=== PATIENT | male | born 1955 | race Caucasian/White ===

== ENCOUNTER 2023-08-06 10:42 | Outpatient (OUT) | payer OTHER, SELFPAY ==
--- NOTE | 2023-08-06 11:08 | PM.CN ---
Consult Note: HPI Data of Consult Patient: known to practice within the last 3 years Requesting Physician: Bernie Bal NP Primary Care Provider: Lauryn Ahmadi Consult Narrative Reason for consult: f/u Narrative: Roney Carlson a pleasant 68 year old male presents for evaluation of chronic left low back and left buttock pain. Today rating pain 1/10 as a dull and occasionally sharp pain, recently went to the chiropractor with great pain relief. Pain at its worst is 7-8/10 and is impeding functional ability as well as affecting his mood. 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 Patient would like to discuss repeating L 3,4,5 RFA as it has provided greater than 50% pain relief for 18 months and is now starting to interfere more. cc:: CC: Bernie Bal NP Review of Systems ROS Status of ROS 10 or more systems reviewed and unremarkable except as noted in history and below Musculoskeletal Reports: back pain Exam Constitutional Documenting provider has reviewed patient's vital signs: yes Common normals: no apparent distress, oriented x3, healthy appearing, alert and well nourished General appearance: cooperative HENMS Common normals: normocephalic, hearing grossly normal bilaterally and moist oral mucous membranes Head and scalp: normocephalic Eye Common normals: PERRL Pupil: PERRL Neck & C-Spine Common normals: full ROM General: normal visual inspection Chest Common normals: inspection of chest normal Respiratory Common normals: normal respiratory effort, no retractions and no use of accessory muscles Back & Pelvis Lumbar spine/lower back: ROM limited and pain with ROM Other: positive facet loading axial low back pain without radiculopathy facet pain over left L3,4,5 Extremity Common normals: normal to inspection and full ROM Neuro Common normals: oriented x3, CN's II-XII intact bilaterally, moves all extremities, no focal motor deficits, no sensory deficits noted and deep tendon reflexes 2+ bilaterally Sensorium/orientation: alert Gait (neuro): normal gait Motor exam: strength 5/5 throughout and no movement abnormalities noted Psych Common normals: mental status grossly normal, thought process normal, cooperative, affect normal, speech normal and activity/motor behavior normal Speech: normal speech Thought process: normal thought process Results Additional Findings Additional findings: I have checked an OARRS report on this patient today and there are no aberrancies noted in the prescribing history.?? A drug screen was completed and reviewed within the last year, and if there has not been a drug screen completed we ordered one today to monitor higher risk, state monitored pain medication use. As part of providing excellent, safe, comprehensive care, the following was completed at our patient's visit: 1. A medication reconciliation and review to ensure accurate knowledge of current/active medications, including asking our patients to inform us about any [id number] medications or herbal remedies/nutritional supplements/alternative remedies. 2. A review to specifically ensure our patients have had annual screening for: elevated body mass index (BMI), tobacco use, screening for depression, and screening for unhealthy alcohol use. When screening is concerning, patients are provided with education and the specific recommendation to discuss the concerning health issue and treatment options with their primary care provider. Assessment and Plan Assessment and Plan (1) Lumbar disc displacement without myelopathy: (2) Lumbago: Plan patient has had 18 months of greater than 50% pain relief and functional improvement from previous left L3,4,5 RFA but now feels it is wearing off and causing more pain and functional difficulty proceed with 1 MBB at left L3,4,5 under fluoroscopy working towards thermal RFA continue current medications continue chiropractice care [employer] reveiwed and signed today f/u after injection
== END 2023-08-06 10:43 | disposition home or self-care (01) ==
PROVIDERS: PCP Nurse Practitioner Family; Visit Provider Nurse Practitioner
DX: M51.26 Other intervertebral disc displacement, lumbar region (principal)
CPT/HCPCS: G0463

== ENCOUNTER 2023-10-30 09:32 | Outpatient (OUT) | payer OTHER, SELFPAY ==
--- NOTE | 2023-10-30 09:41 | MR_ITS ---
[address] [address] Patient Name: ROBSON PAREKH MRN: [id number] date: 1955 Sex: M Assigned Patient Location: MRI Current Patient Location: MRI Accession/Order Number: [id number] Exam Date: 10/30/2023 09:45 Report Date: 10/30/2023 14:41 At the request of: WU AGUIRRE Procedure: MR lumbar spine wo con MRI LUMBAR SPINE WITHOUT CONTRAST, 10/30/2023. HISTORY: Chronic low back pain. Radiculopathy. COMPARISON: MRI lumbar spine without contrast, 11/11/2019. TECHNIQUE: Multiplanar, multisequence MRI imaging of the lumbar spine without contrast. FINDINGS: There are postoperative changes from previous interbody fusion at L4-L5 and L5-S1. There is transitional anatomy with a small rudimentary disc space at the S1-S2 level. Alignment appears normal. No subluxation. There are no acute compression fractures. L5-S1, postoperative changes from prior right hemilaminectomy and interbody fusion stable. There is moderate facet arthropathy on the left. Facet hypertrophy, ligamentous thickening and endplate osteophyte complex result in moderate spinal canal stenosis with severe left lateral recess stenosis. Disc space narrowing and endplate osteophytes result in severe bilateral foraminal narrowing. This level is stable. L4-L5, postoperative changes from prior interbody fusion are stable. There is mild central spinal canal stenosis. Disc space narrowing and osteophytes as well as facet hypertrophy result in moderate bilateral neural foraminal narrowing. This level is stable. L3-L4, moderate degenerative disc disease. Diffuse disc bulge. There is facet hypertrophy and ligamentum flavum thickening. Severe spinal canal stenosis with severe effacement of the thecal sac stable. Moderate foraminal narrowing bilaterally. This level appears stable. L2-L3, severe degenerative disc disease. Moderate facet arthropathy with ligamentum flavum thickening. Diffuse endplate osteophyte complex. Severe spinal stenosis with severe effacement of the thecal sac is stable. Moderate to severe bilateral foraminal narrowing is stable. L1-L2, moderate degenerative disc disease. Diffuse disc bulge. Moderate central spinal canal stenosis. Moderate bilateral foraminal narrowing. T12-L1, facet hypertrophy results in mild spinal stenosis. No foraminal narrowing. This level is stable. T11-T12, disc bulge, facet hypertrophy and ligamentum flavum thickening results in severe spinal canal stenosis with compression of the cord. This is only seen on the sagittal images. No paraspinal masses. MR/MR lumbar spine wo con IMPRESSION: 1. Stable MRI of the lumbar spine. 2. There are postoperative changes from previous interbody fusion at L4-L5 and L5-S1 which are stable. 3. Degenerative changes result in severe spinal stenosis at L2-L3 and L3-L4 with severe effacement of the thecal sac. This is stable. There is moderate spinal canal stenosis at L1-L2 which is stable. 4. On the sagittal images, at T11-T12, disc bulge, facet hypertrophy and ligamentum flavum thickening results in severe spinal stenosis with compression of the lower spinal cord. 5. Foraminal narrowing at multiple levels as described above appears stable. Electronically authenticated by: BALTAZAR HORNER Date: 10/30/2023 14:41
== END 2023-10-30 09:33 | disposition home or self-care (01) ==
LOC: MRI 09:34
PROVIDERS: PCP Nurse Practitioner Family; Visit Provider Nurse Practitioner Family
DX: M51.26 Other intervertebral disc displacement, lumbar region (principal)
CPT/HCPCS: 72148

== ENCOUNTER 2024-04-18 07:39 | Day surgery (SDC) | payer OTHER, SELFPAY ==
[2024-04-18 07:43] VITALS: BP 128/77; PULSE 67; TEMP 36.4; O2SAT 93
[2024-04-18 08:33] VITALS: BP 146/68; PULSE 88; O2SAT 97
[2024-04-18] MEDS: LIDOCAINE HCL 2% PF 100 MG/5 ML VIAL INJ (08:34)
[2024-04-18] MEDS: BUPIVACAINE HCL 0.25% PF 25 MG/10 ML VIAL INJ (08:35)
[2024-04-18 08:36] VITALS: BP 135/75; PULSE 82; O2SAT 97
--- NOTE | 2024-04-18 08:36 | W.PM.PROCNOT ---
Date of procedure: 04/18/24 Post-op diagnosis: same as pre-op Procedure: Procedure: Left L3, 4, 5 medial branch block Medications: Bupivacaine 0.25% 3cc The patient was seen and examined in the preoperative holding area.? An informed consent was obtained and placed on the chart.? The patient was brought to the medical procedure unit and placed in the prone position.? A timeout was completed verifying correct patient, procedure site, positioning, plan, and special equipment.? Using aseptic technique, the needle was placed at left L3. Under direct fluoroscopic visualization a Quincke-tipped spinal needle was advanced to the junction of the superior articulating process with the transverse process at the designated medial branch segment.? Preceded by negative aspiration, the above-mentioned injectate was placed in 1 mL aliquots.? The procedure was completed at left L4, 5.? The needle was removed and insertion site was covered.? The patient was taken to the postprocedural recovery area and monitored for an appropriate length of time before found suitable for discharge in the company of a responsible adult. Anesthesia: Local Surgeon: Damion Bazan Pathology: none sent Condition: stable Disposition: no change
== END 2024-04-18 08:39 | disposition home or self-care (01) ==
PROVIDERS: PCP Nurse Practitioner Family; Visit Provider Anesthesiology
DX: M54.50 Low back pain, unspecified (principal); M51.26 Other intervertebral disc displacement, lumbar region
CPT/HCPCS: 64493; 64494

== ENCOUNTER 2024-04-20 10:16 | Outpatient (OUT) | payer OTHER, SELFPAY ==
--- NOTE | 2024-04-20 10:26 | PM.CN ---
Consult Note: HPI Data of Consult Patient: known to practice within the last 3 years Requesting Physician: Bernie Bal NP Primary Care Provider: Lauryn Ahmadi Consult Narrative Reason for consult: f/u Narrative: Roney Carlson a pleasant 68 year old male presents for evaluation of chronic left low back and left buttock pain. Today rating pain 1/10 as a dull and occasionally sharp pain, recently went to the chiropractor with great pain relief. Pain at its worst is 7-8/10 and is impeding functional ability as well as affecting his mood. 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 Previous left L 3,4,5 RFA as provided greater than 50% pain relief for 18 months. Recently underwent left L3,4,5 MBB with >90% improvement in pain and functional ability immediately after and hours following. cc:: CC: Bernie Bal NP Review of Systems ROS Status of ROS 10 or more systems reviewed and unremarkable except as noted in history and below Musculoskeletal Reports: back pain Meds Home Medications and Allergies Home Medications ?Medication ?Instructions ?Recorded ?Confirmed ?Type buprenorphine 8 mg-naloxone 2 mg 2 tab sublingual DAILY 08/06/23 04/18/24 History sublingual tablet levothyroxine 125 mcg tablet 125 mcg PO DAILY 08/06/23 04/18/24 History (Euthyrox) oxybutynin chloride 5 mg tablet mg 04/18/24 History Allergies Allergy/AdvReac Type Severity Reaction Status Date / Time No Known Drug Allergies Allergy Verified 04/18/24 07:50 Exam Constitutional Documenting provider has reviewed patient's vital signs: yes Common normals: no apparent distress, oriented x3, healthy appearing, alert and well nourished General appearance: cooperative [facility] Common normals: normocephalic, hearing grossly normal bilaterally and moist oral mucous membranes Head and scalp: normocephalic Eye Common normals: PERRL Pupil: PERRL Neck & C-Spine Common normals: full ROM General: normal visual inspection Chest Common normals: inspection of chest normal Respiratory Common normals: normal respiratory effort, no retractions and no use of accessory muscles Back & Pelvis Lumbar spine/lower back: ROM limited and pain with ROM Other: positive facet loading axial low back pain without radiculopathy facet pain over left L3,4,5 Extremity Common normals: normal to inspection and full ROM Neuro Common normals: oriented x3, CN's II-XII intact bilaterally, moves all extremities, no focal motor deficits, no sensory deficits noted and deep tendon reflexes 2+ bilaterally Sensorium/orientation: alert Gait (neuro): normal gait Motor exam: strength 5/5 throughout and no movement abnormalities noted Psych Common normals: mental status grossly normal, thought process normal, cooperative, affect normal, speech normal and activity/motor behavior normal Speech: normal speech Thought process: normal thought process Results Additional Findings Additional findings: If on a controlled substance or opioids, I have checked an OARRS report on this patient and there are no aberrancies noted in the prescribing history.??If on a controlled substance or opioid a drug screen was completed and reviewed within the last year, and if there has not been a drug screen completed we ordered one today to monitor higher risk, state monitored pain medication use. As part of providing excellent, safe, comprehensive care, the following was completed at our patient's visit: 1. A medication reconciliation and review to ensure accurate knowledge of current/active medications, including asking our patients to inform us about any [id number] medications or herbal remedies/nutritional supplements/alternative remedies. 2. A review to specifically ensure our patients have had annual screening for screening for depression, screening for tobacco use, and screening for unhealthy alcohol use. For concerning screenings had a discussion with the patient, provided patient education, and recommended follow-up with primary care provider when appropriate. If patient noted with a risk of falling, they received education on strength, gait, and balance training to prevent future risk of falling. Assessment and Plan Assessment and Plan (1) Lumbar disc displacement without myelopathy: (2) Lumbago: Plan Left L3,4,5 facet thermal RFA under fluoroscopy with IV sedation, previous left l3,4,5 facet RFA provided >50% improvement in pain and functional ability >12 months. continue current medications continue chiropractice care f/u 1 month after RFA
== END 2024-04-20 10:17 | disposition home or self-care (01) ==
LOC: PM 10:16
PROVIDERS: PCP Nurse Practitioner Family; Visit Provider Nurse Practitioner
DX: M51.26 Other intervertebral disc displacement, lumbar region (principal)
CPT/HCPCS: G0463

== ENCOUNTER 2024-08-29 07:02 | Day surgery (SDC) | payer OTHER, SELFPAY ==
--- OUTSIDE RECORDS SUMMARY | 2024-08-29 07:07 | XMS_ITS | CCD ---
Author Organization [facility] Care Team Providers Care State Comptroller Name Role Phone Mecca Saucedo Primary Care Provider Mecca SAUCEDO Primary Care Physician Mecca Saucedo MD Primary Care Provider DR DUNG CHAVIS Attending Unavailable TIMOTHY, WU Primary Care Unavailable ASHLEY LION Consulting Unavailable PARTHA, DR DUNG Hull Admitting Unavailable TIMOTHY, WU Primary Care Unavailable PARTHA, DR DUNG Hull Attending Unavailable PARTHA, DR DUNG Hull Consulting Unavailable PARTHA, DR DUNG Hull Admitting Unavailable REGGIE PENNINGTON Consulting Unavailable PARTHA, DR GRUBER Consulting Unavailable TIMOTHY, WU Primary Care Unavailable PARTHA, DR DUNG Hull Attending Unavailable PARTHA, DR DUNG Hull Consulting Unavailable PARTHA, DR DUNG Hull Admitting Unavailable TIMOTHY, WU Primary Care Unavailable LIONASHLEY BANKS Consulting Unavailable PARTHA, DR DUNG Hull Attending Unavailable PARTHA, DR DUNG Hull Admitting Unavailable MD Rasheed Roberson Attending Provider MD Edouard Saucedo Primary Care Provider [phone] DO Joshua Eng II Referring Provider Viola Figueredo Unavailable Unavailable MD Rasheed Roberson Attending Provider MD Edouard Saucedo Primary Care Provider [phone] DO Joshua Eng II Referring Provider [phone] Mecca Saucedo MD Primary Care Provider [phone] MECCA SAUCEDO Referring Unavailable BROWN, CHRISTOPHER R Primary Care Unavailable BROWN, CHRISTOPHER R Referring Unavailable BROWN, CHRISTOPHER R Primary Care Unavailable BROWN, CHRISTOPHER R Referring Unavailable BROWN, CHRISTOPHER R Primary Care Unavailable CHRISTA AMEZQUITA Referring Unavailable BROWN, CHRISTOPHER R Primary Care Unavailable BROWN, CHRISTOPHER R Referring Unavailable BROWN, CHRISTOPHER R Primary Care Unavailable BROWN, CHRISTOPHER R Referring Unavailable BROWN, CHRISTOPHER R Primary Care Unavailable BROWN, CHRISTOPHER R Referring Unavailable BROWN, CHRISTOPHER R Primary Care Unavailable BROWN, CHRISTOPHER R Referring Unavailable BROWN, CHRISTOPHER R Primary Care Unavailable BROWN, CHRISTOPHER R Referring Unavailable BROWN, CHRISTOPHER R Primary Care Unavailable CHRISTA AMEZQUITA Referring Unavailable BROWN, CHRISTOPHER R Primary Care Unavailable BROWN, CHRISTOPHER R Referring Unavailable BROWN, CHRISTOPHER R Primary Care Unavailable BROWN, CHRISTOPHER R Referring Unavailable BROWN, CHRISTOPHER R Primary Care Unavailable BROWN, CHRISTOPHER R Referring Unavailable BROWN, CHRISTOPHER R Primary Care Unavailable SHERYL, Christopher Primary Care Physician [phone] Edouard Saucedo Primary Care Unavailable Rasheed Roberson Admitting Unavailable Rasheed Roberson Attending Unavailable Adamowicz II, Joshua J Referring Unavaila ble JESSE HERNANDEZ Attending Unavailable BALDEMAR SEVILLA Referring Unavailable JESSE HERNANDEZ Referring Unavailable Damion Bazan MD Attending Unavailable Mecca SAUCEDO Attending Unavailable Mecca SAUCEDO Attending Unavailable BROWN, Christopher Referring Unavailable WANDA PEÑA Attending Unavailable WANDA PEÑA Attending Unavailable Adamowicz, Joshua Referring Unavailable Adamowicz, DO Joshua Admitting Unavailabl e Adamowicz, Joshua Attending Unavailable Adamowicz, Joshua Referring Unavailable Adamowicz, DO Joshua Admitting Unavailabl e Adamowicz, Joshua Attending Unavailable Adamowicz, Joshua Attending Unavailable Adamowicz, Joshua Admitting Unavailable Tommy SAUCEDOer Attending Unavailable BROWN, Christopher Admitting Unavailable Dina Little Attending Unavailable Adamowicz, Joshua Attending Unavailable Adamowicz, Joshua Admitting Unavailable Adamowicz, Joshua Attending Unavailable Adamowicz, Joshua Admitting Unavailable BROWN, Christopher Admitting Unavailable BROWN, Christopher Attending Unavailable Adamowicz, Joshua Attending Unavailable Adamowicz, Joshua Admitting Unavailable Lue, Dina M. Referring Unavailable Lue, Dina M. Attending Unavailable Lue, Dina M. Admitting Unavailable Adamowicz, Joshua Attending Unavailable Adamowicz, Joshua Attending Unavailable Adamowicz, Joshua Referring Unavailable Adamowicz, Joshua Attending Unavailable Lue, Dina M. Attending Unavailable Lue, Dina M. Admitting Unavailable Lue, Dina M. Referring Unavailable Lue, Dina M. Attending Unavailable Lue, Dina M. Admitting Unavailable Lue, Dina M. Referring Unavailable BROWN, Christopher Admitting Unavailable BROWN, Christopher Referring Unavailable BROWN, Christopher Attending Unavailable BROWN, Christopher Attending Unavailable BROWN, Christopher Attending Unavailable BROWN, Christopher Attending Unavailable Adamowicz, Joshua Attending Unavailable Adamowicz, Joshua Referring Unavailable Adamowicz, Joshua Admitting Unavailable Adamowicz, Joshua Attending Unavailable Adamowicz, Joshua Admitting Unavailable Allergies Allergy Classification Reported Allergen(s) Allergy Type Date of Onset Reaction(s) Facility (2 sources) No Known Medication Allergies; Translations: [No Known Medication Allergies] Propensity to adverse reactions (disorder) [facility] Medications Current Medications Medication Drug Class(es) Dates Sig (Normalized) Sig (Original) [id number] actuat albuterol 0.09 mg/actuat metered dose inhaler (3 sources) beta2-Adrenergic Agonist Start: 09-23-2022 take 1 puff(s) by inhalation once daily Albuterol Sulfate (Ventolin Hfa) 90 mcg/actuation Hfa Aerosol Inhaler Active 2 PUFF INHALATION Daily September 23, 2022 1:00am ALPRAZolam 0.5 mg oral tablet (20 sources) Benzodiazepine Start: 06-18-2022 take 1 tablet by mouth three times daily as needed for anxiety Xanax 0.5 mg Tab 0.5 mg = 1 tab(s), Oral, TID, PRN for anxiety, # 30 tab(s), Refills(s) 0, Pharmacy: [facility], 177, cm, 06/03/23 13:43:00 EDT, Height/Length Dosing, 76.3, kg, 06/03/23 13:43:00 EDT, Weight Dosing Start Date: 06/03/23 Status: Ordered apixaban 5 mg oral tablet (18 sources) Factor Xa Inhibitor Start: 02-09-2023 take 1 tablet by mouth twice daily Eliquis 5 mg oral tablet 5 mg = 1 tab(s), Oral, BID, # 60 tab(s), Refills(s) 11, Pharmacy: [facility], 177.7, cm, 02/09/23 10:32:00 EDT, Height/Length Dosing, 79.4, kg, 02/09/23 10:32:00 EDT, Weight Dosing Start Date: 02/09/23 Status: Ordered Start: 01-31-2023 Eliquis Starte r Pack 5 mg oral tablet See Instructions, as directed on package labeling for PE, # 1 EA, Refills(s) 0, Pharmacy: [facility], 177.7, cm, 01/30/23 11:27:00 EDT, Height/Length Dosing, 79.5, kg, 01/30/23 11:27:00 EDT, Weight Dosing Start Date: 01/31/23 Status: Ordered azithromycin 250 mg oral tablet (3 sources) Macrolide Antimicrobial Start: 01-21-2023 End: 01-26-2023 azithromycin 250 mg Tab = 1 packet(s), Oral, As Directed, as directed on package labeling, X 5 day(s), # 6 tab(s), Refills(s) 0, Pharmacy: [facility], 177.7, cm, 01/21/23 11:00:00 EDT, Height/Length Dosing, 81.8, kg, 01/21/23 11:00:00 EDT, Weight Dosing Start Date: 01/21/23 Stop Date: 01/26/23 Status: Ordered Start: 11-20-2022 End: 11-25-2022 Zithromax 250 mg Tab = 1 pac ket(s), Oral, As Directed, as directed on package labeling, X 5 day(s), # 6 tab(s), Refills(s) 0, Pharmacy: [facility], 177.7, cm, 10/09/22 10:39:00 EST, Height/Length Dosing, 82.4, kg, 11/20/22 9:43:00 EST, Weight Dosing Start Date: 11/20/22 Stop Date: 11/25/22 Status: Ordered benzonatate 200 mg oral capsule (2 sources) Non-narcotic Antitussive Start: 02-18-2023 End: 03-10-2023 benzonatate 200 mg oral capsule 200 mg = 1 cap(s), Oral, TID, May use up to 3 times daily for cough, X 10 day(s), # 30 cap(s), Refills(s) 1, Pharmacy: [facility], 177.7, cm, 02/09/23 10:32:00 EDT, Height/Length Dosing, 79.4, kg, 02/09/23 10:32:00 EDT, Weight Dosing Start Date: 02/18/23 Stop Date: 03/10/23 Status: Ordered brompheniramine maleate 0.4 mg/ml / dextromethorphan hydrobromide 2 mg/ml / pseudoephedrine hydrochloride 6 mg/ml oral solution (1 source) alpha-Adrenergic Agonist, Uncompetitive S-[id number]-asparta te Receptor Antagonist, Sigma-1 Agonist Start: 01-21-2023 take 5 mL by mouth four times daily for cough and congestion brompheniramine/d extromethorphan/P SE 2 mg-10 mg-30 mg/5 mL oral syrup 5 mL, Oral, QID for cough and congestion, 200 mL, Refill(s) 0, [facility], 177.7, cm, 01/21/23 11:00:00 EDT, Height/Length Dosing, 81.8, kg, 01/21/23 11:00:00 EDT, Weight Dosing Start Date: 01/21/23 Status: Ordered Suboxone (20 sources) Partial Opioid Agonist, Opioid Antagonist Start: 04-09-2023 Suboxone 8mg/2mg, SubLingual, BID, Refill(s) 0 Start Date: 04/09/23 Status: Ordered Start: 07-23-2021 Buprenorphine- Naloxone (Suboxone) 8-2 mg Film Active 1 FILM SUBLINGUAL Twice daily September 23, 2022 1:00am buprenorphine-na loxone (SUBOXONE) 8-2 MG SUBL SL tablet Place 2 tablets under the tongue daily 0 Active calcium chloride 0.0014 meq/ml / potassium chloride 0.004 meq/ml / sodium chloride 0.103 meq/ml / sodium lactate 0.028 meq/ml injectable solution (1 source) Start: 09-05-2020 lactated ringe rs infusion diclofenac sodium 0.01 mg/mg topical gel (5 sources) Nonsteroidal Anti-inflammatory Drug Start: 07-23-2021 Voltaren Gel 1% G el 1 morgan, Topical, QID for pain, 100 gram, Refill(s) 0 Start Date: 07/23/21 Status: Ordered Start: 07-23-2021 Voltaren Gel 1 % Gel 1 morgan, Topical, QID for pain, 100 gram, Refill(s) 0 Start Date: 07/23/21 Status: Ordered DULoxetine 30 mg delayed release oral capsule (16 sources) Serotonin and Norepinephrine Reuptake Inhibitor Start: 06-03-2022 take 1 capsule by mouth once daily, then take 2 capsules by mouth once daily DULoxetine 30 mg Cap-EC See Instructions, 1 PO daily x 4 days then increase to 2 PO daily, # 60 cap(s), Refills(s) 0, Pharmacy: [facility], 177.7, cm, 05/29/22 14:43:00 EDT, Height/Length Dosing, 74.5, kg, 05/29/22 14:43:00 EDT, Weight Dosing Start Date: 06/03/22 Status: Ordered DULoxetine 30 mg Cap-EC (2 sources) Start: 06-03-2022 take 1 capsule by mouth once daily, then take 2 capsules by mouth once daily DULoxetine 30 mg Cap-EC See Instructions, 1 PO daily x 4 days then increase to 2 PO daily, # 60 cap(s), Refills(s) 0, Pharmacy: [facility], 177.7, cm, 05/29/22 14:43:00 EDT, Height/Length Dosing, 74.5, kg, 05/29/22 14:43:00 EDT, Weight Dosing Start Date: 06/03/22 Status: Ordered Fluocinonide (20 sources) Corticosteroid Start: 03-13-2023 fluocinonide Top 0.05% Crm 15 gram 1 morgan, Topical, BID Itching, 30 gm, Refill(s) 0, [facility], 177.7, cm, 02/09/23 10:32:00 EDT, Height/Length Dosing, 79.4, kg, 02/09/23 10:32:00 EDT, Weight Dosing Start Date: 03/13/23 Status: Ordered Start: 09-23-2022 Fluocinonide A ctive 1 APPLIC TOPICAL Daily September 23, 2022 1:00am Start: 07-30-2022 fluocinonide T op 0.05% Crm 15 gram 1 morgan, Topical, BID, 60 gram, Refill(s) 1, [facility], 177.7, cm, 07/30/22 9:25:00 EDT, Height/Length Dosing, 75.8, kg, 07/30/22 9:25:00 EDT, Weight Dosing Start Date: 07/30/22 Status: Ordered folic acid 1 mg oral tablet (20 sources) Start: 05-29-2022 take 1 mg by mouth once daily Folic Acid Active 1 MG PO Daily September 23, 2022 1:00am ibuprofen 200 mg oral tablet (20 sources) Nonsteroidal Anti-inflammatory Drug take 1 tablet by mouth every six hours as needed ibuprofen (ADVIL;MOTRIN) 200 MG tablet Take 200 mg by mouth every 6 hours as needed. 0 Active ipratropium bromide 0.021 mg/actuat metered dose nasal spray (18 sources) Anticholinergic Start: 09-11-2022 ipratropium Nasal 0.03% Ber[place] 2 spray(s), Nasal, TID runny nose, 30 mL, Refill(s) 1, [facility], 177.7, cm, 09/11/22 9:08:00 EDT, Height/Length Dosing, 80.4, kg, 09/11/22 10:20:00 EDT, Weight Dosing Start Date: 09/11/22 Status: Ordered levoFLOXacin 750 mg oral tablet (3 sources) Quinolone Antimicrobial Start: 04-09-2023 End: 04-19-2023 take 1 tablet by mouth every twenty-four hours Levaquin 750 mg Tab 750 mg = 1 tab(s), Oral, q24hr, X 10 day(s), # 10 tab(s), Refills(s) 0, Pharmacy: [facility], 78.2, cm, 04/09/23 14:07:00 EDT, Height/Length Dosing, 79.4, kg, 02/09/23 10:32:00 EDT, Weight Dosing Start Date: 04/09/23 Stop Date: 04/19/23 Status: Ordered levothyroxine sodium 0.15 mg oral tablet (20 sources) l-Thyroxine Start: 01-26-2024 take 1 tablet by mouth once daily levothyroxine 150 mcg (0.15 mg) Tab 150 mcg = 1 tab(s), Oral, Daily, # 30 tab(s), Refills(s) 6, Pharmacy: [facility], 172, cm, 01/21/24 10:56:00 EDT, Height/Length Dosing, 78.4, kg, 01/21/24 10:56:00 EDT, Weight Dosing Start Date: 01/26/24 Status: Ordered Start: 05-27-2023 take 1 tablet by jessi once daily levothyroxine 125 mcg (0.125 mg) Tab 125 mcg = 1 tab(s), Oral, Daily, # 90 tab(s), Refills(s) 3, Pharmacy: [facility], 177, cm, 06/03/23 13:43:00 EDT, Height/Length Dosing, 76.3, kg, 06/03/23 13:43:00 EDT, Weight Dosing Start Date: 06/04/23 Status: Ordered Start: 02-08-2023 take 1 tablet by jessi th once daily levothyroxine 125 mcg (0.125 mg) Tab 125 mcg = 1 tab(s), Oral, Daily, # 30 tab(s), Refills(s) 3, called to pharmacy (Rx) Start Date: 02/08/23 Status: Ordered Start: 12-02-2022 take 1 tablet by jessi th once daily levothyroxine 100 mcg (0.1 mg) Tab 100 mcg = 1 tab(s), Oral, Daily, # 90 tab(s), Refills(s) 3 Start Date: 12/02/22 Status: Ordered Start: 11-12-2022 take 1 tablet by jessi th once daily levothyroxine 75 mcg (0.075 mg) Tab 75 mcg = 1 tab(s), Oral, Daily, # 30 tab(s), Refills(s) 1, Pharmacy: [facility], 177.7, cm, 10/09/22 10:39:00 EST, Height/Length Dosing, 82.1, kg, 10/09/22 9:37:00 EST, Weight Dosing Start Date: 11/12/22 Status: Ordered Start: 09-23-2022 take 75 ug by mouth once daily Levothyroxine Active 75 MCG PO Daily September 23, 2022 1:00am Start: 09-11-2022 take 1 tablet by jessi once daily levothyroxine 75 mcg (0.075 mg) Tab 75 mcg = 1 tab(s), Oral, Daily, # 30 tab(s), Refills(s) 1, Pharmacy: [facility], 177.7, cm, 09/11/22 9:08:00 EDT, Height/Length Dosing, 80.4, kg, 09/11/22 10:20:00 EDT, Weight Dosing Start Date: 09/11/22 Status: Ordered Start: 04-24-2022 take 1 tablet by jessi once daily levothyroxine 50 mcg (0.05 mg) Tab 50 microgram = 1 tab(s), Oral, Daily, on empty stomach, # 90 tab(s), Refills(s) 1, Pharmacy: [facility], 177.7, cm, 04/24/22 11:24:00 EDT, Height/Length Dosing, 76, kg, 04/24/22 11:24:00 EDT, Weight Dosing Start Date: 04/24/22 Status: Ordered Start: 10-21-2021 take 1 tablet by jessi once daily levothyroxine 50 mcg (0.05 mg) Tab 50 microgram = 1 tab(s), Oral, Daily, on empty stomach, # 90 tab(s), Refills(s) 1, Pharmacy: [facility], 177.7, cm, 10/21/21 10:24:00 EST, Height/Length Dosing, 80.7, kg, 10/21/21 10:24:00 EST, Weight Dosing Start Date: 10/21/21 Status: Ordered lidocaine 0.05 mg/mg medicated patch (16 sources) Antiarrhythmic, Amide Local Anesthetic Start: 06-03-2022 lidocaine Top 5% film 1 patch(es), Topical, Daily, 30 film, Refill(s) 2, change patch every 24 hours, [facility], 177.7, cm, 05/29/22 14:43:00 EDT, Height/Length Dosing, 74.5, kg, 05/29/22 14:43:00 EDT, Weight Dosing Start Date: 06/03/22 Status: Ordered lidocaine Top 5% film (2 sources) Start: 06-03-2022 lidocaine Top 5% film 1 patch(es), Topical, Daily, 30 film, Refill(s) 2, change patch every 24 hours, [facility], 177.7, cm, 05/29/22 14:43:00 EDT, Height/Length Dosing, 74.5, kg, 05/29/22 14:43:00 EDT, Weight Dosing Start Date: 06/03/22 Status: Ordered lisinopril 5 mg oral tablet (20 sources) Angiotensin Converting Enzyme Inhibitor Start: 10-21-2021 take 5 mg by mouth once daily Lisinopril Active 5 MG PO Daily September 23, 2022 1:00am methylphenidate hydrochloride 5 mg oral tablet (20 sources) Central Nervous System Stimulant Start: 02-19-2023 take 1 tablet by mouth twice daily, then take 2 tablets by mouth twice daily, then take 1 tablet by mouth every six hours at bedtime methylphenidate 5 mg oral tablet See Instructions, 1 PO BID, if not effective OK to increase to 2 PO BID, last dose at least 6 hr prior to bedtime, # 60 tab(s), Refills(s) 0, Pharmacy: [facility], 177.7, cm, 02/09/23 10:32:00 EDT, Height/Length Dosing, 79.4, kg, 02/09... Start Date: 02/19/23 Status: Ordered Start: 11-24-2022 take 1 tablet by jessi twice daily as needed methylphenidate 5 mg oral tablet See Instructions, 1 to 2 PO BID prn cancer treatment related fatigue, # 120 tab(s), Refills(s) 0, Pharmacy: [facility], 177.7, cm, 10/09/22 10:39:00 EST, Height/Length Dosing, 82.4, kg, 11/20/22 9:43:00 EST, Weight Dosing Start Date: 11/24/22 Status: Ordered Start: 10-28-2022 take 1 tablet by jessi th once daily in the morning methylphenidate 5 mg oral tablet See Instructions, 1 PO qam and q mid-day, # 60 tab(s), Refills(s) 0, Pharmacy: [facility], 177.7, cm, 10/09/22 10:39:00 EST, Height/Length Dosing, 82.1, kg, 10/09/22 9:37:00 EST, Weight Dosing Start Date: 10/28/22 Status: Ordered Start: 09-25-2022 take 1 tablet by jessi th once daily in the morning methylphenidate 5 mg oral tablet See Instructions, 1 PO qam and q mid-day, # 60 tab(s), Refills(s) 0, Pharmacy: [facility], 177.7, cm, 09/11/22 9:08:00 EDT, Height/Length Dosing, 80.4, kg, 09/11/22 10:20:00 EDT, Weight Dosing Start Date: 09/25/22 Status: Ordered Start: 09-11-2022 take 0.5 tablet by m outh once daily in the morning, then take 1 tablet by mouth once daily in the morning methylphenidate 5 mg oral tablet See Instructions, 1/2 PO qam and mid-day x 2 days then increase to 1 PO qam and mid-day, # 30 tab(s), Refills(s) 0, Pharmacy: [facility], 177.7, cm, 09/11/22 9:08:00 EDT, Height/Length Dosing, 80.4, kg, 09/11/22 10:20:00 EDT, Weight Do... Start Date: 09/11/22 Status: Ordered methylPREDNISolone 4 mg tab dosepak (7 sources) Start: 12-10-2022 take 1 tablet by mouth once methylPREDNISolone 4 mg tab dosepak = 1 packet(s), Oral, Once, as directed on package labeling, X 6 day(s), # 21 tab(s), Refills(s) 0 Start Date: 12/10/22 Status: Ordered 24 hr mirabegron 50 mg extended release oral tablet (10 sources) beta3-Adrene rgic Agonist Start: 12-07-2023 take 1 tablet by mouth once daily Myrbetriq 50 mg oral tablet, extended release 50 mg = 1 tab(s), Oral, Daily, # 30 tab(s), Refills(s) 11 Start Date: 12/07/23 Status: Ordered Start: 11-30-2023 take 1 tablet by jessi th once daily Myrbetriq 50 mg oral tablet, extended release 50 mg = 1 tab(s), Oral, Daily, # 30 tab(s), Refills(s) 11, Pharmacy: [facility], 177.7, cm, 11/30/23 14:32:00 EST, Height/Length Dosing, 76.5, kg, 11/30/23 14:32:00 EST, Weight Dosing Start Date: 11/30/23 Status: Ordered Start: 06-01-2023 take 1 tablet by jessi th once daily Myrbetriq 25 mg oral tablet, extended release 25 mg = 1 tab(s), Oral, Daily, # 14 tab(s), Refills(s) 0, samples given to patient (Rx) Start Date: 06/01/23 Status: Ordered Start: 06-01-2023 take 1 tablet by jessi th once daily Myrbetriq 50 mg oral tablet, extended release 50 mg = 1 tab(s), Oral, Daily, # 14 tab(s), Refills(s) 0, samples given to patient (Rx) Start Date: 06/01/23 Status: Ordered naproxen 500 mg oral tablet (20 sources) Nonsteroidal Anti-inflammatory Drug Start: 06-26-2022 take 500 mg by mouth twice daily Naproxen Active 500 MG PO Twice daily September 23, 2022 1:00am Start: 05-03-2013 take 1 tablet by jessi th twice daily naproxen (NAPROSYN) 500 MG tablet Take 1 tablet by mouth 2 times daily for 12 doses. 12 tablet 0 05/03/2013 Active OLANZapine 5 mg oral tablet (16 sources) Atypical Antipsychotic Start: 06-26-2022 take 5 mg by mouth at bedtime Olanzapine Active 5 MG PO Bedtime September 23, 2022 1:00am omeprazole 20 mg delayed release oral capsule (20 sources) Proton Pump Inhibitor Start: 06-26-2022 take 20 mg by mouth once daily Omeprazole Active 20 MG PO Daily September 23, 2022 1:00am ondansetron 8 mg oral tablet (20 sources) Serotonin-3 Receptor Antagonist Start: 09-23-2022 take 8 mg by mouth three times daily Ondansetron Hcl Active 8 MG PO Three times daily September 23, 2022 1:00am Start: 05-29-2022 take 1 tablet by jessi th every eight hours as needed for nausea ondansetron 8 mg Tab 8 mg, Oral, q8hr, PRN Nausea, # 30 tab(s), Refills(s) 3, Pharmacy: [facility], 177.7, cm, 09/11/22 9:08:00 EDT, Height/Length Dosing, 80.4, kg, 09/11/22 10:20:00 EDT, Weight Dosing Start Date: 10/08/22 Status: Ordered Start: 05-05-2022 take 1 tablet by jessi th every six hours as needed for nausea ondansetron 4 mg Tab 4 mg = 1 tab(s), Oral, q6hr, PRN Nausea/Vomiting, # 12 tab(s), Refills(s) 2, Pharmacy: [facility], 177.7, cm, 04/24/22 11:24:00 EDT, Height/Length Dosing, 76, kg, 04/24/22 11:24:00 EDT, Weight Dosing Start Date: 05/05/22 Status: Ordered Start: 12-05-2021 take 1 tablet by jessi th every six hours as needed for nausea ondansetron 4 mg Tab 4 mg = 1 tab(s), Oral, q6hr, PRN Nausea/Vomiting, # 12 tab(s), Refills(s) 2, Pharmacy: [facility], 177.7, cm, 10/21/21 10:24:00 EST, Height/Length Dosing, 80.7, kg, 10/21/21 10:24:00 EST, Weight Dosing Start Date: 12/05/21 Status: Ordered oxybutynin chloride 5 mg oral tablet (6 sources) Cholinergic Muscarinic Antagonist Start: 03-11-2024 oxybutynin 5 mg Ta b 5 mg = 1 tab(s), Oral, BID, PRN for urinary discomfort, May use twice daily for overactive bladder symptoms, # 60 tab(s), Refills(s) 5, Pharmacy: [facility], 172, cm, 02/25/24 10:59:00 EDT, Height/Length Dosing, 77.6, kg, 02/25/24 10:59:00 EDT, Weight Dosing Start Date: 03/11/24 Status: Ordered Start: 04-13-2023 oxybutynin 5 m g Tab 5 mg = 1 tab(s), Oral, BID, PRN for urinary discomfort, May use twice daily for overactive bladder symptoms, # 60 tab(s), Refills(s) 2, Pharmacy: [facility], 177.7, cm, 04/13/23 11:14:00 EDT, Height/Length Dosing, 76.4, kg, 04/13/23 11... Start Date: 04/13/23 Status: Ordered oxymetazoline hydrochloride 0.5 mg/ml nasal spray (20 sources) oxymetazoline (A FRIN) 0.05 % nasal spray 2 sprays by Nasal route as needed for Congestion 0 Active predniSONE 20 mg oral tablet (13 sources) Start: 02-25-2024 End: 03-03-2024 take 2 tablets by mouth once daily at mealtime predniSONE 20 mg Tab 40 mg = 2 tab(s), Oral, Daily, with food or milk, X 7 day(s), # 14 tab(s), Refills(s) 0, Pharmacy: [facility], 172, cm, 02/25/24 10:59:00 EDT, Height/Length Dosing, 77.6, kg, 02/25/24 10:59:00 EDT, Weight Dosing Start Date: 02/25/24 Stop Date: 03/03/24 Status: Ordered Start: 12-25-2022 take 2 tablets by mo ohh once daily predniSONE 20 mg Tab 40 mg = 2 tab(s), Oral, Daily, # 14 tab(s), Refills(s) 0, Pharmacy: [facility], 177.7, cm, 12/16/22 13:23:00 EST, Height/Length Dosing, 80.4, kg, 12/25/22 11:22:00 EST, Weight Dosing Start Date: 12/25/22 Status: Ordered Start: 12-25-2022 take 1 tablet by jessi once daily predniSONE 20 mg Tab 20 mg = 1 tab(s), Oral, Daily, # 30 tab(s), Refills(s) 2, Pharmacy: [facility], 177.7, cm, 12/16/22 13:23:00 EST, Height/Length Dosing, 80.4, kg, 12/25/22 11:22:00 EST, Weight Dosing Start Date: 12/25/22 Status: Ordered Start: 12-12-2022 End: 01-02-2023 take 4 tablets by mouth once daily predniSONE 20 mg Tab 80 mg = 4 tab(s), Oral, Daily, X 21 day(s), # 84 tab(s), Refills(s) 0, Pharmacy: [facility], 177.7, cm, 12/10/22 18:37:00 EST, Height/Length Dosing, 81.6, kg, 12/10/22 18:37:00 EST, Weight Dosing Start Date: 12/12/22 Stop Date: 01/01/23 Status: Ordered Start: 02-04-2022 take 2 tablets by mo [facility] once daily at mealtime predniSONE 20 mg Tab 40 mg = 2 tab(s), Oral, Daily, take with food with food or milk, # 14 tab(s), Refills(s) 0, Pharmacy: [facility], 177.7, cm, 02/04/22 14:40:00 EDT, Height/Length Dosing, 79.8, kg, 02/04/22 14:40:00 EDT, Weight Dosing Start Date: 02/04/22 Status: Ordered prochlorperazine 10 mg oral tablet (20 sources) Phenothiazine Start: 09-23-2022 take 10 mg by mouth once daily Prochlorperazine Maleate Active 10 MG PO Daily September 23, 2022 1:00am Start: 05-29-2022 take 1 tablet by jessi every six hours as needed for nausea prochlorperazine 10 mg Tab 10 mg, Oral, q6hr, PRN Nausea, # 30 tab(s), Refills(s) 3, Pharmacy: [facility], 177.7, cm, 09/11/22 9:08:00 EDT, Height/Length Dosing, 80.4, kg, 09/11/22 10:20:00 EDT, Weight Dosing Start Date: 10/08/22 Status: Ordered 3 ml sodium chloride 9 mg/ml injection (3 sources) Start: 09-05-2020 10 mL, Intrave nous, EVERY 12 HOURS SCHEDULED (2 times per day), First dose on Thu09/05/20 at 0900, Post-op Start: 09-05-2020 take 10 mL intravenous route o nce 10 mL, Intravenous, PRN, Line Care, Starting Thu09/05/20 at 0659 After every IV line use Post-op Start: 09-05-2020 sodium chlorid e flush 0.9 % injection 10 mL terbinafine 250 mg oral tablet (2 sources) Allylamine Antifungal Start: 06-07-2024 End: 06-02-2025 take 1 tablet by mouth once daily terbinafine 250 mg Tab 250 mg = 1 tab(s), Oral, Daily, X 90 day(s), # 90 tab(s), Refills(s) 3, Pharmacy: [facility], 172, cm, 06/07/24 11:11:00 EDT, Height/Length Dosing, 77.2, kg, 06/07/24 11:11:00 EDT, Weight Dosing Start Date: 06/07/24 Stop Date: 06/02/25 Status: Ordered 24 hr tolterodine tartrate 4 mg extended release oral capsule (4 sources) Cholinergic Muscarinic Antagonist Start: 12-09-2023 take 1 capsule by mouth once daily tolterodine 4 mg Cap-ER 4 mg = 1 cap(s), Oral, Daily, # 30 cap(s), Refills(s) 5, Pharmacy: [facility], 172, cm, 12/07/23 11:33:00 EST, Height/Length Dosing, 78.2, kg, 12/07/23 11:33:00 EST, Weight Dosing Start Date: 12/09/23 Status: Ordered Ventolin HFA 90 mcg/inh Aerosol (20 sources) Start: 02-04-2022 take 2 puff(s) by inhalation every six hours for wheezing Ventolin HFA 90 mcg/inh Aerosol 2 puff(s), Inhalation, q6hr for wheezing, 8 gram, Refill(s) 1, [facility], 177.7, cm, 02/04/22 14:40:00 EDT, Height/Length Dosing, 79.8, kg, 02/04/22 14:40:00 EDT, Weight Dosing Start Date: 02/04/22 Status: Ordered Completed/Discontinued Medications Medication Drug Class(es) Dates Sig (Normalized) Sig (Original) Magic Mouth wash (20 sources) Start: 02-08-2023 Magic Mouth wash Magic Mouth wash, [id number] mg Nystatin 30 ml suspension Lidocaine 30 ml QS with Benadryl Elixir to 240 mls Directions Swish & Swallow 1 tsp every 4 hrs as needed, 1, 1, Do Not Route, Compound Start Date: 02/08/23 Status: Ordered Problems Active Problems Problem Classification Problem Date Documented Da te Episodic/Chronic Acute and unspecified renal failure (11 sources) Acute renal failure syndrome; Translations: [Other acute kidney failure] Onset: 3 Episodic Administrative/social admission (20 sources) Counseling procedure with explicit context 06-04-2022 Episodic Anxiety disorders (20 sources) Anxiety; Translations: [Anxiety disorder] Onset: 3 12-12-2022 Chronic Asthma (20 sources) Intermittent asthma; Translations: [Mild intermittent asthma] Onset: 3 04-16-2019 Chronic Cancer of bronchus; lung (20 sources) Malignant tumor of lung; Translations: [Malignant neoplasm of unspecified part of right bronchus or lung] Onset: 3 05-26-2022 Chronic Chronic kidney disease (1 source) Chronic kidney disease stage 3; Translations: [Chronic kidney disease, stage 3 unspecified] Onset: 3 Chronic Deficiency and other anemia (20 sources) Anemia of chronic disease 04-22-2019 Chronic Deficiency and other anemia (1 source) Anemia; Translations: [Anemia in other chronic diseases classified elsewhere] Onset: 3 Chronic Diabetes mellitus with complications (20 sources) Polyneuropathy due to type 2 diabetes mellitus; Translations: [Type 2 diabetes mellitus with diabetic polyneuropathy] Onset: 3 04-24-2022 Chronic Diabetes mellitus without complication (1 source) Diabetic on diet only 04-27-2020 Chronic Diabetes mellitus without complication (6 sources) Impaired fasting glycemia 10-21-2020 Episodic Disorders of lipid metabolism (20 sources) Hyperlipidemia; Translations: [Mixed hyperlipidemia] Onset: 3 11-29-2019 Chronic Disorders of teeth and jaw (9 sources) Arthritis of temporomandibular joint; Translations: [Arthritis of unspecified temporomandibular joint] Onset: 4 Episodic E Codes: Adverse effects of medical drugs (20 sources) Adverse reaction to drug; Translations: [Adverse effect of antineoplastic and immunosuppressive drugs, initial encounter] Onset: 2 Episodic Essential hypertension (20 sources) Essential hypertension; Translations: [Essential (primary) hypertension] Onset: 2 Chronic Fever of unknown origin (5 sources) Fever; Translations: [Fever, unspecified] Onset: 3 Episodic Fluid and electrolyte disorders (12 sources) Acidosis; Translations: [Acidosis, unspecified] Onset: 3 Episodic Fracture of upper limb (1 source) Quervain's fracture 02-04-2022 Episodic Genitourinary symptoms and ill-defined conditions (12 sources) H/O: urinary disease; Translations: [Personal history of other diseases of urinary system] Onset: 3 Episodic Headache; including migraine (13 sources) Headache; Translations: [Aching headache] 12-24-2022 Episodic Hyperplasia of prostate (20 sources) Benign prostatic hyperplasia; Translations: [Benign prostatic hypertrophy with outflow obstruction] Onset: 3 04-16-2019 Chronic Lung disease due to external agents (1 source) Drug-induced interstitial lung disorder; Translations: [Drug-induced interstitial lung disorders, unspecified] Episodic Malaise and fatigue (20 sources) Malaise and fatigue; Translations: [Fatigue] Onset: 3 Resolved: 9 04-22-2019 Episodic Miscellaneous mental health disorders (19 sources) Psychophysiologic insomnia; Translations: [Psychophysiologic insomnia] Onset: 3 Chronic Mycoses (3 sources) Onychomycosis due to dermatophyte ; Translations: [Tinea unguium] Onset: 4 Episodic Nausea and vomiting (20 sources) Nausea 04-23-2020 Episodic Nutritional deficiencies (7 sources) Cachexia 06-04-2022 Episodic Other aftercare (20 sources) Seen by palliative care medicine service 06-04-2022 Episodic Other aftercare (1 source) Long-term current use of 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; Translations: [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] Onset: 4 Episodic Other connective tissue disease (20 sources) Triggering of digit; Translations: [Trigger finger, right ring finger] Onset: 6 03-24-2018 Episodic Other connective tissue disease (1 source) Pain of left hand; Translations: [Pain in left hand] Episodic Other connective tissue disease (1 source) Radial styloid tenosynovitis; Translations: [Radial styloid tenosynovitis [de Quervain]] Onset: 2 Episodic Other connective tissue disease (1 source) Tenosynovitis of right radial styloid 02-04-2022 Episodic Other connective tissue disease (1 source) Acquired trigger finger of left ring finger; Translations: [Trigger finger, left ring finger] Onset: 4 Episodic Other connective tissue disease (7 sources) Acquired trigger finger of right middle finger; Translations: [Acquired trigger finger of right middle finger] Onset: 8 10-06-2018 Other connective tissue disease (4 sources) Trigger thumb of left hand; Translations: [Trigger finger of left thumb] Onset: 0 09-05-2020 Other diseases of bladder and urethra (2 sources) Detrusor overactivity; Translations: [Overactive bladder] Onset: 3 Chronic Other diseases of bladder and urethra (14 sources) Overactive bladder 08-25-2023 Chronic Other diseases of kidney and ureters (1 source) Acquired renal cyst without neoplastic change; Translations: [Cyst of kidney, acquired] Onset: 4 Episodic Other diseases of kidney and ureters (2 sources) Acquired renal cystic disease 06-07-2024 Episodic Other ear and sense organ disorders (9 sources) Impacted cerumen 12-07-2023 Episodic Other ear and sense organ disorders (1 source) Impacted cerumen in left ear; Translations: [Impacted cerumen, left ear] Onset: 4 Episodic Other gastrointestinal disorders (20 sources) Oropharyngeal dysphagia 04-25-2022 Episodic Other gastrointestinal disorders (20 sources) Chronic constipation 07-14-2022 Episodic Other inflammatory condition of skin (1 source) Generalized pruritus 04-09-2023 Episodic Other lower respiratory disease (20 sources) Dyspnea; Translations: [Shortness of breath] Onset: 3 06-04-2022 Episodic Other lower respiratory disease (7 sources) Dyspnea at rest 12-24-2022 Episodic Other lower respiratory disease (1 source) Cough; Translations: [Cough, unspecified] Onset: 3 Episodic Other lower respiratory disease (2 sources) Shortness of breath; Translations: [Shortness of breath] Onset: 3 Episodic Other lower respiratory disease (7 sources) Dyspnea on exertion 02-07-2023 Episodic Other lower respiratory disease (3 sources) Pleuritic pain; Translations: [Pleurodynia] Onset: 4 Episodic Other nervous system disorders (20 sources) Pain due to neoplastic disease 06-03-2022 Chronic Other nervous system disorders (1 source) Other chronic pain; Translations: [OTHER CHRONIC PAIN] Onset: 2 Chronic Other nervous system disorders (10 sources) Sleep related bruxism; Translations: [Sleep related bruxism] Onset: 4 Chronic Other non-epithelial cancer of skin (20 sources) Basal cell carcinoma of face 04-16-2019 Episodic Other nutritional; endocrine; and metabolic disorders (20 sources) Overweight; Translations: [Overweight] Onset: 2 Episodic Other nutritional; endocrine; and metabolic disorders (20 sources) Overweight in adulthood with body mass index of 25 or more but less than 30; Translations: [Body mass index (BMI) 25.0-25.9, adult] Onset: 2 Episodic Other nutritional; endocrine; and metabolic disorders (1 source) Body mass index 25-29 - overweight 07-30-2021 Episodic Other nutritional; endocrine; and metabolic disorders (20 sources) Unintentional weight loss 04-24-2022 Episodic Other nutritional; endocrine; and metabolic disorders (2 sources) Body mass index (BMI) 25.0-25.9, adult; Translations: [Body mass index (BMI) 25.0-25.9, adult] Onset: 3 Episodic Other screening for suspected conditions (not mental disorders or infectious disease) (2 sources) Encounter for screening for malignant neoplasm of prostate; Translations: [Screening for malignant neoplasm done] Onset: 3 Episodic Other skin disorders (20 sources) Actinic keratosis 04-24-2020 Episodic Other skin disorders (20 sources) Mediastinal mass 05-08-2022 Episodic Pneumonia (except that caused by tuberculosis or sexually transmitted disease) (4 sources) Infective pneumonia 01-26-2023 Episodic Pulmonary heart disease (20 sources) Other pulmonary embolism without acute cor pulmonale; Translations: [Acute pulmonary embolism] Onset: 3 Episodic Residual codes; unclassified (1 source) Patient encounter status; Translations: [Other specified health status] Onset: 3 Episodic Residual codes; unclassified (1 source) H/O: chemotherapy; Translations: [Personal history of antineoplastic chemotherapy] Episodic Residual codes; unclassified (1 source) H/O: radiation exposure; Translations: [Personal history of irradiation] Episodic Residual codes; unclassified (1 source) H/O: high risk medication; Translations: [Personal history of immunosupression therapy] Episodic Secondary malignancies (5 sources) Secondary malignant neoplasm of left adrenal gland; Translations: [Secondary malignant neoplasm of left adrenal gland] Onset: 3 Chronic Spondylosis; intervertebral disc disorders; other back problems (10 sources) Other intervertebral disc degeneration, lumbar region; Translations: [Spondylosis without myelopathy or radiculopathy, lumbar region] Onset: 2 Chronic Spondylosis; intervertebral disc disorders; other back problems (20 sources) Lumbar radiculopathy; Translations: [Neck pain] Onset: 2 04-22-2019 Episodic Substance-related disorders (20 sources) Opioid dependence in remission; Translations: [Opioid dependence, in remission] Onset: 2 Chronic Thyroid disorders (20 sources) Hypothyroidism; Translations: [Congenital hypothyroidism without goiter] Onset: 3 11-29-2019 Chronic Unclassified (20 sources) Body mass index normal 04-24-2022 Unclassified (20 sources) Long-term current use of 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 06-04-2022 Unclassified (2 sources) LOW BACK PAIN, UNSPECIFIED; Translations: [LOW BACK PAIN, UNSPECIFIED] Onset: 2 Unclassified (1 source) CONTACT W/AND (SUSP) EXPOS COVID-19; Translations: [CONTACT W/AND (SUSP) EXPOS COVID-19] Onset: 2 Unclassified (20 sources) Patient encounter status 11-30-2022 Unclassified (20 sources) Secondary malignant neoplasm of left adrenal gland 11-30-2022 Unclassified (1 source) Cough, unspecified; Translations: [Cough, unspecified] Onset: 3 Unclassified (1 source) Malignant neoplasm of lower lobe, right bronchus or lung; Translations: [Malignant neoplasm of lower lobe, right bronchus or lung] Onset: 3 Unclassified (1 source) Low back pain, unspecified; Translations: [Low back pain, unspecified] Onset: 4 Unclassified (2 sources) New Patient; Translations: [New Patient] Onset: 4 Viral infection (20 sources) Recurrent herpes simplex 04-16-2019 Episodic Past or Other Problems Problem Classification Problem Date Documented Date Episodic/Chronic Other connective tissue disease (20 sources) Acquired trigger finger of right middle finger; Translations: [Trigger finger, right middle finger] Onset: 10-06-2018 10-06-2018 Episodic Other connective tissue disease (20 sources) Trigger thumb of left hand; Translations: [Trigger thumb, left thumb] Onset: 09-05-2020 09-05-2020 Episodic Other connective tissue disease (2 sources) Radial styloid tenosynovitis [de Quervain]; Translations: [Radial styloid tenosynovitis (de quervain)] Onset: 03-17-2022 Episodic Sprains and strains (5 sources) Sprain of unspecified parts of lumbar spine and pelvis, initial encounter; Translations: [Sprain of ligaments of lumbar spine, initial encounter] Onset: 01-01-2022 Episodic Unclassified (1 source) Exposure to 2019 novel coronavirus; Translations: [Contact with and (suspected) exposure to COVID19] Unclassified (1 source) Cough, unspecified; Translations: [Cough, unspecified] Onset: 01-21-2023 Unclassified (1 source) Low back pain, unspecified; Translations: [Low back pain, unspecified] Onset: 02-26-2024 Viral infection (20 sources) Disease caused by 2019-nCoV Resolved: 07-24-2021 05-29-2022 Results Test Name Value Interpretation Reference Range Facil ity Ambulatory Visit Summaryon 0 07-27-2024 Ambulatory Visit Summary Ambulatory Visit Summary ROBSON CARLSON :1955 Visit Date:07/27/2024 Ambulatory Visit Instructions Your Care Team Attending Physician - Joshua Eng DO Primary Care Physician - Mecca SAUCEDO MD Referring Physician - Joshua Eng DO This Is Your Medications List Misc Prescription (Magic Mouth wash) alprazolam (Xanax 0.5 mg Tab) buprenorphine-naloxo ne (Suboxone) levothyroxine (levothyroxine 150 mcg (0.15 mg) Tab) oxybutynin (oxybutynin 5 mg Tab) terbinafine (terbinafine 250 mg Tab) Procedures Performed Cystoscopy (11/03/2023), CT guided biopsy of lung (05/21/2022), bilat carpal tunnel release, Bilateral extraction of cataracts, cervical fusion, hernia repair, lumbar fusion x 2, nerve surgery R arm, partial thyroidectomy, PE - Pulmonary embolism, trigger finger surgery. Discharge Vitals Temperature (Oral) 36.8 ?C Heart Rate (Peripheral) 81 Respiratory Rate 16 Blood Pressure 119/75 Height 172 cm Weight 76.1 kg BMI 25.72 What to do next Scheduled Follow-Up Appointments 2024 11:20 AM EST With: Mecca SAUCEDO MD Where: [facility] [address] [place] [address]- Follow-up No qualifying data available ct c/a/p withcontrast in 6 months f/u after cbc, cmp, cea tsh t4 prior. refill zofran Medications What How Much When Why Instructions Unchanged alprazolam (Xanax 0.5 mg Tab) 1 Tablets By Mouth 3 times a day as needed for for anxiety Non-small cell lung cancer Anxiety Unchanged buprenorphine-naloxo ne (Suboxone) 8mg/2mg Sublingual 2 times a day Unchanged levothyroxine (levothyroxine 150 mcg (0.15 mg) Tab) 1 Tablets By Mouth Every day Hyperthyroidism Unchanged Misc Prescription (Magic Mouth wash) 0 History of immunotherapy [id number] mg Nystatin 30 ml suspension Lidocaine 30 ml QS with Benadryl Elixir to 240 mls Directions Swish & Swallow 1 tsp every 4 hrs as needed Unchanged oxybutynin (oxybutynin 5 mg Tab) 1 Tablets By Mouth 2 times a day as needed for for urinary discomfort May use twice daily for overactive bladder symptoms Unchanged terbinafine (terbinafine 250 mg Tab) 1 Tablets By Mouth Every day Duration: 90 Days Allergies No Known Allergies No Known Medication Allergies Problems Ongoing - Any problem that you are currently receiving treatment for. Acquired renal cyst of left kidney Actinic keratosis of right side of forehead Anemia in chronic illness Anxiety Basal cell carcinoma of face Benign hypertension BMI 26.0-26.9,adult BPH associated with nocturia Bruxism, sleep-related Chronic insomnia Combined hyperlipidemia Diabetic polyneuropathy associated with type 2 diabetes mellitus Encounter for well adult exam with abnormal findings History of narcotic addiction History of pulmonary embolism Intermittent asthma Intermittent asthma with acute exacerbation Left ear impacted cerumen Lumbar radiculopathy Malignant neoplasm metastatic to left adrenal gland Neoplastic (malignant) related fatigue Non-small cell cancer of right lung OAB (overactive bladder) Onychomycosis of toenail Other fdc (current) 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 Overweight Primary hypothyroidism Recurrent herpes simplex TMJ arthritis Trigger finger, left ring finger Historical - Any problem that you are no longer receiving treatment for. COVID-19 Nausea Patient Survey You may receive a survey via text or e-mail asking about your office visit. Please share your experience with us by completing your survey. We appreciate your feedback and thank you for choosing us for your care. Normal [facility] CT Abdomen/Pelvis w/ Contras ton 07-26-2024 CT Abdomen/Pelvis w/ Contrast Exam Date/Time: 07/25/2024 12:33 EDT Reason for Exam: surveillance;Other (please specify) Report See report CT chest, for report CT abdomen pelvis. All CT scans at this facility use dose modulation, iterative reconstruction, and/or weight based dosing when appropriate to reduce radiation dose to as low as reasonably achievable. Ordering Provider: Joshua Eng FINAL REPORT Dictated: 07/26/2024 2:46 pm Obey Boyce MD Signed (Electronic Signature): 07/26/2024 2:46 pm Signed by: Obey Boyce MD Transcribed by: RAEANN Technologist: RAMONA Technical Comments GFR (mL/min/1/73m2) >60 Contrast: Isovue 300 Contrast amount in ml's: 130 Rectal Contrast Given? No Oral contrast amount in ml's: [address] [facility] [address] Chest w/ Contraston 07-26 CT Chest w/ Contrast Exam Date/Time: 07/25/2024 12:33 EDT Reason for Exam: surveillance;Other (please specify) Report IMPRESSION: STABLE RIGHT LOWER LOBE MASS AND BILATERAL PULMONARY NODULES. NO NEW NODULES OR MASSES IDENTIFIED. HEPATIC STEATOSIS. CIRCUMFERENTIAL WALL THICKENING SMALL BOWEL, LEFT UPPER QUADRANT, AND SIGMOID COLON. FINDINGS MAY REPRESENT PARTIAL DECOMPRESSION. HOWEVER OTHER ETIOLOGIES INCLUDING INFLAMMATORY AND INFECTIOUS ARE NOT ENTIRELY EXCLUDED. CT OF THE CHEST, ABDOMEN, AND PELVIS WITH INTRAVENOUS CONTRAST MEDIUM. HISTORY: Lung cancer, asymptomatic. Chemotherapy, 2021, radiation therapy, 2022. TECHNICAL FACTORS: CT imaging of the chest, abdomen, and pelvis, was obtained and formatted as 5 mm contiguous axial images from the thoracic inlet through the symphysis pubis. Sagittal and coronal reconstructions obtained during postprocessing. Intravenous contrast medium: 130 mL Isovue-300 Comparison: CT chest, May 09, 2023. CT abdomen pelvis, May 06, 2022. CT, December 31, 2022, April 01, 2023. CT OF THE CHEST WITH INTRAVENOUS CONTRAST MEDIUM. FINDINGS: Right lun mm nodule, right lower lobe, unchanged (series 2, image 46). Soft tissue mass 2.2 x 2.4 x 3.6 cm medial right lung base (series 2, image 46, series 3, image 27, series 4, image 32), unchanged. No new nodules identified. No consolidation, pleural effusion, pneumothorax. Left lun mm mm noncalcified nodule pleural-based nodule left lower lobe (series 2, image 45), unchanged. No new nodules identified. No consolidation, pleural effusion, pneumothorax. Lymph nodes: No hilar, mediastinal, or axillary lymph node enlargement. Thoracic aorta: Normal in course and caliber. Cardiac: Size normal. No pericardial effusion. Coronary artery calcification identified. Report Musculoskeletal:No osteoblastic, and no osteolytic lesions. CT OF THE ABDOMEN AND PELVIS WITH INTRAVENOUS CONTRAST MEDIUM. FINDINGS: Liver: Normal in size, shape, and decreased in attenuation. Bile Ducts: Normal in caliber. Gallbladder: No stones or wall thickening. Pancreas: Normal without masses, cysts, ductal dilatation or calcification. Spleen: Normal in size without masses or calcifications. No splenules. Kidneys: Normal in size and enhancement. No hydronephrosis, masses, or stones. Adrenals: Normal. Small bowel: Normal in caliber. Circumferential wall thickening loop of small bowel anterior left upper quadrant (series 2, image 70), without adjacent fat stranding or fluid collections. Appendix: Normal. Colon: Normal in caliber. Circumferential wall thickening, sigmoid colon without pericolonic fat stranding or fluid collections. Peritoneum: No ascites, free air, or fluid collections. Vessels: Aorta normal in course and caliber. Portal vein, splenic vein, superior mesenteric vein are patent. Lymph nodes: Retroperitoneal: No enlarged retroperitoneal lymph nodes. Mesenteric: No enlarged mesenteric lymph nodes. Pelvic: No enlarged pelvic lymph nodes. Ureters: Normal in course and caliber. No calcifications. Bladder: No wall thickening. Reproductive organs: No pelvic masses. Abdominal Wall: No hernia identified. No diastasis of rectus musculature. No edema or masses. Bones: No bone lesions. Diffuse disc space narrowing with anterior posterior osteophytes, lumbar spine. No post operative changes. All CT scans at this facility use dose modulation, iterative reconstruction, and/or weight based dosing when appropriate to reduce radiation dose to as low as reasonably achievable. Report Ordering Provider: Joshua Eng FINAL REPORT Dictated: 07/26/2024 2:46 pm Obey Boyce MD Signed (Electronic Signature): 07/26/2024 2:46 pm Signed by: Obey Boyce MD Transcribed by: RAEANN Technologist: RAMONA Technical Comments GFR (mL/min/1/73m2) >60 Contrast: Isovue 300 Contrast amount in ml's: 130 Normal [facility] CBC w/ Auto Diffon 4 Basophils/100 WBC (Bld) 0.9 % Normal 0.0-2.0 [facility] Comment on above: Performed By: #### 2 [id number] #### [facility] [address] [place] [address] Basophils/Leukocyte s Auto (Bld) [Pure # fraction] 0.1 E9/L Normal 0.0-0.2 [facility] Comment on above: Performed By: #### 2 [id number] #### [facility] [address] [place] [address] Eosinophils (Bld) [#/Vol] 0.5 E9/L Normal 0.0-0.5 [facility] Comment on above: Performed By: #### 2 [id number] #### [facility] [address] [place] [address] Eosinophils/100 WBC (Bld) 6.8 % Normal 0.0-8.0 [facility] Comment on above: Performed By: #### 2 [id number] #### [facility] [address] [place] [address] Erythrocyte distribution width (RBC) [Ratio] 13.2 % Normal 10.9-14.2 [facility] Comment on above: Performed By: #### 2 [id number] #### [facility] [address] [place] [address] Hematocrit (Bld) [Volume fraction] 37.3 % Low 37.7-49.0 [facility] Comment on above: Performed By: #### 2 [id number] #### [facility] [address] [place] [address] Hemoglobin (Bld) [Mass/Vol] 12.7 g/dL Low 13.5-17.5 [facility] Comment on above: Performed By: #### 2 [id number] #### [facility] [address] [place] [address] Lymphocytes (Bld) [#/Vol] 0.8 E9/L Low 1.0-4.0 [facility] Comment on above: Performed By: #### 2 [id number] #### [facility] [address] [place] [address] Lymphocytes/100 WBC (Bld) 10.1 % Low 14.0-50.0 [facility] Comment on above: Performed By: #### 2 [id number] #### [facility] [address] [place] [address] MCH (RBC) [Entitic mass] 30.0 pg Normal 27.0-34.0 [facility] Comment on above: Performed By: #### 2 [id number] #### [facility] [address] [place] [address] MCHC (RBC) [Mass/Vol] 33.9 g/dL Normal 31.4-36.0 [facility] Comment on above: Performed By: #### 2 [id number] #### [facility] [address] [place] [address] MCV (RBC) [Entitic vol] 88.4 fL Normal 80.0-100.0 [facility] Comment on above: Performed By: #### 2 [id number] #### [facility] [address] [place] [address] Monocytes (Bld) [#/Vol] 0.7 E9/L Normal 0.2-1.0 [facility] Comment on above: Performed By: #### 2 [id number] #### [facility] [address] [place] [address] Neutrophils (Bld) [#/Vol] 5.6 E9/L Normal 2.0-7.5 [facility] Comment on above: Performed By: #### 2 [id number] #### [facility] [address] [place] [address] Neutrophils/100 WBC (Bld) 73.1 % Normal 36.0-75.0 [facility] Comment on above: Performed By: #### 2 [id number] #### [facility] [address] [place] [address] Platelet 260.0 E9/L Normal 150.0-500.0 [facility] Comment on above: Performed By: #### 2 [id number] #### [facility] [address] [place] [address] Platelet mean volume (Bld) [Entitic vol] 7.4 fL Normal 6.4-10.8 [facility] Comment on above: Performed By: #### 2 [id number] #### [facility] [address] [place] [address] RBC (Bld) [#/Vol] 4.2 E12/L Low 4.3-5.9 [facility] Comment on above: Performed By: #### 2 [id number] #### [facility] [address] [place] [address] WBC corrected for nucl RBC Auto (Bld) [#/Vol] 7.7 E9/L Normal 4.0-11.0 [facility] Comment on above: Performed By: #### 2 [id number] #### [facility] [address] [place] [address] CEAon 07-22-2024 CEA 1.3 ng/mL Invalid Interpretation Code [facility] Comment on above: Result Comment: 'NON -SMOKER < 2.5' 'SMOKER < 5.0' The concentration of CEA in a given specimen determined by different manufacturers can vary due to differences in assay methods and reagent specificity. Values obtained with different assay methods cannot be used interchangeably. The methodology used to perform this test was chemiluminescence using [employer] Access CEA reagent. Performed By: #### 2 [id number] #### [facility] [address] [place] [address] CMPon 07-22-2024 Albumin [Mass/Vol] 4.2 g/dL Normal 3.3-5.0 [facility] Comment on above: Performed By: #### 2 [id number] #### [facility] [address] [place] [address] Albumin/Globulin (S) [Mass conc ratio] 1.5 Normal 1.1-2.2 [facility] Comment on above: Performed By: #### 2 [id number] #### [facility] [address] [place] [address] ALP [Catalytic activity/Vol] 102 Int._Unit/L High 21-98 [facility] Comment on above: Performed By: #### 2 [id number] #### [facility] [address] [place] [address] ALT No additional P-5'-P [Catalytic activity/Vol] 11 Int._Unit/L Normal 6-46 [facility] Comment on above: Performed By: #### 2 [id number] #### [facility] [address] [place] [address] Anion gap [Moles/Vol] 12 mmol/L Normal 6-16 [facility] Comment on above: Performed By: #### 2 [id number] #### [facility] [address] [place] [address] AST [Catalytic activity/Vol] 18 Int._Unit/L Normal 5-43 [facility] Comment on above: Performed By: #### 2 [id number] #### [facility] [address] [place] [address] Bilirubin [Mass/Vol] 0.4 mg/dL Normal 0.0-1.1 [facility] Comment on above: Performed By: #### 2 [id number] #### [facility] [address] [place] [address] Calcium [Mass/Vol] 9.2 mg/dL Normal 8.9-11.1 [facility] Comment on above: Performed By: #### 2 [id number] #### [facility] [address] [place] [address] Chloride [Moles/Vol] 109 mmol/L Normal 101-111 [facility] Comment on above: Performed By: #### 2 [id number] #### [facility] [address] [place] [address] CO2 [Moles/Vol] 23 mmol/L Normal 21-31 [facility] Comment on above: Performed By: #### 2 [id number] #### [facility] [address] [place] [address] Creatinine [Mass/Vol] 1.1 mg/dL Normal 0.5-1.3 [facility] Comment on above: Performed By: #### 2 [id number] #### [facility] [address] [place] [address] Globulin (S) [Mass/Vol] 2.8 g/dL Normal 1.4-4.0 [facility] Comment on above: Performed By: #### 2 [id number] #### [facility] [address] [place] [address] Glucose [Mass/Vol] 112 mg/dL Normal 55-199 [facility] Comment on above: Performed By: #### 2 [id number] #### [facility] [address] [place] [address] Potassium [Moles/Vol] 4.5 mmol/L Normal 3.5-5.3 [facility] Comment on above: Performed By: #### 2 [id number] #### [facility] [address] [place] [address] Protein [Mass/Vol] 7.0 g/dL Normal 6.0-7.8 [facility] Comment on above: Performed By: #### 2 [id number] #### [facility] [address] [place] [address] Sodium [Moles/Vol] 139 mmol/L Normal 135-145 [facility] Comment on above: Performed By: #### 2 [id number] #### [facility] [address] [place] [address] Urea nitrogen [Mass/Vol] 29 mg/dL High 5-21 [facility] Comment on above: Performed By: #### 2 [id number] #### [facility] [address] [place] [address] Urea nitrogen/Creatinine [Mass ratio] 26 No Units High 10-20 [facility] Comment on above: Performed By: #### 2 [id number] #### [facility] [address] [place] [address] Free T4on 07-22-2024 Free T4 [Mass/Vol] 0.95 ng/dL Normal 0.58-1.64 [facility] Comment on above: Performed By: #### 2 [id number] #### [facility] [address] [place] [address] TSHon 07-22-2024 TSH Qn 1.33 m[IU]/L Normal 0.34-5.60 [facility] Comment on above: Performed By: #### 2 [id number] #### [facility] [address] [place] [address] eGFRon 07-22-2024 eGFR 72 mL/min/1.73 m2 Normal >=59 [facility] Comment on above: Order Comment: Order added by Discern Expert. Performed By: #### 1 [id number] #### [facility] [address] [place] [address] US Renalon 06-22-2024 US Renal Exam Date/Time: 06/17/2024 14:17 EDT Reason for Exam: N28.1;Mass Report IMPRESSION: APPROXIMATELY 2.3 CM MINIMALLY SEPTATED (BOSNIAK 2) RIGHT UPPER POLE RENAL CYST, OF NO CONCERN. TWO UP TO APPROXIMATELY 2 CM SIMPLE LEFT LOWER POLE RENAL CYSTS. OTHERWISE, NEGATIVE MILDLY LIMITED RENAL ULTRASOUND. EXAM: US Renal DATE: 06/17/2024 1:56 PM CLINICAL HISTORY: Mass, N28.1. COMPARISON: Numerous prior studies; including PET/CT 01/06/[address] abdomen pelvis with contrast 05/06/2022. TECHNIQUE: Transabdominal ultrasound of the kidneys was performed. FINDINGS: The study is mildly limited by the patient's body habitus. Both kidneys are normal in size, position and morphology, with renal cortex echogenicity within normal limits. An approximately 2.3 x 1.9 x 1.7 cm minimally septated cyst, and 2 simple left lower pole renal cysts measuring up to approximately 2 cm and 9 mm have not significantly changed from prior studies. There is no hydronephrosis, visualized nephrolithiasis, abnormal perinephric collections, other cystic or solid renal masses identified. Right Kidney Length: 10.2 cm Cortex: 1.9 cm Left Kidney Length: 10.0 cm Cortex: 1.6 cm Report Ordering Provider: Mecca SAUCEDO FINAL REPORT Dictated: 06/22/2024 2:03 pm Nelson Lopez MD Signed (Electronic Signature): 06/22/2024 2:03 pm Signed by: Nelson Lopez MD Transcribed by: RAEANN Technologist: YAIR Guy [facility] Ambulatory Visit Summaryon 0 06-07-2024 Ambulatory Visit Summary Ambulatory Visit Summary ROBSON CARLSON :1955 Visit Date:06/07/2024 Ambulatory Visit Instructions Your Diagnosis Benign hypertension BPH associated with nocturia Bruxism, sleep-related Diabetic polyneuropathy associated with type 2 diabetes mellitus Combined hyperlipidemia Non-small cell cancer of right lung Malignant neoplasm metastatic to left adrenal gland Primary hypothyroidism 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 Onychomycosis of toenail Trigger finger, left ring finger Overweight BMI 26.0-26.9,adult Your Care Team Attending Physician - Mecca SAUCEDO MD Primary Care Physician - Mecca SAUCEDO MD This Is Your Medications List terbinafine (terbinafine 250 mg Tab) Contact prescribing physician if questions or concerns Misc Prescription (Magic Mouth wash) alprazolam (Xanax 0.5 mg Tab) buprenorphine-naloxo ne (Suboxone) levothyroxine (levothyroxine 150 mcg (0.15 mg) Tab) oxybutynin (oxybutynin 5 mg Tab) Procedures Performed Cystoscopy (11/03/2023), CT guided biopsy of lung (05/21/2022), bilat carpal tunnel release, Bilateral extraction of cataracts, cervical fusion, hernia repair, lumbar fusion x 2, nerve surgery R arm, partial thyroidectomy, PE - Pulmonary embolism, trigger finger surgery. Discharge Vitals Heart Rate (Peripheral) 80 Respiratory Rate 16 Blood Pressure 120/76 Height 172 cm Height 68 in Weight 77.2 kg Weight 169.84 lb BMI 26.1 What to do next Scheduled Follow-Up Appointments Thursday 1:00 PM EDT With: Joshua Eng DO Where: [facility] 2024 11:20 AM EST With: Mecca SAUCEDO MD Where: [address] [address]- You Need to Schedule the Following Appointments Follow Up with SHERYL CHU, ELIU Sanz When: Within 6 months Where: [address] [place] [address]- Someone Will Contact You Regarding These Appointments [facility] External Ambulatory Referral, Geographic proximity, Orthopaedics, Dr Linares at [place], prev surgery, now stiff please assess, 06/07/24 11:37:00 EDT, Trigger finger, left ring finger Medications What How Much When Why Instructions New terbinafine (terbinafine 250 mg Tab) 1 Tablets By Mouth Every day Duration: 90 Days Refills: 3 Pickup at [facility] Unchanged alprazolam (Xanax 0.5 mg Tab) 1 Tablets By Mouth 3 times a day as needed for for anxiety Non-small cell lung cancer Anxiety Contact prescribing physician if questions or concerns Unchanged buprenorphine-naloxo ne (Suboxone) 8mg/2mg Sublingual 2 times a day Contact prescribing physician if questions or concerns Unchanged levothyroxine (levothyroxine 150 mcg (0.15 mg) Tab) 1 Tablets By Mouth Every day Hyperthyroidism Contact prescribing physician if questions or concerns Unchanged Misc Prescription (Magic Mouth wash) 0 History of immunotherapy [id number] mg Nystatin 30 ml suspension Lidocaine 30 ml QS with Benadryl Elixir to 240 mls Directions Swish & Swallow 1 tsp every 4 hrs as needed Contact prescribing physician if questions or concerns Unchanged oxybutynin (oxybutynin 5 mg Tab) 1 Tablets By Mouth 2 times a day as needed for for urinary discomfort May use twice daily for overactive bladder symptoms Contact prescribing physician if questions or concerns Pharmacy Information [facility]: [address], [place] [id number] [phone] Allergies No Known Allergies No Known Medication Allergies Problems Ongoing - Any problem that you are currently receiving treatment for. Actinic keratosis of right side of forehead Anemia in chronic illness Anxiety Basal cell carcinoma of face Benign hypertension BMI 26.0-26.9,adult BPH associated with nocturia Bruxism, sleep-related Chronic insomnia Combined hyperlipidemia Diabetic polyneuropathy associated with type 2 diabetes mellitus Encounter for well adult exam with abnormal findings History of narcotic addiction History of pulmonary embolism Intermittent asthma Intermittent asthma with acute exacerbation Left ear impacted cerumen Lumbar radiculopathy Malignant neoplasm metastatic to left adrenal gland Neoplastic (malignant) related fatigue Non-small cell cancer of right lung OAB (overactive bladder) Onychomycosis of toenail 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 COVID-19 Nausea Patient Survey You may receive a survey via text or e-mail asking about your office visit. Please share your experience with us by completing your survey. We appreciate your feedback and thank you for choosing us for your care. Education Materials DASH Eati (more content not included)... Normal [facility] Family Medicine Office/Clini c Noteon 06-07-2024 Family Medicine Office/Clinic Note Family Medicine Office/Clinic Note Chief Complaint 6mo chk up, not fasting, no rfs History of Present Illness The patient is here for a general checkup. The patient, currently in remission, underwent a PET scan in 12/2023 and has a follow-up appointment with Dr. Grant on 07/27/2024. He has been monitoring his weight, however, there has been no significant change in his appetite or respiratory function. His memory has been affected by his chemotherapy. He has undergone 20 radiation treatments. His current medication regimen includes Suboxone, thyroid medication 150 mg daily, and oxybutynin 5 mg once daily for bladder issues. He reports no symptoms of rashes or mouth sores. His teeth grinding remains unchanged, and he denies any sores. He consulted with an orthopedic surgeon for a dime-sized cyst on his left kidney. Earlier in the year, he experienced back pain, which he initially attributed to a kidney stone, but this has since resolved. His vision improves during the winter months, but diminishes around 01/2024 or 02/2024. He underwent a series of tests at [place], which yielded no significant findings. He also suffers from chronic toenail fungus. Requesting definitive treatment because of the difficulty in trimming nails. The patient underwent trigger fingers surgery performed by Dr. Bolden. He experienced a fall on ice at work the following day, but managed to catch himself. He is unable to play the guitar like he used to. Attributes this to scar tissue or injury following the surgery. Orthopedic surgeon really have nothing to offer. His fingers do not lock, but he experiences limited range of motion. He was advised to apply cream and massage them. Review of Systems PHQ Score Initial Depression Screen Score: 2 SCORE see hpi otherwise neg Physical Exam Vitals & Measurements HR: 80(Peripheral) RR: 16 BP: 120/76 SpO2: 95% HT: 68 in HT: 172 cm WT: 77.2 kg WT: 169.84 lb BMI: 26.1 Patient is well groomed, adequately hydrated, wearing corrective lenses. Conjunctiva is clear. Pupils are symmetric. TMs are clear. Nares are clear. Oropharynx has a full plate above pala dentition. Below no lesions, but does have a very dry mouth. Neck is supple. No appreciated thyromegaly. No JVD or bruits. Lungs are diminished throughout. No wheeze or rhonchi. Heart has a regular rate and rhythm. No murmur, gallop, or rub. Lower extremities are without edema. Skin is moderately tanned. There is some senile purpura on the arms. The toenails on the right foot all are thickened, have subungual debris and are crumbly. There is no maceration in web spaces. Exam of the left hand finds a well healed incisional scar at the base of the fourth finger palm surface. He is unable to fully flex the finger. He is able to extend it and no triggering. Patient is very pleasant, cooperative, talkative. Fairly good insight. Vital Signs Weight is 169.8. Assessment/Plan 1. Benign hypertension (I10: Essential (primary) hypertension) The importance of the following were all reviewed with the patient: -Take Rx(s )as prescribed. There are simple Lifestyle Modifications that you can do to reduce your blood pressure. -Weight Reduction -Follow the DASH eating plan. More information about this eating plan can be found here: https://www.nhlbi.ni [place].gov/health/health- topics/topics/dash -Reduce Sodium (Salt) Intake to 2000mg per day. -Use Moderation when consuming alcohol. - To improve your health we recommend increasing your level of moderate exercise to at least 2.5 hrs per week. For more information, please visit the CDC Exercise and Fitness Recommendations at www.cdc.gov/physical activity/basics/inde x.htm 2. BPH associated with nocturia (N40.1: Benign prostatic hyperplasia with lower urinary tract symptoms) Patient has not responded with Flomax in the past he will continue his oxybutynin. Limit nocturnal fluids caffeinated beverages maintain scheduled voiding 3. Bruxism, sleep-related (G47.63: Sleep related bruxism) Continue to encourage bite guard use 4. Diabetic polyneuropathy associated with type 2 diabetes mellitus (E11.42: Type 2 diabetes mellitus with diabetic polyneuropathy) Diet-controlled diabetes stable always exercise caution on monitoring feet for any skin breakdown. A1c was 6.1 in January. 5. Combined hyperlipidemia (E78.2: Mixed hyperlipidemia) Patient remains diet controlled. 6. Non-small cell cancer of right lung (C34.91: Malignant neoplasm of unspecified part of right bronchus or lung) Patient continues following with hematology oncology for management. Considered to be in remission at this time always remain vigilant for fevers chills weight loss lymphadenopathy and hemoptysis 7. Malignant neoplasm metastatic to left adrenal gland (C79.72: Secondary malignant neoplasm of left adrenal gland) See #6 8. Acquired renal cyst of left kidney (N28.1: Cyst of kidney, acquired) Reviewed previous finding when patient was value by orthopedics (more content not included)... Normal [facility] Comment on above: Result Comment: Elec tronically Signed By: SHERYL CHU, Mecca\.br\Date and Time Signed: 06/07/24 11:48 EDT RAD - MRI Reporton 4 RAD - MRI Report [id number] #1.00TIFF [facility] 36on 02-29-2024 36 Sent to [facility] Consultation Noteon 02-26-20 24 Consultation Note [id number] #1.00TIFF [facility] Office Visiton 02-26-2024 Follow-up visit [id number] Robson Carlson 1955 M Date Provider Department Center 02/26/2024 266-JESSE HERNANDEZ MP ORTHO MPORTHO No family history on file Level of Service:24591 [place] OFFICE/OUTPATIENT NEW LOW MDM 30 MINUTES Reason for Visit and Comments: New Patient [632] - L leg pain Normal [facility] Ambulatory Visit Summaryon 0 02-25-2024 Ambulatory Visit Summary ROBSON CARLSON :1955 Visit Date:02/25/2024 Ambulatory Visit Instructions Your Diagnosis Encounter for well adult exam with abnormal findings Pleuritic pain History of pulmonary embolism Intermittent asthma with acute exacerbation Non-small cell cancer of right lung Malignant neoplasm metastatic to left adrenal gland Neoplastic (malignant) related fatigue Overweight BMI 26.0-26.9,adult Your Care Team Attending Physician - Mecca SAUCEDO MD Primary Care Physician - Mecca SAUCEDO MD This Is Your Medications List predniSONE (predniSONE 20 mg Tab) Contact prescribing physician if questions or concerns Misc Prescription (Magic Mouth wash) alprazolam (Xanax 0.5 mg Tab) buprenorphine-naloxo ne (Suboxone) levothyroxine (levothyroxine 150 mcg (0.15 mg) Tab) [Image Removed: STOP]Stop taking these medications tolterodine (tolterodine 4 mg Cap-ER) Procedures Performed Cystoscopy (11/03/2023), CT guided biopsy of lung (05/21/2022), bilat carpal tunnel release, Bilateral extraction of cataracts, cervical fusion, hernia repair, lumbar fusion x 2, nerve surgery R arm, partial thyroidectomy, PE - Pulmonary embolism, trigger finger surgery. Discharge Vitals Heart Rate (Peripheral) 74 Respiratory Rate 16 Blood Pressure 134/80 Height 172 cm Height 68 in Weight 77.6 kg Weight 170.72 lb BMI 26.23 What to do next Scheduled Follow-Up Appointments Thursday 11:20 AM EDT With: Mecca SAUCEDO MD Where: [facility] Family Medicine Ign[facility] Normal [facility] Family Medicine Office/Clini c Noteon 02-25-2024 Family Medicine Office/Clinic Note Chief Complaint pt presents today c/o feeling SOB, fatigue and pain right lung with deep breathing x 2wks, denies fevers, no rfs, needs tetanus History of Present Illness The patient is a 68-year-old male with a history of lung cancer who is presenting with right-sided pleuritic pain. The patient began experiencing a cold approximately 2 weeks ago, which subsequently led to right-sided chest pain, reminiscent of pain he has had due to his known malignancy in the past.. Despite the improvement of respiratory infection he continues to experience intermittent coughing, shortness of breath, and mild fatigue. His cough is neither productive nor hemoptysis. His cough and cold symptoms have shown slight improvement over the past week. He discontinued his anticoagulant therapy on 09/09/2023 after having had a pulmonary emboli spontaneously in spring 2022. Remains under the care of oncology for his metastatic lung carcinoma which has been stable per last PET scan December 2023. He occasionally experiences hot flashes, with the most recent episode occurring after walking his dog today. He denies any peripheral edema. His next scheduled testing is scheduled for 6 months from now, with the last one conducted on 01/06/2024. He experiences pain during deep inhalation. His has exhibited mild respiratory symptoms in the past week. A follow-up appointment with Dr. Grant is scheduled for PET scan and blood work. We did discuss recommendation for tetanus booster patient is not up-to-date currently. 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 Had to put dog down recently this was very emotional. Review of Systems PHQ Score Initial Depression Screen Score: 0 SCORE See HPI otherwise negative Physical Exam Vitals & Measurements HR: 74(Peripheral) RR: 16 BP: 134/80 SpO2: 98% HT: 68 in HT: 172 cm WT: 77.6 kg WT: 170.72 lb BMI: 26.23 The patient appears well groomed and adequately hydrated. The patient's head is normocephalic and atraumatic. He is wearing corrective lenses. His conjunctivae are clear and his pupils are symmetric. The patient's neck is supple with no JVD or bruits. Upon auscultation, the patient's lungs are diminished but no wheeze or rhonchi. No accessory abdominal muscles for breathing are used. The patient's heart has a regular rate and rhythm. No murmur, gallop, or rub are detected. The patient's abdomen is soft and nontender with hyperactive bowel sounds. There is no reproducible tenderness with palpation of the chest wall, but more of a pleuritic discomfort with deep inspiration. There is no edema. The patient shows no tremors. The patient is emotional discussing the of his dog. Vital Signs The patient's weight is 170. Assessment/Plan 1. Encounter for well adult exam with abnormal findings (Z00.01: Encounter for general adult medical examination with abnormal findings) Reviewed with patient importance of tetanus booster. He will consider through the pharmacy for cost containment. Although the general health maintenance is up-to-date 2. Pleuritic pain (R07.81: Pleurodynia) Nature of the pleuritic pain is reviewed. With his history of longstanding asthma, current lung malignancy with metastases I think this is most likely the etiology along with his respiratory illness but if he does not improve on a prednisone taper within the next 5 to 7 days must get CTA to rule out recurrence of pulmonary emboli that he had 1 year ago spontaneously and thought to be related to his malignancy. He understands the importance of this. 3. History of pulmonary embolism (Z86.711: Personal history of pulmonary embolism) See #2 4. Intermittent asthma with acute exacerbation (J45.21: Mild intermittent asthma with (acute) exacerbation) Currently has albuterol available but not using with any regularity. Suggested perhaps trying 2-3 times per day which may help with the discomfort in the chest and any shortness of breath. 5. Non-small cell cancer of right lung (C34.91: Malignant neoplasm of unspecified part of right bronchus or lung) Following with hematology oncology at [facility] planning PET scan repeated in June. 6. Malignant neoplasm metastatic to left adrenal gland (C79.72: Secondary malignant neoplasm of left adrenal gland) This has been monitored with PET scanning and is stable at this time 7. Neoplastic (malignant) related fatigue (R53.0: Neoplastic (malignant) related fatigue) Multifactorial but certainly related to his metastatic disease. Not showing any acute fevers chills or weight loss. Continue to maintain appropriate sleep hygiene and self-care. Believe that some of his fatigue could be mood related to having to put his dog down in the past week which is very emotional. Support is provided 8. Overweight (E66.3: Overweight) The standard range for ages 18 and older is >=18.5 and < 25 kg/m2. Your BMI today was above this range, this falls in t (more content not included)... Normal [facility] Comment on above: Result Comment: Elec tronically Signed By: SHERYL CHU, Mecca\.br\Date and Time Signed: 02/25/24 12:50 EDT Patient Educationon 02-24-20 24 Patient Education Urology Health Maintenance, Male Adopting a healthy lifestyle and getting preventive care are important in promoting health and wellness. Ask your health care provider about: ? The right schedule for you to have regular tests and exams. ? Things you can do on your own to prevent diseases and keep yourself healthy. What should I know about diet, weight, and exercise? Eat a healthy diet ? Eat a diet that includes plenty of vegetables, fruits, low-fat dairy products, and lean protein. ? Do not eat a lot of foods that are high in solid fats, added sugars, or sodium. Maintain a healthy weight Body mass index (BMI) is a measurement that can be used to identify possible weight problems. It estimates body fat based on height and weight. Your health care provider can help determine your BMI and help you achieve or maintain a healthy weight. Get regular exercise Get regular exercise. This is one of the most important things you can do for your health. Most adults should: ? Exercise for at least 150 minutes each week. The exercise should increase your heart rate and make you sweat (moderate-intensity exercise). ? Do strengthening exercises at least twice a week. This is in addition to the moderate-intensity exercise. ? Spend less time sitting. Even light physical activity can be beneficial. Watch cholesterol and blood lipids Have your blood tested for lipids and cholesterol at 20 years of age, then have this test every 5 years. You may need to have your cholesterol levels checked more often if: ? Your lipid or cholesterol levels are high. ? You are older than 40 years of age. ? You are at high risk for heart disease. What should I know about cancer screening? Many types of cancers can be detected early and may often be prevented. Depending on your health history and family history, you may need to have cancer screening at various ages. This may include screening for: ? Colorectal cancer. ? Prostate cancer. ? Skin cancer. ? Lung cancer. What should I know about heart disease, diabetes, and high blood pressure? Blood pressure and heart disease ? High blood pressure causes heart disease and increases the risk of stroke. This is more likely to develop in people who have high blood pressure readings or are overweight. ? Talk with your health care provider about your target blood pressure readings. ? Have your blood pressure checked: ? Every 3?5 years if you are 18?39 years of age. ? Every year if you are 40 years old or older. ? If you are between the ages of 65 and 75 and are a current or former smoker, ask your health care provider if you should have a one-time screening for abdominal aortic aneurysm (AAA). Diabetes Have regular diabetes screenings. This checks your fasting blood sugar level. Have the screening done: ? Once every three years after age 45 if you are at a normal weight and have a low risk for diabetes. ? More often and at a younger age if you are overweight or have a high risk for diabetes. What should I know about preventing infection? Hepatitis B If you have a higher risk for hepatitis B, you should be screened for this virus. Talk with your health care provider to find out if you are at risk for hepatitis B infection. Hepatitis C Blood testing is recommended for: ? Everyone born from 1945 through 1965. ? Anyone with known risk factors for hepatitis C. Sexually transmitted infections (STIs) ? You should be screened each year for STIs, including gonorrhea and chlamydia, if: ? You are sexually active and are younger than 24 years of age. ? You are older than 24 years of age and your health care provider tells you that you are at risk for this type of infection. ? Your sexual activity has changed since you were last screened, and you are at increased risk for chlamydia or gonorrhea. Ask your health care provider if you are at risk. ? Ask your health care provider about whether you are at high risk for HIV. Your health care provider may recommend a prescription medicine to help prevent HIV infection. If you choose to take medicine to prevent HIV, you should first get tested for HIV. You should then be tested every 3 months for as long as you are taking the medicine. Follow these instructions at home: Alcohol use ? Do not drink alcohol if your health care provider tells you not to drink. ? If you drink alcohol: ? Limit how much you have to 0-2 drinks a day. ? Know how much alcohol is in your drink. In the [place] one drink equals one 12 oz bottle of beer (355 mL), one 5 oz glass of wine (148 mL), or one 1? oz glass of hard liquor (44 mL). Lifestyle ? Do not use any products that contain nicotine or tobacco. These products include cigarettes, chewing tobacco, and vaping devices, such as e-cigarettes. If you need help quitting, ask your health care provider. ? Do not use street drugs. ? Do not share needles. ? Ask your health care provider for help if (more content not included)... Normal [facility] Oncology Progress Noteon Oncology Progress Note Chief Complaint Lung CA Pt states thyroid lvls are off. Pt states he has been having kidney pain, maybe a kidney stone. Has been getting abnorm. tired during the day. Here for results today as well. Diagnoses Hyperthyroidism (E05.90: Thyrotoxicosis, unspecified without thyrotoxic crisis or storm) Ordered: levothyroxine, 150 mcg = 1 tab(s), Oral, Daily, # 30 tab(s), Refills(s) 6, Pharmacy: [facility], 172, cm, 01/21/24 10:56:00 EDT, Height/Length Dosing, 78.4, kg, 01/21/24 10:56:00 EDT, Weight Dosing Lung cancer (C34.90: Malignant neoplasm of unspecified part of unspecified bronchus or lung) Oncological History/ROS/PE/Asses sment and Plan 67-year-old male referred by Dr. Edouard Saucedo for new diagnosis of lung cancer in May 2022. Past medical history includes BPH, anemia of chronic disease, diabetic neuropathy, type 2 diabetes, intermittent asthma, hypothyroidism. Outpatient medications include Synthroid, lisinopril, Zofran, Suboxone, Ventolin, Voltaren. quit smoking at 23 years old. He saw his primary care provider in early April 2022 for unintentional weight loss. He also noted some concerns with mild difficulty swallowing spaghetti. Also notes intermittent nausea. Laboratory evaluation from May 21, 2022 notes white blood cell count of 15,000, hemoglobin of 10.8 with an MCV of 80.5 and a platelet count of 424,000. His creatinine is 1. On April 24, 2022 he had a albumin of 3.2 with a total protein of 6.5. His hemoglobin A1c is 6.5. A CT of the chest from May 17, 2022 notes an 8 x 6 x 8.5 cm posterior mediastinal mass likely representing a necrotic malignancy. There is also an adjacent 1.4 cm lymph node. Pulmonary nodules multiple and nonspecific. 2 cm left adrenal gland and 3 cm right lobe of the liver lesion are concerning for metastatic disease. CT-guided biopsy performed on 05/21/2022 pathology results positive for non-small cell carcinoma, positive for TTF-1, CK7, CK5 6. Negative for synaptophysin. Favor lung origin. Poorly differentiated. He completed 6 cycles of carbo, pemetrexed from June - October 2022 as well as radiation therapy in October 2022. He then initiated cycle 1 maintenance Keytruda on 11/20/22. He had labs drawn 12/09/22 which noted an elevated creatinine at 3.3 and was told to present to the ER for further evaluation. He was subsequently admitted for further evaluation. On exam he feels well overall. His only complaint is fatigue and some lingering nasal congestion. No events overnight and no significant changes in his labs. 12/24/22 he is doing well. he is on prednisone 60mg. he is a bit shelton but tolerating well. will drop to 40mg dtoday. creatinine 1.6. last few days notes occasional shortness of breath. hb improved. 01/08/23 he is doing well overall tapered to 20mg prednisone last week has no new symptoms, energy is ok, eating and drinking well labs stable, creatinine improved to 1.4 02/03/23 he had recent hospitalization for pulmonary emboli. He is now on eliquis. 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 04/09/23 he had recent pet/ct noted IMPRESSION: NEW CONSOLIDATIVE INFILTRATE INVOLVING THE RIGHT LOWER LOBE ADJACENT TO THE PATIENT'S STABLE RESIDUAL SOFT TISSUE MASS. OTHERWISE NO SIGNIFICANT CHANGE. He had a lot of testing for vision and was sent to a retina specialist in [place] who then had him come to [place] for additional testing. Vision now comes and goes. In october he was seeing ok at night. Denies chest pains or breathing issues. no fevers sweats chills. still a bit tired after his hospitalization for PE. Continues eliquis. 06/03/23 he is doing well enough. he has not had breathing issues or pain. He of course cant exert himself as well as he used to but not changed much since then. He is feeling a lot better after resolution of his blood clots from january. 09/09/23 recent pet/ct notes iMPRESSION: Persistent area of pneumonitis in the right lower lobe is stable when compared to 05/25/2023 CT and markedly improved from 01/30/2023 CT scans. There has been progressive continued decrease in the uptake of FDG at this site when compared to prior PET scans. Findings favor a benign process likely related to posttreatment change. Otherwise no significant findings. No signs of metastatic disease. He continues on 125mcg synthroid, tolerating well/ 01/21/24 RECENT PET/CT notes IMPRESSION: AGAIN THERE IS A RIGHT LOWER LOBE LUNG MASS LESION, WITH SURROUNDING AIRSPACE OPACIFICATION, AND INCREASED UPTAKE ACTIVITY, BUT WITH SOME DECREASE IN SUV FROM PRIOR STUDY. THERE IS A SMALL FOCAL PLEURAL DENSITY LATERALLY ON THE RIGHT, WITH INCREASED UPTAKE OF ACTIVITY, NOT APPARENT ON PRIOR STUDY. WHETHER THIS IS A METASTATIC LESION OR INFLAMMATORY IS NOT SPECIFICALLY DETERMINED. NONSPECIFIC RIGHT AND LEFT AXILLARY LYMPH NODES, WITH MILDLY INCREASED ACTIVITY. he is feeling fatigued lately, he wonders if thyroid related. otherwise doing well, breathing good, stooling well. occa (more content not included)... Normal [facility] Consent for Treatmenton 01-07 Consent for Treatment [id number] #1.00TIFF Normal [facility] CBC w/ Auto Diffon Basophils/100 WBC (Bld) 0.7 % Normal 0.0-2.0 [facility] Comment on above: Performed By: #### 2 [id number], [id number], 5042961, 8529954, 2993668 ####[facility] [address] [place] [address] Basophils/Leukocyte s Auto (Bld) [Pure # fraction] 0.0 E9/L Normal 0.0-0.2 [facility] Comment on above: Performed By: #### 2 505495, 44393237, 2816748, 9483153, 8813121 ####[facility] [address] [place] [address] Eosinophils (Bld) [#/Vol] 0.6 E9/L High 0.0-0.5 [facility] Comment on above: Performed By: #### 2 924662, 78963144, 0637688, 9072571, 5162966 ####[facility] [address] [place] [address] Eosinophils/100 WBC (Bld) 8.7 % High 0.0-8.0 [facility] Comment on above: Performed By: #### 2 992587, 70937475, 1898723, 9971956, 9354667 ####[address] [address] Erythrocyte distribution width (RBC) [Ratio] 13.7 % Normal 10.9-14.2 [facility] Comment on above: Performed By: #### 2 687932, 64465196, 4049689, 0303710, 0131758 ####[address] [address] Hematocrit (Bld) [Volume fraction] 38.1 % Normal 37.7-49.0 [facility] Comment on above: Performed By: #### 2 873783, 53594865, 5408321, 8390339, 5876654 ####[address] [address] Hemoglobin (Bld) [Mass/Vol] 12.2 g/dL Low 13.5-17.5 [facility] Comment on above: Performed By: #### 2 655762, 71989369, 6768129, 5484814, 7869779 ####[address] [address] Lymphocytes (Bld) [#/Vol] 0.8 E9/L Low 1.0-4.0 [facility] Comment on above: Performed By: #### 2 735290, 54990426, 5921327, 4956498, 3807426 ####[address] [address] Lymphocytes/100 WBC (Bld) 10.3 % Low 14.0-50.0 [facility] Comment on above: Performed By: #### 2 645996, 40241938, 2481253, 3812034, 8630294 ####[address] [address] MCH (RBC) [Entitic mass] 28.9 pg Normal 27.0-34.0 [facility] Comment on above: Performed By: #### 2 810386, 05005534, 6090499, 0961015, 9429094 ####[facility] [address] [place] [address] MCHC (RBC) [Mass/Vol] 32.2 g/dL Normal 31.4-36.0 [facility] Comment on above: Performed By: #### 2 760204, 79195411, 6647436, 1768981, 8145001 ####[address] [address] MCV (RBC) [Entitic vol] 89.9 fL Normal 80.0-100.0 [facility] Comment on above: Performed By: #### 2 501258, 93154020, 3114035, 9911262, 1184869 ####[address] [address] Monocytes (Bld) [#/Vol] 0.5 E9/L Normal 0.2-1.0 [facility] Comment on above: Performed By: #### 2 351119, 07138782, 2313199, 4774138, 2775057 ####[address] [address] Neutrophils (Bld) [#/Vol] 5.5 E9/L Normal 2.0-7.5 [facility] Comment on above: Performed By: #### 2 818775, 71723675, 2305364, 1212909, 4605579 ####[address] [place] [address] Neutrophils/100 WBC (Bld) 73.7 % Normal 36.0-75.0 [facility] Comment on above: Performed By: #### 2 519409, 83586068, 9004995, 1155365, 5661141 ####[address] [address] Platelet 265.0 E9/L Normal 150.0-500.0 [facility] Comment on above: Performed By: #### 2 945043, 01308653, 1611288, 1124450, 4381276 ####[facility] [address] [place] [address] Platelet mean volume (Bld) [Entitic vol] 7.2 fL Normal 6.4-10.8 [facility] Comment on above: Performed By: #### 2 370910, 31545201, 5909508, 7868384, 5104696 ####[facility] [address] [place] [address] RBC (Bld) [#/Vol] 4.2 E12/L Low 4.3-5.9 [facility] Comment on above: Performed By: #### 2 200123, 13279998, 7025969, 2992186, 5861048 ####[facility] [address] [place] [address] WBC corrected for nucl RBC Auto (Bld) [#/Vol] 7.5 E9/L Normal 4.0-11.0 [facility] Comment on above: Performed By: #### 2 078703, 42373091, 1698013, 4672517, 2084265 ####[facility] [address] [place] [address] CHEMISTRYOrdered By: SYSTEM SYSTEM on 01-11-2024 Albumin [Mass/Vol] 4.0 g/dL Normal 3.3 - 5.0 gm/dL R emisol Chem Albumin/Globulin [Mass ratio] 1.7 {ratio} Normal 1.1 - 2.2 Remisol Chem ALP [Catalytic activity/Vol] 86 [iU]/d Normal 21 - 98 Int._Unit/L Remisol Chem ALT No additional P-5'-P [Catalytic activity/Vol] 12 [iU]/d Normal 6 - 46 Int._Unit/L Remisol Chem Anion gap [Moles/Vol] 14 mmol/L Normal 6 - 16 mEq/L Remisol Chem AST [Catalytic activity/Vol] 25 [iU]/d Normal 5 - 43 Int._Unit/L Remisol Chem Bilirubin [Mass/Vol] 0.4 mg/dL Normal 0.0 - 1.1 mg/dL Rem[facility] Chem Calcium [Mass/Vol] 8.8 mg/dL Low 8.9 - 11.1 mg/dL Remisol Chem Chloride [Moles/Vol] 108 mmol/L Normal 101 - 111 mmol/L Remisol Chem CO2 [Moles/Vol] 21 mmol/L Normal 21 - 31 mmol/L Remis ol Chem Creatinine [Mass/Vol] 1.2 mg/dL Normal 0.5 - 1.3 mg/dL Remisol Chem eGFR 65 mL/min/1.73 m2 Normal >=59mL/min/1.73 m2 Remisol Chem Free T4 [Mass/Vol] 0.69 ng/dL Normal 0.58 - 1.64 ng/dL Rem[facility] Chem Globulin (S) [Mass/Vol] 2.4 g/dL Normal 1.4 - 4.0 gm/dL Rem[facility] Chem Glucose [Mass/Vol] 133 mg/dL Normal 55 - 199 mg/dL Re misol Chem Potassium [Moles/Vol] 4.0 mmol/L Normal 3.5 - 5.3 mmol/L Remisol Chem Protein [Mass/Vol] 6.4 g/dL Normal 6.0 - 7.8 gm/dL R emisol Chem Sodium [Moles/Vol] 139 mmol/L Normal 135 - 145 mmol/L Remisol Chem TSH Qn 40.32 m[IU]/L High 0.34 - 5.60 mcIU/mL Rem[facility] Chem Urea nitrogen [Mass/Vol] 32 mg/dL High 5 - 21 mg/dL Remisol Chem Urea nitrogen/Creatinine [Mass ratio] 27 mg/mg High 10 - 20 Remisol Chem CHEMISTRYOrdered By: Ibis Camilo on 01-11-2024 HbA1c (Bld) [Mass fraction] 6.1 % High <=5.9% [facility] ChemAutoSS CMPon 01-11-2024 Albumin [Mass/Vol] 4.0 g/dL Normal 3.3-5.0 [facility] Comment on above: Performed By: #### 2 275567, 89506204, 2351934, 7200156, 2460841 ####[facility] [address] [place] [address] Albumin/Globulin (S) [Mass conc ratio] 1.7 Normal 1.1-2.2 [facility] Comment on above: Performed By: #### 2 465037, 05727075, 0065291, 2461313, 6008896 ####[facility] [address] [place] [address] ALP [Catalytic activity/Vol] 86 Int._Unit/L Normal 21-98 [facility] Comment on above: Performed By: #### 2 179396, 14266690, 4254088, 9432613, 0215456 ####[address] [place] [address] ALT No additional P-5'-P [Catalytic activity/Vol] 12 Int._Unit/L Normal 6-46 [facility] Comment on above: Performed By: #### 2 211626, 20351538, 7003702, 1534135, 0804353 ####[facility] [address] [place] [address] Anion gap [Moles/Vol] 14 mmol/L Normal 6-16 [facility] Comment on above: Performed By: #### 2 399681, 86812127, 6602861, 3495259, 4555394 ####[facility] [address] [place] [address] AST [Catalytic activity/Vol] 25 Int._Unit/L Normal 5-43 [facility] Comment on above: Performed By: #### 2 512324, 12937954, 4282090, 0962310, 6656610 ####[facility] [address] [place] [address] Bilirubin [Mass/Vol] 0.4 mg/dL Normal 0.0-1.1 [facility] Comment on above: Performed By: #### 2 150596, 72157046, 1429859, 4272011, 8553801 ####[facility] [address] [place] [address] Calcium [Mass/Vol] 8.8 mg/dL Low 8.9-11.1 [facility] Comment on above: Performed By: #### 2 915506, 03100588, 2798809, 7180461, 6768689 ####[facility] [address] [place] [address] Chloride [Moles/Vol] 108 mmol/L Normal 101-111 [facility] Comment on above: Performed By: #### 2 278900, 37172426, 2126457, 5122874, 6897324 ####[facility] [address] [place] [address] CO2 [Moles/Vol] 21 mmol/L Normal 21-31 [facility] Comment on above: Performed By: #### 2 281896, 76336625, 0747134, 2562458, 9558916 ####[facility] [address] [place] [address] Creatinine [Mass/Vol] 1.2 mg/dL Normal 0.5-1.3 [facility] Comment on above: Performed By: #### 2 073230, 16772262, 3328059, 3162890, 5094820 ####[facility] [address] [place] [address] Globulin (S) [Mass/Vol] 2.4 g/dL Normal 1.4-4.0 [facility] Comment on above: Performed By: #### 2 192619, 56133410, 3549173, 3200419, 0479042 ####[facility] [address] [place] [address] Glucose [Mass/Vol] 133 mg/dL Normal 55-199 [facility] Comment on above: Performed By: #### 2 793876, 95415289, 8485608, 1351900, 2025761 ####[facility] [address] [place] [address] Potassium [Moles/Vol] 4.0 mmol/L Normal 3.5-5.3 [facility] Comment on above: Performed By: #### 2 974513, 51816368, 4618077, 5466386, 9676024 ####[facility] [address] [place] [address] Protein [Mass/Vol] 6.4 g/dL Normal 6.0-7.8 [facility] Comment on above: Performed By: #### 2 530280, 83476494, 0733553, 3920201, 6017770 ####[facility] [address] [place] [address] Sodium [Moles/Vol] 139 mmol/L Normal 135-145 [facility] Comment on above: Performed By: #### 2 814130, 85765513, 5327460, 1036379, 0572877 ####[facility] [address] [place] [address] Urea nitrogen [Mass/Vol] 32 mg/dL High 5-21 [facility] Comment on above: Performed By: #### 2 716981, 47730495, 6785156, 5123224, 2446014 ####[facility] [address] [place] [address] Urea nitrogen/Creatinine [Mass ratio] 27 No Units High 10-20 [facility] Comment on above: Performed By: #### 2 164244, 29361774, 1925964, 9310104, 0597429 ####[facility] [address] [place] [address] Consent for Treatmenton Consent for Treatment [id number] #1.00TIFF Normal [facility] Consent for Treatment [id number] #1.00TIFF Normal [facility] Free T4on 01-11-2024 Free T4 [Mass/Vol] 0.69 ng/dL Normal 0.58-1.64 [facility] Comment on above: Performed By: #### 2 122271, 41925534, 0061533, 6728997, 5393363 ####[facility] [address] [place] [address] HEMATOLOGYOrdered By: SYSTEM SYSTEM on 01-11-2024 Basophils/100 WBC (Bld) 0.7 % Normal 0.0 - 2.0 % Remisol Heme Basophils/Leukocyte s Auto (Bld) [Pure # fraction] 0.0 E9/L Normal 0.0 - 0.2 E9/L [facility] Eosinophils (Bld) [#/Vol] 0.6 E9/L High 0.0 - 0.5 E9/L [facility]e Eosinophils/100 WBC (Bld) 8.7 % High 0.0 - 8.0 % [facility]e Erythrocyte distribution width (RBC) [Ratio] 13.7 % Normal 10.9 - 14.2 % [facility] Hematocrit (Bld) [Volume fraction] 38.1 % Normal 37.7 - 49.0 % [facility] Heme Hemoglobin (Bld) [Mass/Vol] 12.2 g/dL Low 13.5 - 17.5 gm/dL [facility] Heme Lymphocytes (Bld) [#/Vol] 0.8 E9/L Low 1.0 - 4.0 E9/L [facility]e Lymphocytes/100 WBC (Bld) 10.3 % Low 14.0 - 50.0 % [facility]e MCH (RBC) [Entitic mass] 28.9 pg Normal 27.0 - 34.0 pg Remisol Heme MCHC (RBC) [Mass/Vol] 32.2 g/dL Normal 31.4 - 36.0 gm/dL Rem[facility] Heme MCV (RBC) [Entitic vol] 89.9 fL Normal 80.0 - 100.0 fL Rem[facility] Heme Monocytes (Bld) [#/Vol] 0.5 E9/L Normal 0.2 - 1.0 E9/L [facility]e Monocytes/100 WBC (Bld) 6.6 % Normal 4.0 - 14.0 % [facility] Neutrophils (Bld) [#/Vol] 5.5 E9/L Normal 2.0 - 7.5 E9/L [facility] Neutrophils/100 WBC (Bld) 73.7 % Normal 36.0 - 75.0 % [facility] Platelet 265.0 E9/L Normal 150.0 - 500.0 E9/L Remiso l Heme Platelet mean volume (Bld) [Entitic vol] 7.2 fL Normal 6.4 - 10.8 fL Remisol Heme RBC (Bld) [#/Vol] 4.2 E12/L Low 4.3 - 5.9 E12/L Re misol Heme WBC corrected for nucl RBC Auto (Bld) [#/Vol] 7.5 E9/L Normal 4.0 - 11.0 E9/L Remisol Heme OhzA7sdf 01-11-2024 HbA1c (Bld) [Mass fraction] 6.1 % High <=5.9 [facility] Comment on above: Performed By: #### 7 [id number] ####[facility] [address] [place] [address] TSHon 01-11-2024 TSH Qn 40.32 m[IU]/L High 0.34-5.60 [facility] Comment on above: Performed By: #### 2 173243, 94916098, 0910280, 7067308, 1131087 ####[facility] [address] [place] [address] eGFRon 01-11-2024 eGFR 65 mL/min/1.73 m2 Normal >=59 [facility] Comment on above: Order Comment: Order added by Discern Expert. Performed By: #### 2 459728, 25855721, 7930740, 1071802, 9175100 ####[address] [place] [address] NM PET w/ CT Scan Skull Base to Midthighon 01-07-2024 NM PET w/ CT Scan Skull Base to Midthigh Exam Date/Time: 01/06/2024 17:08 EST Reason for Exam: C34.11 Report IMPRESSION: AGAIN THERE IS A RIGHT LOWER LOBE LUNG MASS LESION, WITH SURROUNDING AIRSPACE OPACIFICATION, AND INCREASED UPTAKE ACTIVITY, BUT WITH SOME DECREASE IN SUV FROM PRIOR STUDY. THERE IS A SMALL FOCAL PLEURAL DENSITY LATERALLY ON THE RIGHT, WITH INCREASED UPTAKE OF ACTIVITY, NOT APPARENT ON PRIOR STUDY. WHETHER THIS IS A METASTATIC LESION OR INFLAMMATORY IS NOT SPECIFICALLY DETERMINED. NONSPECIFIC RIGHT AND LEFT AXILLARY LYMPH NODES, WITH MILDLY INCREASED ACTIVITY. CLINICAL HISTORY: C34.11. Lung cancer. COMPARISON: 09/02/2023. COMMENT: Following the intravenous injection of 14.5 mCi of F18 FDG, axial PET images were obtained from the skull base to the mid thigh level. Unenhanced axial CT images were obtained from the skull base to the mid thigh level. Coronal and sagittal reconstructions were performed. The PET and CT images were fused. Prior to the injection of radionuclide, the patient's blood sugar was 102 mg/dL. There are areas of physiologic (mainly muscular) activity. No abnormal uptake nor adenopathy is noted at the skull base or in the neck. There is a right axillary lymph node, with central fatty hilum, and mildly increased uptake of activity, with SUV of 2.2 (compared to 1.6 on prior study). There is a small left axillary lymph node, with central fatty replacement, and mild activity, with SUV of 1.8 (compared to 1.4 on prior study). There is a right paratracheal lymph node, with uptake of activity and SUV of 2.5 (compared to 2.2 on prior study). These are nonspecific, but warrant follow-up. Mediastinal lymph nodes are otherwise unremarkable. Of incidental note, there is cardiomegaly and coronary artery calcification. Again there is increased density (including a masslike density that measures approximately 3.2 x 3.4 cm) in the right lower lobe medially, extending to the posterior inferior right hilum as on the prior study. There is increased uptake of activity, with SUV of 2.8 (compared to 3.4 on prior study). On CT images, in the right lung anteriorly, possibly along the minor fissure, there is a 0.7 cm diameter rounded density, unchanged in comparison to prior CT images, but on PET images, this does not demonstrate increased uptake of activity. At the same level along the lateral aspect of the pleura, there is a focal density measuring approximately 0.2 x 0.7 cm, with increased uptake and SUV of 2.9. This was not apparent on the prior study. No increased uptake along activity is noted in the left lung. No hilar Report lymphadenopathy nor abnormal uptake is evident. No abnormal uptake of activity is seen involving upper abdominal organs. No retroperitoneal, no pelvic, nor inguinal lymphadenopathy or abnormal uptake is evident. No abnormal uptake suspicious for bony metastatic disease is noted. There is physiologic activity in the and GI tracts. The CT images were obtained using a smart or auto mA system for dose reduction. Ordering Provider: Joshua Eng FINAL REPORT Dictated: 01/07/2024 3:08 pm Candido Hernandez M.D. Signed (Electronic Signature): 01/07/2024 3:08 pm Signed by: Candido Hernandez M.D. Transcribed by: RAEANN Technologist: KASH Technical Comments Dose (mCi F-18 FDG): 14.5 Imaging Post Administration (mins): 50 [facility] RAD - MISCon 01-07-2024 RAD - MISC [id number] 6#1.00TIFF [facility] Consent for Treatmenton 12-11 Consent for Treatment [id number] #1.00TIFF [facility] Physician Orderon 01-05-2024 Physician Order [id number] #1.00TIFF [facility] Ambulatory Visit Summaryon 0 12-18-2023 Ambulatory Visit Summary ROBSON CARLSON :1955 Visit Date:12/18/2023 Ambulatory Visit Instructions Your Diagnosis TMJ arthritis Bruxism, sleep-related Left ear impacted cerumen OAB (overactive bladder) Overweight BMI 26.0-26.9,adult Your Care Team Attending Physician - Mecca SAUCEDO MD Primary Care Physician - Mecca SAUCEDO MD This Is Your Medications List [facility] Prescription (Magic Mouth wash) alprazolam (Xanax 0.5 mg Tab) buprenorphine-naloxo ne (Suboxone) levothyroxine (levothyroxine 125 mcg (0.125 mg) Tab) tolterodine (tolterodine 4 mg Cap-ER) Procedures Performed Cystoscopy (11/03/2023), CT guided biopsy of lung (05/21/2022), bilat carpal tunnel release, Bilateral extraction of cataracts, cervical fusion, hernia repair, lumbar fusion x 2, nerve surgery R arm, partial thyroidectomy, PE - Pulmonary embolism, trigger finger surgery. Discharge Vitals Heart Rate (Peripheral) 78 Respiratory Rate 16 Blood Pressure 120/80 Height 172 cm Height 68 in Weight 77 kg Weight 169.4 lb BMI 26.03 What to do next Scheduled Follow-Up Appointments 2023 10:30 AM EDT With: Joshua Eng DO Where: [facility] Thursday 11:00 AM EDT With: WANDA PEÑA PA-C Where: [facility] [place] [id number]- \.br\ You Need to Schedule the Following Appointments\.br\ Follow Up with SHERYL CHU, ELIU Sanz When: Only if needed\.br\ Where:\.br\ \.br\ Medications\.br\ What How Much When Why Instructions\.br\ Unchanged alprazolam (Xanax 0.5 mg Tab) 1 Tablets By Mouth 3 times a day as needed for for anxiety Non-small cell lung cancer Anxiety\.br\ Unchanged buprenorphine-nalo xone (Suboxone) 8mg/2mg Sublingual 2 times a day\.br\ Unchanged levothyroxine (levothyroxine 125 mcg (0.125 mg) Tab) 1 Tablets By Mouth Every day Immunotherapy Thyroid disease\.br\ Unchanged Misc Prescription (Magic Mouth wash) 0 History of immunotherapy [id number] mg Nystatin 30 ml suspension Lidocaine 30 ml QS with Benadryl Elixir to 240 mls Directions Swish & Swallow 1 tsp every 4 hrs as needed \.br\ Unchanged tolterodine (tolterodine 4 mg Cap-ER) 1 Capsules By Mouth Every day\.br\ Medications and Immunizations Administered\.br\ Not Given\.br\ influenza virus vaccine, inactivated, Postpone due to refusal\.br\ Allergies\.br\ No Known Allergies\.br\ No Known Medication Allergies\.br\ Problems\.br\ Ongoing - Any problem that you are currently receiving treatment for.\.br\ Actinic keratosis of right side of forehead\.br\ Adverse effect of antineoplastic and immunosuppressive drugs, initial encounter\.br\ Anemia in chronic illness\.br\ Anxiety\.br\ Basal cell carcinoma of face\.br\ Benign hypertension\.br\ BMI 26.0-26.9,adult\.b r\ BPH associated with nocturia\.br\ Bruxism, sleep-related\.br\ Chronic insomnia\.br\ Combined hyperlipidemia\.br \ Diabetic polyneuropathy associated with type 2 diabetes mellitus\.br\ Encounter for well adult exam with abnormal findings\.br\ History of narcotic addiction\.br\ History of pulmonary embolism\.br\ Intermittent asthma\.br\ Intermittent asthma with acute exacerbation\.br\ Left ear impacted cerumen\.br\ Lumbar radiculopathy\.br\ Malignant neoplasm metastatic to left adrenal gland\.br\ Neoplastic (malignant) related fatigue\.br\ Non-small cell cancer of right lung\.br\ OAB (overactive bladder)\.br\ 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 Please share your experience with us by completing your survey. We appreciate your feedback and thank you for choosing us for your care.\.br\ Education Materials\.br\ Temporomandibular Joint Syndrome\.br\ \.br\ Temporomandibular joint syndrome (TMJ syndrome) is a condition that causes pain in the temporomandibular joints. These joints are located near your ears and allow your jaw to open and close. For people with TMJ syndrome, chewing, biting, or other movements of the jaw can be difficult or painful.\.br\ TMJ syndrome is often mild and goes away within a few weeks. However, sometimes the condition becomes a long-term (chronic) problem.\.br\ What are the causes?\.br\ This condition may be caused by:\.br\ ? \.br\ Grinding your teeth or clenching your jaw. Some people do this when they are stressed.\.br\ ? \.br\ Arthritis.\.br\ ? \.br\ An injury to the jaw.\.br\ ? \.br\ A head or neck injury.\.br\ ? \.br\ Teeth or dentures that are not aligned well.\.br\ In some cases, the cause of TMJ syndrome may not be known.\.br\ What are the signs or symptoms?\.br\ The most common symptom of this condition is aching pain on the side of the head in the area of the TMJ. Other symptoms may include:\.br\ ? \.br\ Pain when moving your jaw, such as when chewing or biting.\.br\ ? \.br\ Not being able to open your jaw all the way.\.br\ ? \.br\ Making a clicking sound when you open your mouth.\.br\ ? \.br\ Headache.\.br\ ? \.br\ Earache.\.br\ ? \.br\ Neck or shoulder pain.\.br\ How is this diagnosed?\.br\ This condition may be diagnosed based on:\.br\ ? \.br\ Your symptoms and medical history.\.br\ ? \.br\ A physical exam. Your health care provider may check the range of motion of your jaw.\.br\ ? \.br\ Imaging tests, such as X-rays or an MRI.\.br\ You may also need to see your dentist, who will check if your teeth and jaw are lined up correctly.\.br\ How is this treated?\.br\ TMJ syndrome often goes away on its own. If treatment is needed, it may include:\.br\ ? \.br\ Eating soft foods and applying ice or heat.\.br\ ? \.br\ Medicines to relieve pain or inflammation.\.br\ ? \.br\ Medicines or massage to relax the muscles.\.br\ ? \.br\ A splint, bite plate, or mouthpiece to prevent teeth grinding or jaw clenching.\.br\ ? \.br\ Relaxation techniques or counseling to help reduce stress.\.br\ ? \.br\ A therapy for pain in which an electrical current is applied to the nerves through the skin (transcutaneous electrical nerve stimulation).\.br\ ? \.br\ Acupuncture. This may help to relieve pain.\.br\ ? \.br\ Jaw surgery. This is rarely needed.\.br\ Follow these instructions at home:\.br\ \.br\ Eating and drinking\.br\ ? \.br\ Eat a soft diet if you are having trouble chewing.\.br\ ? \.br\ Avoid foods that require a lot of chewing. Do not chew gum.\.br\ General instructions\.br\ ? \.br\ Take prkg-mnf-vvufibw and prescription medicines only as told by your health care provider.\.br\ ? \.br\ If directed, put ice on the painful area. To do this:\.br\ ? \.br\ Put ice in a plastic bag.\.br\ ? \.br\ Place a towel between your skin and the bag.\.br\ ? \.br\ Leave the ice on for 20 minutes, 2?3 times a day.\.br\ ? \.br\ Remove the ice if your skin turns bright red. This is very important. If you cannot feel pain, heat, or cold, you have a greater risk of damage to the area.\.br\ ? \.br\ Apply a warm, wet cloth (warm compress) to the painful area as told.\.br\ ? \.br\ Massage your jaw area and do any jaw stretching exercises as told by your health care provider.\.br\ ? \.br\ If you were given a splint, bite plate, or mouthpiece, wear it as told by your health care provider.\.br\ ? \.br\ Keep all follow-up visits. This is important.\.br\ Where to find more information\.br\ ? \.br\ National [employer]: www.nidcr.nih.gov\ .br\ Contact a health care provider if:\.br\ ? \.br\ You have trouble eating.\.br\ ? \.br\ You have new or worsening symptoms.\.br\ Get help right away if:\.br\ ? \.br\ Your jaw locks.\.br\ Summary\.br\ ? \.br\ Temporomandibular joint syndrome (TMJ syndrome) is a condition that causes pain in the temporomandibular joints. These joints are located near your ears and allow your jaw to open and close.\.br\ ? \.br\ TMJ syndrome is often mild and goes away within a few weeks. However, sometimes the condition becomes a long-term (chronic) problem.\.br\ ? \.br\ Symptoms include an aching pain on the side of the head in the area of the TMJ, pain when chewing or biting, and being unable to open your jaw all the way. You may also make a clicking sound when you open your mouth.\.br\ ? \.br\ TMJ syndrome often goes away on its own. If treatment is needed, it may include medicines to relieve pain, reduce inflammati [facility] Family Medicine Office/Clini c Noteon 12-18-2023 Family Medicine Office/Clinic Note Chief Complaint pt presents today c/o rt ear pain that comes and goes, no rfs. pt states he flushed bilat ears and got a sizeable amt of wax out of both ears and a brown spider out of the rt ear. History of Present Illness The patient is here with complaints of right ear pain coming and going. Had just been seen here previously 1 week ago for cerumen removal and ended up completing this with Debrox at home. He had a small brown spider in his right ear. Found this when he cleared out the ears with Debrox. It started hurting him later on in the week. Denies any fevers or chills. He had wax in his left ear and he got it out. He used Debrox. The pain is not constant, but when it happens, it is every day. exacerbates when he eats. About 3 or 4 months ago, his jaw cracked and popped. He thought he dislocated his jaw. He went to the dentist and they did an x-ray, which was normal. Sometimes, he can hear a crunching sound. His dentist used to say he grinds his teeth at night. He has a full partial that comes out at night. He takes Tylenol, which does help. The Myrbetriq was working very well but insurance would not cover therefore he started tolterodine, it is working well for his bladder. He has actually gone even to work for 3 hours instead of every hour. He only used it for a week. The dryness of mouth is bad as oxybutynin. Review of Systems PHQ Score Initial Depression Screen Score: 0 SCORE See HPI otherwise negative Physical Exam Vitals & Measurements HR: 78(Peripheral) RR: 16 BP: 120/80 SpO2: 95% HT: 68 in HT: 172 cm WT: 77 kg WT: 169.4 lb BMI: 26.03 The patient is nearly groomed, adequately hydrated, no acute distress. Normocephalic, atraumatic. Grossly normal hearing. Wearing corrective lenses. Both tympanic membranes are intact. There is some serous fluid in the right. No palpable tenderness with manipulation of the ear canal, but at the right temporomandibular joint, there is certainly crepitance and grinding and popping with mastication. The patient's tongue is pink and moist. Does have an upper plate intact and good repair. Without palpable adenopathy. Abdomen is soft, flat, mildly overweight, nontender. Cooperative, bright affect. Assessment/Plan 1. TMJ arthritis (M26.649: Arthritis of unspecified temporomandibular joint) Strong suspicion the pain felt on the right ear/otalgia is directly related to TMJ. Certainly demonstrates some crepitance and grinding with mastication. Asking him to discuss this with his dentist about the possibility of a bite guard recognizing it may be difficult to fit because of his upper plate. May use Tylenol Motrin for pain. Reassurance provided I see nothing else ominous in the ear canal 2. Bruxism, sleep-related (G47.63: Sleep related bruxism) See problem #1 3. Left ear impacted cerumen (H61.22: Impacted cerumen, left ear) Cerumen has completely cleared out may continue using Debrox as needed 4. OAB (overactive bladder) (N32.81: Overactive bladder) Has responded nicely with tolterodine we will continue the same limiting nocturnal fluids and caffeinated beverages maintain scheduled voiding 5. Overweight (E66.3: Overweight) The standard range for ages 18 and older is >=18.5 and < 25 kg/m2. Your BMI today was above this range, this falls in the overweight to obese category and there are medical benefits to weight loss. We can offer counselling, referral, and/or medical support in addressing this problem. Your BMI and weight management will be followed at subsequent visits. 6. BMI 26.0-26.9,adult (Z68.26: Body mass index [BMI] 26.0-26.9, adult) See #5 Portions of this record may have been created with voice recognition artificial intelligence software, specifically [employer], [employer] and or [employer]. Substitutions may have occurred due to the inherent limitations of voice recognition and artificial intelligence software. Follow-up With When Contact Information Mecca SAUCEDO MD, [facility] Only if needed Additional Instructions: Patient Education Temporomandibular Joint Syndrome Earwax Buildup, Adult Problem List/Past Medical History Ongoing Actinic keratosis of right side of forehead Adverse effect of antineoplastic and immunosuppressive drugs, initial encounter Anemia in chronic illness Anxiety Basal cell carcinoma of face Benign hypertension BMI 26.0-26.9,adult BPH associated with nocturia Bruxism, sleep-related Chronic insomnia Combined hyperlipidemia Diabetic polyneuropathy associated with type 2 diabetes mellitus Encounter for well adult exam with abnormal findings History of narcotic addiction History of pulmonary embolism Intermittent asthma Intermittent asthma with acute exacerbation Left ear impacted cerumen Lumbar radiculopathy Malignant neoplasm metastatic to left adrenal gland Neoplastic (malignant) related fatigue Non-small cell cancer of right lung OAB (overactive bladder) 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 [facility] Comment on above: Result Comment: Elec tronically Signed By: Mecca SAUCEDO MD\.br\Date and Time Signed: 12/18/23 14:52 EST Patient Educationon 12-18-19 24 Patient Education ENT Earwax Buildup, Adult The ears produce a substance called earwax that helps keep bacteria out of the ear and protects the skin in the ear canal. Occasionally, earwax can build up in the ear and cause discomfort or hearing loss. What are the causes? This condition is caused by a buildup of earwax. Ear canals are self-cleaning. Ear wax is made in the outer part of the ear canal and generally falls out in small amounts over time. When the self-cleaning mechanism is not working, earwax builds up and can cause decreased hearing and discomfort. Attempting to clean ears with cotton swabs can push the earwax deep into the ear canal and cause decreased hearing and pain. What increases the risk? This condition is more likely to develop in people who: ? Clean their ears often with cotton swabs. ? Pick at their ears. ? Use earplugs or in-ear headphones often, or wear hearing aids. The following factors may also make you more likely to develop this condition: ? Being male. ? Being of older age. ? Naturally producing more earwax. ? Having narrow ear canals. ? Having earwax that is overly thick or sticky. ? Having excess hair in the ear canal. ? Having eczema. ? Being dehydrated. What are the signs or symptoms? Symptoms of this condition include: ? Reduced or muffled hearing. ? A feeling of fullness in the ear or feeling that the ear is plugged. ? Fluid coming from the ear. ? Ear pain or an itchy ear. ? Ringing in the ear. ? Coughing. ? Balance problems. ? An obvious piece of earwax that can be seen inside the ear canal. How is this diagnosed? This condition may be diagnosed based on: ? Your symptoms. ? Your medical history. ? An ear exam. During the exam, your health care provider will look into your ear with an instrument called an otoscope. You may have tests, including a hearing test. How is this treated? This condition may be treated by: ? Using ear drops to soften the earwax. ? Having the earwax removed by a health care provider. The health care provider may: ? Flush the ear with water. ? Use an instrument that has a loop on the end (curette). ? Use a suction device. ? Having surgery to remove the wax buildup. This may be done in severe cases. Follow these instructions at home: ? Take tvkj-fdz-udzjcfm and prescription medicines only as told by your health care provider. ? Do not put any objects, including cotton swabs, into your ear. You can clean the opening of your ear canal with a washcloth or facial tissue. ? Follow instructions from your health care provider about cleaning your ears. Do not overclean your ears. ? Drink enough fluid to keep your urine pale yellow. This will help to thin the earwax. ? Keep all follow-up visits as told. If earwax builds up in your ears often or if you use hearing aids, consider seeing your health care provider for routine, preventive ear cleanings. Ask your health care provider how often you should schedule your cleanings. ? If you have hearing aids, clean them according to instructions from the strap machine operator and your health care provider. Contact a health care provider if: ? You have ear pain. ? You develop a fever. ? You have pus or other fluid coming from your ear. ? You have hearing loss. ? You have ringing in your ears that does not go away. ? You feel like the room is spinning (vertigo). ? Your symptoms do not improve with treatment. Get help right away if: ? You have bleeding from the affected ear. ? You have severe ear pain. Summary ? Earwax can build up in the ear and cause discomfort or hearing loss. ? The most common symptoms of this condition include reduced or muffled hearing, a feeling of fullness in the ear, or feeling that the ear is plugged. ? This condition may be diagnosed based on your symptoms, your medical history, and an ear exam. ? This condition may be treated by using ear drops to soften the earwax or by having the earwax removed by a health care provider. ? Do not put any objects, including cotton swabs, into your ear. You can clean the opening of your ear canal with a washcloth or facial tissue. This information is not intended to replace advice given to you by your health care provider. Make sure you discuss any questions you have with your health care provider. Document Revised: 02/12/2021 Document Reviewed: 02/12/2021 [employer] Patient Education ? 2022 [employer] Temporomandibular Joint Syndrome Temporomandibular joint syndrome (TMJ syndrome) is a condition that causes pain in the temporomandibular joints. These joints are located near your ears and allow your jaw to open and close. For people with TMJ syndrome, chewing, biting, or other movements of the jaw can be difficult or painful. TMJ syndrome is often mild and goes away within a few weeks. However, sometimes the condition becomes a long-term (chronic) problem (more content not included)... [facility] Pre-Certification Formon Pre-Certification Form [id number] #1.00TIFF [facility] Ambulatory Visit Summaryon 0 12-07-2023 Ambulatory Visit Summary ROBSON CARLSON :1955 Visit Date:12/07/2023 Ambulatory Visit Instructions Your Diagnosis Diabetic polyneuropathy associated with type 2 diabetes mellitus Anemia in chronic illness Benign hypertension Intermittent asthma Non-small cell cancer of right lung Malignant neoplasm metastatic to left adrenal gland Neoplastic (malignant) related fatigue Primary hypothyroidism BPH associated with nocturia OAB (overactive bladder) History of narcotic addiction Left ear impacted cerumen Your Care Team Attending Physician - Mecca SAUCEDO MD Primary Care Physician - Mecca SAUCEDO MD This Is Your Medications List mirabegron (Myrbetriq 50 mg oral tablet, extended release) Contact prescribing physician if questions or concerns Misc Prescription (Magic Mouth wash) alprazolam (Xanax 0.5 mg Tab) buprenorphine-naloxo ne (Suboxone) levothyroxine (levothyroxine 125 mcg (0.125 mg) Tab) Procedures Performed Cystoscopy (11/03/2023), CT guided biopsy of lung (05/21/2022), bilat carpal tunnel release, Bilateral extraction of cataracts, cervical fusion, hernia repair, lumbar fusion x 2, nerve surgery R arm, partial thyroidectomy, PE - Pulmonary embolism, trigger finger surgery. Discharge Vitals Heart Rate (Peripheral) 70 Respiratory Rate 16 Blood Pressure 120/80 Height 172 cm Height 68 in Weight 78.2 kg Weight 172.04 lb BMI 26.43 What to do next Scheduled Follow-Up Appointments 2023 10:30 AM EDT With: Joshua Eng DO Where: [facility] Thursday 11:00 AM EDT With: WANDA PEÑA PA-C Where: [facility] [address] [place] [address]- \.br\ You Need to Schedule the Following Appointments\.br\ Follow Up with Mecca SAUCEDO MD, FAM When: Within 6 months\.br\ Where:\.br\ [address] [facility]\.br\ [place] [address]-\.br\ \.br\ Medications\.br\ What How Much When Why Instructions\.br\ Unchanged mirabegron (Myrbetriq 50 mg oral tablet, extended release) 1 Tablets By Mouth Every day Pickup at [facility]\.br\ Unchanged alprazolam (Xanax 0.5 mg Tab) 1 Tablets By Mouth 3 times a day as needed for for anxiety Non-small cell lung cancer Anxiety Contact prescribing physician if questions or concerns \.br\ Unchanged buprenorphine-nalo xone (Suboxone) 8mg/2mg Sublingual 2 times a day Contact prescribing physician if questions or concerns \.br\ Unchanged levothyroxine (levothyroxine 125 mcg (0.125 mg) Tab) 1 Tablets By Mouth Every day Immunotherapy Thyroid disease Contact prescribing physician if questions or concerns \.br\ Unchanged Misc Prescription (Magic Mouth wash) 0 History of immunotherapy [id number] mg Nystatin 30 ml suspension Lidocaine 30 ml QS with Benadryl Elixir to 240 mls Directions Swish & Swallow 1 tsp every 4 hrs as needed Contact prescribing physician if questions or concerns \.br\ Pharmacy Information\.br\ [facility]: [address], [place] [phone]\.br\ Medications and Immunizations Administered\.br\ Not Given\.br\ influenza virus vaccine, inactivated, Postpone due to refusal\.br\ Allergies\.br\ No Known Allergies\.br\ No Known Medication Allergies\.br\ Problems\.br\ Ongoing - Any problem that you are currently receiving treatment for.\.br\ Actinic keratosis of right side of forehead\.br\ Adverse effect of antineoplastic and immunosuppressive drugs, initial encounter\.br\ Anemia in chronic illness\.br\ Anxiety\.br\ Basal cell carcinoma of face\.br\ Benign hypertension\.br\ BMI 26.0-26.9,adult\.b r\ BPH associated with nocturia\.br\ Chronic insomnia\.br\ Combined hyperlipidemia\.br \ Diabetic polyneuropathy associated with type 2 diabetes mellitus\.br\ Encounter for well adult exam with abnormal findings\.br\ History of narcotic addiction\.br\ History of pulmonary embolism\.br\ Intermittent asthma\.br\ Intermittent asthma with acute exacerbation\.br\ Left ear impacted cerumen\.br\ Lumbar radiculopathy\.br\ Malignant neoplasm metastatic to left adrenal gland\.br\ Neoplastic (malignant) related fatigue\.br\ Non-small cell cancer of right lung\.br\ OAB (overactive bladder)\.br\ Other fdc (current) 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\.br\ Primary hypothyroidism\.br \ Recurrent herpes simplex\.br\ Historical - Any problem that you are no longer receiving treatment for.\.br\ COVID-19\.br\ Nausea\.br\ Overweight\.br\ Patient Survey\.br\ You may receive a survey via text or e-mail asking about your office visit. Please share your experience with us by completing your survey. We appreciate your feedback and thank you for choosing us for your care.\.br\ Education Materials\.br\ Diabetes Mellitus and Foot Care\.br\ Foot care is an important part of your health, especially when you have diabetes. Diabetes may cause you to have problems because of poor blood flow (circulation) to your feet and legs, which can cause your skin to:\.br\ ? \.br\ Become thinner and tray drier operator.\.br\ ? \.br\ Break more easily.\.br\ ? \.br\ Heal more slowly.\.br\ ? \.br\ Peel and crack.\.br\ You may also have nerve damage (neuropathy) in your legs and feet, causing decreased feeling in them. This means that you may not notice minor injuries to your feet that could lead to more serious problems. Noticing and addressing any potential problems early is the best way to prevent future foot problems.\.br\ How to care for your feet\.br\ Foot hygiene\.br\ \.br\ ? \.br\ Wash your feet daily with warm water and mild soap. Do not use hot water. Then, pat your feet and the areas between your toes until they are completely dry. Do not soak your feet as this can dry your skin.\.br\ ? \.br\ Trim your toenails straight across. Do not dig under them or around the cuticle. File the edges of your nails with an emery board or nail file.\.br\ ? \.br\ Apply a moisturizing lotion or petroleum jelly to the skin on your feet and to dry, brittle toenails. Use lotion that does not contain alcohol and is unscented. Do not apply lotion between your toes.\.br\ Shoes and socks\.br\ ? \.br\ Wear clean socks or stockings every day. Make sure they are not too tight. Do not wear knee-high stockings since they may decrease blood flow to your legs.\.br\ ? \.br\ Wear shoes that fit properly and have enough cushioning. Always look in your shoes before you put them on to be sure there are no objects inside.\.br\ ? \.br\ To break in new shoes, wear them for just a few hours a day. This prevents injuries on your feet.\.br\ Wounds, scrapes, corns, and calluses\.br\ \.br\ ? \.br\ Check your feet daily for blisters, cuts, bruises, sores, and redness. If you cannot see the bottom of your feet, use a mirror or ask someone for help.\.br\ ? \.br\ Do not cut corns or calluses or try to remove them with medicine.\.br\ ? \.br\ If you find a minor scrape, cut, or break in the skin on your feet, keep it and the skin around it clean and dry. You may clean these areas with mild soap and water. Do not clean the area with peroxide, alcohol, or iodine.\.br\ ? \.br\ If you have a wound, scrape, corn, or callus on your foot, look at it several times a day to make sure it is healing and not infected. Check for:\.br\ ? \.br\ Redness, swelling, or pain.\.br\ ? \.br\ Fluid or blood.\.br\ ? \.br\ Warmth.\.br\ ? \.br\ Pus or a bad smell.\.br\ General tips\.br\ ? \.br\ Do not cross your legs. This may decrease blood flow to your feet.\.br\ ? \.br\ Do not use heating pads or hot water bottles on your feet. They may burn your skin. If you have lost feeling in your feet or legs, you may not know this is happening until it is too late.\.br\ ? \.br\ Protect your feet from hot and cold by wearing shoes, such as at the beach or on hot pavement.\.br\ ? \.br\ Schedule a complete foot exam at least once a year (annually) or more often if you have foot problems. Report any cuts, sores, or bruises to your health care provider immediately.\.br\ Where to find more information\.br\ ? \.br\ [place] [employer]: www.diabetes.org\. br\ ? \.br\ Association of Diabetes Care & Education Specialists: www.diabeteseducat or.org\.br\ Contact a health care provider if:\.br\ ? \.br\ You have a medical condition that increases your risk of infection and you have any cuts, sores, or bruises on your feet.\.br\ ? \.br\ You have an injury that is not healing.\.br\ ? \.br\ You have redness on your legs or feet.\.br\ ? \.br\ You feel burning or tingling in your legs or feet.\.br\ ? \.br\ You have pain or cramps in your legs and feet.\.br\ ? \.br\ Your legs or feet are numb.\.br\ ? \.br\ Your feet always feel cold.\.br\ ? \.br\ You have pain around any toenails.\.br\ Get help right away if:\.br\ ? \.br\ You have a wound, scrape, corn, or callus on your foot and:\.br\ ? \.br\ You have pain, swelling, or redness that gets worse.\.br\ ? \.br\ You have fluid or blood coming from the wound, scrape, corn, or callus.\.br\ ? \.br\ Your wo [facility] Office/Clini c Noteon 12-07-2023 Family Medicine Office/Clinic Note Chief Complaint 6mo chk up, fasting, no rfs. pt c/o bilat ear pain (rt > lt). pt did irrigate rt ear and got a hunk of hard cerumen out of ear. needs tetanus and AMV History of Present Illness The patient is here for general checkup. He is doing good and lung cancer with mets still in remission. He takes Suboxone and levothyroxine everyday. He denies any shortness of breath or chest pain. His appetite has remained pretty good. He denies any cough. He walks 2 dogs every day. He has another PET scan coming up later spring. His ears are bothering him. He used Debrox. His left ear is hurting. He tried wax removal drops once. He denies any popping or clicking. He denies any sore throat. He denies any colored drainage out of the nose. He denies any stuffy nose. Was able to completely clear the right ear. He denies any trouble with his bowels. His urinary flow is better after the surgery. He still gets up every hour when he first goes to bed, but then it goes 1.5 to 2 hours. He used Myrbetriq almost 6 months ago. His surgery was a month ago with Dr. Little Supplemental Information His last eye exam was in 04/2023. His vision is good with the new glasses. He does not check his blood sugars at home. His asthma has been good. Review of Systems PHQ Score Initial Depression Screen Score: 0 SCORE See HPI otherwise negative Physical Exam Vitals & Measurements HR: 70(Peripheral) RR: 16 BP: 120/80 SpO2: 97% HT: 68 in HT: 172 cm WT: 78.2 kg WT: 172.04 lb BMI: 26.43 Constitutional: Well-groomed adequately hydrated. HEENT: Conjunctiva clear wearing corrective lenses. Grossly normal hearing. Normocephalic atraumatic right TM is clear left TM is occluded by cerumen very thick hard brown. Neck without adenopathy no thyromegaly appreciated. Oropharynx pink and moist dentures in good repair Cardiothoracic: Intact peripheral pulses no edema regular rate and rhythm no murmur gallop or rub Respiratory: Diminished but clear bilaterally no wheeze or rhonchi Abdomen/GI: Soft hyperactive bowel sounds nontender Genitourinary: Deferred Musculoskeletal: Well-developed good posture Neurologic: No tremors. Integument: Skin is relatively pale adequate turgor there are some senile purpura on the arms Psychiatric: Cooperative with good insight Assessment/Plan 1. Diabetic polyneuropathy associated with type 2 diabetes mellitus (E11.42: Type 2 diabetes mellitus with diabetic polyneuropathy) Reviewed with patient continue dietary compliance and always maintain appropriate exam of feet wearing shoes to avoid any skin breakdown with decreased monofilament sensation. Patient is basically diet controlled and continues to limit carbohydrates in the diet requesting A1c with his next lab draw in December for oncology Ordered: Body Mass Index (BMI) documented 3008F Current tobacco non-user 1036F Depression Screening Negative 3352F Discharge medications reconciled with current medications in outpatient record 1111F HBA1C <7.0 Most Recent Level 3044F Influenza immunization status assessed 1030F Most recent diastolic blood pressure 80-89 mm Hg 3079F Most recent LDL-C 100-129 mg/dL 3049F Patient screen for fall risk: no falls in last year or 1 fall with no injury in last year 1101F Pneumonia Vax administered or previously received 4040F Systolic BP <130 mm Hg (Most Recent) 3074F 2. Anemia in chronic illness (D63.8: Anemia in other chronic diseases classified elsewhere) Improved but stable. Continue following with management through oncology believe this is related to chronic chemotherapy Ordered: Body Mass Index (BMI) documented 3008F Current tobacco non-user 1036F Depression Screening Negative 3352F Discharge medications reconciled with current medications in outpatient record 1111F HBA1C <7.0 Most Recent Level 3044F Influenza immunization status assessed 1030F Most recent diastolic blood pressure 80-89 mm Hg 3079F Most recent LDL-C 100-129 mg/dL 3049F Patient screen for fall risk: no falls in last year or 1 fall with no injury in last year 1101F Pneumonia Vax administered or previously received 4040F Systolic BP <130 mm Hg (Most Recent) 3074F 3. Benign hypertension (I10: Essential (primary) hypertension) The importance of the following were all reviewed with the patient: -Take Rx(s )as prescribed. There are simple Lifestyle Modifications that you can do to reduce your blood pressure. -Weight Reduction -Follow the DASH eating plan. More information about this eating plan can be found here: https://www.nhlbi.ni h.gov/health/health- topics/topics/dash -Reduce Sodium (Salt) Intake to 2000mg per day. -Use Moderation when consuming alcohol. - To improve your health we recommend increasing your level of moderate exercise to at least 2.5 hrs per week. For more information, please visit the CDC Exercise and Fitness Recommendations at www.cdc.gov/physical activity/basics/inde x.htm Ordered: Body Mass Index (BMI) documented 3008F Current to (more content not included)... Normal [facility]ip [facility] Comment on above: Result Comment: Erick tabor Signed By: SHERYL CHU, Maxime.yousif\Date and Time Signed: 12/07/23 12:38 EST Patient Educationon 12-05-19 Patient Education Endocrinology Diabetes Mellitus and Foot Care Foot care is an important part of your health, especially when you have diabetes. Diabetes may cause you to have problems because of poor blood flow (circulation) to your feet and legs, which can cause your skin to: ? 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 ? Break more easily. ? Heal more slowly. ? Peel and crack. You may also have nerve damage (neuropathy) in your legs and feet, causing decreased feeling in them. This means that you may not notice minor injuries to your feet that could lead to more serious problems. Noticing and addressing any potential problems early is the best way to prevent future foot problems. How to care for your feet Foot hygiene ? Wash your feet daily with warm water and mild soap. Do not use hot water. Then, pat your feet and the areas between your toes until they are completely dry. Do not soak your feet as this can dry your skin. ? Trim your toenails straight across. Do not dig under them or around the cuticle. File the edges of your nails with an emery board or nail file. ? Apply a moisturizing lotion or petroleum jelly to the skin on your feet and to dry, brittle toenails. Use lotion that does not contain alcohol and is unscented. Do not apply lotion between your toes. Shoes and socks ? Wear clean socks or stockings every day. Make sure they are not too tight. Do not wear knee-high stockings since they may decrease blood flow to your legs. ? Wear shoes that fit properly and have enough cushioning. Always look in your shoes before you put them on to be sure there are no objects inside. ? To break in new shoes, wear them for just a few hours a day. This prevents injuries on your feet. Wounds, scrapes, corns, and calluses ? Check your feet daily for blisters, cuts, bruises, sores, and redness. If you cannot see the bottom of your feet, use a mirror or ask someone for help. ? Do not cut corns or calluses or try to remove them with medicine. ? If you find a minor scrape, cut, or break in the skin on your feet, keep it and the skin around it clean and dry. You may clean these areas with mild soap and water. Do not clean the area with peroxide, alcohol, or iodine. ? If you have a wound, scrape, corn, or callus on your foot, look at it several times a day to make sure it is healing and not infected. Check for: ? Redness, swelling, or pain. ? Fluid or blood. ? Warmth. ? Pus or a bad smell. General tips ? Do not cross your legs. This may decrease blood flow to your feet. ? Do not use heating pads or hot water bottles on your feet. They may burn your skin. If you have lost feeling in your feet or legs, you may not know this is happening until it is too late. ? Protect your feet from hot and cold by wearing shoes, such as at the beach or on hot pavement. ? Schedule a complete foot exam at least once a year (annually) or more often if you have foot problems. Report any cuts, sores, or bruises to your health care provider immediately. Where to find more information ? [place] [employer]: www.diabetes.org ? Association of Diabetes Care & Education Specialists: www.diabeteseducator .org Contact a health care provider if: ? You have a medical condition that increases your risk of infection and you have any cuts, sores, or bruises on your feet. ? You have an injury that is not healing. ? You have redness on your legs or feet. ? You feel burning or tingling in your legs or feet. ? You have pain or cramps in your legs and feet. ? Your legs or feet are numb. ? Your feet always feel cold. ? You have pain around any toenails. Get help right away if: ? You have a wound, scrape, corn, or callus on your foot and: ? You have pain, swelling, or redness that gets worse. ? You have fluid or blood coming from the wound, scrape, corn, or callus. ? Your wound, scrape, corn, or callus feels warm to the touch. ? You have pus or a bad smell coming from the wound, scrape, corn, or callus. ? You have a fever. ? You have a red line going up your leg. Summary ? Check your feet every day for blisters, cuts, bruises, sores, and redness. ? Apply a moisturizing lotion or petroleum jelly to the skin on your feet and to dry, brittle toenails. ? Wear shoes that fit properly and have enough cushioning. ? If you have foot problems, report any cuts, sores, or bruises to your health care provider immediately. ? Schedule a complete foot exam at least once a year (annually) or more often if you have foot problems. This information is not intended to replace advice given to you by your health care provider. Make sure you discuss any questions you have with your health care provider. Document Revised: 05/16/2021 Document Reviewed: 05/16/2021 [employer] Patient Education ? 2022 [employer]. Normal [facility] 12-01-2023 Screens [id number] #1.00TIFF [facility] Screens [id number] #1.00TIFF [facility] Ambulatory Visit Summaryon 0 11-30-2023 Ambulatory Visit Summary ROBSON CARLSON :1955 Visit Date:11/30/2023 Ambulatory Visit Instructions Your Diagnosis BPH associated with nocturia Screening for prostate cancer OAB (overactive bladder) Tests Performed Urnls Dip Stick Auto w/o Microscopy POC 83752 Your Care Team Attending Physician - Sidney CHU, Dina Hamm Primary Care Physician - [place]cca SAUCEDO MD This Is Your Medications List mirabegron (Myrbetriq 50 mg oral tablet, extended release) Contact prescribing physician if questions or concerns Misc Prescription (Magic Mouth wash) alprazolam (Xanax 0.5 mg Tab) buprenorphine-naloxo ne (Suboxone) levothyroxine (levothyroxine 125 mcg (0.125 mg) Tab) levothyroxine (levothyroxine 125 mcg (0.125 mg) Tab) [Image Removed: STOP]Stop taking these medications oxybutynin (oxybutynin 5 mg ER Tab) Procedures Performed Cystoscopy (11/03/2023), CT guided biopsy of lung (05/21/2022), bilat carpal tunnel release, Bilateral extraction of cataracts, cervical fusion, hernia repair, lumbar fusion x 2, nerve surgery R arm, partial thyroidectomy, PE - Pulmonary embolism, trigger finger surgery. Discharge Vitals Heart Rate (Peripheral) 160 Blood Pressure 142/89 Height 70 in Height 177.7 cm Weight 168.3 lb Weight 76.5 kg BMI 24.23 What to do next Scheduled Follow-Up Appointments Thursday 11:20 AM EST With: SHERYL CHU, [place] Where: [facility] [address] [place] [address]- \.br\ You Need to Schedule the Following Appointments\.br\ Follow Up with Sidney CHU, Dina Hamm, XAVIERL, URO When: \.br\ Where:\.br\ Medications\.br\ What How Much When Why Instructions\.br\ New mirabegron (Myrbetriq 50 mg oral tablet, extended release) 1 Tablets By Mouth Every day Refills: 11 Pickup at [facility]\.br\ Unchanged alprazolam (Xanax 0.5 mg Tab) 1 Tablets By Mouth 3 times a day as needed for for anxiety Non-small cell lung cancer Anxiety Contact prescribing physician if questions or concerns \.br\ Unchanged buprenorphine-nalo xone (Suboxone) 8mg/2mg Sublingual 2 times a day Contact prescribing physician if questions or concerns \.br\ Unchanged levothyroxine (levothyroxine 125 mcg (0.125 mg) Tab) 1 Tablets By Mouth Every day Immunotherapy Thyroid disease Contact prescribing physician if questions or concerns \.br\ Unchanged levothyroxine (levothyroxine 125 mcg (0.125 mg) Tab) 1 Tablets By Mouth Every day History of immunotherapy Contact prescribing physician if questions or concerns \.br\ Unchanged Misc Prescription (Magic Mouth wash) 0 History of immunotherapy [id number] mg Nystatin 30 ml suspension Lidocaine 30 ml QS with Benadryl Elixir to 240 mls Directions Swish & Swallow 1 tsp every 4 hrs as needed Contact prescribing physician if questions or concerns \.br\ Pharmacy Information\.br\ [facility]: [address] [place], [place] [id number] [phone]\.br\ \.br\ What How Much When Comments\.br\ Stop Taking oxybutynin (oxybutynin 5 mg ER Tab) 1 Tablets By Mouth Every day as needed for Urinary discomfort As needed for bladder spasms \.br\ Test Results\.br\ Urnls Dip Stick Auto w/o Microscopy POC 43522 (11/30/2023)\.br\ Bilirubin Urine Dipstick - Negative\.br\ Blood Urine Dipstick - Negative\.br\ Glucose Urine Dipstick - Negative\.br\ Ketones Urine Dipstick - Negative\.br\ Leukocytes Urine Dipstick - Negative\.br\ Nitrite Urine Dipstick - Negative\.br\ Protein Urine Dipstick - Negative\.br\ Specific [place] Urine Dipstick - 1.020\.br\ Urine Appearance Urine Dipstick - Clear\.br\ Urine Color Urine Dipstick - Yellow\.br\ Urobilinogen Urine Dipstick - Normal 0.2-1 EU/dl\.br\ pH Urine Dipstick - 7\.br\ Allergies\.br\ No Known Allergies\.br\ No Known Medication Allergies\.br\ Problems\.br\ Ongoing - Any problem that you are currently receiving treatment for.\.br\ Actinic keratosis of right side of forehead\.br\ Adverse effect of antineoplastic and immunosuppressive drugs, initial encounter\.br\ Anemia in chronic illness\.br\ Anxiety\.br\ Basal cell carcinoma of face\.br\ Benign hypertension\.br\ BMI 24.0-24.9, adult\.br\ BPH associated with nocturia\.br\ Chronic insomnia\.br\ Combined hyperlipidemia\.br \ Diabetic polyneuropathy associated with type 2 diabetes mellitus\.br\ Encounter for palliative care\.br\ Encounter for well adult exam with abnormal findings\.br\ History of narcotic addiction\.br\ History of pulmonary embolism\.br\ Intermittent asthma\.br\ Intermittent asthma with acute exacerbation\.br\ Lumbar radiculopathy\.br\ Malignant neoplasm metastatic to left adrenal gland\.br\ Neoplastic (malignant) related fatigue\.br\ Non-small cell cancer of right lung\.br\ OAB (overactive bladder)\.br\ 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 Please share your experience with us by completing your survey. We appreciate your feedback and thank you for choosing us for your care.\.br\ Education Materials\.br\ Benign Prostatic Hyperplasia\.br\ \.br\ Benign prostatic hyperplasia (BPH) is an enlarged prostate gland that is caused by the normal aging process. The prostate may get bigger as a man gets older. The condition is not caused by cancer. The prostate is a walnut-sized gland that is involved in the production of semen. It is located in front of the rectum and below the bladder. The bladder stores urine. The urethra carries stored urine out of the body.\.br\ An enlarged prostate can press on the urethra. This can make it harder to pass urine. The buildup of urine in the bladder can cause infection. Back pressure and infection may progress to bladder damage and kidney (renal) failure.\.br\ What are the causes?\.br\ This condition is part of the normal aging process. However, not all men develop problems from this condition. If the prostate enlarges away from the urethra, urine flow will not be blocked. If it enlarges toward the urethra and compresses it, there will be problems passing urine.\.br\ What increases the risk?\.br\ This condition is more likely to develop in men older than 50 years.\.br\ What are the signs or symptoms?\.br\ Symptoms of this condition include:\.br\ ? \.br\ Getting up often during the night to urinate.\.br\ ? \.br\ Needing to urinate frequently during the day.\.br\ ? \.br\ Difficulty starting urine flow.\.br\ ? \.br\ Decrease in size and strength of your urine stream.\.br\ ? \.br\ Leaking (dribbling) after urinating.\.br\ ? \.br\ Inability to pass urine. This needs immediate treatment.\.br\ ? \.br\ Inability to completely empty your bladder.\.br\ ? \.br\ Pain when you pass urine. This is more common if there is also an infection.\.br\ ? \.br\ Urinary tract infection (UTI).\.br\ How is this diagnosed?\.br\ This condition is diagnosed based on your medical history, a physical exam, and your symptoms. Tests will also be done, such as:\.br\ ? \.br\ A post-void bladder scan. This measures any amount of urine that may remain in your bladder after you finish urinating.\.br\ ? \.br\ A digital rectal exam. In a rectal exam, your health care provider checks your prostate by putting a lubricated, gloved finger into your rectum to feel the back of your prostate gland. This exam detects the size of your gland and any abnormal lumps or growths.\.br\ ? \.br\ An exam of your urine (urinalysis).\.br\ ? \.br\ A prostate specific antigen (PSA) screening. This is a blood test used to screen for prostate cancer.\.br\ ? \.br\ An ultrasound. This test uses sound waves to electronically produce a picture of your prostate gland.\.br\ Your health care provider may refer you to a specialist in kidney and prostate diseases (urologist).\.br\ How is this treated?\.br\ Once symptoms begin, your health care provider will monitor your condition (active surveillance or watchful waiting). Treatment for this condition will depend on the severity of your condition. Treatment may include:\.br\ ? \.br\ Observation and yearly exams. This may be the only treatment needed if your condition and symptoms are mild.\.br\ ? \.br\ Medicines to relieve your symptoms, including:\.br\ ? \.br\ Medicines to shrink the prostate.\.br\ ? \.br\ Medicines to relax the muscle of the prostate.\.br\ ? \.br\ Surgery in severe cases. Surgery may include:\.br\ ? \.br\ Prostatectomy. In this procedure, the prostate tissue is removed completely through an open incision or with a laparoscope or robotics.\.br\ ? \.br\ Transurethral resection of the prostate (TURP). In this procedure, a tool is inserted through the opening at the tip of the penis (urethra). It is used to [facility] Patient Educationon 11-30-19 Patient Education Urology Benign Prostatic Hyperplasia Benign prostatic hyperplasia (BPH) is an enlarged prostate gland that is caused by the normal aging process. The prostate may get bigger as a man gets older. The condition is not caused by cancer. The prostate is a walnut-sized gland that is involved in the production of semen. It is located in front of the rectum and below the bladder. The bladder stores urine. The urethra carries stored urine out of the body. An enlarged prostate can press on the urethra. This can make it harder to pass urine. The buildup of urine in the bladder can cause infection. Back pressure and infection may progress to bladder damage and kidney (renal) failure. What are the causes? This condition is part of the normal aging process. However, not all men develop problems from this condition. If the prostate enlarges away from the urethra, urine flow will not be blocked. If it enlarges toward the urethra and compresses it, there will be problems passing urine. What increases the risk? This condition is more likely to develop in men older than 50 years. What are the signs or symptoms? Symptoms of this condition include: ? Getting up often during the night to urinate. ? Needing to urinate frequently during the day. ? Difficulty starting urine flow. ? Decrease in size and strength of your urine stream. ? Leaking (dribbling) after urinating. ? Inability to pass urine. This needs immediate treatment. ? Inability to completely empty your bladder. ? Pain when you pass urine. This is more common if there is also an infection. ? Urinary tract infection (UTI). How is this diagnosed? This condition is diagnosed based on your medical history, a physical exam, and your symptoms. Tests will also be done, such as: ? A post-void bladder scan. This measures any amount of urine that may remain in your bladder after you finish urinating. ? A digital rectal exam. In a rectal exam, your health care provider checks your prostate by putting a lubricated, gloved finger into your rectum to feel the back of your prostate gland. This exam detects the size of your gland and any abnormal lumps or growths. ? An exam of your urine (urinalysis). ? A prostate specific antigen (PSA) screening. This is a blood test used to screen for prostate cancer. ? An ultrasound. This test uses sound waves to electronically produce a picture of your prostate gland. Your health care provider may refer you to a specialist in kidney and prostate diseases (urologist). How is this treated? Once symptoms begin, your health care provider will monitor your condition (active surveillance or watchful waiting). Treatment for this condition will depend on the severity of your condition. Treatment may include: ? Observation and yearly exams. This may be the only treatment needed if your condition and symptoms are mild. ? Medicines to relieve your symptoms, including: ? Medicines to shrink the prostate. ? Medicines to relax the muscle of the prostate. ? Surgery in severe cases. Surgery may include: ? Prostatectomy. In this procedure, the prostate tissue is removed completely through an open incision or with a laparoscope or robotics. ? Transurethral resection of the prostate (TURP). In this procedure, a tool is inserted through the opening at the tip of the penis (urethra). It is used to cut away tissue of the inner core of the prostate. The pieces are removed through the same opening of the penis. This removes the blockage. ? Transurethral incision (TUIP). In this procedure, small cuts are made in the prostate. This lessens the prostate's pressure on the urethra. ? Transurethral microwave thermotherapy (TUMT). This procedure uses microwaves to create heat. The heat destroys and removes a small amount of prostate tissue. ? Transurethral needle ablation (TUNA). This procedure uses radio frequencies to destroy and remove a small amount of prostate tissue. ? Interstitial laser coagulation (ILC). This procedure uses a laser to destroy and remove a small amount of prostate tissue. ? Transurethral electrovaporization (TUVP). This procedure uses electrodes to destroy and remove a small amount of prostate tissue. ? Prostatic urethral lift. This procedure inserts an implant to push the lobes of the prostate away from the urethra. Follow these instructions at home: ? Take ylmw-apc-pljpwyb and prescription medicines only as told by your health care provider. ? Monitor your symptoms for any changes. Contact your health care provider with any changes. ? Avoid drinking large amounts of liquid before going to bed or out in public. ? Avoid or reduce how much caffeine or alcohol you drink. ? Give yourself time when you urinate. ? Keep all follow-up visits. This is important. Contact a health care provider if: ? You have unexplained back pain. ? Your symptoms do not get better with treatment. ? You develop side effects from the medicine (more content not included)... [facility] Urology Office/Clinic Noteon 11-30-2023 Urology Office/Clinic Note Chief Complaint po urolift HPI Staff 68 year old male here for 1 month follow up with pvr S/P urolift 11/03/23 Previous Dx: BPH with LUTS Dysuria: no Incomplete bladder emptying: no, pvr in office today was 16ml Hematuria: no Frequency: is improving Urgency: intermittent Nocturia: states that when he first goes to sleep he will get up several times a night Stream: good stream Leaking: no Post void dripping: no Wearing pads/ Depends: no Urge incontinence: no Stress incontinence: no Incontinence without Sensory Awareness: no Abdominal pain: no Flank pain: no Sexual complaints: no History of Present Illness Tests reviewed: reviewed UA, PVR I have reviewed the previous health record information and history for this patient from Dr. Little. I have reviewed and verified the staff HPI to be accurate for this encounter. There have been no associated fever, chills, flank pain, or blood in the urine. Denies any urinary infections since last encounter. Review of Systems PHQ Score Initial Depression Screen Score: 0 SCORE ROS - Provider Constitutional: denies weight loss, denies hot flashes. Eyes: denies eye problems. Gastrointestinal: denies nausea, denies vomiting. Cardiovascular: denies chest pain or angina. Integumentary: no dryness Musculoskeletal: denies musculoskeletal symptoms. ENMT: denies otolaryngeal symptoms. Respiratory: no shortness of breath. Heme/Lymph: denies easy bleeding tendency, denies easy bruising tendency. Psychiatric: no confusion, no anxiety. Genitourinary: See HPI. Physical Exam Vitals & Measurements HR: 160(Peripheral) BP: 142/89 HT: 70 in HT: 177.7 cm WT: 76.5 kg WT: 168.3 lb BMI: 24.23 General Appearance: alert, no distress, well nourished, well developed male. Genitourinary: Flank Pain: none. Bladder: nonpalpable. Assessment/Plan Last seen by SAMARIA 08/25/23 for BPH with nocturia. Here s/p Urolift JAJA 24. Portions of this record may have been created with voice recognition artificial intelligence software, specifically [employer], [employer] and or [employer]. Substitutions may have occurred due to the inherent limitations of voice recognition and artificial intelligence software. 1. BPH associated with nocturia (N40.1: Benign prostatic hyperplasia with lower urinary tract symptoms) PVR (cc): 08/25/23 - 0 11/30/23 - 16 Tried Flomax in the past, doesn't remember it helping, discontinued due to visual impairment. Cysto w/ TRUS for sizing 10/19/23. 20.5 mL prostate volume. Obstructed, Mod- severe bilobar hypertrophy. No elevated bladder neck or intravesical median lobe. S/p UroLift 11/03/23 w/ 4 implants seated. UA today negative. IPSS 10 (20) Notes improvement. However is still experiencing nocturia, which is still bothersome. States he wakes up with the urge to urinate. 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 Denies lower extremity edema or sleep apnea. Overall happy with daytime sx. Discussed how nighttime can take a while/other contributing factors. Discussed potential for additional medications in the future -Limit fluids 2 hours prior to bedtime -Timed voids -Start Myrbetriq 50 mg daily to help with overactivity at nighttime. Risk and benefits discussed. -Follow up within 2-3 months w/ SAMARIA with PVR 2. Screening for prostate cancer (Z12.5: Encounter for screening for malignant neoplasm of prostate) PSA: 04/24/17 - 1.7 04/13/23 - 1.5 No family hx of prostate cancer. -Continue annual prostate cancer screening with PCP 3. OAB (overactive bladder) (N32.81: Overactive bladder) Tried Oxybutynin and then Myrbetriq this summer but neither helped. Pt not sure if he tried Myrbetriq. Nocturia is chief complaint. Wishes to restart Myrbetriq. -See #1 -Start Myrbetriq 50mg qd, new script sent to pharm on file -Timed voids Follow-up With When Contact Information Dina Little MD, URL, URO Additional Instructions: 2-3 months w/ SAMARIA Patient Education Benign Prostatic Hyperplasia I, Nisha Hyman, personally scribed for Dr. Little on 11/30/2023 14:50:22. . Documentation recorded by the scribNisha blankenship, accurately reflects the services(s) I performed and decisions made by me. Authenticated by Dr. Little on 11/30/2023 15:28:37. Problem List/Past Medical History Ongoing Actinic keratosis of right side of forehead Adverse effect of antineoplastic and immunosuppressive drugs, initial encounter Anemia in chronic illness Anxiety Basal cell carcinoma of face Benign hypertension BMI 24.0-24.9, adult BPH associated with nocturia Chronic insomnia Combined hyperlipidemia Diabetic polyneuropathy associated with type 2 diabetes mellitus Encounter for palliative care Encounter for well adult exam with abnormal findings History of narcotic addiction History of pulmonary embolism Intermittent asthma (more content not included)... [facility] Comment on above: Result Comment: Elec tronically Signed By: Dina Little MD\.br\Date and Time Signed: 11/30/23 15:28 EST\.br\Electronically Co-Signed By: Nisha Hyman\.br\Date and Time Co-Signed: 11/30/23 14:50 EST IntraOperative Documentson 0 11-12-2023 IntraOperative Documents [id number] #1.00TIFF [facility] Main OR Intraoperative Recor don 11-06-2023 Main OR Intraoperative Record IntraOp Document Type FT Summary Primary Physician: Dina Little MD Finalized Date/Time: 11/06/23 08:42:05 Pt. Name: IGLESIAROBSON/Sex: 1955 Male Med Rec #: [id number] Physician: Dina Little MD Financial #: [id number] Pt. Type: A Room/Bed: AS10/01 Admit/Disch: 11/03/23 10:58:05 - 11/03/23 16:40:00 Institution: Case Times FT Entry 1 Patient Times In Room 11/03/23 14:23:00 Out Room 11/03/23 15:04:00 Procedure Times Start 11/03/23 14:38:00 Stop 11/03/23 14:55:00 Anesthesia Times Start 11/03/23 14:23:00 Stop 11/03/23 15:04:00 Last Modified By: Cecile Muhammad RN 11/03/23 15:04:55 General Comments: 11/04/23 Chart opened to review and send charges LRoth CSFA Case Attendance FT Entry 1 Entry 2 Entry 3 Case Attendee Coni NEW, Eze Little MD, Cecile Zafar CST Role Performed Anesthesiologist Surgeon - Primary Scrub - Primary Power Press Tender Time In 11/03/23 14:23:00 11/03/23 14:23:00 11/03/23 14:23:00 Time Out 11/03/23 15:04:00 11/03/23 15:04:00 11/03/23 15:04:00 Procedure CYSTOSCOPY(.) CYSTOSCOPY(.) CYSTOSCOPY(.) Comments Last Modified By: Jb RN, Cecile Muhammad RN, Cecile Donahue RN 11/03/23 15:12:01 11/03/23 15:12:01 11/03/23 15:12:01 Entry 4 Entry 5 Case Attendee Cecile Muhammad RN, RN, Olivia A Role Performed Computer Teacher - Primary Computer Teacher - Relief Time In 11/03/23 14:23:00 11/03/23 14:45:00 Time Out 11/03/23 14:40:00 11/03/23 15:04:00 Procedure CYSTOSCOPY(.) CYSTOSCOPY(.) Comments RELIEF RN - RN MEETING FOR CALL SCHEDULE Last Modified By: Jb PEREZ, Cecile Donahue RN 11/03/23 15:13:05 11/03/23 15:13:05 General Comments: RAMILA EVANS - UROLIFT REPMary Kate ZAZUETA RNmechanical piping designer Protocols FT Pre-Care Text: Implements protective measures prior to operative or invasive procedure, confirms identity before the operative or invasive procedure, verifies operative procedure, surgical site, and laterality Entry 1 Procedure(s) CYSTOSCOPY(.) Patient Identity Birthday, ID Band Verified (select at Check, Patient least 2): Participation Consents / H and P Anesthesia Consent, Operative Site Present Verified HandP, Surgery/Procedure Marking Verified Consent Surgical Site Yes Laterality Verified Yes Verified Procedure Verified Yes Correct Patient Yes Position Verified Availability Equipment, Implant, Prep Dry n/a Verified (If Medication Applicable) PreOp Antibiotic Yes Time Out Eze Golden Given Participants Sidney Scherer MD, Dina Hamm, Thang LABOY, Jb Shelby RN, Kimberly Y Time Out Complete 11/03/23 14:37:00 Outcomes Met? Yes Last Modified By: Cecile Muhammad RN 11/03/23 14:37:17 Post-Care Text: The patient is free from signs and symptoms of injury caused by extraneous objects Allergy Information FT Pre-Care Text: Verifies allergies Entry 1 Allergies Reviewed? Yes Allergies Reviewed Self/Patient With Outcomes Met? Yes Last Modified By: Cecile Muhammad RN 11/03/23 14:35:13 Post-Care Text: The patient received appropriate medication(s) safely administered during the perioperative period Surgical Procedures FT Entry 1 Procedure Description Procedure CYSTOSCOPY Modifiers . Surgeon Description CYSTOSCOPY UROLIFT Primary Procedure Yes Primary Surgeon Dina Little MD Start 11/03/23 14:38:00 Stop 11/03/23 14:55:00 Anesthesia Type General Surgical Service Urology Wound Class 2 - Clean-Contaminated Last Modified By: Shannon Ann CST 11/04/23 07:42:47 General Case Data FT Pre-Care Text: Classifies surgical wound, implements aseptic technique, initiates traffic control Entry 1 Case Information OR OR 1 FT Case Level Level 2 Wound Class 2 - Clean-Contaminated Specialty Urology ASA Class 3 Preop Diagnosis BPH WITH LUTS Postop Same As Preop Yes Postop Diagnosis BPH WITH LUTS Outcomes Met? Yes Last Modified By: Cecile Muhammad RN 11/03/23 14:35:52 Post-Care Text: The patient is free from signs and symptoms of infection Skin Assessment (Pre Procedure) FT Pre-Care Text: Implements protective measures to prevent skin/ tissue injury due to thermal or mechanical sources Evaluates for signs and symptoms of physical injury to skin and tissue Entry 1 Skin Integrity Dry, Warm, Other/See Skin Abnormality Yes Comments Abnormality Location MULTIPLE SCRATCHES TO Outcomes Met? Yes BILATERAL ARMS Last Modified By: Jb PEREZ, Cecile Carlo 11/03/23 14:36:21 Post-Care Text: The patient is free from signs and symptoms of injury caused by extraneous objects Patient Positioning FT Pre-Care Text: Identifies physical alterations that require additional precautions for procedure-specific positioning, verifies presence of prosthetics or corrective devices, positions the patient, evaluates the patient for signs and symptoms of injury as a result of positioning Entry 1 Procedure CYSTOSCO (more content not included)... [facility] Consent for Anesthesiaon Consent for Anesthesia [id number] #1.00TIFF [facility] Discharge Instructionson Discharge Instructions [id number] #1.00TIFF [facility] IntraOperative Documentson 01-05-2023 IntraOperative Documents [id number] #1.00TIFF [facility] Preoperative Documentson Preoperative Documents [id number] #1.00TIFF [facility] Consent for Procedure/Surger yon 11-03-2023 Consent for Procedure/Surgery [id number] 7#1.00TIFF [facility] Consent for Treatmenton 10-10 Consent for Treatment [id number] #1.00TIFF [facility] Discharge Instructionson Discharge Instructions ROBSON CARLSON :1955 Visit Date:11/03/2023 Inpatient Discharge Instructions Your Care Team Admitting Physician - Dina Little MD Referring Physician - Dina Little MD Reason for Your Visit BPH WITH LUTS Your Diagnosis BPH associated with nocturia Nocturia This Is Your Medications List Misc Prescription (Magic Mouth wash) alprazolam (Xanax 0.5 mg Tab) buprenorphine-naloxo ne (Suboxone) levothyroxine (levothyroxine 125 mcg (0.125 mg) Tab) levothyroxine (levothyroxine 125 mcg (0.125 mg) Tab) oxybutynin (oxybutynin 5 mg ER Tab) Procedure History CT guided biopsy of lung (05/21/2022), bilat carpal tunnel release, Bilateral extraction of cataracts, cervical fusion, hernia repair, lumbar fusion x 2, nerve surgery R arm, partial thyroidectomy, PE - Pulmonary embolism, trigger finger surgery. What to do next Instructions From Your Doctor Event Name Event Result Discharge Activity Ambulate as tolerated, Expect mild pain, Expect minimal amount of drainage and/or bleeding Discharge Diet(s) Drink liquids and eat a light meal Call Your Doctor For Persistent or heavy bleeding, Temperature above 101.5 degrees, Severe pain at the operative site, Persistent vomiting Discharge Instructions Discharge Instructions Previously Scheduled Follow-Up Appointments Thursday 11:20 AM EST With: Mecca SAUCEDO MD Where: [facility] Comment on above: Result Comment: Elec tronically Signed By: Roberto PEREZ, Osiris Spears\.yousif\Date and Time Signed: 11/03/23 15:19 EST H&P Updateon 11-03-2023 H&P Update [id number] 4#1.00TIFF [facility] Inpatient Patient Summaryon 11-03-2023 Inpatient Patient Summary [place] [id number] [facility] Clinical Discharge Instructions PERSON INFORMATION Name: [facility] Admitting Physician: Dina Little MD Attending Physician: Dina Little MD PCP: Mecca SAUCEDO MD Discharge Diagnosis: BPH associated with nocturia; Nocturia Comment: PATIENT EDUCATION INFORMATION Instructions: Lue - Urolift Post-Op Instructions (CUSTOM) Medication Leaflets: Follow up: With: Address: When: Dina Little [address] [place] [address] [phone] Business (1) [address], [address], [address] [place] [address] [phone] Business (1) Comments: Office to call for followup appointment in 1 month with PVR Type [facility] 11:20 AM 12/07/2023 11:40 AM Confirmed ONC Office Visit 30 (FT) FT.ONCOLOGY 01/21/2024 10:30 AM 01/21/2024 11:00 AM Confirmed MEDICATION LIST New Medications [facility], [address], [place] [id number], [phone] oxybutynin (oxybutynin 5 mg ER Tab) 1 Tablets By Mouth every day as needed Urinary discomfort. As needed for bladder spasms. Refills: 0. Medications to Continue with No Changes Other Medications alprazolam (Xanax 0.5 mg Tab) 1 Tablets By Mouth 3 times a day as needed for anxiety. Refills: 0. buprenorphine-naloxo ne (Suboxone) 8mg/2mg Sublingual 2 times a day. levothyroxine (levothyroxine 125 mcg (0.125 mg) Tab) 1 Tablets By Mouth every day. Refills: 3. levothyroxine (levothyroxine 125 mcg (0.125 mg) Tab) 1 Tablets By Mouth every day. Refills: 3. Misc Prescription (Magic Mouth wash) 0. [id number] mg Nystatin 30 ml suspension Lidocaine 30 ml QS with Benadryl Elixir to 240 mls Directions Swish & Swallow 1 tsp every 4 hrs as needed. Refills: 1. Comment: [facility] Main OR PACU I Recordon 10-10 Main OR PACU I Record PACU Phase I Document Type FT Summary Primary Physician: Dina Little MD Finalized Date/Time: 11/03/23 15:39:05 Pt. Name: ROBSON CARLSON/Amanda: 1955 Male Med Rec #: [id number] Physician: Dina Little MD Financial #: [id number] Pt. Type: A Room/Bed: [facility] Admit/Disch: 11/03/23 10:58:05 - Institution: Case Times PACU I FT Pre-Care Text: Identifies barriers to communication and implements measures to provide psychological support Develops individualized plan of care, and ensures continuity of care Maintains patient's dignity and privacy, and maintains patient confidentiality Identifies and reports philosophical, cultural, and spiritual beliefs and values Identifies individual values and wishes concerning care Implements aseptic technique, and administers prescribed antibiotic therapy and immunizing agents as ordered Evaluates postoperative tissue perfusion Implements thermoregulation measures, and monitors body temperature Evaluates postoperative respiratory status Evaluates postoperative cardiac status Evaluates postoperative neurological status Assesses pain control, collaborated in initiating patient-controlled analgesia and implements alternative methods of pain control Verifies allergies, administers prescribed medications and solutions, evaluates response to medications Entry 1 In PACU I 11/03/23 15:06:00 Discharge from PACU 11/03/23 15:36:00 I Outcomes Met? Yes Last Modified By: Zoe Bowie RN 11/03/23 15:38:54 Post-Care Text: The patient demonstrates knowledge of the expected response to the operative or invasive procedure The patient's care is consistent with the individualized perioperative plan of care The patient's right to privacy is maintained The patient's value system, lifestyle, ethnicity, and culture are considered, respected, and incorporated into the perioperative plan of care The patient participates in decisions affecting his or her perioperative plan of care The patient is free from signs and symptoms of infection The patient has wound/tissue perfusion consistent with or improved from baseline levels established preoperatively The patient is at or returning to normothermia at the conclusion of the immediate postoperative period The patient's respiratory function is consistent with or improved from baseline levels established preoperatively The patient's cardiovascular status is consistent with or improved from baseline levels established preoperatively The patient's cardiovascular status is consistent with or improved from baseline levels established preoperatively The patient demonstrates and/or reports adequate pain control throughout the perioperative period The patient received appropriate medication(s), safely administered during the perioperative period Acuity Level PACU I FT Entry 1 Start Time 11/03/23 15:06:00 Stop Time 11/03/23 15:36:00 Acuity Level Acuity Level I Last Modified By: Zoe Bowie RN 11/03/23 15:39:04 Finalized By: Zoe Bowie RN Document Signatures Signed By: Zoe Bowie RN 11/03/23 15:39 [facility] Main OR PACU II Recordon Main OR PACU II Record PACU Phase II Document Type FT Summary Primary Physician: Dina Little MD Finalized Date/Time: 11/03/23 16:47:06 Pt. Name: ROBSON CARLSON /Sex: 1955 Male Med Rec #: [id number] Physician: Dina Little MD Financial #: [id number] Pt. Type: A Room/Bed: [place] [address] Admit/Disch: 11/03/23 10:58:05 - Institution: Case Times PACU II FT Pre-Care Text: Identifies barriers to communication and implements measures to provide psychological support and determines knowledge level Develops individualized plan of care, and ensures continuity of care Maintains patient's dignity and privacy, and maintains patient confidentiality Identifies and reports philosophical, cultural, and spiritual beliefs and values Identifies individual values and wishes concerning care administers prescribed antibiotic therapy and immunizing agents as ordered, Evaluates postoperative tissue perfusion Implements thermoregulation measures, and monitors body temperature Evaluates postoperative respiratory status Evaluates postoperative cardiac status Evaluates postoperative neurological status Assesses pain control, collaborated in initiating patient-controlled analgesia and implements alternative methods of pain control Verifies allergies, administers prescribed medications and solutions, evaluates response to medications Entry 1 In PACU II 11/03/23 15:40:00 Discharge from PACU 11/03/23 16:40:00 II Outcomes Met? Yes Last Modified By: Osiris Mejia RN 11/03/23 16:47:04 Post-Care Text: The patient demonstrates knowledge of the expected response to the operative or invasive procedure The patient's care is consistent with the individualized perioperative plan of care The patient's right to privacy is maintained The patient's value system, lifestyle, ethnicity, and culture are considered, respected, and incorporated into the perioperative plan of care The patient participates in decisions affecting his or her perioperative plan of care. The patient is free from signs and symptoms of infection The patient has wound/tissue perfusion consistent with or improved from baseline levels established preoperatively The patient is at or returning to normothermia at the conclusion of the immediate postoperative period The patient's respiratory function is consistent with or improved from baseline levels established preoperatively The patient's cardiovascular status is consistent with or improved from baseline levels established preoperatively The patient's neurological status is consistent with or improved from baseline levels established preoperatively The patient demonstrates and/or reports adequate pain control throughout the perioperative period The patient received appropriate medication(s), safely administered during the perioperative period Finalized By: Osiris Mejia RN Document Signatures Signed By: Osiris Mejia RN 11/03/23 16:47 [facility] Main OR Preoperative Recordo n 11-03-2023 Main OR Preoperative Record PreOp Document Type FT Summary Primary Physician: Dina Little MD Finalized Date/Time: 11/03/23 14:32:13 Pt. Name: ROBSON CARLSON Hieu /Sex: 1955 Male Med Rec #: [id number] Physician: Dina Little MD Financial #: [id number] Pt. Type: A Room/Bed: [facility] Admit/Disch: 11/03/23 10:58:05 - Institution: Case Times PreOp FT Pre-Care Text: Verifies consent for planned procedure, identifies individual values and wishes concerning care, includes family members in perioperative teaching Entry 1 Patient Times. In Pre Surgery 11/03/23 11:05:00 Out Pre Surgery 11/03/23 14:21:00 Outcomes Met? Yes Last Modified By: Cecile Muhammad RN 11/03/23 14:32:09 Post-Care Text: The patient participates in decisions affecting his or her perioperative plan of care Finalized By: Cecile Muhammad RN Document Signatures Signed By: Cecile Muhammad RN 11/03/23 14:32 [facility] Monitor Recordon 11-03-2023 Monitor Record [id number] [facility] Operative Reporton Operative Report Patient: ROBSON CARLSON Age: 68 years Sex: Male : 1955 Associated Diagnoses: None Author: Dina Little MD Procedure Procedure Date: 11/03/2023. Confirmed: patient, procedure, site, safety procedures followed. Performed by: Dina Little MD, anesthesiologist (Eze Newberry [facility]). Type of procedure: Cystoscopy, UroLift (total 4 implants). Informed consent: signed by patient. Indication: INDICATIONS: 68-year-old male with benign prostatic hyperplasia and bothersome voiding symptoms including obstruction. Specifically, the patient has an IPSS of 20, post-void residual volume (PVR) of 0 ml, and serum PSA level of 1.5 ng/ml. TRUS ultrasound confirms a 20.5 gram prostate volume. Office cystoscopy demonstrates moderate to severe bilateral lateral lobe obstruction without median lobe component. His symptoms have failed to improve/unable to tolerate on medical therapy (alpha blockers and oxybutynin). After discussion of surgical treatment options, the patient elected a prostatic urethral lift procedure in which permanent transprostatic implants are installed to create a wider channel by which to void. Other surgical alternatives were rejected due to known adverse sexual side effects.. Findings: Moderate to severe bilobar hypertrophy. 1+ trabeculated bladder. No bladder tumors, lesions or foreign bodies. Successful placement of 4 implants with wide open channel at the end of the procedure. Oozing of prostatic urethra therefore a 20 Macedonian two-way Sommer catheter was placed, 15 cc in balloon. Procedure tolerated: well. Specimen: none. Complications: none. PROCEDURE IN DETAIL: After the risks, benefits, indications, alternatives and expectations of the procedure were reviewed with the patient and informed consent was obtained, the patient was taken to operative suite and placed in the supine position. Sequential compression devices were placed on bilateral lower extremities. General anesthesia LMA was induced and the patient was transitioned to the lithotomy position and prepped and draped in the usual sterile fashion for cystoscopy. A preoperative dose of antibiotics was given. A timeout was observed prior to initiating the procedure. Lidocaine gel was inserted into the urethra and bladder. A 20F cystoscope was inserted into the bladder. The cystoscopy bridge was replaced with a UroLift UL-2 delivery device. The first treatment site was the patient's left side approximately 1.5 cm distal to the bladder neck. The distal tip of the delivery device was then angled anterior laterally approximately 10 degrees at this position to compress the lateral lobe. The trigger was pulled, thereby deploying a needle containing the implant through the prostate. The implant was additionally compressed for total 20 degrees, trigger pulled and needle was then retracted, allowing one end of the implant to be delivered to the capsular surface of the prostate. The implant was then tensioned to assure capsular seating and removal of slack monofilament. The device was then angled back toward midline and slowly advanced proximally (typically 3 to 4 mm) until cystoscopic verification of the monofilament being centered in the delivery bay. The urethral end piece was then affixed to the monofilament thereby tailoring the size of the implant. Excess filament was then severed. The delivery device was then re-advanced into the bladder. The delivery device was then replaced with cystoscope and bridge and the implant location and opening effect was confirmed cystoscopically. The same procedure was then repeated on the right side, and two additional implants were delivered just proximal to the verumontanum, again one on right and one on left side of the prostate, following a similar technique. A final cystoscopy was conducted first to inspect the location and state of each implant and second, to confirm the presence of a continuous anterior channel was present through the prostatic urethra with irrigation flow turned off. All instruments were removed. A 20Fr sommer catheter was inserted due to hematuria, 15 cc in balloon. The bladder was irrigated until clear. The patient tolerated the procedure well without complication. 4 implants attempted, 4 seated. Plan: DC Sommer at home in 1 to 2 days once urine is clear. Follow-up in 1 month with [facility].. Impression and Plan Diagnosis BPH associated with nocturia (PVG75-HT N40.1, Discharge, Medical). Diagnosis BPH associated with nocturia (NJC74-ML N40.1, Discharge, Medical). [facility] Comment on above: Result Comment: Elec tronically Signed By: Sidney CHU, Dina Hamm\.yousif\Date and Time Signed: 11/03/23 15:07 EST Outpatient Surgery Discharge Instructionon 11-03-2023 Outpatient Surgery Discharge Instruction [address] [address] Patient Discharge Instructions PERSON INFORMATION Name: ROBSON CARLSON Date of : 1955 Current Date: 11/03/2023 15:02:01 PHYSICIANS Admitting Physician: Dina Little MD Discharge Diagnosis: BPH associated with nocturia; Nocturia ROBSON CARLSON has been given the following list of follow-up instructions, prescriptions, and patient education materials: PATIENT FOLLOW-UP INFORMATION Diet: Drink liquids and eat a light meal Discharge Activity: Ambulate as tolerated, Expect mild pain, Expect minimal amount of drainage and/or bleeding Call Your Doctor For: Persistent or heavy bleeding, Temperature above 101.5 degrees, Severe pain at the operative site, Persistent vomiting IF UNABLE TO CONTACT YOUR PHYSICIAN AND YOU FEEL IT IS AN EMERGENCY, GO TO THE NEAREST EMERGENCY ROOM OR CALL 911 I, ROBSON CARLSON, have received the attached patient education materials/instructio ns and have verbalized understanding: May we do a follow up call? Yes No I was present when discharge instructions were given Patient Signature Date Clinican/Nurse Signature Date Follow up: With: Address: When: Dina Little [address] [place] [address] [phone] Business (1) [facility] [place] [address] [phone] Business (1) Comments: Office to call for followup appointment in 1 month with [facility] Type Location Start Finish State Open [facility] Ignacio 12/07/2023 11:20 AM 12/07/2023 11:40 AM Confirmed ONC Office Visit 30 (FT) FT.ONCOLOGY 01/21/2024 10:30 AM 01/21/2024 11:00 AM Confirmed Pharmacy Information: You may receive a survey from Radha Castellon asking you to rate your care experience. Your feedback is important and will help us understand what we do well and how we can improve the quality of care we provide to you, your loved ones and our community. It?s an honor to serve you. Thank you for choosing [facility] HERE ARE THE MEDICATION CHANGES THAT OCCURRED DURING YOUR HOSPITAL STAY New Medications [facility], [address], [place] [id number], [phone] oxybutynin (oxybutynin 5 mg ER Tab) 1 Tablets By Mouth every day as needed Urinary discomfort. As needed for bladder spasms. Refills: 0. Medications to Continue with No Changes Other Medications alprazolam (Xanax 0.5 mg Tab) 1 Tablets By Mouth 3 times a day as needed for anxiety. Refills: 0. buprenorphine-naloxo ne (Suboxone) 8mg/2mg Sublingual 2 times a day. levothyroxine (levothyroxine 125 mcg (0.125 mg) Tab) 1 Tablets By Mouth every day. Refills: 3. levothyroxine (levothyroxine 125 mcg (0.125 mg) Tab) 1 Tablets By Mouth every day. Refills: 3. Misc Prescription (Magic Mouth wash) 0. [id number] mg Nystatin 30 ml suspension Lidocaine 30 ml QS with Benadryl Elixir to 240 mls Directions Swish & Swallow 1 tsp every 4 hrs as needed. Refills: 1. PATIENT EDUCATION INFORMATION Instructions: [facility], [place] Post-Operative Instructions for UroLift After your procedure it is normal to have: Gross Hematuria (blood in the urine) You may even notice blood clots in your urine. A small amount of blood may apppear to be a lot of blood in your urine as it is diluted. Restarting your blood thinner, increased activity and heavy lifting could increase the amount of bleeding. The bleeding may be sporadic (off and on) over the next 2-3 weeks. Ensure you are hydrating to assist in flushing the blood to prevent voiding complications. In the event you are unable to void, please reach out to our office. If the office is closed, you will need to report to the local emergency room. Blood in your semen and stool may be present. The blood in your semen is not harmful to you or your partner. This will resolve with time. Frequency/urgency/bu rning with urination is very common. This is due to irritation from your procedure. These symptoms do not indicate that your procedure was unsuccessful or that there is an infection. Ensure you are hydrating! You may try AZO over the counter as needed for urinary discomfort. Pain/discomfort are normal as well. There has been a non-narcotic prescription sent to your pharmacy. You may alternate this prescription with over the counter Ibuprofen. Your pain and discomfort should improve within a few days. When do I need to call the office? We ask that you reach out to the office if you experience a temperature of 100.4 ? F or higher, excessive urinary bleeding, symptoms of inf (more content not included)... [facility] Patient Education - Texton 1 01-04-2023 Patient Education - Text Sommer Catheter Care, Male A Sommer catheter is a soft, flexible tube that is placed into the bladder to drain urine. The catheter has a balloon to hold it inside the bladder. A Sommer catheter may be inserted if: ? You leak urine or are not able to control when you urinate (urinary incontinence). ? You are not able to urinate when you need to (urinary retention). ? You had prostate surgery or surgery on the genitals. ? You have certain medical conditions, such as multiple sclerosis, dementia, or a spinal cord injury. To Prevent Infection: 1. Wash your hands with soap and water before and after handling your catheter. 2. Using mild soap and warm water on a clean washcloth; twice a day. ? Clean the area on your body closest to the catheter insertion site using a circular motion, moving away from the catheter. Never wipe toward the catheter because this could sweep bacteria up into the urethra and cause infection. ? Remove all traces of soap. Pat the area dry with a clean towel and reposition the foreskin. No tub baths. No lotions, powders, or sprays unless directed by your physician. 3. Keep the tube secure. Do not let the tube pull or catch when you are moving around. ? Attach the catheter to your leg so there is no tension on the catheter. Use adhesive tape or a leg strap. If you are using adhesive tape, remove any sticky residue left behind by the previous tape you used. 4. Replace wet leg straps with dry ones. 5. 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 6. Keep the drainage bag below the level of the bladder, but keep it off the floor. 7. Check throughout the day to be sure the catheter is working and urine is draining freely. Make sure the tubing does not become kinked or looped. 8. Do not pull on the catheter or try to remove it. Pulling could damage internal tissues. TAKING CARE OF THE DRAINAGE BAGS You will be given two drainage bags to take home. One is a large overnight drainage bag, and the other is a smaller leg bag that fits underneath clothing. You may wear the overnight bag at any time, but you should never wear the smaller leg bag at night, unless directed by your physician. Follow the instructions below for how to empty and change your drainage bags. Emptying the Drainage Bag You must empty your drainage bag when it is ?? full. 1. Wash your hands with soap and water before and after handling your catheter. 2. Keep the drainage bag below your hips, below the level of your bladder. This stops urine from going back into the tubing and into your bladder. 3. Hold the dirty bag over the toilet or a clean container. 4. Open the pour spout at the bottom of the bag and empty the urine into the toilet or container. Do not let the pour spout touch the toilet, container, or any other surface. Doing so can place bacteria on the bag, which can cause an infection. 5. Clean the pour spout with a gauze pad or cotton ball that has rubbing alcohol on it. 6. Close the pour spout. 7. Attach the bag to your leg with adhesive tape or a leg strap. Changing the Drainage Bag 1. Wash your hands with soap and water before and after handling your catheter. 2. Pinch off the rubber catheter so that urine does not spill out. 3. Disconnect the catheter tube from the drainage tube at the connection valve. Do not let the tubes touch any surface. 4. Clean the end of the catheter tube with an alcohol wipe. Use a different alcohol wipe to clean the end of the drainage tube. 5. Connect the catheter tube to the drainage tube of the clean drainage bag. 6. Attach the new bag to the leg with adhesive tape or a leg strap. Avoid attaching the new bag too tightly. 7. Place a cap on the drainage bag not in use and store in a clean towel. SEEK MEDICAL CARE IF: ? Your urine is cloudy or smells. ? Your catheter starts to leak. ? Your catheter falls out or is pulled out. ? You have pain, swelling, redness, or pus where the catheter enters the body. ? You have pain in the abdomen, legs, lower back, or bladder. ? You have a fever of 100.4 F (38 C) or higher ? You see pink, red, dark, coffee colored, or pus-like urine. ? You have nausea, vomiting, or chills. ? You are not feeling better in 2 to 3 days or you are feeling worse. ? You are not draining urine into the bag or your bladder feels full. MAKE SURE YOU: ? Understand the reason you have the catheter. ? Understand and follow these instructions to care for the catheter. ? Will watch your condition. ? Drink 6-8 glasses of water or liquids per day to keep your urine clear. ? Avoid Caffeinated drinks. They can irritate the bladder and cause bladder spasms. ? Keep your follow up appointments and call with any concerns. [facility], [place] Post-Operative Instructions for UroLift After your procedure it is gus (more content not included)... [facility] Progress Note-Physicianon Progress Note-Physician Patient: ROBSON CARLSON Age: 68 years Sex: Male : 1955 Associated Diagnoses: None Author: Nato Santana Jr., DO Postoperative Information Postoperative disposition: Postoperative disposition: Home. Adelfoetrix number: Cr number [id number]. Anesthetic utilized: General. Physical Examination VS/Measurements Pain Assessment: Controlled. General: Awake, Alert, Appropriate. Respiratory: Adequate air exchange, Non-labored. Cardiovascular: Stable, Normal peripheral perfusion. Neurological: Neurologic exam at baseline. No changes.. Assessment Anesthetic outcome No anesthetic complications noted. No nausea/vomiting. Review / Management Condition: Stable. Plan Transfer/Discharge: Transfer/Discharge Discharge when meets criteria ( From PACU to Ambulatory Surgery Unit, and To home ). [facility] Comment on above: Result Comment: Elec tronically Signed By: Nato Santana Jr., DO\.br\Date and Time Signed: 11/03/23 15:01 EST Progress Note-Physician Patient: ROBSON CARLSON Age: 68 years Sex: Male : 1955 Associated Diagnoses: None Author: Nato Santana Jr., DO Preoperative Information Anesthesia Preop Info NPO since midnight Anesthesia history: Patient history: No prior anesthetic problems. Informed consent: Signed by patient. Re-evaluation prior to induction: Initial evaluation reviewed: No significant change. Health Status Allergies: Allergic Reactions (Selected) No Known Allergies No Known Medication Allergies, Allergies (2) Active Reaction No Known Allergies None Documented No Known Medication Allergies None Documented Current medications: (Selected) Inpatient Medications Ordered HYDROmorphone 1 mg/mL injectable solution: 0.4 mg = 0.4 mL, Injection, IV Push, q4min PRN Pain for 5 dose(s), Stop date Limited # of times, Routine, Start date 11/03/23 13:11:00 EST, 11/03/23 13:11:00 EST Lactated Ringers IV Trixie 1000 mL 1,000 mL: 1,000 mL, IV, 100 mL/hr, Routine, Start date 11/03/23 13:11:00 EST, 10 hour(s), Total volume (mL): 1,000, 76 kg, 1.91, m2 Lactated Ringers IV Trixie 1000 mL 1,000 mL: 1,000 mL, IV, 150 mL/hr, Routine, Start date 11/03/23 12:00:00 EST, 6.7 hour(s), Total volume (mL): 1,000, 76 kg, 1.91, m2 cefazolin additive + Sodium Chloride 0.9% intravenous solution 50 mL: 2 gram = 1 EA, Powder-Inj, IV Piggyback, PREOP, Routine, Start date 11/03/23 12:00:00 EST, 100 mL/hr, Infuse over 30 minute(s) Prescriptions Prescribed Magic Mouth wash: Magic Mouth wash, Poefriursluyz149 mg Nystatin 30 ml suspension Lidocaine 30 ml QS with Benadryl Elixir to 240 mls Directions Swish & Swallow 1 tsp every 4 hrs as needed, 1, 1, Do Not Route, Compound Xanax 0.5 mg Tab: 0.5 mg = 1 tab(s), Oral, TID, PRN for anxiety, # 30 tab(s), Refills(s) 0, Pharmacy: [facility], 177, cm, 06/03/23 13:43:00 EDT, Height/Length Dosing, 76.3, kg, 06/03/23 13:43:00 EDT, Weight Dosing levothyroxine 125 mcg (0.125 mg) Tab: 125 mcg = 1 tab(s), Oral, Daily, # 30 tab(s), Refills(s) 3, Pharmacy: [facility], 177.7, cm, 04/13/23 11:14:00 EDT, Height/Length Dosing, 76.4, kg, 04/13/23 11:14:00 EDT, Weight Dosing levothyroxine 125 mcg (0.125 mg) Tab: 125 mcg = 1 tab(s), Oral, Daily, # 90 tab(s), Refills(s) 3, Pharmacy: [facility], 177, cm, 06/03/23 13:43:00 EDT, Height/Length Dosing, 76.3, kg, 06/03/23 13:43:00 EDT, Weight Dosing Documented Medications Documented Suboxone: 8mg/2mg, SubLingual, BID, Refill(s) 0, Home Medications (5) Active levothyroxine 125 mcg (0.125 mg) Tab 125 mcg = 1 tab(s), Oral, Daily levothyroxine 125 mcg (0.125 mg) Tab 125 mcg = 1 tab(s), Oral, Daily Magic Mouth wash 0 Suboxone 8mg/2mg, SubLingual, BID Xanax 0.5 mg Tab 0.5 mg = 1 tab(s), PRN, Oral, TID , Medications (4) Active Scheduled: (1) ceFAZolin + Sodium Chloride 0.9% Minibag 50 mL 2 gram 1 EA, IV Piggyback, PREOP Continuous: (2) Lactated Ringers 1,000 mL 1,000 mL, IV, 150 mL/hr Lactated Ringers 1,000 mL 1,000 mL, IV, 100 mL/hr PRN: (1) HYDROmorphone 1 mg/mL SOLN [F] 0.4 mg 0.4 mL, IV Push, q4min Problem list: All Problems Actinic keratosis of right side of forehead / SNOMED CT 2206675996 / Confirmed Adverse effect of antineoplastic and immunosuppressive drugs, initial encounter / SNOMED CT 464315932 / Confirmed Anemia in chronic illness / SNOMED CT 576090059 / Confirmed Anxiety / SNOMED CT 01677794 / Confirmed Basal cell carcinoma of face / SNOMED CT 3039293892 / Confirmed Benign hypertension / SNOMED CT 04985428 / Confirmed BMI 24.0-24.9, adult / SNOMED CT 8435012085 / Confirmed BPH associated with nocturia / SNOMED CT 7450407394 / Confirmed Chronic insomnia / SNOMED CT 4198988334 / Confirmed Combined hyperlipidemia / SNOMED CT 606917105 / Confirmed Diabetic polyneuropathy associated with type 2 diabetes mellitus / SNOMED CT 5880554433 / Confirmed Encounter for palliative care / SNOMED CT 4112554176 / Confirmed Encounter for well adult exam with abnormal findings / SNOMED CT 616965407 / Confirmed History of narcotic addiction / SNOMED CT 474868834 / Confirmed History of pulmonary embolism / SNOMED CT 730591314 / Confirmed Intermittent asthma / SNOMED CT 4024628905 / Confirmed Intermittent asthma with acute exacerbation / SNOMED CT 8417611412 / Confirmed Lumbar radiculopathy / SNOMED CT 294517164 / Confirmed Malignant neoplasm metastatic to left adrenal gland / SNOMED CT 6890858980 / Confirmed Neoplastic (malignant) related fatigue / SNOMED CT 535475264 / Confirmed Non-small cell cancer of right lung / SNOMED CT 580064534 / Confirmed OAB (overactive bladder) / SNOMED CT 8789100602 / Confirmed 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 [facility] Comment on above: Result Comment: Elec tronically Signed By: Nato Santana Jr., DO\.yousif\Date and Time Signed: 11/03/23 13:13 EST Auto Diffon 10-28-2023 Basophils/100 WBC (Bld) 1.0 % Normal 0.0-2.0 [facility] Comment on above: Order Comment: Order Added by Discern Expert. Performed By: #### 2 [id number] ####[facility] [address] [place] [address] Basophils/Leukocyte s Auto (Bld) [Pure # fraction] 0.1 E9/L Normal 0.0-0.2 [facility] Comment on above: Order Comment: Order Added by Discern Expert. Performed By: #### 2 [id number], [id number], [id number] ####[facility] [address] [place] [address] Eosinophils/100 WBC (Bld) 10.6 % High 0.0-8.0 [facility] Comment on above: Order Comment: Order Added by Discern Expert. Performed By: #### 2 [id number], [id number] ####[facility] [address] [place] [address] Eosinophils/Leukocy deric Auto (Bld) [Pure # fraction] 0.8 E9/L High 0.0-0.5 [facility] Comment on above: Order Comment: Order Added by Discern Expert. Performed By: #### 2 [id number], [id number], [id number], [id number], [id number] ####[address] [place] [address] Lymphocytes/100 WBC (Bld) 12.9 % Low 14.0-50.0 [facility] Comment on above: Order Comment: Order Added by Discern Expert. Performed By: #### 2 [id number], [id number], [id number], [id number], [id number] ####[address] [address] Lymphocytes/Leukocy deric Auto (Bld) [Pure # fraction] 1.0 E9/L Normal 1.0-4.0 [facility] Comment on above: Order Comment: Order Added by Eboni Expert. Performed By: #### 2 [id number], [id number], [id number], [id number], [id number] ####[address] [address] Monocytes/100 WBC (Bld) 11.1 % Normal 4.0-14.0 [facility] Comment on above: Order Comment: Order Added by Eboni Expert. Performed By: #### 2 [id number], [id number], [id number], [id number], [id number] ####[address] [address] Monocytes/Leukocyte s Auto (Bld) [Pure # fraction] 0.8 E9/L Normal 0.2-1.0 [facility] Comment on above: Order Comment: Order Added by Eboni Expert. Performed By: #### 2 [id number], [id number], [id number], [id number], [id number] ####[address] [address] Neutrophils/100 WBC (Bld) 64.4 % Normal 36.0-75.0 [facility] Comment on above: Order Comment: Order Added by Eboni Expert. Performed By: #### 2 126322, 0202445, 16719079, 86081163, 3529946 ####[facility] [address] [place] [address] Neutrophils/Leukocy deric Auto (Bld) [Pure # fraction] 4.8 E9/L Normal 2.0-7.5 [facility] Comment on above: Order Comment: Order Added by Discern Expert. Performed By: #### 2 038522, 4946818, 39258149, 81787078, 4294257 ####[facility] [address] [place] [address] BMPon 10-28-2023 Anion gap [Moles/Vol] 10 mmol/L Normal 6-16 [facility] Comment on above: Performed By: #### 2 836235, 9939454, 66968681, 52253652, 1927341 ####[facility] [address] [place] [address] BUN/Creat Ratio 26 No Units High 10-20 [facility] Comment on above: Performed By: #### 2 529291, 4270074, 54464506, 70405314, 6265196 ####[facility] [address] [place] [address] Calcium [Mass/Vol] 8.9 mg/dL Normal 8.9-11.1 [facility] Comment on above: Performed By: #### 2 928408, 7181163, 79762965, 51145637, 9863541 ####[facility] [address] [place] [address] Chloride [Moles/Vol] 110 mmol/L Normal 101-111 [facility] Comment on above: Performed By: #### 2 319911, 9118041, 25513275, 69863389, 3501818 ####[facility] [address] [place] [address] CO2 [Moles/Vol] 24 mmol/L Normal 21-31 [facility] Comment on above: Performed By: #### 2 204337, 5697714, 77034022, 70576328, 5035148 ####[facility] [address] [place] [address] Creatinine [Mass/Vol] 1.2 mg/dL Normal 0.5-1.3 [facility] Comment on above: Performed By: #### 2 879955, 3095571, 86407385, 40733132, 4525567 ####[facility] [address] [place] [address] Glucose [Mass/Vol] 99 mg/dL Normal 55-199 [facility] Comment on above: Performed By: #### 2 344310, 6067187, 74451936, 47667477, 5430807 ####[facility] [address] [place] [address] Potassium [Moles/Vol] 3.8 mmol/L Normal 3.5-5.3 [facility] Comment on above: Performed By: #### 2 495098, 7332935, 93152699, 30989560, 8442810 ####[facility] [address] [place] [address] Sodium [Moles/Vol] 140 mmol/L Normal 135-145 [facility] Comment on above: Performed By: #### 2 444226, 5526205, 48630807, 91608621, 5511647 ####[facility] [address] [place] [address] Urea nitrogen [Mass/Vol] 31 mg/dL High 5-21 [facility] Comment on above: Performed By: #### 2 022563, 3285265, 77879537, 76562626, 2745530 ####[facility] [address] [place] [address] CBC w/ Auto Diffon 3 Erythrocyte distribution width (RBC) [Ratio] 14.1 % Normal 10.9-14.2 [facility] Comment on above: Performed By: #### 2 235459, 5024296, 66003193, 79631411, 6868966 ####[facility] [address] [place] [address] Hematocrit (Bld) [Volume fraction] 37.3 % Low 37.7-49.0 [facility] Comment on above: Performed By: #### 2 018602, 3011274, 56944277, 46026705, 6477153 ####[facility] [address] [place] [address] Hemoglobin (Bld) [Mass/Vol] 12.3 g/dL Low 13.5-17.5 [facility] Comment on above: Performed By: #### 2 580210, 1357331, 05384419, 89216776, 8771044 ####[place] [address] [place] [id number] MCH (RBC) [Entitic mass] 29.2 pg Normal 27.0-34.0 [facility] Comment on above: Performed By: #### 2 949349, 1437918, 34986903, 63861345, 3813403 ####[place] [address] MCHC (RBC) [Mass/Vol] 33.0 g/dL Normal 31.4-36.0 [facility] Comment on above: Performed By: #### 2 880174, 3043940, 60345259, 00823135, 2524840 ####[place] [address] [place] [address] MCV (RBC) [Entitic vol] 88.5 fL Normal 80.0-100.0 [facility] Comment on above: Performed By: #### 2 028511, 7984026, 81627872, 36812767, 0389290 ####[place] [address] [place] [address] Platelet mean volume (Bld) [Entitic vol] 7.2 fL Normal 6.4-10.8 [facility] Comment on above: Performed By: #### 2 786293, 1552215, 52843815, 34535605, 5372785 ####[facility] [address] [place] [address] Platelets (Bld) [#/Vol] 258.0 E9/L Normal 150.0-500.0 [facility] Comment on above: Performed By: #### 2 356695, 0898120, 73608042, 06617934, 6693088 ####[facility] [address] [place] [address] RBC (Bld) [#/Vol] 4.2 E12/L Low 4.3-5.9 [facility] Comment on above: Performed By: #### 2 799483, 4848220, 82335011, 58109416, 0415084 ####[facility] [address] [place] [address] WBC corrected for nucl RBC Auto (Bld) [#/Vol] 7.5 E9/L Normal 4.0-11.0 [facility] Comment on above: Performed By: #### 2 908199, 7353138, 77498307, 58111312, 3739139 ####[facility] [address] [place] [address] CHEMISTRYOrdered By: SYSTEM SYSTEM on 10-28-2023 Anion gap [Moles/Vol] 10 mmol/L Normal 6 - 16 mEq/L Remisol Chem Calcium [Mass/Vol] 8.9 mg/dL Normal 8.9 - 11.1 mg/dL Remisol Chem Chloride [Moles/Vol] 110 mmol/L Normal 101 - 111 mmol/L Remisol Chem CO2 [Moles/Vol] 24 mmol/L Normal 21 - 31 mmol/L Remis ol Chem Creatinine [Mass/Vol] 1.2 mg/dL Normal 0.5 - 1.3 mg/dL Remisol Chem eGFR mL/min/1.73 m2 Normal >=59mL/min/1.73 m2 Re misol Chem Glucose [Mass/Vol] 99 mg/dL Normal 55 - 199 mg/dL Re misol Chem Potassium [Moles/Vol] 3.8 mmol/L Normal 3.5 - 5.3 mmol/L Remisol Chem Sodium [Moles/Vol] 140 mmol/L Normal 135 - 145 mmol/L Remisol Chem Urea nitrogen [Mass/Vol] 31 mg/dL High 5 - 21 mg/dL Remisol Chem Urea nitrogen/Creatinine [Mass ratio] 26 mg/mg High 10 - 20 Remisol Chem COAGULATIONOrdered By: Hiral Camilo on 10-28-2023 aPTT Coag (PPP) [Time] 31.1 s Normal 25.1 - 36.5 second(s) [facility] Auto Coag Comment on above: Interpretive Data: P arameter 15 days - 4 weeks 1 - 5 months 6 - 11 months 1 - 5 years 6 - 10 years 11 - 17 years PTT Mean: 35.4 (27.6-45.6) Mean: 33.5 (24.8-40.7) Mean: 32.4 (25.1-40.7) Mean: 31.6 (24.0-39.2) Mean: 31.6 (26.9-38.7) Mean: 31.0 (24.6-38.4) Pediatric Reference ranges were obtained from a study by Feliciano Chavez et al. prepared from 1437 samples obtained at 7 different centers using the same coagulation reagent and instrumentation as [facility]. Currently there are no coagulation studies available worldwide for children to 14 days, and no normal ranges. Heparin therapeutic range (represented by Anti-Factor Xa activity of 0.2 - 0.4 U/mL) corresponds to PTT of 56.6 - 109.0 sec. INR Coag (PPP) [Relative time] 0.9 {INR} Invalid Interpretation Code [facility] Auto Coag Comment on above: Interpretive Data: I NR results are specifically intended to assess patients stabilized on long-term Anticoagulation therapy suggested INR s Less Intensive Anticoagulation 2.0 3.0 Conventional Range 3.0 4.5 PT Coag (PPP) [Time] 10.4 s Normal 9.4 - 12.5 second(s) [facility] Auto Coag Comment on above: Interpretive Data: 1 5 days - 4 weeks 1 - 5 months 6 -11 months 1 5 years 6 10 years 11 -17 years Mean: 11.2 (9.5 12.6) Mean: 11.0 (9.7 12.8) Mean: 11.0 (9.8 13.0) Mean: 11.3 (9.9 13.4) Mean: 11.7 (10.0 14.6) Mean: 11.8 (10.0 - 14.1) Pediatric Reference ranges were obtained from a study by Feliciano Chavez et al. prepared from 1437 samples obtained at 7 different centers using the same coagulation reagent and instrumentation as [facility]. Currently there are no coagulation studies available worldwide for children to 14 days, and no normal ranges. Consent for Treatmenton 10-10 Consent for Treatment [id number] #[id number] Normal [facility] HEMATOLOGYOrdered By: SYSTEM SYSTEM on 10-28-2023 Basophils/100 WBC (Bld) 1.0 % Normal 0.0 - 2.0 % [facility] HemeAutoSS Basophils/Leukocyte s Auto (Bld) [Pure # fraction] 0.1 E9/L Normal 0.0 - 0.2 E9/L [facility] HemeAutoSS Eosinophils/100 WBC (Bld) 10.6 % High 0.0 - 8.0 % [facility] HemeAutoSS Eosinophils/Leukocy deric Auto (Bld) [Pure # fraction] 0.8 E9/L High 0.0 - 0.5 E9/L [facility] HemeAutoSS Lymphocytes/100 WBC (Bld) 12.9 % Low 14.0 - 50.0 % [facility] HemeAutoSS Lymphocytes/Leukocy deric Auto (Bld) [Pure # fraction] 1.0 E9/L Normal 1.0 - 4.0 E9/L [facility] HemeAutoSS Monocytes/100 WBC (Bld) 11.1 % Normal 4.0 - 14.0 % [facility] HemeAutoSS Monocytes/Leukocyte s Auto (Bld) [Pure # fraction] 0.8 E9/L Normal 0.2 - 1.0 E9/L [facility] HemeAutoSS Neutrophils/100 WBC (Bld) 64.4 % Normal 36.0 - 75.0 % [facility] HemeAutoSS Neutrophils/Leukocy deric Auto (Bld) [Pure # fraction] 4.8 E9/L Normal 2.0 - 7.5 E9/L [facility] HemeAutoSS HEMATOLOGYOrdered By: Emilio Woodson on 10-28-2023 Erythrocyte distribution width (RBC) [Ratio] 14.1 % Normal 10.9 - 14.2 % [facility] HemeAutoSS Hematocrit (Bld) [Volume fraction] 37.3 % Low 37.7 - 49.0 % [facility] HemeAutoSS Hemoglobin (Bld) [Mass/Vol] 12.3 g/dL Low 13.5 - 17.5 gm/dL [facility] HemeAutoSS MCH (RBC) [Entitic mass] 29.2 pg Normal 27.0 - 34.0 pg [facility] HemeAutoSS MCHC (RBC) [Mass/Vol] 33.0 g/dL Normal 31.4 - 36.0 gm/dL [facility] HemeAutoSS MCV (RBC) [Entitic vol] 88.5 fL Normal 80.0 - 100.0 fL [facility] HemeAutoSS Platelet mean volume (Bld) [Entitic vol] 7.2 fL Normal 6.4 - 10.8 fL [facility] HemeAutoSS Platelets (Bld) [#/Vol] 258.0 E9/L Normal 150.0 - 500.0 E9/L [facility] HemeAutoSS RBC (Bld) [#/Vol] 4.2 E12/L Low 4.3 - 5.9 E12/L [facility] HemeAutoSS WBC corrected for nucl RBC Auto (Bld) [#/Vol] 7.5 E9/L Normal 4.0 - 11.0 E9/L [facility] HemeAutoSS PT & PTTon 10-28-2023 aPTT Coag (PPP) [Time] 31.1 second(s) Normal 25.1-36.5 [facility] Comment on above: Result Comment: Para meter 15 days - 4 weeks 1 - 5 months 6 - 11 months 1 - 5 years 6 - 10 years 11 - 17 years PTT Mean: 35.4 (27.6-45.6) Mean: 33.5 (24.8-40.7) Mean: 32.4 (25.1-40.7) Mean: 31.6 (24.0-39.2) Mean: 31.6 (26.9-38.7) Mean: 31.0 (24.6-38.4) Pediatric Reference ranges were obtained from a study by Feliciano Chavez et al. prepared from 1437 samples obtained at 7 different centers using the same coagulation reagent and instrumentation as [facility]. Currently there are no coagulation studies available worldwide for children to 14 days, and no normal ranges. Heparin therapeutic range (represented by Anti-Factor Xa activity of 0.2 - 0.4 U/mL) corresponds to PTT of 56.6 - 109.0 sec. Performed By: #### 2 563798, 2648334, 11197919, 11374077, 7033101 ####[facility] [address] [place] [address] INR Coag (PPP) [Relative time] 0.9 {INR} Invalid Interpretation Code [facility] Comment on above: Result Comment: INR results are specifically intended to assess patients stabilized on long-term Anticoagulation therapy suggested INR?s ?Less Intensive Anticoagulation? 2.0 ? 3.0 Conventional Range 3.0 ? 4.5 Performed By: #### 2 406870, 6476925, 98337884, 40561568, 0654449 ####[facility] [address] [place] [address] PT Coag (PPP) [Time] 10.4 second(s) Normal 9.4-12.5 [facility] Comment on above: Result Comment: 15 d ays - 4 weeks 1 - 5 months 6 -11 months 1 ? 5 years 6 ? 10 years 11 -17 years Mean: 11.2 (9.5 ? 12.6) Mean: 11.0 (9.7 ? 12.8) Mean: 11.0 (9.8 ? 13.0) Mean: 11.3 (9.9 ? 13.4) Mean: 11.7 (10.0 ? 14.6) Mean: 11.8 (10.0 - 14.1) Pediatric Reference ranges were obtained from a study by Feliciano Chavez et al. prepared from 1437 samples obtained at 7 different centers using the same coagulation reagent and instrumentation as [facility]. Currently there are no coagulation studies available worldwide for children to 14 days, and no normal ranges. Performed By: #### 2 343725, 9640795, 94715462, 20880260, 5946505 ####[facility] [address] [place] [address] UA With Cult Reflexon 2022 Bacteria LM Ql (Urine sed) TRACE Normal Trace [facility] Comment on above: Performed By: #### 1 8038474 ####[facility] [address] [place] [address] Bilirubin Ql (U) Negative Normal Negative [facility] Comment on above: Performed By: #### 1 8606089 ####[facility] [address] [place] [address] Clarity (U) CLEAR Normal Clear [facility] Comment on above: Performed By: #### 1 4223564 ####[address] [address] Color (U) YELLOW Normal Yellow [facility] Comment on above: Performed By: #### 1 6067539 ####[address] [address] Epithelial cells.squamous LM.HPF (Urine sed) [#/Area] 0-2 Normal 0-2 [facility] Comment on above: Performed By: #### 1 5246471 ####[address] [address] Glucose Test strip (U) [Mass/Vol] Negative Normal Negative [facility] Comment on above: Performed By: #### 1 0678076 ####[facility] [address] [place] [address] Hemoglobin Ql (U) Negative Normal Negative [facility] Comment on above: Performed By: #### 1 8991377 ####[facility] [address] [place] [address] Ketones (U) [Mass/Vol] Negative Normal Negative [facility] Comment on above: Performed By: #### 1 2315955 ####[facility] [address] [place] [address] Morada.plasma/Lith ium.RBC (Bld) [Mass ratio] 0-3 Normal 0-3 [facility] Comment on above: Performed By: #### 1 6349418 ####[facility] [address] [place] [address] Mucus Ql (Urine sed) TRACE Normal [facility] Comment on above: Performed By: #### 1 9427815 ####[address] [address] Nitrite Ql (U) Negative Normal Negative [facility] Comment on above: Performed By: #### 1 0525418 ####[address] [address] pH (U) 6.5 [pH] Invalid Interpretation Code 5.0-9.0 [facility] Comment on above: Performed By: #### 1 4975189 ####[address] [address] Protein (U) [Mass/Vol] Negative Normal Negative [facility] Comment on above: Performed By: #### 1 5393441 ####[address] [address] Specific gravity (U) [Rel density] 1.015 Invalid Interpretation Code 1.005-1.030 [facility] Comment on above: Performed By: #### 1 5807937 ####[address] [address] Type of Urine collection method Clean Catch Normal [facility] Comment on above: Performed By: #### 1 5229354 ####[address] [address] Urobilinogen Qn (U) 0.2 {Calos'U}/dL Normal 0.0-1.0 [facility] Comment on above: Performed By: #### 1 1014538 ####[address] [address] WBC Auto Ql (U) Negative Normal Negative [facility] Comment on above: Performed By: #### 1 8909747 ####[address] [address] WBC LM.HPF (Urine sed) [#/Area] 0-5 Normal 0-5 [facility] Comment on above: Performed By: #### 1 6630673 ####[address] [address] URINALYSISOrdered By: Sonali Camilo on 10-28-2023 Bacteria LM Ql (Urine sed) Trace /HPF Normal Trace/HPF [facility] UA Auto SS Bilirubin Ql (U) Negative (10/28/23 8:48 AM) Normal Negative [facility] UA Auto SS Clarity (U) Clear (10/28/23 8:48 AM) Normal Clear [facility] UA Auto SS Color (U) Yellow (10/28/23 8:48 AM) Normal Yellow [facility] UA Auto SS Epithelial cells.squamous LM.HPF (Urine sed) [#/Area] 0-2 /HPF Normal 0-2/HPF [facility] UA Auto SS Glucose Test strip (U) [Mass/Vol] Negative (10/28/23 8:48 AM) Normal Negative [facility] UA Auto SS Hemoglobin Ql (U) Negative (10/28/23 8:48 AM) Normal Negative [facility] UA Auto SS Ketones (U) [Mass/Vol] Negative (10/28/23 8:48 AM) Normal Negative [facility] UA Auto SS Morada.plasma/Lith ium.RBC (Bld) [Mass ratio] 0-3 /HPF Normal 0-3/HPF [facility] UA Auto SS Mucus Ql (Urine sed) Trace (10/28/23 8:48 AM) Normal [facility] UA Auto SS Nitrite Ql (U) Negative (10/28/23 8:48 AM) Normal Negative [facility] UA Auto SS pH (U) 6.5 *NA* (10/28/23 8:48 AM) Invalid Interpretation Code 5.0 - 9.0 [facility] UA Auto SS Protein (U) [Mass/Vol] Negative (10/28/23 8:48 AM) Normal Negative [facility] UA Auto SS Specific gravity (U) [Rel density] 1.015 *NA* (10/28/23 8:48 AM) Invalid Interpretation Code 1.005 - 1.030 [facility] UA Auto SS UA Spec Desc Clean Catch (10/28/23 8:48 AM) Normal [facility] UA Auto SS Urobilinogen Qn (U) 0.3298762 {Calos'U}/dL Normal 0.0 - 1.0 EU/dL [facility] UA Auto SS WBC Auto Ql (U) Negative (10/28/23 8:48 AM) Normal Negative [facility] UA Auto SS WBC LM.HPF (Urine sed) [#/Area] 0-5 /HPF Normal 0-5/HPF [facility] UA Auto SS XR Chest 2 Viewson 3 XR Chest 2 Views Exam Date/Time: 10/28/2023 09:15 EST Reason for Exam: P.A.T. Report IMPRESSION: CHRONIC INCREASED DENSITY RIGHT LOWER LOBE MEDIALLY, IN THIS PATIENT WITH HISTORY OF LUNG CANCER. CLINICAL HISTORY: P.A.T. History of non-small cell lung cancer. COMPARISON: 05/21/2022. COMMENT: The heart is normal in size. The mediastinum is unremarkable. There is increased density in the right lower lobe medially, extending to the inferior hilum, but with findings less prominent than on the prior exam on 05/21/2022. The lungs otherwise appear clear. No superimposed infiltration nor pleural effusion is evident. Ordering Provider: Andrea Ugarte FINAL REPORT Dictated: 10/28/2023 10:46 am Candido Hernandez M.D. Signed (Electronic Signature): 10/28/2023 10:46 am Signed by: Candido Hernandez M.D. Transcribed by: RAEANN Technologist: ROCIO Technical Comments Radiation Dose: Ka,r in mGy = na DAP = na Normal [facility] eGFRon 10-28-2023 GFR/1.73 sq M.predicted among non-blacks MDRD (S/P/Bld) [Vol rate/Area] mL/min/{1.73_m2} Normal >=59 [facility] Comment on above: Order Comment: Order added by Discern Expert. Performed By: #### 2 950277, 0397301, 36364856, 03921342, 8684557 ####[facility] [address] [place] [address] Consent for Procedure/Surger yon 10-19-2023 Consent for Procedure/Surgery [id number] 8#1.00TIFF Normal [facility] Consent for Treatmenton 10-09 Consent for Treatment [id number] #1.00TIFF Normal [facility] Inpatient Patient Summaryon 10-19-2023 Inpatient Patient Summary [address] [address] Clinical Summary Person Information Name: ROBSON CARLSON Age: 68 Years : 1955 Sex: Male PCP: Mecca SAUCEDO MD Marital Status: Race: White Ethnicity: Non- or Language: Spanish Visit Id: Visit Reason: BPH WITH LUTS Speciality: Acuity: Enc Type: Outpatient Med Service: Surgery Arrival: 10/19/2023 08:47:55 Discharge: Dispo Type: Address: [address] [place] [id number] Provider Notes: Diagnosis: BPH with obstruction/lower urinary tract symptoms; Nocturia; Other obstructive and reflux uropathy Problems Active OAB (overactive bladder) History of pulmonary embolism Chronic insomnia BMI 24.0-24.9, adult Screening for prostate cancer BPH associated with nocturia Anxiety Malignant neoplasm metastatic to left adrenal gland Non-small cell cancer of right lung Encounter for well adult exam with abnormal findings Adverse effect of antineoplastic and immunosuppressive drugs, initial encounter Neoplastic (malignant) related fatigue 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 Encounter for palliative care Diabetic polyneuropathy associated with type 2 diabetes mellitus Intermittent asthma Actinic keratosis of right side of forehead Primary hypothyroidism Combined hyperlipidemia Lumbar radiculopathy Anemia in chronic illness Benign hypertension Basal cell carcinoma of face Recurrent herpes simplex History of narcotic addiction Intermittent asthma with acute exacerbation Smoking Status: Functional Status: Sensory Deficits: History of Falls: Mobility Assistance Prior to Admission: ADLs: Current Level of Assistance for Self-Care/Mobility: Cognitive Status: Allergies No Known Medication Allergies No Known Allergies Laboratory or Other Results This Visit (last charted value for your 10/19/2023 visit) No Laboratory or Other Results This Visit Measurements: Height: 177.7 cm Weight: Blood Pressure: Not Valued / Not Valued BMI: Procedures No Procedures Documented Immunizations No Immunizations Documented This Visit Final Med List: alprazolam (Xanax 0.5 mg Tab) 1 Tablets By Mouth 3 times a day as needed for anxiety. Refills: 0. apixaban (Eliquis 5 mg oral tablet) 1 Tablets By Mouth 2 times a day. Refills: 11. buprenorphine-naloxo ne (Suboxone) 8mg/2mg Sublingual 2 times a day. fluocinonide topical (fluocinonide Top 0.05% Crm 15 gram) 1 Application Topical 2 times a day as needed Itching. Refills: 0. levothyroxine (levothyroxine 125 mcg (0.125 mg) Tab) 1 Tablets By Mouth every day. Refills: 3. levothyroxine (levothyroxine 125 mcg (0.125 mg) Tab) 1 Tablets By Mouth every day. Refills: 3. mirabegron (Myrbetriq 25 mg oral tablet, extended release) 1 Tablets By Mouth every day. Refills: 0. mirabegron (Myrbetriq 50 mg oral tablet, extended release) 1 Tablets By Mouth every day. Refills: 0. Misc Prescription (Magic Mouth wash) 0. Uzudwwnyylyvs476 mg Nystatin 30 ml suspension Lidocaine 30 ml QS with Benadryl Elixir to 240 mls Directions Swish & Swallow 1 tsp every 4 hrs as needed. Refills: 1. Care Team Members: Attending Physician: Dina Little MD Consulting Physician: Referring Physician: Dina Little MD Follow up: With: Address: When: Dina Little [address] [place] [id number] [phone] Business (1) [address] [place] [address] [address] [place] [address] [phone] Business (1) Comments: Call for followup appointment when you are ready to schedule urolift or rezum Type Location Start Finish State Open [facility] Ignacio 12/07/2023 11:20 AM 12/07/2023 11:40 AM Confirmed ONC Office Visit 30 (FT) FT.ONCOLOGY 01/21/2024 10:30 AM 01/21/2024 11:00 AM Confirmed Patient Education Information: EU - Cystoscopy Discharge Instructions (CUSTOM) [facility] IntraOperative Documentson 1 12-20-2022 IntraOperative Documents [id number] 8#1.00TIFF Normal [facility] IntraOperative Documents [id number] 5#1.00TIFF Normal [facility] Main OR Intraoperative Recor don 10-19-2023 Main OR Intraoperative Record IntraOp Document Type [facility] Summary Primary Physician: Dina Little MD Finalized Date/Time: 10/19/23 10:56:15 Pt. Name: ROBSON CARLSON /Sex: 1955 Male Med Rec #: [id number] Physician: Dina Little MD Financial #: [id number] Pt. Type: O Room/Bed: / Admit/Disch: 10/19/23 08:47:55 - Institution: Case Times [facility]O Entry 1 Patient Times In Room 10/19/23 10:27:00 Out Room 10/19/23 10:50:00 Procedure Times Start 10/19/23 10:30:00 Stop 10/19/23 10:45:00 Anesthesia Times Last Modified By: CECE Ferrell RN, Ruthann 10/19/23 10:45:16 Case Attendance [facility] Entry 1 Entry 2 Case Attendee Dina Little MD RN, CECE, [place] Role Performed Surgeon - Primary Computer Teacher - Primary Time In 10/19/23 10:27:00 10/19/23 10:27:00 Time Out 10/19/23 10:50:00 10/19/23 10:50:00 Procedure CYSTOSCOPY LOCAL(.) CYSTOSCOPY LOCAL(.) Comments Last Modified By: Mariaelena PEREZ, FIONAOR, CECE Ferrell RN, Ruthann 10/19/23 [place] 10/19/23 10:45:24 10:45:24 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 Surgeon Description CYSTO WITH TRUS Primary Procedure Yes Primary Surgeon Dina Little MD Start 10/19/23 10:30:00 Stop 10/19/23 10:45:00 Anesthesia Type Local Surgical Service Urology Wound Class 2 - Clean-Contaminated Last Modified By: Mariaelena PEREZ, Clover ZHAO 10/19/23 10:55:45 General Case Data [facility] Pre-Care Text: Classifies surgical wound, implements aseptic technique, initiates traffic control Entry 1 Case Information OR URO 1 FT Case Level None Wound Class 2 - Clean-Contaminated Specialty Urology Preop Diagnosis BPH WITH LUTS Postop Same As Preop Yes Postop Diagnosis BPH WITH LUTS Outcomes Met? Yes Last Modified By: CECE Ferrell RN, Ruthann 10/19/23 09:27:11 Post-Care Text: The patient is free from signs and symptoms of infection EU IntraOp - FT[facility] Pre-Care Text: Implements protective measures prior to operative or invasive procedure, confirms identity before the operative or invasive procedure, verifies operative procedure, surgical site, and laterality Entry 1 EU Perioperative Protocols Procedure(s) CYSTOSCOPY LOCAL(.) Patient Identity Birthday, ID Band Verified (select at Check, Patient least 2): Participation Consents / H and P HandP, Surgery/Procedure Operative Site N/A Verified Consent Marking Verified Surgical Site Yes Laterality Verified n/a Verified Procedure Verified Yes Correct Patient Yes Position Verified Availability Equipment, Medication Time Out Dina Little MD, Verified (If Participants CECE Ferrell RN, Applicable) [place] Time Out Complete 10/19/23 10:29:00 Allergies Reviewed? Yes Allergies Reviewed Self/Patient With Body Position Frog Legged Prep Area perineal area Prep Agents Betadine Solution Skin. Condition Unable to Visualize Additional None Specimens Collected Vitals - EU Blood Pressure Pulse Respirations SPO2 EBL 0 IandO - EU Total Intake 0 mL Total Output 0 mL Outcomes Met? Yes Last Modified By: CECE Ferrell RN, Ruthann 10/19/23 10:45:09 Post-Care Text: The patient is free from signs and symptoms of injury caused by extraneous objects Sign Out FTURO Entry 1 Before Patient Leaves OR Nurse verbally Yes Nurse verbally n/a confirms with the confirms with the team the name of team that the procedure(s) instrument, sponge, recorded and needle counts are correct (or N/A) Nurse verbally n/a Nurse verbally n/a confirms with the confirms with the team how the team whether there specimen is labeled are any equipment (including patient problems to be name), if applicable addressed Sign Out Complete 10/19/23 10:49:00 Last Modified By: CECE Ferrell RN, Ruthann 10/19/23 10:56:13 Case Comments Finalized By: CECE Ferrell RN, Ruthann Document Signatures Signed By: CECE Ferrell RN, Ruthann 10/19/23 10:56 [facility] Main OR Preoperative Recordo n 10-19-2023 Main OR Preoperative Record Holding Area Document Type FTURO Summary Primary Physician: Dina Little MD Finalized Date/Time: 10/19/23 09:35:28 Pt. Name: ROBSON CARLSON /Sex: 1955 Male Med Rec #: [id number] Physician: Dina Little MD Financial #: [id number] Pt. Type: O Room/Bed: / Admit/Disch: 10/19/23 08:47:55 - Institution: Case Times Holding FTURO Pre-Care Text: Verifies consent for planned procedure, identifies individual values and wishes concerning care, includes family members in perioperative teaching Secures patient's records' belongings, and valuables, maintains patient's dignity and privacy, and maintains patient confidentiality Entry 1 In Holding 10/19/23 09:29:00 Outcomes Met? Yes Last Modified By: Abigail Guzmán 10/19/23 09:29:49 Post-Care Text: The patient participates in decisions affecting his or her perioperative plan of care The patient's right to privacy is maintained Surgery Checklist FTURO Entry 1 Patient Birthday, ID Band Procedure History and Physical, Identification: Check, Patient Verification: Surgical Consent, With Participation Patient NPO after Midnight: n/a Date/Time: 10/19/23 09:30:00 Personal Items: Cataract Lens Implant, Personal Items b/l lens implants, Dentures, Glasses, Comment: glasses, upper full Jewelry dentures, watch Limitations: up ad la Complaints of Pain: Yes Pain Comment: chronic back pain Skin Integrity Intact, Ranger, Warm, & Dry Vitals - EU Blood Pressure 151/80 Pulse 88 bpm Respirations 20 br/min SPO2 98 % Last Modified By: Abigail Guzmán 10/19/23 09:35:20 General Comments: 36.6 Finalized By: Abigail Guzmán Document Signatures Signed By: Abigail Guzmán 10/19/23 09:35 [facility] Operative Reporton Operative Report Patient: ROBSON CARLSON Age: 68 years Sex: Male : 1955 Associated Diagnoses: None Author: Dina Little MD Procedure Operative Information Details: Date/ Time: 10/19/2023 10:46:00. Pre-Op Dx: BPH with obstruction/lower urinary tract symptoms (EUZ58-IS N40.1, Discharge, Medical), Nocturia (KBS08-BE R35.1, Discharge, Medical). Post-Op Dx: Same. Anesthesia Type: Local. Procedure: Local Cystoscopy, 2. Transrectal ultrasound of prostate. Complications: None. Risks/Benefits/Infor med Consent: Surgical risks, benefits, details of the procedure have been explained to the patient, Full informed consent has been obtained. Intraoperative Information Prepped: Patient is brought back to the endoscopy suite, Patient is placed in supine position, Patient prepped in the usual fashion with Betadine solution, 2% Xylocaine Jelly is placed per Urethra, After waiting several minutes the Cystoscope is introduced. The Urethra is: Normal. The Prostatic Urethra is: Obstructed, Mod- severe bilobar hypertrophy. No elevated bladder neck or intravesical median lobe. The Bladder is: Normal, Trabeculated None (0), No bladder tumors, lesions, stones or foreign bodies.. The ureteral orifices: Show efflux of clear urine. Devices Implanted: None. Removal: Cystoscope is removed, The patient tolerated it well. The patient was placed in a lateral decubitus position with the left side down. Lidocaine gel inserted per rectum. A transrectal ultrasound probe was inserted without difficulty. The prostate was measured in three dimensions with a calculated volume of 20.5mL. This included width a 3.7cm, height of 2.8 cm, and length of 3.8 cm. There were no significant hypo or hyperechoic lesions within the prostate. The seminal vesicles were visualized bilaterally. These were normal in size, shape and echotexture. The probe was removed and patient tolerated the procedure well. . Postoperative Information Discharge: Follow up arranged, Candidate for either outlet procedure. Main issue is frequency and nocturia. Prior PVR 0 ml. No improvement on OAB meds. Short trial of tamsulosin, had vision issues and stopped. He declined alternative medications at this time. Reviewed options for UroLift versus Rezum. Discussed risk benefits of each as well as TURP. Patient will call when he is ready to schedule procedure.. [facility] Comment on above: Result Comment: Elec tronically Signed By: Dina Little MD\.br\Date and Time Signed: 10/19/23 10:51 EST Outpatient Surgery Discharge Instructionon 10-19-2023 Outpatient Surgery Discharge Instruction [place] [id number] Patient Discharge Instructions PERSON INFORMATION Name: ROBSON CARLSON Date of : 1955 Current Date: 10/19/2023 10:46:12 PHYSICIANS Admitting Physician: Dina Little MD Comment: Discharge Diagnosis: BPH with obstruction/lower urinary tract symptoms; Nocturia; Other obstructive and reflux uropathy ROBSON CARLSON has been given the following list of follow-up instructions, prescriptions, and patient education materials: IF UNABLE TO CONTACT YOUR PHYSICIAN AND YOU FEEL IT IS AN EMERGENCY, GO TO THE NEAREST EMERGENCY ROOM OR CALL 911 Follow up: With: Address: When: Dina Little [address] [place] [address] [phone] Business (1) [address] [facility], [place] [phone] [facility] (1) Comments: Call for followup appointment when you are ready to schedule urolift or rezum Type Location Start [facility] Ignacio 12/07/2023 11:20 AM 12/07/2023 11:40 AM Confirmed ONC Office Visit 30 (FT) FT.ONCOLOGY 01/21/2024 10:30 AM 01/21/2024 11:00 AM Confirmed Comment: PATIENT EDUCATION INFORMATION Instructions: Cystoscopy ? Voiding after the procedure: there may be some pain, burning, urgency, frequency and blood tinged urine following the procedure. These symptoms usually resolve within 2-5 days. Drink the amount of fluid it takes to keep the urine pink to yellow or clear in color. Drinking enough water and fluids will help to ease any discomfort after your procedure. ? If you are having problems that seem out of the ordinary, please call. ? If unable to contact your physician and you feel it is an emergency, go to the nearest emergency room or call 911 ? Diet ? you may resume your normal diet. ? Activity ? you may resume your normal activities ? Call if you have a fever over 100 degrees. I, ROBSON CARLSON, have received the attached patient education materials/instructio ns and have verbalized understanding: May we do a follow up call? Yes No I was present when discharge instructions were given Patient Signature Date Clinican/Nurse Signature Date You may receive a survey from Radha Castellon asking you to rate your care experience. Your feedback is important and will help us understand what we do well and how we can improve the quality of care we provide to you, your loved ones and our community. It?s an honor to serve you. Thank you for choosing [facility] Physician Orderon 09-14-2023 Physician Order [id number] 3#1.00TIFF [facility] Consent for Treatmenton Consent for Treatment [id number] #1.00TIFF [facility] Oncology Noteon 09-09-2023 Oncology Note Oncology [employer] Office Visit/Treatment Note Current Patient Status/Reason: Pt in with . Pt has diagnosis of lung cancer, had PET recently. I accompanied Dr. Eng in room. explained recent labs and PET scan. Dr explained disease process and treatment of immunotherapy, with understanding voiced. Treatment Plan: lab prior to f/u PET in 4 months. Follow-Up Appointment Info/Referrals: F/U in 4 months after PET. Resources Offered: After Dr. adams I explained PET will schedule for 01/06 with F/U 01/13/2024, pt is agreeable to same. I also spent time talking to pt about Medicare at length with understanding voiced. Pt voiced no other questions or concerns. [facility] Comment on above: Result Comment: Elec tronically Signed By: Angie PEREZ, Ashley\.br\Date and Time Signed: 09/09/23 14:49 EDT Oncology Progress Noteon Oncology Progress Note Patient: ROBSON CARLSON Age: 68 years Sex: Male : 1955 Associated Diagnoses: None Author: Joshua Eng DO Chief Complaint History of Present Illness 67-year-old male referred by Dr. Edouard Saucedo for new diagnosis of lung cancer in May 2022. Past medical history includes BPH, anemia of chronic disease, diabetic neuropathy, type 2 diabetes, intermittent asthma, hypothyroidism. Outpatient medications include Synthroid, lisinopril, Zofran, Suboxone, Ventolin, Voltaren. quit smoking at 23 years old. He saw his primary care provider in early April 2022 for unintentional weight loss. He also noted some concerns with mild difficulty swallowing spaghetti. Also notes intermittent nausea. Laboratory evaluation from May 21, 2022 notes white blood cell count of 15,000, hemoglobin of 10.8 with an MCV of 80.5 and a platelet count of 424,000. His creatinine is 1. On April 24, 2022 he had a albumin of 3.2 with a total protein of 6.5. His hemoglobin A1c is 6.5. A CT of the chest from May 17, 2022 notes an 8 x 6 x 8.5 cm posterior mediastinal mass likely representing a necrotic malignancy. There is also an adjacent 1.4 cm lymph node. Pulmonary nodules multiple and nonspecific. 2 cm left adrenal gland and 3 cm right lobe of the liver lesion are concerning for metastatic disease. CT-guided biopsy performed on 05/21/2022 pathology results positive for non-small cell carcinoma, positive for TTF-1, CK7, CK5 6. Negative for synaptophysin. Favor lung origin. Poorly differentiated. He completed 6 cycles of carbo, pemetrexed from June - October 2022 as well as radiation therapy in October 2022. He then initiated cycle 1 maintenance Keytruda on 11/20/22. He had labs drawn 12/09/22 which noted an elevated creatinine at 3.3 and was told to present to the ER for further evaluation. He was subsequently admitted for further evaluation. On exam he feels well overall. His only complaint is fatigue and some lingering nasal congestion. No events overnight and no significant changes in his labs. 12/24/22 he is doing well. he is on prednisone 60mg. he is a bit shelton but tolerating well. will drop to 40mg dtoday. creatinine 1.6. last few days notes occasional shortness of breath. hb improved. 01/08/23 he is doing well overall tapered to 20mg prednisone last week has no new symptoms, energy is ok, eating and drinking well labs stable, creatinine improved to 1.4 02/03/23 he had recent hospitalization for pulmonary emboli. He is now on eliquis. 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 04/09/23 he had recent pet/ct noted IMPRESSION: NEW CONSOLIDATIVE INFILTRATE INVOLVING THE RIGHT LOWER LOBE ADJACENT TO THE PATIENT'S STABLE RESIDUAL SOFT TISSUE MASS. OTHERWISE NO SIGNIFICANT CHANGE. He had a lot of testing for vision and was sent to a retina specialist in [place] who then had him come to [place] for additional testing. Vision now comes and goes. In october he was seeing ok at night. Denies chest pains or breathing issues. no fevers sweats chills. still a bit tired after his hospitalization for PE. Continues eliquis. 06/03/23 he is doing well enough. he has not had breathing issues or pain. He of course cant exert himself as well as he used to but not changed much since then. He is feeling a lot better after resolution of his blood clots from january. 09/09/23 recent pet/ct notes iMPRESSION: Persistent area of pneumonitis in the right lower lobe is stable when compared to 05/25/2023 CT and markedly improved from 01/30/2023 CT scans. There has been progressive continued decrease in the uptake of FDG at this site when compared to prior PET scans. Findings favor a benign process likely related to posttreatment change. Otherwise no significant findings. No signs of metastatic disease. He continues on 125mcg synthroid, tolerating well/ Review of Systems Constitutional: Fatigue. Eye: Negative. Ear/Nose/Mouth/Throa t: Negative. Respiratory: Negative. Cardiovascular: Negative. Gastrointestinal: Negative. Genitourinary: Negative. Hematology/Lymphatic s: Negative. Endocrine: Negative. Immunologic: Negative. Musculoskeletal: Negative. Integumentary: Negative. Neurologic: Negative. Psychiatric: Negative. All other systems are negative Health Status Allergies: Allergic Reactions (Selected) No Known Allergies No Known Medication Allergies Current medications: Home Medications (9) Active Eliquis 5 mg oral tablet 5 mg = 1 tab(s), Oral, BID fluocinonide Top 0.05% Crm 15 gram 1 morgan, PRN, Topical, BID levothyroxine 125 mcg (0.125 mg) Tab 125 mcg = 1 tab(s), Oral, Daily levothyroxine 125 mcg (0.125 mg) Tab 125 mcg = 1 tab(s), Oral, Daily Magic Mouth wash 0 Myrbetriq 25 mg oral tablet, extended release 25 mg = 1 tab(s), Oral, Daily Myrbetriq 50 mg oral tablet, extended release 50 mg = 1 tab(s), Oral, Daily Suboxone 8mg/2mg, SubLingual, BID Xanax 0.5 mg Tab 0.5 mg = 1 tab(s), PRN, Oral, TID (more content not included)... [facility] T3 Totalon 09-09-2023 T3 [Mass/Vol] 100 ng/dL Invalid Interpretation Code 29-304 [facility] Comment on above: Result Comment: Perf ormed at: [facility] [address] [id number] PhD Jerrod Blake Performed By: #### 1 [id number], 1635941, 7822900, 1280798, 85463305, 9684059, 6302734, 6971692, 2120257 ####[facility] [id number] [place] [address] Auto Diffon 09-08-2023 Basophils/100 WBC (Bld) 0.8 % Normal 0.0-2.0 [facility] Comment on above: Order Comment: Order Added by Discern Expert. Performed By: #### 1 [id number], 3816929, 3543117, 5492206, 84891079, 4638714, 8159978, 3782581, 8924493 #### [facility] [address] [place] [address] Basophils/Leukocyte s Auto (Bld) [Pure # fraction] 0.0 E9/L Normal 0.0-0.2 [facility] Comment on above: Order Comment: Order Added by Discern Expert. Performed By: #### 1 4032855, 9043047, 0571104, 2487920, 18075545, 1953711, 1654507, 1563553, 5689420 #### [facility] [address] [place] [address] Eosinophils/100 WBC (Bld) 8.2 % High 0.0-8.0 [facility] Comment on above: Order Comment: Order Added by Discern Expert. Performed By: #### 1 8423480, 1209787, 4244850, 9657829, 98522255, 5952571, 4772477, 6236010, 5079459 #### [facility] [address] [place] [address] Eosinophils/Leukocy deric Auto (Bld) [Pure # fraction] 0.5 E9/L Normal 0.0-0.5 [facility] Comment on above: Order Comment: Order Added by Discern Expert. Performed By: #### 1 9509846, 4198732, 4302727, 4452118, 72301095, 1488292, 6094811, 0220522, 7124039 #### [facility] [address] [place] [address] Lymphocytes/100 WBC (Bld) 9.3 % Low 14.0-50.0 [facility] Comment on above: Order Comment: Order Added by Discern Expert. Performed By: #### 1 2063783, 7782488, 5122766, 0806035, 41537685, 1036967, 9301928, 0751598, 6824485 #### [facility] [address] [place] [address] Lymphocytes/Leukocy deric Auto (Bld) [Pure # fraction] 0.6 E9/L Low 1.0-4.0 [facility] Comment on above: Order Comment: Order Added by Discern Expert. Performed By: #### 1 9050865, 1079753, 6449068, 1946536, 35087714, 3617437, 4107031, 6797529, 3269968 #### [facility] [address] [place] [address] Monocytes/100 WBC (Bld) 6.2 % Normal 4.0-14.0 [facility] Comment on above: Order Comment: Order Added by Discern Expert. Performed By: #### 1 3978882, 3738027, 5207029, 0124754, 20165505, 1153299, 7935915, 3733919, 1897705 #### [facility] [address] [place] [address] Monocytes/Leukocyte s Auto (Bld) [Pure # fraction] 0.4 E9/L Normal 0.2-1.0 [facility] Comment on above: Order Comment: Order Added by Discern Expert. Performed By: #### 1 9871846, 4468189, 3251722, 1557608, 28326651, 3341215, 5274905, 0528526, 7327073 #### [facility] [address] [place] [address] Neutrophils/100 WBC (Bld) 75.5 % High 36.0-75.0 [facility] Comment on above: Order Comment: Order Added by Eboni Expert. Performed By: #### 1 6530651, 0132103, 7070923, 8513755, 21515903, 0108829, 5197074, 1958406, 7434517 #### [facility] [address] [place] [address] Neutrophils/Leukocy deric Auto (Bld) [Pure # fraction] 4.9 E9/L Normal 2.0-7.5 [facility] Comment on above: Order Comment: Order Added by Discern Expert. Performed By: #### 1 1040428, 6455438, 0266444, 7174251, 35792725, 3716823, 4219117, 3834606, 8799296 #### [facility] [address] [place] [address] CBC w/ Auto Diffon 3 Erythrocyte distribution width (RBC) [Ratio] 14.1 % Normal 10.9-14.2 [facility] Comment on above: Performed By: #### 1 2633196, 7619551, 4690660, 3350731, 64562785, 7771148, 2997129, 5364773, 8392611 #### [facility] [address] [place] [address] Hematocrit (Bld) [Volume fraction] 36.1 % Low 37.7-49.0 [facility] Comment on above: Performed By: #### 1 2446513, 8237160, 1778530, 0580232, 18997902, 6715545, 8656933, 7192748, 4268479 #### [facility] [address] [place] [address] Hemoglobin (Bld) [Mass/Vol] 11.7 g/dL Low 13.5-17.5 [facility] Comment on above: Performed By: #### 1 7613082, 5710572, 0044501, 3950565, 19840368, 3404835, 4345394, 0777590, 9524511 #### [facility] [address] [place] [address] MCH (RBC) [Entitic mass] 29.0 pg Normal 27.0-34.0 [facility] Comment on above: Performed By: #### 1 5845491, 4177875, 0788720, 7643425, 97511000, 7149046, 3706703, 6154076, 4226841 #### [facility] [address] [place] [address] MCHC (RBC) [Mass/Vol] 32.5 g/dL Normal 31.4-36.0 [facility] Comment on above: Performed By: #### 1 1742774, 4059024, 3901431, 0180600, 75337844, 0429721, 7676108, 5242572, 3274082 #### [facility] [address] [place], [place] [address] MCV (RBC) [Entitic vol] 89.3 fL Normal 80.0-100.0 [facility] Comment on above: Performed By: #### 1 3281140, 7160233, 0891609, 7569305, 82345405, 5385191, 3694851, 9476547, 4993709 #### [facility] [address] [place] [address] Platelet mean volume (Bld) [Entitic vol] 7.7 fL Normal 6.4-10.8 [facility] Comment on above: Performed By: #### 1 1602667, 3722572, 3004392, 6575201, 10054448, 9188928, 1251075, 9844420, 7141346 #### [facility] [address] [place] [address] Platelets (Bld) [#/Vol] 207.0 E9/L Normal 150.0-500.0 [facility] Comment on above: Performed By: #### 1 6888849, 6316332, 5593414, 1266717, 46482435, 9685125, 5719895, 2994917, 1992738 #### [facility] [address] [place] [address] RBC (Bld) [#/Vol] 4.0 E12/L Low 4.3-5.9 [facility] Comment on above: Performed By: #### 1 0166377, 6695057, 2952800, 4662387, 79528136, 4984402, 8220063, 9946095, 1527263 #### [facility] [address] [place] [address] WBC corrected for nucl RBC Auto (Bld) [#/Vol] 6.5 E9/L Normal 4.0-11.0 [facility] Comment on above: Performed By: #### 1 0572553, 5429521, 0403371, 4050484, 97466097, 9888429, 3688627, 5143074, 8523568 #### [facility] [address] [place] [address] CMPon 09-08-2023 Albumin [Mass/Vol] 3.7 g/dL Normal 3.3-5.0 [facility] Comment on above: Performed By: #### 1 1692881, 4843204, 6292309, 7262317, 93095370, 5982790, 0512175, 2912378, 4858945 #### [facility] [address] [place], [place] [address] Albumin/Globulin (S) [Mass conc ratio] 1.2 Normal 1.1-2.2 [facility] Comment on above: Performed By: #### 1 5577074, 1151475, 5792911, 0694803, 93528151, 4066918, 1344356, 6798026, 8997154 #### [facility] [address] [place] [address] ALP [Catalytic activity/Vol] 117 Int._Unit/L High 21-98 [facility] Comment on above: Performed By: #### 1 2661545, 2616878, 7784879, 6991674, 65548452, 0353317, 2899600, 2297147, 7376031 #### [facility] [address] [place] [address] ALT No additional P-5'-P [Catalytic activity/Vol] 15 Int._Unit/L Normal 6-46 [facility] Comment on above: Performed By: #### 1 7681355, 5460343, 2014724, 5617315, 87951002, 8097267, 1822757, 5912718, 8960262 #### [facility] [address] [place] [address] Anion gap [Moles/Vol] 8 mmol/L Normal 6-16 [facility] Comment on above: Performed By: #### 1 5518989, 8789199, 8131283, 9664652, 13211793, 5892256, 8891368, 1176442, 0552365 #### [facility] [address] [place] [address] AST [Catalytic activity/Vol] 19 Int._Unit/L Normal 5-43 [facility] Comment on above: Performed By: #### 1 0780997, 7422646, 6525640, 0772020, 45528085, 5594838, 5159587, 4019095, 7384847 #### [facility] [address] [place] [address] Bilirubin [Mass/Vol] 0.4 mg/dL Normal 0.0-1.1 [facility] Comment on above: Performed By: #### 1 0601254, 8839388, 8212924, 6151614, 45667213, 9744345, 9069127, 2798039, 4400714 #### [facility] [address] [place] [address] Calcium [Mass/Vol] 9.2 mg/dL Normal 8.9-11.1 [facility] Comment on above: Performed By: #### 1 6948465, 9019175, 2494544, 4571906, 55961908, 7887771, 2428616, 7287252, 9126266 #### [facility] [address] [place] [address] Chloride [Moles/Vol] 113 mmol/L High 101-111 [facility] Comment on above: Performed By: #### 1 1620048, 5111709, 7074806, 7314551, 16796716, 6561082, 9914750, 3549183, 8632012 #### [facility] [address] [place] [address] CO2 [Moles/Vol] 22 mmol/L Normal 21-31 [facility] Comment on above: Performed By: #### 1 9434831, 6776588, 8348281, 5693191, 03043750, 8627507, 7327038, 3074525, 5345072 #### [facility] [address] [place] [address] Creatinine [Mass/Vol] 1.3 mg/dL Normal 0.5-1.3 [facility] Comment on above: Performed By: #### 1 8444404, 2889963, 7155995, 9867355, 44055369, 3835746, 4229187, 8096779, 3581306 #### [facility] [address] [place] [address] Globulin (S) [Mass/Vol] 3.2 g/dL Normal 1.4-4.0 [facility] Comment on above: Performed By: #### 1 7115415, 7898577, 2480554, 2060588, 17587100, 3392039, 7930739, 1273059, 9878180 #### [facility] [address] [place] [address] Glucose [Mass/Vol] 112 mg/dL Normal 55-199 [facility] Comment on above: Result Comment: If t his glucose result represents a fasting glucose, interpretation should refer to the following reference range: 55-99 mg/dL Performed By: #### 1 1456304, 9638775, 0409743, 6186229, 29387656, 2512632, 7433640, 1759910, 9094854 #### [facility] [address] [place] [address] Potassium [Moles/Vol] 4.1 mmol/L Normal 3.5-5.3 [facility] Comment on above: Performed By: #### 1 2344641, 6162094, 2356401, 8592672, 05625086, 2570108, 5386172, 5736370, 9209963 #### [facility] [address] [place] [address] Protein [Mass/Vol] 6.9 g/dL Normal 6.0-7.8 [facility] Comment on above: Performed By: #### 1 5085902, 7590402, 0181009, 8593085, 71160837, 4581287, 9221334, 1012215, 2119506 #### [facility] [address] [place] [address] Sodium [Moles/Vol] 139 mmol/L Normal 135-145 [facility] Comment on above: Performed By: #### 1 2362152, [id number], 0664892, 0806855, 22495465, 5565852, 6480565, 4489752, 0134369 #### [facility] [address] [place] [address] Urea nitrogen [Mass/Vol] 34 mg/dL High 5-21 [facility] Comment on above: Performed By: #### 1 [id number], 8436618, 3944262, 2082574, 71212437, 8624202, 3959399, 7484166, 1344986 #### [facility] [address] [place] [address] Urea nitrogen/Creatinine [Mass ratio] 26 No Units High 10-20 [facility] Comment on above: Performed By: #### 1 [id number], 7591914, 2250174, 7898056, 28041573, 2685361, 3765330, 3365784, 9407312 #### [facility] [address] [place] [address] Consent for Treatmenton 08-11 Consent for Treatment [id number] #1.00TIFF Normal [facility] Ferritinon 09-08-2023 Ferritin [Mass/Vol] 90 ng/mL Normal 24-336 [facility] Comment on above: Result Comment: NORM ALS MEN <30 YRS 16-132 ng/mL MEN >30 YRS 8-338 ng/mL WOMEN (PREMEN) 6-104 ng/mL WOMEN (POSTMEN) 12-210 ng/mL Performed By: #### 1 [id number], 0820754, 6702184, 4386978, 71261994, 3916212, 9458109, 7210794, 3892350 ####[facility] [address] [place] [address] Ironon 09-08-2023 Iron [Mass/Vol] 65 microgram/dL Normal 35-153 [facility] Comment on above: Performed By: #### 1 5574505, 9395978, 3072900, 9964942, 70132002, 2245922, 2193485, 9123622, 0622472 #### [facility] [address] [place] [address] Iron Saturationon 09-08-2023 Iron binding capacity [Mass/Vol] 335 microgram/dL Normal 250-400 [facility] Comment on above: Performed By: #### 1 3013272, 8021674, 8463754, 6819178, 75508228, 2944190, 0055205, 3737698, 5241472 #### [facility] [address] [place] [address] Iron saturation [Mass fraction] 19 % Low 20-50 [facility] Comment on above: Performed By: #### 1 1945656, 5514907, 8647779, 6790363, 17898473, 9777698, 6762065, 1821404, 3950286 #### [facility] [address] [place] [address] Transferrinon 09-08-2023 Transferrin [Mass/Vol] 240 mg/dL Normal 200-370 [facility] Comment on above: Performed By: #### 1 7965557, 4814577, 7624507, 1665532, 49466524, 0256048, 8314897, 2914926, 7491080 ####[facility] [address] [place] [address] eGFRon 09-08-2023 GFR/1.73 sq M.predicted among non-blacks MDRD (S/P/Bld) [Vol rate/Area] 59 mL/min/1.73 m2 Normal >=59 [facility] Comment on above: Order Comment: Order added by Discern Expert. Result Comment: Bread Stacker matilde kidney disease could be indicated at eGFR's of less than 60 mL/min/1.73m2. Kidney failure is indicated at less than 15 mL/min/1.73m2. Performed By: #### 1 2405086, 1096188, 6759893, 3379910, 65475803, 8500085, 2927228, 2958122, 9515429 #### [facility] [address] [place] [address] T3 Totalon 09-06-2023 T3 [Mass/Vol] 90 ng/dL Invalid Interpretation Code 71-180 [facility] Comment on above: Result Comment: Perf ormed at: [facility] [id number] PhD Jerrod Blake Performed By: #### 1 5512222, 9481126, 7674207, 4091916, 8081494, 3319858, 2123767, 7216431 ####[facility] [address] [place] [address] CEAon 09-04-2023 Carcinoembryonic Ag [Mass/Vol] 1.2 ng/mL Invalid Interpretation Code [facility] Comment on above: Result Comment: REFE RENCE VALUES <2.5 ng/mL (NONSMOKER) <5.0 ng/mL (SMOKER) The concentration of CEA in a given specimen determined by different manufacturers can vary due to differences in assay methods and reagent specificity. Values obtained with different assay methods cannot be used interchangeably. The methodology used to perform this test was chemiluminescence using [employer] Access CEA reagent. Performed By: #### 1 8459145, 2196018, 4523925, 3316423, 9513974, 3081500, 6613107, 8099562 ####[facility] [address] [place] [address] CHEMISTRYOrdered By: SYSTEM SYSTEM on 09-04-2023 Carcinoembryonic Ag [Mass/Vol] 1.2 ng/mL Invalid Interpretation Code [facility] Remisol Comment on above: Interpretive Data: R EFERENCE VALUES <2.5 ng/mL (NONSMOKER) <5.0 ng/mL (SMOKER) The concentration of CEA in a given specimen determined by different manufacturers can vary due to differences in assay methods and reagent specificity. Values obtained with different assay methods cannot be used interchangeably. The methodology used to perform this test was chemiluminescence using [employer] Access CEA reagent. Cobalamin (Vitamin B12) [Mass/Vol] 359 pg/mL Normal 50 - 1500 pg/mL [facility] Ferritin [Mass/Vol] 110 ng/mL Normal 24 - 336 ng/mL [facility] Comment on above: Interpretive Data: N ORMALS MEN <30 YRS 16-132 ng/mL MEN >30 YRS 8-338 ng/mL WOMEN (PREMEN) 6-104 ng/mL WOMEN (POSTMEN) 12-210 ng/mL Folate [Mass/Vol] 14.2 ng/mL Normal >=6.7ng/mL [facility] Re misol Free T4 [Mass/Vol] 0.79 ng/dL Normal 0.58 - 1.64 ng/dL [facility]isol Iron [Mass/Vol] 82 ug/dL Normal 35 - 153 mcg/dL [facility] TSH Qn 7.01 m[IU]/L High 0.34 - 5.60 mcIU/mL [facility] Consent for Treatmenton 08-10 Consent for Treatment [id number] #1.00TIFF Normal [facility] Ferritinon 09-04-2023 Ferritin [Mass/Vol] 110 ng/mL Normal 24-336 [facility] Comment on above: Result Comment: NORM ALS MEN <30 YRS 16-132 ng/mL MEN >30 YRS 8-338 ng/mL WOMEN (PREMEN) 6-104 ng/mL WOMEN (POSTMEN) 12-210 ng/mL Performed By: #### 1 6889620, 8986046, 2621560, 7238882, 1703792, 4288223, 0108534, 7519789 ####[facility] [address] [place] [address] Folateon 09-04-2023 Folate [Mass/Vol] 14.2 ng/mL Normal >=6.7 [facility] Comment on above: Performed By: #### 1 3450176, 4851144, 6569274, 7332833, 8053225, 3627062, 5187490, 0524956 ####[facility] [address] [place] [address] Free T4on 09-04-2023 Free T4 [Mass/Vol] 0.79 ng/dL Normal 0.58-1.64 [facility] Comment on above: Performed By: #### 1 4509777, 0261322, 3684678, 2467008, 5316186, 0708007, 6753922, 4474607 ####[facility] [address] [place] [address] Ironon 09-04-2023 Iron [Mass/Vol] 82 microgram/dL Normal 35-153 [facility] Comment on above: Performed By: #### 1 7547407, 6802349, 8105771, 1486927, 6352648, 8939129, 0293308, 5382942 ####[address] [place] [address] TSHon 09-04-2023 TSH Qn 7.01 m[IU]/L High 0.34-5.60 [facility] Comment on above: Performed By: #### 1 5287767, 4037331, 2375992, 7695842, 7200136, 0087196, 8542663, 8708885 ####[address] [place] [address] Vit B12on 09-04-2023 Cobalamin (Vitamin B12) [Mass/Vol] 359 pg/mL Normal 50-1500 [facility] Comment on above: Performed By: #### 1 7684588, 6715245, 5979393, 7135999, 8594887, 3678807, 3194848, 2744078 ####[facility] [address] [place] [address] NM PET w/ CT Scan Skull Base to Midthighon 09-03-2023 NM PET w/ CT Scan Skull Base to Midthigh Exam Date/Time: 09/02/2023 18:21 EDT Reason for Exam: C34.11 Malignant neoplasm of upper lobe, right bronchus or lung Report iMPRESSION: Persistent area of pneumonitis in the right lower lobe is stable when compared to 05/25/2023 CT and markedly improved from 01/30/2023 CT scans. There has been progressive continued decrease in the uptake of FDG at this site when compared to prior PET scans. Findings favor a benign process likely related to posttreatment change. Otherwise no significant findings. No signs of metastatic disease. EXAM: PET Scan REASON FOR EXAMINATION: NM PET w/ CT Scan Skull Base to Midthigh RADIOPHARMACEUTICAL: 11.39 mCi F-18FDG. TECHNIQUE: Following intravenous injection F18-FDG and an approximately 70 minute uptake period, low dose CT and PET images of the whole body from the base of the skull to the mid thigh on a dedicated PET/CT unit with the patient in a fasted state. The CT protocol used for this PET/CT study is designed for attenuation correction and anatomic localization Using the strap machine operator\X2019\s standard software, data were reconstructed using filtered back projection with and without attenuation correction. A low dose, noncontrast CT provided attenuation correction and anatomic localization of PET abnormalities. This content architect CT is not designed to produce, and cannot replace, ecvyu-ws-zyy-art diagnostic CT scans with specific imaging protocols for different body parts and indications. The patient\X2019\s baseline plasma glucose at the time of the test was 114 mg/dl. The standardized uptake values (SUV) are normalized to patient body weight and indicate the highest activity concentration (SUV max) in a given site. SUV may be used for reference purposes on this exam but caution should be advised in using an SUV to differentiate a malignant from a non-malignant process. COMPARISON FDG PET/CT: 04/01/2023, and 12/31/2022 and 05/31/2022 OTHER STUDIES USED FOR CORRELATION: NONE FINDINGS: Neck: The distribution of FDG throughout the neck is within normal limits. . Chest: Persistent mild low-grade FDG uptake involving the area of presumed pneumonitis most likely related to posttreatment changes in the right lower lobe. These post treatment changes are adjacent to the stable non-FDG avid 3.7 x 2.4 cm right lower lobe mass. No other abnormal focus of increased FDG uptake in the lung parenchyma. No FDG avid mediastinal or hilar lymph nodes. Focus of nonspecific increased FDG activity in the posterior margin of the left Report sternoclavicular joint and left first costochondral chondral joint likely degenerative in origin. Abdomen-Pelvis: The distribution of FDG throughout the abdomen and pelvis is within normal limits. Physiologic activity is noted in the liver, renal collecting systems, bladder and GI tract. Bones: There is normal distribution of FDG throughout the bony skeleton with no signs of metastatic bone disease. Ordering Provider: Joshua Eng FINAL REPORT Dictated: 09/03/2023 4:11 pm Joshua Menendez MD Signed (Electronic Signature): 09/03/2023 4:11 pm Signed by: Joshua Menendez MD Transcribed by: RAEANN Technologist: LASHAWN Technical Comments Dose (mCi F-18 FDG): 11.4 Imaging Post Administration (mins): 57 [facility] RAD - MISCon 09-03-2023 RAD - MISC [id number] 6#1.00TIFF [facility] Consent for Treatmenton 08-10 Consent for Treatment [id number] #1.00TIFF [facility] Physician Orderon 09-01-2023 Physician Order [id number] #1.00TIFF [facility] Screenson 08-26-2023 Screens [id number] 6#1.00TIFF [facility] Ambulatory Visit Summaryon 1 Ambulatory Visit Summary ROBSON ACRLSON :1955 Visit Date:08/25/2023 Ambulatory Visit Instructions Your Diagnosis BPH associated with nocturia Screening for prostate cancer Tests Performed Urnls Dip Stick Auto w/o Microscopy POC 11087 Your Care Team Attending Physician - WANDA PEÑA PA-C Primary Care Physician - Mecca SAUCEDO MD Referring Physician - Mecca SAUCEDO MD This Is Your Medications List Contact prescribing physician if questions or concerns Misc Prescription (Magic Mouth wash) alprazolam (Xanax 0.5 mg Tab) apixaban (Eliquis 5 mg oral tablet) buprenorphine-naloxo ne (Suboxone) fluocinonide topical (fluocinonide Top 0.05% Crm 15 gram) levothyroxine (levothyroxine 125 mcg (0.125 mg) Tab) levothyroxine (levothyroxine 125 mcg (0.125 mg) Tab) mirabegron (Myrbetriq 25 mg oral tablet, extended release) mirabegron (Myrbetriq 50 mg oral tablet, extended release) Procedures Performed CT guided biopsy of lung (05/21/2022), bilat carpal tunnel release, Bilateral extraction of cataracts, cervical fusion, hernia repair, lumbar fusion x 2, nerve surgery R arm, partial thyroidectomy, PE - Pulmonary embolism, trigger finger surgery. Discharge Vitals Heart Rate (Peripheral) 68 Respiratory Rate 16 Blood Pressure 128/77 Height 177.7 cm Height 70 in Weight 76.5 kg Weight 168.3 lb BMI 24.23 What to do next Scheduled Follow-Up Appointments Thursday 1:45 PM EDT With: Joshua Eng DO Where: [facility] Thursday 11:20 AM EST With: Mecca SAUCEDO MD Where: [facility] Ignacio Normal [facility] CHEMISTRYOrdered By: SYSTEM SYSTEM on 05-25-2023 Albumin [Mass/Vol] 3.8 g/dL Normal 3.3 - 5.0 gm/dL [facility] Albumin/Globulin [Mass ratio] 1.2 {ratio} Normal 1.1 - 2.2 [facility] ALP [Catalytic activity/Vol] 109 [iU]/d High 21 - 98 Int._Unit/L [facility] ALT No additional P-5'-P [Catalytic activity/Vol] 15 [iU]/d Normal 6 - 46 Int._Unit/L [facility] Anion gap [Moles/Vol] 12 mmol/L Normal 6 - 16 mEq/L [facility] AST [Catalytic activity/Vol] 22 [iU]/d Normal 5 - 43 Int._Unit/L [facility] Bilirubin [Mass/Vol] 0.6 mg/dL Normal 0.0 - 1.1 mg/dL [facility] Calcium [Mass/Vol] 9.4 mg/dL Normal 8.9 - 11.1 mg/dL [facility] Carcinoembryonic Ag [Mass/Vol] 1.7 ng/mL Invalid Interpretation Code [facility] Chloride [Moles/Vol] 115 mmol/L High 101 - 111 mmol/L [facility] CO2 [Moles/Vol] 17 mmol/L Low 21 - 31 mmol/L [facility] Creatinine [Mass/Vol] 1.2 mg/dL Normal 0.5 - 1.3 mg/dL [facility] GFR/1.73 sq M.predicted among non-blacks MDRD (S/P/Bld) [Vol rate/Area] 65 mL/min/1.73 m2 Normal >=59mL/min/1.73 m2 [facility] Globulin (S) [Mass/Vol] 3.3 g/dL Normal 1.4 - 4.0 gm/dL [facility] Glucose [Mass/Vol] 116 mg/dL Normal 55 - 199 mg/dL [facility] Potassium [Moles/Vol] 3.6 mmol/L Normal 3.5 - 5.3 mmol/L [facility] Protein [Mass/Vol] 7.1 g/dL Normal 6.0 - 7.8 gm/dL [facility] Sodium [Moles/Vol] 140 mmol/L Normal 135 - 145 mmol/L [facility] Urea nitrogen [Mass/Vol] 35 mg/dL High 5 - 21 mg/dL [facility] Urea nitrogen/Creatinine [Mass ratio] 29 mg/mg High 10 - 20 [facility] HEMATOLOGYOrdered By: SYSTEM SYSTEM on 05-25-2023 Basophils/100 WBC (Bld) 0.9 % Normal 0.0 - 2.0 % [facility] Basophils/Leukocyte s Auto (Bld) [Pure # fraction] 0.1 E9/L Normal 0.0 - 0.2 E9/L [facility] Eosinophils/100 WBC (Bld) 10.7 % High 0.0 - 8.0 % [facility] Eosinophils/Leukocy deric Auto (Bld) [Pure # fraction] 0.7 E9/L High 0.0 - 0.5 E9/L [facility] Lymphocytes/100 WBC (Bld) 10.6 % Low 14.0 - 50.0 % [facility] Lymphocytes/Leukocy deric Auto (Bld) [Pure # fraction] 0.7 E9/L Low 1.0 - 4.0 E9/L [facility] Monocytes/100 WBC (Bld) 8.1 % Normal 4.0 - 14.0 % [facility] Monocytes/Leukocyte s Auto (Bld) [Pure # fraction] 0.5 E9/L Normal 0.2 - 1.0 E9/L [facility] Neutrophils/100 WBC (Bld) 69.7 % Normal 36.0 - 75.0 % [facility] Neutrophils/Leukocy deric Auto (Bld) [Pure # fraction] 4.6 E9/L Normal 2.0 - 7.5 E9/L [facility] HEMATOLOGYOrdered By: Cristy Byrd on 05-25-2023 Erythrocyte distribution width (RBC) [Ratio] 15.7 % High 10.9 - 14.2 % [facility] Hematocrit (Bld) [Volume fraction] 37.3 % Low 37.7 - 49.0 % [facility] Hemoglobin (Bld) [Mass/Vol] 12.4 g/dL Low 13.5 - 17.5 gm/dL [facility] MCH (RBC) [Entitic mass] 28.0 pg Normal 27.0 - 34.0 pg [facility] MCHC (RBC) [Mass/Vol] 33.1 g/dL Normal 31.4 - 36.0 gm/dL [facility] MCV (RBC) [Entitic vol] 84.7 fL Normal 80.0 - 100.0 fL [facility] Platelet mean volume (Bld) [Entitic vol] 7.2 fL Normal 6.4 - 10.8 fL [facility] Platelets (Bld) [#/Vol] 235.0 E9/L Normal 150.0 - 500.0 E9/L [facility] RBC (Bld) [#/Vol] 4.4 E12/L Normal 4.3 - 5.9 E12/L [facility] WBC corrected for nucl RBC Auto (Bld) [#/Vol] 6.5 E9/L Normal 4.0 - 11.0 E9/L [facility] CHEMISTRYOrdered By: SYSTEM SYSTEM on 04-13-2023 Prostate specific Ag [Mass/Vol] 1.5 ng/mL Normal 0.1 - 3.5 ng/mL [facility] CHEMISTRYOrdered By: SYSTEM SYSTEM on 04-07-2023 Albumin [Mass/Vol] 3.7 g/dL Normal 3.3 - 5.0 gm/dL [facility] Albumin/Globulin [Mass ratio] 1.1 {ratio} Normal 1.1 - 2.2 [facility] ALP [Catalytic activity/Vol] 97 [iU]/d Normal 21 - 98 Int._Unit/L [facility] ALT No additional P-5'-P [Catalytic activity/Vol] 15 [iU]/d Normal 6 - 46 Int._Unit/L [facility] Anion gap [Moles/Vol] 9 mmol/L Normal 6 - 16 mEq/L [facility] AST [Catalytic activity/Vol] 23 [iU]/d Normal 5 - 43 Int._Unit/L [facility] Bilirubin [Mass/Vol] 0.5 mg/dL Normal 0.0 - 1.1 mg/dL [facility] Calcium [Mass/Vol] 9.1 mg/dL Normal 8.9 - 11.1 mg/dL [facility] Chloride [Moles/Vol] 115 mmol/L High 101 - 111 mmol/L [facility] CO2 [Moles/Vol] 17 mmol/L Low 21 - 31 mmol/L [facility] Creatinine [Mass/Vol] 1.2 mg/dL Normal 0.5 - 1.3 mg/dL [facility] Free T4 [Mass/Vol] 0.80 ng/dL Normal 0.58 - 1.64 ng/dL [facility] GFR/1.73 sq M.predicted among non-blacks MDRD (S/P/Bld) [Vol rate/Area] 65 mL/min/1.73 m2 Normal >=59mL/min/1.73 m2 [facility] Globulin (S) [Mass/Vol] 3.3 g/dL Normal 1.4 - 4.0 gm/dL [facility] Glucose [Mass/Vol] 143 mg/dL Normal 55 - 199 mg/dL [facility] Potassium [Moles/Vol] 3.5 mmol/L Normal 3.5 - 5.3 mmol/L [facility] Protein [Mass/Vol] 7.0 g/dL Normal 6.0 - 7.8 gm/dL [facility] Sodium [Moles/Vol] 137 mmol/L Normal 135 - 145 mmol/L [facility] TSH Qn 0.73 m[IU]/L Normal 0.34 - 5.60 mcIU/mL [facility] Urea nitrogen [Mass/Vol] 30 mg/dL High 5 - 21 mg/dL [facility] Urea nitrogen/Creatinine [Mass ratio] 25 mg/mg High 10 - 20 [facility] HEMATOLOGYOrdered By: [place] SYSTEM on 04-07-2023 Basophils/100 WBC (Bld) 0.6 % Normal 0.0 - 2.0 % [facility] Basophils/Leukocyte s Auto (Bld) [Pure # fraction] 0.0 E9/L Normal 0.0 - 0.2 E9/L [facility] Eosinophils/100 WBC (Bld) 4.9 % Normal 0.0 - 8.0 % [facility] Eosinophils/Leukocy deric Auto (Bld) [Pure # fraction] 0.4 E9/L Normal 0.0 - 0.5 E9/L [facility] Lymphocytes/100 WBC (Bld) 6.6 % Low 14.0 - 50.0 % [facility] Lymphocytes/Leukocy deric Auto (Bld) [Pure # fraction] 0.5 E9/L Low 1.0 - 4.0 E9/L [facility] Monocytes/100 WBC (Bld) 5.1 % Normal 4.0 - 14.0 % [facility] Monocytes/Leukocyte s Auto (Bld) [Pure # fraction] 0.4 E9/L Normal 0.2 - 1.0 E9/L [facility] Neutrophils/100 WBC (Bld) 82.8 % High 36.0 - 75.0 % [facility] Neutrophils/Leukocy deric Auto (Bld) [Pure # fraction] 6.3 E9/L Normal 2.0 - 7.5 E9/L [facility] HEMATOLOGYOrdered By: Cristy Byrd on 04-07-2023 Erythrocyte distribution width (RBC) [Ratio] 16.1 % High 10.9 - 14.2 % [facility] Hematocrit (Bld) [Volume fraction] 35.1 % Low 37.7 - 49.0 % [facility] Hemoglobin (Bld) [Mass/Vol] 11.6 g/dL Low 13.5 - 17.5 gm/dL [facility] MCH (RBC) [Entitic mass] 28.9 pg Normal 27.0 - 34.0 pg [facility] MCHC (RBC) [Mass/Vol] 33.1 g/dL Normal 31.4 - 36.0 gm/dL [facility] MCV (RBC) [Entitic vol] 87.3 fL Normal 80.0 - 100.0 fL [facility] Platelet mean volume (Bld) [Entitic vol] 7.1 fL Normal 6.4 - 10.8 fL [facility] Platelets (Bld) [#/Vol] 221.0 E9/L Normal 150.0 - 500.0 E9/L [facility] RBC (Bld) [#/Vol] 4.0 E12/L Low 4.3 - 5.9 E12/L [facility] Sed Rate Automated 18 mm/h Normal 0 - 19 mm/hr [facility] WBC corrected for nucl RBC Auto (Bld) [#/Vol] 7.6 E9/L Normal 4.0 - 11.0 E9/L [facility] CHEMISTRYOrdered By: SYSTEM SYSTEM on 03-06-2023 Albumin [Mass/Vol] 3.0 g/dL Low 3.3 - 5.0 gm/dL [facility] Albumin/Globulin [Mass ratio] 0.8 {ratio} Low 1.1 - 2.2 [facility] ALP [Catalytic activity/Vol] 157 [iU]/d High 21 - 98 Int._Unit/L [facility] ALT No additional P-5'-P [Catalytic activity/Vol] 11 [iU]/d Normal 6 - 46 Int._Unit/L [facility] Anion gap [Moles/Vol] 12 mmol/L Normal 6 - 16 mEq/L [facility] AST [Catalytic activity/Vol] 17 [iU]/d Normal 5 - 43 Int._Unit/L [facility] Bilirubin [Mass/Vol] 0.4 mg/dL Normal 0.0 - 1.1 mg/dL [facility] Calcium [Mass/Vol] 9.0 mg/dL Normal 8.9 - 11.1 mg/dL [facility] Chloride [Moles/Vol] 108 mmol/L Normal 101 - 111 mmol/L [facility] CO2 [Moles/Vol] 21 mmol/L Normal 21 - 31 mmol/L [facility] Creatinine [Mass/Vol] 1.2 mg/dL Normal 0.5 - 1.3 mg/dL [facility] GFR/1.73 sq M.predicted among non-blacks MDRD (S/P/Bld) [Vol rate/Area] 65 mL/min/1.73 m2 Normal >=59mL/min/1.73 m2 [facility] S Globulin (S) [Mass/Vol] 3.9 g/dL Normal 1.4 - 4.0 gm/dL [facility] Glucose [Mass/Vol] 112 mg/dL Normal 55 - 199 mg/dL [facility] Potassium [Moles/Vol] 4.0 mmol/L Normal 3.5 - 5.3 mmol/L [facility] Protein [Mass/Vol] 6.9 g/dL Normal 6.0 - 7.8 gm/dL [facility] Remisol Sodium [Moles/Vol] 137 mmol/L Normal 135 - 145 mmol/L [facility] Urea nitrogen [Mass/Vol] 25 mg/dL High 5 - 21 mg/dL [facility] Urea nitrogen/Creatinine [Mass ratio] 21 mg/mg High 10 - 20 [facility] HEMATOLOGYOrdered By: SYSTEM SYSTEM on 03-06-2023 Basophils/100 WBC (Bld) 0.9 % Normal 0.0 - 2.0 % [facility] Basophils/Leukocyte s Auto (Bld) [Pure # fraction] 0.1 E9/L Normal 0.0 - 0.2 E9/L [facility] Eosinophils/100 WBC (Bld) 32.3 % High 0.0 - 8.0 % [facility] Eosinophils/Leukocy deric Auto (Bld) [Pure # fraction] 3.9 E9/L High 0.0 - 0.5 E9/L [facility] Lymphocytes/100 WBC (Bld) 8.0 % Low 14.0 - 50.0 % [facility] Lymphocytes/Leukocy deric Auto (Bld) [Pure # fraction] 0.9 E9/L Low 1.0 - 4.0 E9/L [facility] Monocytes/100 WBC (Bld) 8.3 % Normal 4.0 - 14.0 % [facility] Monocytes/Leukocyte s Auto (Bld) [Pure # fraction] 1.0 E9/L Normal 0.2 - 1.0 E9/L [facility] Neutrophils/100 WBC (Bld) 49.1 % Normal 36.0 - 75.0 % [facility] Neutrophils/Leukocy deric Auto (Bld) [Pure # fraction] 5.8 E9/L Normal 2.0 - 7.5 E9/L [facility] HEMATOLOGYOrdered By: Christina Ernst on 03-06-2023 Erythrocyte distribution width (RBC) [Ratio] 15.6 % High 10.9 - 14.2 % [facility] Hematocrit (Bld) [Volume fraction] 33.3 % Low 37.7 - 49.0 % [facility] Hemoglobin (Bld) [Mass/Vol] 10.9 g/dL Low 13.5 - 17.5 gm/dL [facility] MCH (RBC) [Entitic mass] 29.1 pg Normal 27.0 - 34.0 pg [facility] MCHC (RBC) [Mass/Vol] 32.8 g/dL Normal 31.4 - 36.0 gm/dL [facility] MCV (RBC) [Entitic vol] 88.8 fL Normal 80.0 - 100.0 fL [facility] Platelet mean volume (Bld) [Entitic vol] 6.9 fL Normal 6.4 - 10.8 fL [facility] Platelets (Bld) [#/Vol] 332.0 E9/L Normal 150.0 - 500.0 E9/L [facility] RBC (Bld) [#/Vol] 3.8 E12/L Low 4.3 - 5.9 E12/L [facility] WBC corrected for nucl RBC Auto (Bld) [#/Vol] 11.7 E9/L High 4.0 - 11.0 E9/L [facility] CHEMISTRYOrdered By: SYSTEM SYSTEM on 02-03-2023 Albumin [Mass/Vol] 2.7 g/dL Low 3.3 - 5.0 gm/dL [facility] Albumin/Globulin [Mass ratio] 0.7 {ratio} Low 1.1 - 2.2 [facility] ALP [Catalytic activity/Vol] 196 [iU]/d High 21 - 98 Int._Unit/L [facility] ALT No additional P-5'-P [Catalytic activity/Vol] 26 [iU]/d Normal 6 - 46 Int._Unit/L [facility] Anion gap [Moles/Vol] 10 mmol/L Normal 6 - 16 mEq/L [facility] AST [Catalytic activity/Vol] 34 [iU]/d Normal 5 - 43 Int._Unit/L [facility] Bilirubin [Mass/Vol] 0.3 mg/dL Normal 0.0 - 1.1 mg/dL [facility] Calcium [Mass/Vol] 8.5 mg/dL Low 8.9 - 11.1 mg/dL [facility] Chloride [Moles/Vol] 104 mmol/L Normal 101 - 111 mmol/L [facility] CO2 [Moles/Vol] 21 mmol/L Normal 21 - 31 mmol/L [facility] Creatinine [Mass/Vol] 1.2 mg/dL Normal 0.5 - 1.3 mg/dL [facility] GFR/1.73 sq M.predicted among blacks MDRD (S/P/Bld) [Vol rate/Area] mL/min/1.73 m2 Normal >=59mL/min/1.73 m2 [facility] Chem S GFR/1.73 sq M.predicted among non-blacks MDRD (S/P/Bld) [Vol rate/Area] 60 mL/min/1.73 m2 Normal >=59mL/min/1.73 m2 [facility] Chem S Globulin (S) [Mass/Vol] 4.1 g/dL High 1.4 - 4.0 gm/dL [facility] Glucose [Mass/Vol] 127 mg/dL Normal 55 - 199 mg/dL [facility] Potassium [Moles/Vol] 3.6 mmol/L Normal 3.5 - 5.3 mmol/L [facility] Protein [Mass/Vol] 6.8 g/dL Normal 6.0 - 7.8 gm/dL [facility] Sodium [Moles/Vol] 131 mmol/L Low 135 - 145 mmol/L [facility] TSH Qn 30.19 m[IU]/L High 0.34 - 5.60 mcIU/mL [facility] Urea nitrogen [Mass/Vol] 24 mg/dL High 5 - 21 mg/dL [facility] Urea nitrogen/Creatinine [Mass ratio] 20 mg/mg Normal 10 - 20 [facility] HEMATOLOGYOrdered By: SYSTEM SYSTEM on 02-03-2023 Basophils/100 WBC (Bld) 0.3 % Normal 0.0 - 2.0 % [facility] HemeAutoSS Basophils/Leukocyte s Auto (Bld) [Pure # fraction] 0.0 E9/L Normal 0.0 - 0.2 E9/L [facility] HemeAutoSS Eosinophils/100 WBC (Bld) 4.5 % Normal 0.0 - 8.0 % [facility] HemeAutoSS Eosinophils/Leukocy deric Auto (Bld) [Pure # fraction] 0.4 E9/L Normal 0.0 - 0.5 E9/L [facility] HemeAutoSS Lymphocytes/100 WBC (Bld) 3.3 % Low 14.0 - 50.0 % [facility] HemeAutoSS Lymphocytes/Leukocy deric Auto (Bld) [Pure # fraction] 0.3 E9/L Low 1.0 - 4.0 E9/L [facility] Monocytes/100 WBC (Bld) 11.0 % Normal 4.0 - 14.0 % [facility] Monocytes/Leukocyte s Auto (Bld) [Pure # fraction] 0.9 E9/L Normal 0.2 - 1.0 E9/L [facility] Neutrophils/100 WBC (Bld) 80.9 % High 36.0 - 75.0 % [facility] Neutrophils/Leukocy deric Auto (Bld) [Pure # fraction] 6.5 E9/L Normal 2.0 - 7.5 E9/L [facility] HEMATOLOGYOrdered By: Cristy Byrd on 02-03-2023 Erythrocyte distribution width (RBC) [Ratio] 14.0 % Normal 10.9 - 14.2 % [facility] Hematocrit (Bld) [Volume fraction] 32.4 % Low 37.7 - 49.0 % [facility] Hemoglobin (Bld) [Mass/Vol] 10.9 g/dL Low 13.5 - 17.5 gm/dL [facility] MCH (RBC) [Entitic mass] 30.2 pg Normal 27.0 - 34.0 pg [facility] MCHC (RBC) [Mass/Vol] 33.6 g/dL Normal 31.4 - 36.0 gm/dL [facility] MCV (RBC) [Entitic vol] 89.6 fL Normal 80.0 - 100.0 fL [facility] Platelet mean volume (Bld) [Entitic vol] 7.8 fL Normal 6.4 - 10.8 fL [facility] Platelets (Bld) [#/Vol] 217.0 E9/L Normal 150.0 - 500.0 E9/L [facility] RBC (Bld) [#/Vol] 3.6 E12/L Low 4.3 - 5.9 E12/L [facility] WBC corrected for nucl RBC Auto (Bld) [#/Vol] 8.1 E9/L Normal 4.0 - 11.0 E9/L [facility] CHEMISTRYOrdered By: SYSTEM SYSTEM on 01-31-2023 Anion gap [Moles/Vol] 9 mmol/L Normal 6 - 16 mEq/L [facility] Remisol Calcium [Mass/Vol] 8.5 mg/dL Low 8.9 - 11.1 mg/dL [facility] Chloride [Moles/Vol] 105 mmol/L Normal 101 - 111 mmol/L [facility] CO2 [Moles/Vol] 24 mmol/L Normal 21 - 31 mmol/L [facility] Creatinine [Mass/Vol] 1.3 mg/dL Normal 0.5 - 1.3 mg/dL [facility] GFR/1.73 sq M.predicted among blacks MDRD (S/P/Bld) [Vol rate/Area] mL/min/1.73 m2 Normal >=59mL/min/1.73 m2 [facility] Chem S GFR/1.73 sq M.predicted among non-blacks MDRD (S/P/Bld) [Vol rate/Area] 55 mL/min/1.73 m2 Low >=59mL/min/1.73 m2 [facility] Chem S Glucose [Mass/Vol] 105 mg/dL Normal 55 - 199 mg/dL [facility] Potassium [Moles/Vol] 4.0 mmol/L Normal 3.5 - 5.3 mmol/L [facility] Sodium [Moles/Vol] 134 mmol/L Low 135 - 145 mmol/L [facility] Urea nitrogen [Mass/Vol] 28 mg/dL High 5 - 21 mg/dL [facility] Urea nitrogen/Creatinine [Mass ratio] 22 mg/mg High 10 - 20 [facility] COAGULATIONOrdered By: Skyla Shah on 01-31-2023 aPTT Coag (PPP) [Time] 72.8 s High 25.1 - 36.5 second(s) [facility] Auto Coag COAGULATIONOrdered By: Jimenez Rosenbaum on 01-31-2023 aPTT Coag (PPP) [Time] 76.3 s High 25.1 - 36.5 second(s) [facility] Auto Coag CHEMISTRYOrdered By: SYSTEM SYSTEM on 01-30-2023 Troponin I.cardiac [Mass/Vol] 18.70 pg/mL Normal 15.90 - 38.40 pg/mL [facility] Troponin I.cardiac [Mass/Vol] 19.70 pg/mL Normal 15.90 - 38.40 pg/mL [facility] Procalcitonin 0.07 ng/mL Normal 0.00 - 0.50 ng/mL [facility] Rem[facility] Troponin I.cardiac [Mass/Vol] 20.70 pg/mL Normal 15.90 - 38.40 pg/mL [facility] Anion gap [Moles/Vol] 15 mmol/L Normal 6 - 16 mEq/L [facility] Calcium [Mass/Vol] 9.1 mg/dL Normal 8.9 - 11.1 mg/dL [facility] Chloride [Moles/Vol] 103 mmol/L Normal 101 - 111 mmol/L [facility] CO2 [Moles/Vol] 20 mmol/L Low 21 - 31 mmol/L [facility] Creatinine [Mass/Vol] 1.3 mg/dL Normal 0.5 - 1.3 mg/dL [facility] GFR/1.73 sq M.predicted among blacks MDRD (S/P/Bld) [Vol rate/Area] mL/min/1.73 m2 Normal >=59mL/min/1.73 m2 [facility] Chem S GFR/1.73 sq M.predicted among non-blacks MDRD (S/P/Bld) [Vol rate/Area] 55 mL/min/1.73 m2 Low >=59mL/min/1.73 m2 [facility] Chem S Glucose [Mass/Vol] 132 mg/dL Normal 55 - 199 mg/dL [facility] Remisol Potassium [Moles/Vol] 3.9 mmol/L Normal 3.5 - 5.3 mmol/L [facility] Remisol Sodium [Moles/Vol] 134 mmol/L Low 135 - 145 mmol/L [facility] Remisol Urea nitrogen [Mass/Vol] 30 mg/dL High 5 - 21 mg/dL [facility] Remisol Urea nitrogen/Creatinine [Mass ratio] 23 mg/mg High 10 - 20 [facility] Remisol CHEMISTRYOrdered By: Anna Marie White on 01-30-2023 Natriuretic peptide B (Bld) [Mass/Vol] 53 pg/mL Normal 5 - 80 pg/mL [facility] COAGULATIONOrdered By: Jaelyn Mcpherson on 01-30-2023 aPTT Coag (PPP) [Time] 93.3 s Invalid Interpretation Code 25.1 - 36.5 second(s) [facility] Auto Coag Comment on above: Result Comment: Resu lts Called To KIMBERLY HARDY By JAELYN MCPHERSON_ And Read Back For Confirmation On 01/30/2023 21:22:21 EDT_ Results Verified By Repeat Analysis RN WAS INFORMED OF JUMP IN PTT IN 8 HR SPAN COAGULATIONOrdered By: Bety Kahn on 01-30-2023 INR Coag (PPP) [Relative time] 1.1 {INR} Invalid Interpretation Code [facility] Auto Coag PT Coag (PPP) [Time] 12.3 s Normal 9.4 - 12.5 second(s) [facility] Auto Coag HEMATOLOGYOrdered By: SYSTEM SYSTEM on 01-30-2023 Basophils/100 WBC (Bld) 0.4 % Normal 0.0 - 2.0 % [facility] Basophils/Leukocyte s Auto (Bld) [Pure # fraction] 0.0 E9/L Normal 0.0 - 0.2 E9/L [facility] Eosinophils/100 WBC (Bld) 2.8 % Normal 0.0 - 8.0 % [facility] Eosinophils/Leukocy deric Auto (Bld) [Pure # fraction] 0.3 E9/L Normal 0.0 - 0.5 E9/L [facility] Lymphocytes/100 WBC (Bld) 3.1 % Low 14.0 - 50.0 % [facility] Lymphocytes/Leukocy deric Auto (Bld) [Pure # fraction] 0.3 E9/L Low 1.0 - 4.0 E9/L [facility] Monocytes/100 WBC (Bld) 6.6 % Normal 4.0 - 14.0 % [facility] Monocytes/Leukocyte s Auto (Bld) [Pure # fraction] 0.6 E9/L Normal 0.2 - 1.0 E9/L [facility] Neutrophils/100 WBC (Bld) 87.1 % High 36.0 - 75.0 % [facility] Neutrophils/Leukocy deric Auto (Bld) [Pure # fraction] 8.3 E9/L High 2.0 - 7.5 E9/L [facility] HEMATOLOGYOrdered By: Anna Marie White on 01-30-2023 Erythrocyte distribution width (RBC) [Ratio] 14.1 % Normal 10.9 - 14.2 % [facility] Hematocrit (Bld) [Volume fraction] 33.9 % Low 37.7 - 49.0 % [facility] Hemoglobin (Bld) [Mass/Vol] 11.1 g/dL Low 13.5 - 17.5 gm/dL [facility] MCH (RBC) [Entitic mass] 30.3 pg Normal 27.0 - 34.0 pg [facility] MCHC (RBC) [Mass/Vol] 32.7 g/dL Normal 31.4 - 36.0 gm/dL [facility] MCV (RBC) [Entitic vol] 92.4 fL Normal 80.0 - 100.0 fL [facility] Platelet mean volume (Bld) [Entitic vol] 7.2 fL Normal 6.4 - 10.8 fL [facility] Platelets (Bld) [#/Vol] 231.0 E9/L Normal 150.0 - 500.0 E9/L [facility] RBC (Bld) [#/Vol] 3.7 E12/L Low 4.3 - 5.9 E12/L [facility] WBC corrected for nucl RBC Auto (Bld) [#/Vol] 9.6 E9/L Normal 4.0 - 11.0 E9/L [facility] No Panel InformationOrdered By: [facility] MICROBIOLOGY on 01-30-2023 Blood Culture Charcoal No growth at 1 day. Final to follow at 7 days. [facility] Blood Culture Charcoal No growth at 1 day. Final to follow at 7 days. [facility] XR CHEST (2 VW)on 01-21-2023 XR CHEST (2 VW) EXAM: XR CHEST (2 VW) HISTORY: Fever, unspecified fever cause COMPARISON: 07/16/2021 IMPRESSION: FINDINGS/IMPRESSION: 1. Reticular opacities in the right middle lobe and right lower lobe consistent with early pneumonia. 2. Heart size normal with left lung clear. Interpreted by: Flaco Wheatley Jr., MD Signed by: Flaco Wheatley Jr., MD 01/21/23 Final result Normal [facility] FINDINGS/IMPRESSION: 1. Reticular opacities in the right middle lobe and right lower lobe consistent with early pneumonia. 2. Heart size normal with left lung clear. PN RIS CONSOLIDATED EXAM: XR CHEST (2 VW) HISTORY: Fever, unspecified fever cause COMPARISON: 07/16/2021 PN RIS CONSOLIDATED Flaco Wheatley Jr., MD - 01/21/2023 EXAM: XR CHEST (2 VW) HISTORY: Fever, unspecified fever cause COMPARISON: 07/16/2021 IMPRESSION: FINDINGS/IMPRESSION: 1. Reticular opacities in the right middle lobe and right lower lobe consistent with early pneumonia. 2. Heart size normal with left lung clear. [employer] Phone: Radiology Study observation (narrative) [employer] Phone: XR CHEST (2 VW)Ordered By: Yadi Wheatley on 01-21-2023 [employer] Phone: CHEMISTRYOrdered By: SYSTEM SYSTEM on 01-06-2023 Albumin [Mass/Vol] 3.7 g/dL Normal 3.3 - 5.0 gm/dL [facility] Albumin/Globulin [Mass ratio] 1.2 {ratio} Normal 1.1 - 2.2 [facility] ALP [Catalytic activity/Vol] 86 [iU]/d Normal 21 - 98 Int._Unit/L [facility] ALT No additional P-5'-P [Catalytic activity/Vol] 23 [iU]/d Normal 6 - 46 Int._Unit/L [facility] Anion gap [Moles/Vol] 12 mmol/L Normal 6 - 16 mEq/L [facility] AST [Catalytic activity/Vol] 26 [iU]/d Normal 5 - 43 Int._Unit/L [facility] Bilirubin [Mass/Vol] 0.6 mg/dL Normal 0.0 - 1.1 mg/dL [facility] Calcium [Mass/Vol] 9.0 mg/dL Normal 8.9 - 11.1 mg/dL [facility] Chloride [Moles/Vol] 105 mmol/L Normal 101 - 111 mmol/L [facility] CO2 [Moles/Vol] 21 mmol/L Normal 21 - 31 mmol/L [facility] Creatinine [Mass/Vol] 1.4 mg/dL High 0.5 - 1.3 mg/dL [facility] GFR/1.73 sq M.predicted among blacks MDRD (S/P/Bld) [Vol rate/Area] mL/min/1.73 m2 Normal >=59mL/min/1.73 m2 [facility] Chem S GFR/1.73 sq M.predicted among non-blacks MDRD (S/P/Bld) [Vol rate/Area] 50 mL/min/1.73 m2 Low >=59mL/min/1.73 m2 [facility] Chem S Globulin (S) [Mass/Vol] 3.1 g/dL Normal 1.4 - 4.0 gm/dL [facility] Glucose [Mass/Vol] 174 mg/dL Normal 55 - 199 mg/dL [facility] Potassium [Moles/Vol] 4.3 mmol/L Normal 3.5 - 5.3 mmol/L [facility] Protein [Mass/Vol] 6.8 g/dL Normal 6.0 - 7.8 gm/dL [facility] Remisol Sodium [Moles/Vol] 134 mmol/L Low 135 - 145 mmol/L [facility] Urea nitrogen [Mass/Vol] 37 mg/dL High 5 - 21 mg/dL [facility] Urea nitrogen/Creatinine [Mass ratio] 26 mg/mg High 10 - 20 [facility] HEMATOLOGYOrdered By: SYSTEM SYSTEM on 01-06-2023 Basophils/100 WBC (Bld) 0.2 % Normal 0.0 - 2.0 % [facility] Basophils/Leukocyte s Auto (Bld) [Pure # fraction] 0.0 E9/L Normal 0.0 - 0.2 E9/L [facility] Eosinophils/100 WBC (Bld) 0.7 % Normal 0.0 - 8.0 % [facility] Eosinophils/Leukocy deric Auto (Bld) [Pure # fraction] 0.1 E9/L Normal 0.0 - 0.5 E9/L [facility] Lymphocytes/100 WBC (Bld) 2.8 % Low 14.0 - 50.0 % [facility] Lymphocytes/Leukocy deric Auto (Bld) [Pure # fraction] 0.2 E9/L Low 1.0 - 4.0 E9/L [facility] Monocytes/100 WBC (Bld) 3.7 % Low 4.0 - 14.0 % [facility] Monocytes/Leukocyte s Auto (Bld) [Pure # fraction] 0.3 E9/L Normal 0.2 - 1.0 E9/L [facility] Neutrophils/100 WBC (Bld) 92.6 % High 36.0 - 75.0 % [facility] Neutrophils/Leukocy deric Auto (Bld) [Pure # fraction] 6.4 E9/L Normal 2.0 - 7.5 E9/L [facility] HEMATOLOGYOrdered By: Sonali Camilo on 01-06-2023 Erythrocyte distribution width (RBC) [Ratio] 14.0 % Normal 10.9 - 14.2 % [facility] Hematocrit (Bld) [Volume fraction] 34.3 % Low 37.7 - 49.0 % [facility] Hemoglobin (Bld) [Mass/Vol] 11.6 g/dL Low 13.5 - 17.5 gm/dL [facility] MCH (RBC) [Entitic mass] 32.5 pg Normal 27.0 - 34.0 pg [facility] MCHC (RBC) [Mass/Vol] 33.7 g/dL Normal 31.4 - 36.0 gm/dL [facility] MCV (RBC) [Entitic vol] 96.6 fL Normal 80.0 - 100.0 fL [facility] Platelet mean volume (Bld) [Entitic vol] 7.2 fL Normal 6.4 - 10.8 fL [facility] Platelets (Bld) [#/Vol] 147.0 E9/L Low 150.0 - 500.0 E9/L [facility] RBC (Bld) [#/Vol] 3.6 E12/L Low 4.3 - 5.9 E12/L [facility] WBC corrected for nucl RBC Auto (Bld) [#/Vol] 6.9 E9/L Normal 4.0 - 11.0 E9/L [facility] CHEMISTRYOrdered By: SYSTEM SYSTEM on 12-31-2022 Albumin [Mass/Vol] 3.8 g/dL Normal 3.3 - 5.0 gm/dL [facility] Albumin/Globulin [Mass ratio] 1.1 {ratio} Normal 1.1 - 2.2 [facility] ALP [Catalytic activity/Vol] 101 [iU]/d High 21 - 98 Int._Unit/L [facility] ALT No additional P-5'-P [Catalytic activity/Vol] 25 [iU]/d Normal 6 - 46 Int._Unit/L [facility] Anion gap [Moles/Vol] 12 mmol/L Normal 6 - 16 mEq/L [facility] AST [Catalytic activity/Vol] 26 [iU]/d Normal 5 - 43 Int._Unit/L [facility] Bilirubin [Mass/Vol] 0.9 mg/dL Normal 0.0 - 1.1 mg/dL [facility] Calcium [Mass/Vol] 9.1 mg/dL Normal 8.9 - 11.1 mg/dL [facility] Chloride [Moles/Vol] 105 mmol/L Normal 101 - 111 mmol/L [facility] CO2 [Moles/Vol] 23 mmol/L Normal 21 - 31 mmol/L [facility] Creatinine [Mass/Vol] 1.5 mg/dL High 0.5 - 1.3 mg/dL [facility] GFR/1.73 sq M.predicted among blacks MDRD (S/P/Bld) [Vol rate/Area] 56 mL/min/1.73 m2 Low >=59mL/min/1.73 m2 [facility] Chem S GFR/1.73 sq M.predicted among non-blacks MDRD (S/P/Bld) [Vol rate/Area] 46 mL/min/1.73 m2 Low >=59mL/min/1.73 m2 [facility] Chem S Globulin (S) [Mass/Vol] 3.4 g/dL Normal 1.4 - 4.0 gm/dL [facility] Glucose [Mass/Vol] 153 mg/dL Normal 55 - 199 mg/dL [facility] Potassium [Moles/Vol] 4.9 mmol/L Normal 3.5 - 5.3 mmol/L [facility] Protein [Mass/Vol] 7.2 g/dL Normal 6.0 - 7.8 gm/dL [facility] Remisol Sodium [Moles/Vol] 135 mmol/L Normal 135 - 145 mmol/L [facility] Urea nitrogen [Mass/Vol] 49 mg/dL High 5 - 21 mg/dL [facility] Urea nitrogen/Creatinine [Mass ratio] 33 mg/mg High 10 - 20 [facility] HEMATOLOGYOrdered By: SYSTEM SYSTEM on 12-31-2022 Basophils/100 WBC (Bld) 0.1 % Normal 0.0 - 2.0 % [facility] Basophils/Leukocyte s Auto (Bld) [Pure # fraction] 0.0 E9/L Normal 0.0 - 0.2 E9/L [facility] Eosinophils/100 WBC (Bld) 0.2 % Normal 0.0 - 8.0 % [facility] Eosinophils/Leukocy deric Auto (Bld) [Pure # fraction] 0.0 E9/L Normal 0.0 - 0.5 E9/L [facility] Lymphocytes/100 WBC (Bld) 2.3 % Low 14.0 - 50.0 % [facility] Lymphocytes/Leukocy deric Auto (Bld) [Pure # fraction] 0.3 E9/L Low 1.0 - 4.0 E9/L [facility] Monocytes/100 WBC (Bld) 1.9 % Low 4.0 - 14.0 % [facility] Monocytes/Leukocyte s Auto (Bld) [Pure # fraction] 0.2 E9/L Normal 0.2 - 1.0 E9/L [facility] Neutrophils/100 WBC (Bld) 95.5 % High 36.0 - 75.0 % [facility] Neutrophils/Leukocy deric Auto (Bld) [Pure # fraction] 11.9 E9/L High 2.0 - 7.5 E9/L [facility] HEMATOLOGYOrdered By: Emilio Woodson on 12-31-2022 Erythrocyte distribution width (RBC) [Ratio] 13.8 % Normal 10.9 - 14.2 % [facility] Hematocrit (Bld) [Volume fraction] 36.1 % Low 37.7 - 49.0 % [facility] Hemoglobin (Bld) [Mass/Vol] 11.7 g/dL Low 13.5 - 17.5 gm/dL [facility] MCH (RBC) [Entitic mass] 31.7 pg Normal 27.0 - 34.0 pg [facility] MCHC (RBC) [Mass/Vol] 32.6 g/dL Normal 31.4 - 36.0 gm/dL [facility] MCV (RBC) [Entitic vol] 97.3 fL Normal 80.0 - 100.0 fL [facility] Platelet mean volume (Bld) [Entitic vol] 7.0 fL Normal 6.4 - 10.8 fL [facility] Platelets (Bld) [#/Vol] 172.0 E9/L Normal 150.0 - 500.0 E9/L [facility] RBC (Bld) [#/Vol] 3.7 E12/L Low 4.3 - 5.9 E12/L [facility] WBC corrected for nucl RBC Auto (Bld) [#/Vol] 12.4 E9/L High 4.0 - 11.0 E9/L [facility] CHEMISTRYOrdered By: SYSTEM SYSTEM on 12-23-2022 Albumin [Mass/Vol] 3.8 g/dL Normal 3.3 - 5.0 gm/dL [facility] Albumin/Globulin [Mass ratio] 1.1 {ratio} Normal 1.1 - 2.2 [facility] ALP [Catalytic activity/Vol] 128 [iU]/d High 21 - 98 Int._Unit/L [facility] ALT No additional P-5'-P [Catalytic activity/Vol] 20 [iU]/d Normal 6 - 46 Int._Unit/L [facility] Anion gap [Moles/Vol] 14 mmol/L Normal 6 - 16 mEq/L [facility] AST [Catalytic activity/Vol] 20 [iU]/d Normal 5 - 43 Int._Unit/L [facility] Bilirubin [Mass/Vol] 0.6 mg/dL Normal 0.0 - 1.1 mg/dL [facility] Calcium [Mass/Vol] 9.2 mg/dL Normal 8.9 - 11.1 mg/dL [facility] Chloride [Moles/Vol] 104 mmol/L Normal 101 - 111 mmol/L [facility] CO2 [Moles/Vol] 20 mmol/L Low 21 - 31 mmol/L [facility] Creatinine [Mass/Vol] 1.6 mg/dL High 0.5 - 1.3 mg/dL [facility] GFR/1.73 sq M.predicted among blacks MDRD (S/P/Bld) [Vol rate/Area] 52 mL/min/1.73 m2 Low >=59mL/min/1.73 m2 [facility] Chem S GFR/1.73 sq M.predicted among non-blacks MDRD (S/P/Bld) [Vol rate/Area] 43 mL/min/1.73 m2 Low >=59mL/min/1.73 m2 [facility] Chem S Globulin (S) [Mass/Vol] 3.5 g/dL Normal 1.4 - 4.0 gm/dL [facility] Glucose [Mass/Vol] 107 mg/dL Normal 55 - 199 mg/dL [facility] Potassium [Moles/Vol] 3.8 mmol/L Normal 3.5 - 5.3 mmol/L [facility] Protein [Mass/Vol] 7.3 g/dL Normal 6.0 - 7.8 gm/dL [facility] Sodium [Moles/Vol] 134 mmol/L Low 135 - 145 mmol/L [facility] TSH Qn 1.94 m[IU]/L Normal 0.34 - 5.60 mcIU/mL [facility] Urea nitrogen [Mass/Vol] 53 mg/dL High 5 - 21 mg/dL [facility] Urea nitrogen/Creatinine [Mass ratio] 33 mg/mg High 10 - 20 [facility] HEMATOLOGYOrdered By: SYSTEM SYSTEM on 12-23-2022 Basophils/100 WBC (Bld) 0.2 % Normal 0.0 - 2.0 % [facility] Basophils/Leukocyte s Auto (Bld) [Pure # fraction] 0.0 E9/L Normal 0.0 - 0.2 E9/L [facility] Eosinophils/100 WBC (Bld) 0.3 % Normal 0.0 - 8.0 % [facility] Eosinophils/Leukocy deric Auto (Bld) [Pure # fraction] 0.0 E9/L Normal 0.0 - 0.5 E9/L [facility] Lymphocytes/100 WBC (Bld) 4.9 % Low 14.0 - 50.0 % [facility] Lymphocytes/Leukocy deric Auto (Bld) [Pure # fraction] 0.7 E9/L Low 1.0 - 4.0 E9/L [facility] Monocytes/100 WBC (Bld) 8.9 % Normal 4.0 - 14.0 % [facility] Monocytes/Leukocyte s Auto (Bld) [Pure # fraction] 1.3 E9/L High 0.2 - 1.0 E9/L [facility] Neutrophils/100 WBC (Bld) 85.7 % High 36.0 - 75.0 % [facility] Neutrophils/Leukocy deric Auto (Bld) [Pure # fraction] 12.2 E9/L High 2.0 - 7.5 E9/L [facility] HEMATOLOGYOrdered By: Sonali Camilo on 12-23-2022 Erythrocyte distribution width (RBC) [Ratio] 13.8 % Normal 10.9 - 14.2 % [facility] Hematocrit (Bld) [Volume fraction] 35.6 % Low 37.7 - 49.0 % [facility] Hemoglobin (Bld) [Mass/Vol] 11.7 g/dL Low 13.5 - 17.5 gm/dL [facility] MCH (RBC) [Entitic mass] 31.8 pg Normal 27.0 - 34.0 pg [facility] MCHC (RBC) [Mass/Vol] 33.0 g/dL Normal 31.4 - 36.0 gm/dL [facility] MCV (RBC) [Entitic vol] 96.3 fL Normal 80.0 - 100.0 fL [facility] Platelet mean volume (Bld) [Entitic vol] 7.5 fL Normal 6.4 - 10.8 fL [facility] Platelets (Bld) [#/Vol] 198.0 E9/L Normal 150.0 - 500.0 E9/L [facility] RBC (Bld) [#/Vol] 3.7 E12/L Low 4.3 - 5.9 E12/L [facility] WBC corrected for nucl RBC Auto (Bld) [#/Vol] 14.3 E9/L High 4.0 - 11.0 E9/L [facility] Comment on above: Result Comment: Edwin blankenship reviewed by BC. CHEMISTRYOrdered By: SYSTEM SYSTEM on 12-12-2022 Albumin [Mass/Vol] 3.0 g/dL Low 3.3 - 5.0 gm/dL [facility] Anion gap [Moles/Vol] 12 mmol/L Normal 6 - 16 mEq/L [facility] Calcium [Mass/Vol] 8.3 mg/dL Low 8.9 - 11.1 mg/dL [facility] Chloride [Moles/Vol] 106 mmol/L Normal 101 - 111 mmol/L [facility] CO2 [Moles/Vol] 24 mmol/L Normal 21 - 31 mmol/L [facility] Creatinine [Mass/Vol] 3.2 mg/dL High 0.5 - 1.3 mg/dL [facility] GFR/1.73 sq M.predicted among blacks MDRD (S/P/Bld) [Vol rate/Area] 23 mL/min/1.73 m2 Low >=59mL/min/1.73 m2 [facility] Chem S GFR/1.73 sq M.predicted among non-blacks MDRD (S/P/Bld) [Vol rate/Area] 19 mL/min/1.73 m2 Low >=59mL/min/1.73 m2 [facility] Chem S Glucose [Mass/Vol] 198 mg/dL Normal 55 - 199 mg/dL [facility] Remisol Phosphate [Mass/Vol] 2.8 mg/dL Normal 1.9 - 4.6 mg/dL [facility] Rem[facility] Potassium [Moles/Vol] 4.7 mmol/L Normal 3.5 - 5.3 mmol/L [facility] Sodium [Moles/Vol] 137 mmol/L Normal 135 - 145 mmol/L [facility] Urea nitrogen [Mass/Vol] 67 mg/dL High 5 - 21 mg/dL [facility] Remisol Urea nitrogen/Creatinine [Mass ratio] 21 mg/mg High 10 - 20 [facility] Remisol HEMATOLOGYOrdered By: SYSTEM SYSTEM on 12-12-2022 Basophils/100 WBC (Bld) 0.1 % Normal 0.0 - 2.0 % [facility] Basophils/Leukocyte s Auto (Bld) [Pure # fraction] 0.0 E9/L Normal 0.0 - 0.2 E9/L [facility] Eosinophils/100 WBC (Bld) 0.2 % Normal 0.0 - 8.0 % [facility] Eosinophils/Leukocy deric Auto (Bld) [Pure # fraction] 0.0 E9/L Normal 0.0 - 0.5 E9/L [facility] Lymphocytes/100 WBC (Bld) 4.6 % Low 14.0 - 50.0 % [facility] Lymphocytes/Leukocy deric Auto (Bld) [Pure # fraction] 0.2 E9/L Low 1.0 - 4.0 E9/L [facility] Monocytes/100 WBC (Bld) 1.9 % Low 4.0 - 14.0 % [facility] Monocytes/Leukocyte s Auto (Bld) [Pure # fraction] 0.1 E9/L Low 0.2 - 1.0 E9/L [facility] Neutrophils/100 WBC (Bld) 93.2 % High 36.0 - 75.0 % [facility] Neutrophils/Leukocy deric Auto (Bld) [Pure # fraction] 3.7 E9/L Normal 2.0 - 7.5 E9/L [facility] HEMATOLOGYOrdered By: Socorro Kahn on 12-12-2022 Erythrocyte distribution width (RBC) [Ratio] 13.6 % Normal 10.9 - 14.2 % [facility] Hematocrit (Bld) [Volume fraction] 27.7 % Low 37.7 - 49.0 % [facility] Hemoglobin (Bld) [Mass/Vol] 9.3 g/dL Low 13.5 - 17.5 gm/dL [facility] MCH (RBC) [Entitic mass] 32.2 pg Normal 27.0 - 34.0 pg [facility] MCHC (RBC) [Mass/Vol] 33.6 g/dL Normal 31.4 - 36.0 gm/dL [facility] MCV (RBC) [Entitic vol] 95.9 fL Normal 80.0 - 100.0 fL [facility] Platelet mean volume (Bld) [Entitic vol] 7.4 fL Normal 6.4 - 10.8 fL [facility] Platelets (Bld) [#/Vol] 184.0 E9/L Normal 150.0 - 500.0 E9/L [facility] RBC (Bld) [#/Vol] 2.9 E12/L Low 4.3 - 5.9 E12/L [facility] WBC corrected for nucl RBC Auto (Bld) [#/Vol] 3.9 E9/L Low 4.0 - 11.0 E9/L [facility] [place] HemeAutoSS CHEMISTRYOrdered By: SYSTEM SYSTEM on 12-11-2022 Free T4 [Mass/Vol] 0.85 ng/dL Normal 0.58 - 1.64 ng/dL [facility] Anion gap [Moles/Vol] 11 mmol/L Normal 6 - 16 mEq/L [facility] Calcium [Mass/Vol] 8.8 mg/dL Low 8.9 - 11.1 mg/dL [facility] Chloride [Moles/Vol] 117 mmol/L High 101 - 111 mmol/L [facility] CO2 [Moles/Vol] 17 mmol/L Low 21 - 31 mmol/L [facility] Cobalamin (Vitamin B12) [Mass/Vol] 532 pg/mL Normal 50 - 1500 pg/mL [facility] Creatinine [Mass/Vol] 3.3 mg/dL High 0.5 - 1.3 mg/dL [facility] Folate [Mass/Vol] ng/mL Normal >=6.7ng/mL [facility] Re misol GFR/1.73 sq M.predicted among blacks MDRD (S/P/Bld) [Vol rate/Area] 23 mL/min/1.73 m2 Low >=59mL/min/1.73 m2 [facility] Chem S GFR/1.73 sq M.predicted among non-blacks MDRD (S/P/Bld) [Vol rate/Area] 19 mL/min/1.73 m2 Low >=59mL/min/1.73 m2 [facility] Chem S Glucose [Mass/Vol] 101 mg/dL Normal 55 - 199 mg/dL [facility] Potassium [Moles/Vol] 5.4 mmol/L High 3.5 - 5.3 mmol/L [facility] Sodium [Moles/Vol] 140 mmol/L Normal 135 - 145 mmol/L [facility] Urea nitrogen [Mass/Vol] 61 mg/dL High 5 - 21 mg/dL [facility] Urea nitrogen/Creatinine [Mass ratio] 18 mg/mg Normal 10 - 20 [facility] HEMATOLOGYOrdered By: SYSTEM SYSTEM on 12-11-2022 Basophils/100 WBC (Bld) 0.6 % Normal 0.0 - 2.0 % [facility] Basophils/Leukocyte s Auto (Bld) [Pure # fraction] 0.0 E9/L Normal 0.0 - 0.2 E9/L [facility] Eosinophils/100 WBC (Bld) 7.4 % Normal 0.0 - 8.0 % [facility] Eosinophils/Leukocy deric Auto (Bld) [Pure # fraction] 0.4 E9/L Normal 0.0 - 0.5 E9/L [facility] Lymphocytes/100 WBC (Bld) 4.8 % Low 14.0 - 50.0 % [facility] Lymphocytes/Leukocy deric Auto (Bld) [Pure # fraction] 0.3 E9/L Low 1.0 - 4.0 E9/L [facility] Monocytes/100 WBC (Bld) 14.1 % High 4.0 - 14.0 % [facility] Monocytes/Leukocyte s Auto (Bld) [Pure # fraction] 0.8 E9/L Normal 0.2 - 1.0 E9/L [facility] Neutrophils/100 WBC (Bld) 73.1 % Normal 36.0 - 75.0 % [facility] Neutrophils/Leukocy deric Auto (Bld) [Pure # fraction] 4.1 E9/L Normal 2.0 - 7.5 E9/L [facility] HEMATOLOGYOrdered By: Randy Shah on 12-11-2022 Erythrocyte distribution width (RBC) [Ratio] 13.9 % Normal 10.9 - 14.2 % [facility] Hematocrit (Bld) [Volume fraction] 28.4 % Low 37.7 - 49.0 % [facility] Hemoglobin (Bld) [Mass/Vol] 9.5 g/dL Low 13.5 - 17.5 gm/dL [facility] MCH (RBC) [Entitic mass] 32.2 pg Normal 27.0 - 34.0 pg [facility] MCHC (RBC) [Mass/Vol] 33.4 g/dL Normal 31.4 - 36.0 gm/dL [facility] MCV (RBC) [Entitic vol] 96.4 fL Normal 80.0 - 100.0 fL [facility] Platelet mean volume (Bld) [Entitic vol] 7.5 fL Normal 6.4 - 10.8 fL [facility] Heme[facility] Platelets (Bld) [#/Vol] 175.0 E9/L Normal 150.0 - 500.0 E9/L [facility] RBC (Bld) [#/Vol] 2.9 E12/L Low 4.3 - 5.9 E12/L [facility] WBC corrected for nucl RBC Auto (Bld) [#/Vol] 5.7 E9/L Normal 4.0 - 11.0 E9/L [facility] CHEMISTRYOrdered By: Jimenez moore on 12-10-2022 Chloride (U) [Moles/Vol] 78 mmol/L Invalid Interpretation Code [facility] Rem[facility] Creatinine (U) [Mass/Vol] 38.9 mg/dL Invalid Interpretation Code [facility] Remisol Sodium (U) [Moles/Vol] 88 mmol/L Invalid Interpretation Code [facility] Remisol CHEMISTRYOrdered By: SYSTEM SYSTEM on 12-10-2022 Anion gap [Moles/Vol] 15 mmol/L Normal 6 - 16 mEq/L [facility] Remisol Calcium [Mass/Vol] 9.0 mg/dL Normal 8.9 - 11.1 mg/dL [facility] Remisol Chloride [Moles/Vol] 111 mmol/L Normal 101 - 111 mmol/L [facility] Remisol CO2 [Moles/Vol] 17 mmol/L Low 21 - 31 mmol/L [facility] Remisol Creatinine [Mass/Vol] 3.4 mg/dL High 0.5 - 1.3 mg/dL [facility] Remisol GFR/1.73 sq M.predicted among blacks MDRD (S/P/Bld) [Vol rate/Area] 22 mL/min/1.73 m2 Low >=59mL/min/1.73 m2 [facility] Chem S GFR/1.73 sq M.predicted among non-blacks MDRD (S/P/Bld) [Vol rate/Area] 18 mL/min/1.73 m2 Low >=59mL/min/1.73 m2 [facility] Chem S Glucose [Mass/Vol] 99 mg/dL Normal 55 - 199 mg/dL [facility] Remisol Potassium [Moles/Vol] 5.9 mmol/L High 3.5 - 5.3 mmol/L [facility] Remisol Sodium [Moles/Vol] 137 mmol/L Normal 135 - 145 mmol/L [facility] Remisol Urea nitrogen [Mass/Vol] 65 mg/dL High 5 - 21 mg/dL [facility] Remisol Urea nitrogen/Creatinine [Mass ratio] 19 mg/mg Normal 10 - 20 [facility] Remisol HEMATOLOGYOrdered By: SYSTEM SYSTEM on 12-10-2022 Basophils/100 WBC (Bld) 0.8 % Normal 0.0 - 2.0 % [facility] HemeAutoSS Basophils/Leukocyte s Auto (Bld) [Pure # fraction] 0.0 E9/L Normal 0.0 - 0.2 E9/L [facility] HemeAutoSS Eosinophils/100 WBC (Bld) 7.6 % Normal 0.0 - 8.0 % [facility] Eosinophils/Leukocy deric Auto (Bld) [Pure # fraction] 0.4 E9/L Normal 0.0 - 0.5 E9/L [facility] Lymphocytes/100 WBC (Bld) 8.3 % Low 14.0 - 50.0 % [facility] Lymphocytes/Leukocy deric Auto (Bld) [Pure # fraction] 0.5 E9/L Low 1.0 - 4.0 E9/L [facility] Monocytes/100 WBC (Bld) 14.1 % High 4.0 - 14.0 % [facility] Monocytes/Leukocyte s Auto (Bld) [Pure # fraction] 0.8 E9/L Normal 0.2 - 1.0 E9/L [facility] Neutrophils/100 WBC (Bld) 69.2 % Normal 36.0 - 75.0 % [facility] Neutrophils/Leukocy deric Auto (Bld) [Pure # fraction] 4.0 E9/L Normal 2.0 - 7.5 E9/L [facility] HEMATOLOGYOrdered By: Jordon Gibson on 12-10-2022 Erythrocyte distribution width (RBC) [Ratio] 13.8 % Normal 10.9 - 14.2 % [facility] Hematocrit (Bld) [Volume fraction] 31.5 % Low 37.7 - 49.0 % [facility] Hemoglobin (Bld) [Mass/Vol] 10.2 g/dL Low 13.5 - 17.5 gm/dL [facility] MCH (RBC) [Entitic mass] 31.7 pg Normal 27.0 - 34.0 pg [facility] MCHC (RBC) [Mass/Vol] 32.2 g/dL Normal 31.4 - 36.0 gm/dL [facility] MCV (RBC) [Entitic vol] 98.3 fL Normal 80.0 - 100.0 fL [facility] Platelet mean volume (Bld) [Entitic vol] 6.9 fL Normal 6.4 - 10.8 fL [facility] Platelets (Bld) [#/Vol] 195.0 E9/L Normal 150.0 - 500.0 E9/L [facility] RBC (Bld) [#/Vol] 3.2 E12/L Low 4.3 - 5.9 E12/L [facility] WBC corrected for nucl RBC Auto (Bld) [#/Vol] 5.7 E9/L Normal 4.0 - 11.0 E9/L [facility] URINALYSISOrdered By: Jimenez Rosenbaum on 12-10-2022 Bilirubin Ql (U) Negative (12/10/22 8:00 PM) Normal Negative [facility] UA Auto SS Clarity (U) Clear (12/10/22 8:00 PM) Normal Clear [facility]A Auto SS Color (U) Yellow (12/10/22 8:00 PM) Normal Yellow [facility]A Auto SS Epithelial cells.squamous LM.HPF (Urine sed) [#/Area] 0-2 /HPF Normal 0-2/HPF [facility] Auto SS Glucose Test strip (U) [Mass/Vol] Negative (12/10/22 8:00 PM) Normal Negative [facility]A Auto SS Hemoglobin Ql (U) Trace *ABN* (12/10/22 8:00 PM) Invalid Interpretation Code Negative [facility]A Auto SS Ketones (U) [Mass/Vol] Negative (12/10/22 8:00 PM) Normal Negative [facility] UA Auto SS [place].plasma/Lith ium.RBC (Bld) [Mass ratio] 0-3 /HPF Normal 0-3/HPF [facility] SS Nitrite Ql (U) Negative (12/10/22 8:00 PM) Normal Negative [facility] Auto SS pH (U) 6.5 *NA* (12/10/22 8:00 PM) Invalid Interpretation Code 5.0 - 9.0 [facility] UA Auto SS Protein (U) [Mass/Vol] Negative (12/10/22 8:00 PM) Normal Negative [facility]A Auto SS Specific gravity (U) [Rel density] 1.010 *NA* (12/10/22 8:00 PM) Invalid Interpretation Code 1.005 - 1.030 [facility]A Auto SS UA Spec Desc Clean Catch (12/10/22 8:00 PM) Normal [facility]A Auto SS Urobilinogen Qn (U) [id number] {Calos'U}/dL Normal 0.0 - 1.0 EU/dL [facility]A Auto SS WBC Auto Ql (U) Trace *ABN* (12/10/22 8:00 PM) Invalid Interpretation Code Negative [facility]A Auto SS WBC LM.HPF (Urine sed) [#/Area] 0-5 /HPF Normal 0-5/HPF [facility] UA Auto SS CHEMISTRYOrdered By: SYSTEM SYSTEM on 12-09-2022 TSH Qn 14.27 m[IU]/L High 0.34 - 5.60 mcIU/mL [facility] CHEMISTRYOrdered By: SYSTEM SYSTEM on 12-02-2022 Cholesterol [Mass/Vol] 195 mg/dL Normal 120 - 200 mg/dL [facility] Cholesterol in HDL [Mass/Vol] 56 mg/dL Invalid Interpretation Code [facility] Cholesterol in LDL [Mass/Vol] 128 mg/dL Normal <=129mg/dL [facility] Cholesterol in VLDL [Mass/Vol] 15 mg/dL Normal 7 - 40 mg/dL [facility] Triglyceride [Mass/Vol] 75 mg/dL Normal <=149mg/dL [facility] CHEMISTRYOrdered By: SYSTEM SYSTEM on 11-19-2022 TSH Qn 52.00 m[IU]/L High 0.34 - 5.60 mcIU/mL [facility] CHEMISTRYOrdered By: SYSTEM SYSTEM on 11-03-2022 CRP [Mass/Vol] 1.0 mg/dL Normal <=1.9mg/dL [facility] Rem[facility] ol HEMATOLOGYOrdered By: Lani odell on 11-03-2022 Sed Rate Automated 25 mm/h High 0 - 19 mm/hr [facility] CHEMISTRYOrdered By: SYSTEM SYSTEM on 10-07-2022 T4 [Mass/Vol] 7.2 ug/dL Normal 4.6 - 9.1 mcg/dL [facility] Creatinine and Glomerular fi ltration rate.predicted panel (S/P/Bld)Ordered By: Rasheed Roberson on 10-07-2022 Creatinine [Mass/Vol] 1.17 mg/dL 0.64-1.27 [facility] Estimated glomerular filtrat ion rate (GFR) non- AmericanOrdered By: Rasheed Roberson on 10-07-2022 GFR/1.73 sq M.predicted among non-blacks MDRD (S/P/Bld) [Vol rate/Area] > 60 mL/Min [facility] No Panel InformationOrdered By: Rasheed Roberson on 10-07-2022 Estimated GFR () > 60 mL/Min [facility] Comment on above: GFR estimated refere nce range: According to KDOQI guidelines, <60 ml/min/1.73m2 is sufficient to diagnose a patient with chronic kidney disease. Pharmacy Creatinine Clearance (Chem N/A [facility] Serum or plasma urea nitroge n measurement (mass/volume)Ordered By: Rasheed Roberson on 10-07-2022 Urea nitrogen [Mass/Vol] 28 mg/dL 08-01 [facility] CHEMISTRYOrdered By: SYSTEM SYSTEM on 09-09-2022 T4 [Mass/Vol] 5.0 ug/dL Normal 4.6 - 9.1 mcg/dL [facility] HEMATOLOGYOrdered By: Sonali Hutson on 09-09-2022 Anisocytosis Ql (Bld) Present (09/09/22 12:30 PM) Normal [facility] Hypochromia Auto Ql (Bld) Present (09/09/22 12:30 PM) Normal [facility] Morphology Hema (Bld) [Interp] See Morphology (09/09/22 12:30 PM) Normal [facility] CHEMISTRYOrdered By: SYSTEM SYSTEM on 08-21-2022 T4 [Mass/Vol] 7.5 ug/dL Normal 4.6 - 9.1 mcg/dL [facility] TSH Qn 18.82 m[IU]/L High 0.34 - 5.60 mcIU/mL [facility] CHEMISTRYOrdered By: SYSTEM SYSTEM on 07-28-2022 T4 [Mass/Vol] 14.9 ug/dL High 4.6 - 9.1 mcg/dL [facility] Reference Laboratory Testing Ordered By: Daysi Ruiz on 06-27-2022 Lab Miscellaneous See ref report Invalid Interpretation Code [facility] SendOutsSS Reference Laboratory Testing Ordered By: Yesica Rinaldi on 06-27-2022 Test Code [employer] Invalid Interpretation Code [facility] SendOutsSS Test Name Liquid Lung Bx Invalid Interpretation Code [facility] SendOutsSS CHEMISTRYOrdered By: SYSTEM SYSTEM on 06-17-2022 Albumin [Mass/Vol] 3.2 g/dL Low 3.3 - 5.0 gm/dL [facility] Albumin/Globulin [Mass ratio] 0.8 {ratio} Low 1.1 - 2.2 [facility] ALP [Catalytic activity/Vol] 169 [iU]/d High 21 - 98 Int._Unit/L [facility] ALT No additional P-5'-P [Catalytic activity/Vol] 15 [iU]/d Normal 6 - 46 Int._Unit/L [facility] Anion gap [Moles/Vol] 13 mmol/L Normal 6 - 16 mEq/L [facility] AST [Catalytic activity/Vol] 20 [iU]/d Normal 5 - 43 Int._Unit/L [facility] Bilirubin [Mass/Vol] 0.4 mg/dL Normal 0.0 - 1.1 mg/dL [facility] Calcium [Mass/Vol] 9.2 mg/dL Normal 8.9 - 11.1 mg/dL [facility] Chloride [Moles/Vol] 101 mmol/L Normal 101 - 111 mmol/L [facility] CO2 [Moles/Vol] 26 mmol/L Normal 21 - 31 mmol/L [facility] Creatinine [Mass/Vol] 1.0 mg/dL Normal 0.5 - 1.3 mg/dL [facility] GFR/1.73 sq M.predicted among blacks MDRD (S/P/Bld) [Vol rate/Area] mL/min/1.73 m2 Normal >=59mL/min/1.73 m2 [facility] Chem S GFR/1.73 sq M.predicted among non-blacks MDRD (S/P/Bld) [Vol rate/Area] mL/min/1.73 m2 Normal >=59mL/min/1.73 m2 [facility] Chem S Globulin (S) [Mass/Vol] 3.8 g/dL Normal 1.4 - 4.0 gm/dL [facility] Glucose [Mass/Vol] 128 mg/dL Normal 55 - 199 mg/dL [facility] Potassium [Moles/Vol] 4.2 mmol/L Normal 3.5 - 5.3 mmol/L [facility] Protein [Mass/Vol] 7.0 g/dL Normal 6.0 - 7.8 gm/dL [facility] Sodium [Moles/Vol] 136 mmol/L Normal 135 - 145 mmol/L [facility] Urea nitrogen [Mass/Vol] 32 mg/dL High 5 - 21 mg/dL [facility] Urea nitrogen/Creatinine [Mass ratio] 32 mg/mg High 10 - 20 [facility] HEMATOLOGYOrdered By: SYSTEM SYSTEM on 06-17-2022 Basophils/100 WBC (Bld) 0.7 % Normal 0.0 - 2.0 % [facility] Basophils/Leukocyte s Auto (Bld) [Pure # fraction] 0.1 E9/L Normal 0.0 - 0.2 E9/L [facility] Eosinophils/100 WBC (Bld) 3.0 % Normal 0.0 - 8.0 % [facility] Eosinophils/Leukocy deric Auto (Bld) [Pure # fraction] 0.5 E9/L Normal 0.0 - 0.5 E9/L [facility] Lymphocytes/100 WBC (Bld) 7.3 % Low 14.0 - 50.0 % [facility] Lymphocytes/Leukocy deric Auto (Bld) [Pure # fraction] 1.1 E9/L Normal 1.0 - 4.0 E9/L [facility] Monocytes/100 WBC (Bld) 8.6 % Normal 4.0 - 14.0 % [facility] Monocytes/Leukocyte s Auto (Bld) [Pure # fraction] 1.3 E9/L High 0.2 - 1.0 E9/L [facility] Neutrophils/100 WBC (Bld) 80.4 % High 36.0 - 75.0 % [facility] Neutrophils/Leukocy deric Auto (Bld) [Pure # fraction] 12.5 E9/L High 2.0 - 7.5 E9/L [facility] HEMATOLOGYOrdered By: Socorro Bertrand on 06-17-2022 Erythrocyte distribution width (RBC) [Ratio] 14.3 % High 10.9 - 14.2 % [facility] Hematocrit (Bld) [Volume fraction] 30.0 % Low 37.7 - 49.0 % [facility] Hemoglobin (Bld) [Mass/Vol] 9.7 g/dL Low 13.5 - 17.5 gm/dL [facility] MCH (RBC) [Entitic mass] 25.4 pg Low 27.0 - 34.0 pg [facility] MCHC (RBC) [Mass/Vol] 32.2 g/dL Normal 31.4 - 36.0 gm/dL [facility] MCV (RBC) [Entitic vol] 78.8 fL Low 80.0 - 100.0 fL [facility] Platelet mean volume (Bld) [Entitic vol] 7.3 fL Normal 6.4 - 10.8 fL [facility] Platelets (Bld) [#/Vol] 446.0 E9/L Normal 150.0 - 500.0 E9/L [facility] RBC (Bld) [#/Vol] 3.8 E12/L Low 4.3 - 5.9 E12/L [facility] WBC corrected for nucl RBC Auto (Bld) [#/Vol] 15.5 E9/L High 4.0 - 11.0 E9/L [facility] Comment on above: Result Comment: Slid e reviewed by RS 06/17/2022 12:41:29 EDT. CHEMISTRYOrdered By: SYSTEM SYSTEM on 05-31-2022 Albumin [Mass/Vol] 2.9 g/dL Low 3.3 - 5.0 gm/dL [facility] Albumin/Globulin [Mass ratio] 0.7 {ratio} Low 1.1 - 2.2 [facility] ALP [Catalytic activity/Vol] 465 [iU]/d High 21 - 98 Int._Unit/L [facility] ALT No additional P-5'-P [Catalytic activity/Vol] 35 [iU]/d Normal 6 - 46 Int._Unit/L [facility] Anion gap [Moles/Vol] 8 mmol/L Normal 6 - 16 mEq/L [facility] AST [Catalytic activity/Vol] 31 [iU]/d Normal 5 - 43 Int._Unit/L [facility] Bilirubin [Mass/Vol] 0.7 mg/dL Normal 0.0 - 1.1 mg/dL [facility] Calcium [Mass/Vol] 9.1 mg/dL Normal 8.9 - 11.1 mg/dL [facility] Carcinoembryonic Ag [Mass/Vol] 0.6 ng/mL Invalid Interpretation Code [facility] Chloride [Moles/Vol] 103 mmol/L Normal 101 - 111 mmol/L [facility] CO2 [Moles/Vol] 30 mmol/L Normal 21 - 31 mmol/L [facility] Creatinine [Mass/Vol] 0.9 mg/dL Normal 0.5 - 1.3 mg/dL [facility] GFR/1.73 sq M.predicted among blacks MDRD (S/P/Bld) [Vol rate/Area] mL/min/1.73 m2 Normal >=59mL/min/1.73 m2 [facility] Chem S GFR/1.73 sq M.predicted among non-blacks MDRD (S/P/Bld) [Vol rate/Area] mL/min/1.73 m2 Normal >=59mL/min/1.73 m2 [facility] Chem S Globulin (S) [Mass/Vol] 4.2 g/dL High 1.4 - 4.0 gm/dL [facility] Glucose [Mass/Vol] 96 mg/dL Normal 55 - 199 mg/dL [facility] Potassium [Moles/Vol] 4.3 mmol/L Normal 3.5 - 5.3 mmol/L [facility] Protein [Mass/Vol] 7.1 g/dL Normal 6.0 - 7.8 gm/dL [facility] Remisol Sodium [Moles/Vol] 137 mmol/L Normal 135 - 145 mmol/L [facility] Urea nitrogen [Mass/Vol] 25 mg/dL High 5 - 21 mg/dL [facility] Urea nitrogen/Creatinine [Mass ratio] 28 mg/mg High 10 - 20 [facility] HEMATOLOGYOrdered By: SYSTEM SYSTEM on 05-31-2022 Basophils/100 WBC (Bld) 0.8 % Normal 0.0 - 2.0 % [facility] Basophils/Leukocyte s Auto (Bld) [Pure # fraction] 0.1 E9/L Normal 0.0 - 0.2 E9/L [facility] Eosinophils/100 WBC (Bld) 3.8 % Normal 0.0 - 8.0 % [facility] Eosinophils/Leukocy deric Auto (Bld) [Pure # fraction] 0.5 E9/L Normal 0.0 - 0.5 E9/L [facility] Lymphocytes/100 WBC (Bld) 6.6 % Low 14.0 - 50.0 % [facility] Lymphocytes/Leukocy deric Auto (Bld) [Pure # fraction] 0.9 E9/L Low 1.0 - 4.0 E9/L [facility] Monocytes/100 WBC (Bld) 8.1 % Normal 4.0 - 14.0 % [facility] Monocytes/Leukocyte s Auto (Bld) [Pure # fraction] 1.1 E9/L High 0.2 - 1.0 E9/L [facility] Neutrophils/100 WBC (Bld) 80.7 % High 36.0 - 75.0 % [facility] Neutrophils/Leukocy deric Auto (Bld) [Pure # fraction] 11.0 E9/L High 2.0 - 7.5 E9/L [facility] HEMATOLOGYOrdered By: Christina Ernst on 05-31-2022 Erythrocyte distribution width (RBC) [Ratio] 13.7 % Normal 10.9 - 14.2 % [facility] Hematocrit (Bld) [Volume fraction] 31.6 % Low 37.7 - 49.0 % [facility] Hemoglobin (Bld) [Mass/Vol] 10.0 g/dL Low 13.5 - 17.5 gm/dL [facility] MCH (RBC) [Entitic mass] 25.4 pg Low 27.0 - 34.0 pg [facility] MCHC (RBC) [Mass/Vol] 31.7 g/dL Normal 31.4 - 36.0 gm/dL [facility] MCV (RBC) [Entitic vol] 80.1 fL Normal 80.0 - 100.0 fL [facility] Platelet mean volume (Bld) [Entitic vol] 7.0 fL Normal 6.4 - 10.8 fL [facility] Platelets (Bld) [#/Vol] 496.0 E9/L Normal 150.0 - 500.0 E9/L [facility] RBC (Bld) [#/Vol] 3.9 E12/L Low 4.3 - 5.9 E12/L [facility] WBC corrected for nucl RBC Auto (Bld) [#/Vol] 13.6 E9/L High 4.0 - 11.0 E9/L [facility] CHEMISTRYOrdered By: SYSTEM SYSTEM on 05-21-2022 Glucose post fast [Mass/Vol] 107 mg/dL High 55 - 99 mg/dL [facility] CHEMISTRYOrdered By: Lab ROP User on 05-21-2022 Glucose [Mass/Vol] 100 mg/dL High 55 - 99 mg/dL [facility] POC Subsection POC Device SN [id number] Invalid Interpretation Code [facility] POC Subsection POC User ID [id number] Invalid Interpretation Code [facility] POC Subsection POC Username ZACHARIAH POWERS Invalid Interpretation Code [facility] POC Subsection COAGULATIONOrdered By: Adina Woodson on 05-21-2022 aPTT Coag (PPP) [Time] 32.4 s Normal 25.1 - 36.5 second(s) [facility] Auto Coag INR Coag (PPP) [Relative time] 1.2 {INR} Invalid Interpretation Code [facility] Auto Coag PT Coag (PPP) [Time] 13.7 s High 10.2 - 12.9 second(s) [facility] Auto Coag HEMATOLOGYOrdered By: SYSTEM SYSTEM on 05-21-2022 Basophils/100 WBC (Bld) 0.6 % Normal 0.0 - 2.0 % [facility] Basophils/Leukocyte s Auto (Bld) [Pure # fraction] 0.1 E9/L Normal 0.0 - 0.2 E9/L [facility] Eosinophils/100 WBC (Bld) 4.1 % Normal 0.0 - 8.0 % [facility] Eosinophils/Leukocy deric Auto (Bld) [Pure # fraction] 0.6 E9/L High 0.0 - 0.5 E9/L [facility] Lymphocytes/100 WBC (Bld) 7.5 % Low 14.0 - 50.0 % [facility] Lymphocytes/Leukocy deric Auto (Bld) [Pure # fraction] 1.1 E9/L Normal 1.0 - 4.0 E9/L [facility] Monocytes/100 WBC (Bld) 8.0 % Normal 4.0 - 14.0 % [facility] Monocytes/Leukocyte s Auto (Bld) [Pure # fraction] 1.2 E9/L High 0.2 - 1.0 E9/L [facility] Neutrophils/100 WBC (Bld) 79.8 % High 36.0 - 75.0 % [facility] Neutrophils/Leukocy deric Auto (Bld) [Pure # fraction] 12.0 E9/L High 2.0 - 7.5 E9/L [facility] HEMATOLOGYOrdered By: Emilio Woodson on 05-21-2022 Erythrocyte distribution width (RBC) [Ratio] 13.5 % Normal 10.9 - 14.2 % [facility] Hematocrit (Bld) [Volume fraction] 32.8 % Low 37.7 - 49.0 % [facility] Hemoglobin (Bld) [Mass/Vol] 10.8 g/dL Low 13.5 - 17.5 gm/dL [facility] MCH (RBC) [Entitic mass] 26.5 pg Low 27.0 - 34.0 pg [facility] MCHC (RBC) [Mass/Vol] 32.9 g/dL Normal 31.4 - 36.0 gm/dL [facility] MCV (RBC) [Entitic vol] 80.5 fL Normal 80.0 - 100.0 fL [facility] Platelet mean volume (Bld) [Entitic vol] 7.2 fL Normal 6.4 - 10.8 fL [facility] Platelets (Bld) [#/Vol] 424.0 E9/L Normal 150.0 - 500.0 E9/L [facility] RBC (Bld) [#/Vol] 4.1 E12/L Low 4.3 - 5.9 E12/L [facility] WBC corrected for nucl RBC Auto (Bld) [#/Vol] 15.0 E9/L High 4.0 - 11.0 E9/L [facility] CHEMISTRYOrdered By: SYSTEM SYSTEM on 04-24-2022 Albumin [Mass/Vol] 3.2 g/dL Low 3.3 - 5.0 gm/dL [facility] Albumin/Globulin [Mass ratio] 1.0 {ratio} Low 1.1 - 2.2 [facility] ALP [Catalytic activity/Vol] 114 [iU]/d High 21 - 98 Int._Unit/L [facility] ALT No additional P-5'-P [Catalytic activity/Vol] 12 [iU]/d Normal 6 - 46 Int._Unit/L [facility] Anion gap [Moles/Vol] 11 mmol/L Normal 6 - 16 mEq/L [facility] AST [Catalytic activity/Vol] 18 [iU]/d Normal 5 - 43 Int._Unit/L [facility] Bilirubin [Mass/Vol] 0.8 mg/dL Normal 0.0 - 1.1 mg/dL [facility] Calcium [Mass/Vol] 9.0 mg/dL Normal 8.9 - 11.1 mg/dL [facility] Chloride [Moles/Vol] 104 mmol/L Normal 101 - 111 mmol/L [facility] Cholesterol [Mass/Vol] 136 mg/dL Normal 120 - 200 mg/dL [facility] Cholesterol in HDL [Mass/Vol] 44 mg/dL Invalid Interpretation Code [facility] Cholesterol in LDL [Mass/Vol] 80 mg/dL Normal <=129mg/dL [facility] Cholesterol in VLDL [Mass/Vol] 11 mg/dL Normal 7 - 40 mg/dL [facility] CO2 [Moles/Vol] 27 mmol/L Normal 21 - 31 mmol/L [facility] Creatinine [Mass/Vol] 1.0 mg/dL Normal 0.5 - 1.3 mg/dL [facility] GFR/1.73 sq M.predicted among blacks MDRD (S/P/Bld) [Vol rate/Area] mL/min/1.73 m2 Normal >=59mL/min/1.73 m2 [facility] Chem S GFR/1.73 sq M.predicted among non-blacks MDRD (S/P/Bld) [Vol rate/Area] mL/min/1.73 m2 Normal >=59mL/min/1.73 m2 [facility] Chem S Globulin (S) [Mass/Vol] 3.3 g/dL Normal 1.4 - 4.0 gm/dL [facility] Glucose [Mass/Vol] 107 mg/dL Normal 55 - 199 mg/dL [facility] Potassium [Moles/Vol] 4.3 mmol/L Normal 3.5 - 5.3 mmol/L [facility] Protein [Mass/Vol] 6.5 g/dL Normal 6.0 - 7.8 gm/dL [facility] Sodium [Moles/Vol] 138 mmol/L Normal 135 - 145 mmol/L [facility] Triglyceride [Mass/Vol] 54 mg/dL Normal <=149mg/dL [facility] TSH Qn 3.68 m[IU]/L Normal 0.34 - 5.60 mcIU/mL [facility] Urea nitrogen [Mass/Vol] 24 mg/dL High 5 - 21 mg/dL [facility] Urea nitrogen/Creatinine [Mass ratio] 24 mg/mg High 10 - 20 [facility] CHEMISTRYOrdered By: Cristy stewart on 04-24-2022 Albumin DL <= 20 mg/L (U) [Mass/Vol] 6.6 microgram/mL Normal 0.0 - 19.0 mcg/mL [facility] CHEMISTRYOrdered By: Jaelyn dumont on 04-24-2022 HbA1c (Bld) [Mass fraction] 6.5 % High <=5.9% [facility]SS HEMATOLOGYOrdered By: SYSTEM SYSTEM on 04-24-2022 Basophils/100 WBC (Bld) 0.7 % Normal 0.0 - 2.0 % [facility] Basophils/Leukocyte s Auto (Bld) [Pure # fraction] 0.1 E9/L Normal 0.0 - 0.2 E9/L [facility] Eosinophils/100 WBC (Bld) 8.3 % High 0.0 - 8.0 % [facility] Eosinophils/Leukocy deric Auto (Bld) [Pure # fraction] 1.0 E9/L High 0.0 - 0.5 E9/L [facility] Lymphocytes/100 WBC (Bld) 9.4 % Low 14.0 - 50.0 % [facility] Lymphocytes/Leukocy deric Auto (Bld) [Pure # fraction] 1.1 E9/L Normal 1.0 - 4.0 E9/L [facility] Monocytes/100 WBC (Bld) 8.0 % Normal 4.0 - 14.0 % [facility] Monocytes/Leukocyte s Auto (Bld) [Pure # fraction] 0.9 E9/L Normal 0.2 - 1.0 E9/L [facility] Neutrophils/100 WBC (Bld) 73.6 % Normal 36.0 - 75.0 % [facility] Neutrophils/Leukocy deric Auto (Bld) [Pure # fraction] 8.4 E9/L High 2.0 - 7.5 E9/L [facility] HEMATOLOGYOrdered By: Socorro Bertrand on 04-24-2022 Erythrocyte distribution width (RBC) [Ratio] 13.4 % Normal 10.9 - 14.2 % [facility] Hematocrit (Bld) [Volume fraction] 34.3 % Low 37.7 - 49.0 % [facility] Hemoglobin (Bld) [Mass/Vol] 11.0 g/dL Low 13.5 - 17.5 gm/dL [facility] MCH (RBC) [Entitic mass] 26.6 pg Low 27.0 - 34.0 pg [facility] MCHC (RBC) [Mass/Vol] 32.0 g/dL Normal 31.4 - 36.0 gm/dL [facility] MCV (RBC) [Entitic vol] 83.1 fL Normal 80.0 - 100.0 fL [facility] Platelet mean volume (Bld) [Entitic vol] 8.0 fL Normal 6.4 - 10.8 fL [facility] Platelets (Bld) [#/Vol] 399.0 E9/L Normal 150.0 - 500.0 E9/L [facility] RBC (Bld) [#/Vol] 4.1 E12/L Low 4.3 - 5.9 E12/L [facility] WBC corrected for nucl RBC Auto (Bld) [#/Vol] 11.5 E9/L High 4.0 - 11.0 E9/L [facility] Covid-19 PCR (CVDTB)on 01-07 SARS-CoV-2 (COVID-19) RNA ROSY+probe Ql (Unsp spec) Not detected Normal NOT DETECTED [facility] Comment on above: Result Comment: This test is not yet approved or cleared by the [place] FDA. When there are no FDA-approved or cleared tests available, and other criteria are met, FDA can make tests available under an emergency access mechanism called an Emergency Use Authorization (EUA). The EUA for this test is supported by the [place] of Health and Human Service's (HHS's) declaration that circumstances exist to justify the emergency use of in vitro diagnostics for the detection and/or diagnosis of the virus that causes COVID-19. This EUA will remain in effect (meaning this test can be used) for the duration of the COVID-19 declaration justifying emergency of IVDs, unless it is terminated or revoked by FDA (after which the test may no longer be used). When diagnostic testing is negative, the possibility of a false negative should be considered in the context of a patient's recent exposures and the presence of clinical signs and symptoms consistent with SARS-CoV-2. Performed By: #### [facility] #### [facility] [address] [place] [address] Dr. Jeffery Colón Basic Metabolic PanelOrdered By: Miguel Bolden on 07-16-2021 Anion gap [Moles/Vol] 9 mmol/L 9 - 17 mmol/L [employer] Phone: Calcium [Mass/Vol] 8.9 mg/dL 8.6 - 10.4 mg/dL [employer] Phone: Chloride [Moles/Vol] 103 mmol/L 98 - 107 mmol/L [employer] Phone: CO2 [Moles/Vol] 26 mmol/L 20 - 31 mmol/L [employer] Phone: Creatinine [Mass/Vol] 1 mg/dL 0.70 - 1.20 mg/dL [employer] Phone: GFR >60 >60 mL/min [employer] Phone: GFR Non- >60 >60 mL/min [employer] Phone: GFR/1.73 sq M.predicted MDRD (S/P/Bld) [Vol rate/Area] [employer] Phone: Comment on above: Average GFR for 60-6 9 years old: 85 mL/min/1.73sq m Chronic Kidney Disease: <60 mL/min/1.73sq m Kidney failure: <15 mL/min/1.73sq m eGFR calculated using average adult body mass. Additional eGFR calculator available at: http://www.[employer]/multiple_crcl_2012.htm GFR/1.73 sq M.predicted MDRD (S/P/Bld) [Vol rate/Area] NOT REPORTED [employer] Phone: Glucose [Mass/Vol] 130 mg/dL High 70 - 99 mg/dL [facility] [employer] Work Phone: Interpretation and review of laboratory results Abnormal [employer] Phone: Potassium [Moles/Vol] 4.6 mmol/L 3.7 - 5.3 mmol/L [facility] Phone: Sodium [Moles/Vol] 138 mmol/L 135 - 144 mmol/L [facility] Phone: Urea nitrogen (BldV) [Mass/Vol] 27 mg/dL High 8 - 23 mg/dL [employer] Phone: Urea nitrogen/Creatinine (Bld) [Mass ratio] 27 High [facility] [employer] Phone: [employer] Phone: CBCOrdered By: Miguel hull on 07-16-2021 Hematocrit (Bld) [Volume fraction] 38.5 % Low 41 - 53 % [employer] Phone: Hemoglobin.gastroin testinal spec 1 Ql (Stl) 13.1 g/dL Low 13.5 - 17.5 g/dL [employer] Phone: Interpretation and review of laboratory results Abnormal [employer] Phone: MCH (RBC) [Entitic mass] 29.0 pg 26 - 34 pg [employer] Phone: MCHC (RBC) [Mass/Vol] 33.9 g/dL 31 - 37 g/dL [employer] Phone: MCV (RBC) [Entitic vol] 85.7 fL 80 - 100 fL [employer] Phone: NRBC Automated NOT REPORTED per 100 WBC [employer] Work Phone: Platelet distribution width (Bld) [Ratio] 13.3 % 12.1 - 15.2 % [employer] Phone: Platelet mean volume (Bld) [Entitic vol] NOT REPORTED 6.0 - 12.0 fL [employer] Phone: Platelets (Bld) [#/Vol] 266 10*3/uL [employer] Phone: RBC (Bld) [#/Vol] 4.50 10*6/uL 4.5 - 5.9 m/uL M [facility]LO[employer] Phone: WBC (Bld) [#/Vol] 6.4 10*3/uL [employer] Phone: [employer] Phone: No Panel InformationOrdered By: Miguel Bolden on 07-10-2021 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 Bilateral triangular fibrocartilage chondrocalcinosis. [employer] Phone: EXAM: XR HAND LEFT (MIN 3 VIEWS), XR HAND RIGHT (MIN 3 VIEWS) HISTORY: M79.642. 66-year-old male with trigger finger right hand. Bilateral hand pain. COMPARISON: Bilateral hands 08/01/2020. TECHNIQUE: Three views left hand, three views right hand. FINDINGS: LEFT HAND: Chondrocalcinosis in the triangular fibrocartilage. Mild diffuse degenerative changes. Small amount of joint capsule calcification radial aspect third metacarpophalangeal joint. RIGHT HAND: Severe osteoarthritic change at the triscaphe joint. Two small flecks of metal in the index finger around the middle phalanx unchanged, not likely clinically significant. Triangular fibrocartilage calcification right wrist. [employer] Phone: Martin, Mhpn Incoming Radiant Results From [employer] - 07/10/2021 5:00 PM EDT EXAM: XR HAND LEFT (MIN 3 VIEWS), XR HAND RIGHT (MIN 3 VIEWS) HISTORY: M79.642. 66-year-old male with trigger finger right hand. Bilateral hand pain. COMPARISON: Bilateral hands 08/01/2020. TECHNIQUE: Three views left hand, three views right hand. FINDINGS: LEFT HAND: Chondrocalcinosis in the triangular fibrocartilage. Mild diffuse degenerative changes. Small amount of joint capsule calcification radial aspect third metacarpophalangeal joint. RIGHT HAND: Severe osteoarthritic change at the triscaphe joint. Two small flecks of metal in the index finger around the middle phalanx unchanged, not likely clinically significant. Triangular fibrocartilage calcification right wrist. 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 Bilateral triangular fibrocartilage chondrocalcinosis. [employer] Phone: [employer] Phone: COVID-19on 09-05-2020 SARS-CoV-2, Rapid Not Detected Not Detected [place], [place] Comment on above: Rapid NAAT: The specimen is NEGATIVE for SARS-CoV-2, the novel coronavirus associated with COVID-19. The ID NOW COVID-19 assay is designed to detect the virus that causes COVID-19 in patients with signs and symptoms of infection who are suspected of COVID-19. An individual without symptoms of COVID-19 and who is not shedding SARS-CoV-2 virus would expect to have a negative (not detected) result in this assay. Negative results should be treated as presumptive and, if inconsistent with clinical signs and symptoms or necessary for patient management, should be tested with an alternative molecular assay. Negative results do not preclude SARS-CoV-2 infection and should not be used as the sole basis for patient management decisions. Fact sheet for Healthcare Providers: https://www.fda.gov/media/569875/download Fact sheet for Patients: https://www.fda.gov/media/644723/download Methodology: Isothermal Nucleic Acid Amplification Source .THROAT [place], [place] Otheron 09-05-2020 SARS-CoV-2 [place] Basic Metabolic Panelon 08-09 Anion gap [Moles/Vol] 8 mmol/L Low 9 - 17 mmol/L [place] Bun/Cre Ratio 30 High [place], [place] Calcium [Mass/Vol] 9.2 mg/dL 8.6 - 10.4 mg/dL [place] Chloride [Moles/Vol] 105 mmol/L 98 - 107 mmol/L [place] CO2 [Moles/Vol] 25 mmol/L 20 - 31 mmol/L [place] Creatinine [Mass/Vol] 0.96 mg/dL 0.7 - 1.2 mg/dL [place] GFR >60 >60 mL/min [place] GFR Non- >60 >60 mL/min [place] GFR/1.73 sq M predicted among non-blacks MDRD (S/P/Bld) [Vol rate/Area] NOT REPORTED [place] GFR/1.73 sq M predicted among non-blacks MDRD (S/P/Bld) [Vol rate/Area] [place] Comment on above: Average GFR for 60-6 9 years old: 85 mL/min/1.73sq m Chronic Kidney Disease: <60 mL/min/1.73sq m Kidney failure: <15 mL/min/1.73sq m eGFR calculated using average adult body mass. Additional eGFR calculator available at: http://www.[employer].com.[employer]/multiple_crcl_2012.htm Glucose [Mass/Vol] 126 mg/dL High 70 - 99 mg/dL [place] Interpretation and review of laboratory results Abnormal [place] Potassium [Moles/Vol] 4.0 mmol/L 3.7 - 5.3 mmol/L [place] Sodium [Moles/Vol] 138 mmol/L 135 - 144 mmol/L [place] Urea nitrogen [Mass/Vol] 29 mg/dL High 8 - 23 mg/dL [place] CBCon 08-27-2020 Erythrocyte distribution width (RBC) [Ratio] 13.2 % 12.1 - 15.2 % [place] Hematocrit (Bld) [Volume fraction] 38.3 % Low 41 - 53 % [place] Hemoglobin (Bld) [Mass/Vol] 12.8 g/dL Low 13.5 - 17.5 g/dL [place] Interpretation and review of laboratory results Abnormal [place] MCH (RBC) [Entitic mass] 28.6 pg 26 - 34 pg [place] MCHC (RBC) [Mass/Vol] 33.3 g/dL 31 - 37 g/dL [place] MCV (RBC) [Entitic vol] 85.8 fL 80 - 100 fL [place] Platelet mean volume (Bld) [Entitic vol] NOT REPORTED 6 - 12 fL [place] Platelets (Bld) [#/Vol] 285 10*3/uL [place] RBC (Bld) [#/Vol] 4.46 10*6/uL Low 4.5 - 5.9 m/uL [place] WBC (Bld) [#/Vol] NOT REPORTED per 100 WBC [place] WBC (Bld) [#/Vol] 6.9 10*3/uL [place] XR CHEST (2 VW)on 08-27-2020 No acute cardiopulmonary abnormality. [place] EXAM: XR CHEST (2 VW) HISTORY: M65.312 COMPARISON: 03/12/2018 FINDINGS: Two views are submitted. The lungs and pleural spaces are clear. Pulmonary vascular markings are normal. Heart size upper normal limits. No bony lesions are shown. [place] Martin, Mhpn Incoming Radiant Results From [employer] - 08/27/2020 1:20 PM EDT EXAM: XR CHEST (2 VW) HISTORY: M65.312 COMPARISON: 03/12/2018 FINDINGS: Two views are submitted. The lungs and pleural spaces are clear. Pulmonary vascular markings are normal. Heart size upper normal limits. No bony lesions are shown. IMPRESSION: No acute cardiopulmonary abnormality. [place] Vital Signs Date Time Vital Sign Value Performing Clinician Elizabeth lopez 06-07-2024 11:05-0400 Blood Pressure Location Christopher BROWN [facility] 06-07-2024 11:05-0400 Diastolic blood pressure 76 mm[Hg] Christopher BROWN [facility] 06-07-2024 11:05-0400 Heart rate 80 /min Christopher BROWN [facility] 06-07-2024 11:05-0400 Respiratory rate 16 /min Christopher BROWN [facility] 06-07-2024 11:05-0400 SaO2% (BldA) [Mass fraction] 95 % Christopher BROWN [facility] 06-07-2024 11:05-0400 Systolic blood pressure 120 mm[Hg] Christopher BROWN [facility] 02-25-2024 10:51-0400 Blood Pressure Location Christopher BROWN [facility] 02-25-2024 10:51-0400 Diastolic blood pressure 80 mm[Hg] Christopher BROWN [facility] 02-25-2024 10:51-0400 Heart rate 74 /min Christopher BROWN [facility] 02-25-2024 10:51-0400 Respiratory rate 16 /min Christopher BROWN [facility] 02-25-2024 10:51-0400 SaO2% (BldA) [Mass fraction] 98 % Christopher BROWN [facility] 02-25-2024 10:51-0400 Systolic blood pressure 134 mm[Hg] Christopher BROWN [facility] 01-21-2024 10:50-0400 Body temperature 98.24 [degF] Joshuacresencio Eng [facility] 01-21-2024 10:50-0400 Diastolic blood pressure 82 mm[Hg] Joshua Eng [facility] 01-21-2024 10:50-0400 Heart rate 78 /min Joshuacresencio Eng [facility] 01-21-2024 10:50-0400 Mean blood pressure 100 mm[Hg] Joshua Eng [facility] 01-21-2024 10:50-0400 Respiratory rate 18 /min Joshuacresencio Eng [facility] 01-21-2024 10:50-0400 SaO2% (BldA) [Mass fraction] 96 % Joshuacresencio Eng [facility] 01-21-2024 10:50-0400 Systolic blood pressure 136 mm[Hg] [facility]-18[facility] 14:13-0500 Blood Pressure Location Christopher BROWN [facility] 12-18-2023 14:13-0500 Diastolic blood pressure 80 mm[Hg] Christopher BROWN [facility] 12-18-2023 14:13-0500 Heart rate 78 /min Christopher BROWN [facility] 12-18-2023 14:13-0500 Respiratory rate 16 /min Christopher BROWN [facility] 12-18-2023 14:13-0500 SaO2% (BldA) [Mass fraction] 95 % Christopher BROWN [facility] 12-18-2023 14:13-0500 Systolic blood pressure 120 mm[Hg] Christopher BROWN [facility] 10-28-2023 08:47-0500 Diastolic blood pressure 75 mm[Hg] Dina Lue [facility] 10-28-2023 08:47-0500 Heart rate 70 /min Dina Lue [facility] 10-28-2023 08:47-0500 Mean blood pressure 98 mm[Hg] Dina Lue [facility] 10-28-2023 08:47-0500 Systolic blood pressure 145 mm[Hg] Dina Lue [facility] 10-28-2023 08:47-0500 Heart rate 72 /min Dina Lue [facility] 10-28-2023 08:47-0500 SaO2% (BldA) [Mass fraction] 98 % Dina Lue [facility] 10-28-2023 08:46-0500 Diastolic blood pressure 79 mm[Hg] Dina Lue [facility] 10-28-2023 08:46-0500 Mean blood pressure 94 mm[Hg] Dina Lue [facility] 10-28-2023 08:46-0500 Systolic blood pressure 125 mm[Hg] Dina Lue [facility] 10-28-2023 08:46-0500 Respiratory rate 16 /min Dina Lue [facility] 09-09-2023 13:00-0400 Blood Pressure Location Joshua Eng [facility] 09-09-2023 13:00-0400 Body temperature 97.7 [degF] Jsohua Eng [facility] 09-09-2023 13:00-0400 Diastolic blood pressure 75 mm[Hg] Joshua Eng [facility] 09-09-2023 13:00-0400 Heart rate 64 /min Joshuacresencio Eng [facility] 09-09-2023 13:00-0400 Mean blood pressure 91 mm[Hg] Joshua Eng [facility] 09-09-2023 13:00-0400 Respiratory rate 18 /min Joshua Eng [facility] 09-09-2023 13:00-0400 SaO2% (BldA) [Mass fraction] 97 % Joshua Eng [facility] 09-09-2023 13:00-0400 Systolic blood pressure 124 mm[Hg] Joshuacresencio Eng [facility] 08-25-2023 09:31-0400 Blood Pressure Location WANDA PEÑA [facility] 08-25-2023 09:31-0400 Diastolic blood pressure 77 mm[Hg] WANDA PRIMO [facility] 08-25-2023 09:31-0400 Heart rate 68 /min WANDA PRIMO [facility] 08-25-2023 09:31-0400 Respiratory rate 16 /min WANDA PRIMO [facility] 08-25-2023 09:31-0400 Systolic blood pressure 128 mm[Hg] WANDA PRIMO [facility] 04-13-2023 11:07-0400 Blood Pressure Location Mecca SAUCEDO [facility] 04-13-2023 11:07-0400 Body temperature 97.88 [degF] Mecca SAUCEDO [facility] 04-13-2023 11:07-0400 Diastolic blood pressure 80 mm[Hg] Mecca SAUCEDO [facility] 04-13-2023 11:07-0400 Heart rate 88 /min Mecca SAUCEDO [facility] 04-13-2023 11:07-0400 Respiratory rate 16 /min Mecca SAUCEDO [facility] 04-13-2023 11:07-0400 SaO2% (BldA) [Mass fraction] 97 % Mecca SAUCEDO [facility] 04-13-2023 11:07-0400 Systolic blood pressure 120 mm[Hg] Mecca SAUCEDO [facility] 04-09-2023 14:06-0400 Heart rate 73 /[facility]-09-[facility] 14:06-0400 SaO2% (BldA) [Mass fraction] 96 % [facility] 04-09-2023 14:06-0400 Respiratory rate 16 /min Joshuacresencio Gamboasherrydelmis [facility] 04-09-2023 14:06-0400 Diastolic blood pressure 75 mm[Hg] [facility] 04-09-2023 14:06-0400 Mean blood pressure 91 mm[Hg] Joshua Albertina [facility] 04-09-2023 14:06-0400 Systolic blood pressure 122 mm[Hg] [facility]-09[facility] 14:06-0400 Body temperature 97.88 [degF] Joshua Eng [facility] 04-07-2023 12:00-0400 Blood Pressure Location ISELA ROBBIE [facility] 04-07-2023 12:00-0400 Body temperature 97.7 [degF] ISELA CLOAK [facility] 04-07-2023 12:00-0400 Diastolic blood pressure 80 mm[Hg] ISELA CLOAK [facility] 04-07-2023 12:00-0400 Heart rate 83 /min ISELA CLOAK [facility] 04-07-2023 12:00-0400 Mean blood pressure 100 mm[Hg] ISELA CLOAK [facility] 04-07-2023 12:00-0400 Respiratory rate 16 /min ISELA CLOAK [facility] 04-07-2023 12:00-0400 SaO2% (BldA) [Mass fraction] 93 % ISELA CLOAK [facility] 04-07-2023 12:00-0400 Systolic blood pressure 141 mm[Hg] ISELA CLOAK [facility] 02-09-2023 10:28-0400 Blood Pressure Location Christtrinher BROWN [facility] 02-09-2023 10:28-0400 Diastolic blood pressure 80 mm[Hg] Christopher BROWN [facility] 02-09-2023 10:28-0400 Heart rate 87 /min Christopher BROWN [facility] 02-09-2023 10:28-0400 Respiratory rate 16 /min Tommyer BROWN [facility] 02-09-2023 10:28-0400 SaO2% (BldA) [Mass fraction] 96 % Christopher BROWN [facility] 02-09-2023 10:28-0400 Systolic blood pressure 128 mm[Hg] Christopher BROWN [facility] 02-05-2023 13:00-0400 Blood Pressure Location [facility] 02-05-2023 13:00-0400 Body temperature 98.24 [degF] [facility] 02-05-2023 13:00-0400 Diastolic blood pressure 67 mm[Hg] [facility] 02-05-2023 13:00-0400 Heart rate 75 /min [facility] 02-05-2023 13:00-0400 Mean blood pressure 78 mm[Hg] [facility]-05-[facility] 13:00-0400 Respiratory rate 16 /min [facility] 02-05-2023 13:00-0400 SaO2% (BldA) [Mass fraction] 93 % [facility] 02-05-2023 13:00-0400 Systolic blood pressure 101 mm[Hg] [facility] 01-31-2023 14:41-0400 [facility]ly [facility] 01-31-2023 14:41-0400 [facility] 01-31-2023 13:49-0400 [facility] 01-31-2023 13:49-0400 [facility] 01-31-2023 12:13-0400 [facility] 01-31-2023 12:13-0400 [facility] 01-31-2023 10:55-0400 Heart rate 78 /min [facility] 01-31-2023 10:55-0400 SaO2% (BldA) [Mass fraction] 92 % [facility] 01-31-2023 10:55-0400 Diastolic blood pressure 64 mm[Hg] [facility] 01-31-2023 10:55-0400 Mean blood pressure 78 mm[Hg] [facility] 01-31-2023 10:55-0400 Systolic blood pressure 105 mm[Hg] [facility] 01-31-2023 10:55-0400 Body temperature 99.14 [degF] [facility] 01-31-2023 07:57-0400 Heart rate 87 /min [facility] 01-31-2023 07:57-0400 SaO2% (BldA) [Mass fraction] 94 % [facility] 01-31-2023 07:57-0400 Body temperature 98.78 [degF] [facility] 01-31-2023 07:56-0400 Diastolic blood pressure 65 mm[Hg] [facility] 01-31-2023 07:56-0400 Mean blood pressure 78 mm[Hg] [facility] 01-31-2023 07:56-0400 Systolic blood pressure 103 mm[Hg] [facility] 01-31-2023 07:48-0400 SaO2% (BldA) [Mass fraction] 96 % [facility] 01-31-2023 04:30-0400 Blood Pressure Location [facility] 01-31-2023 04:30-0400 Body temperature 98.06 [degF] [facility] 01-31-2023 04:30-0400 Diastolic blood pressure 74 mm[Hg] [facility] 01-31-2023 04:30-0400 Heart rate 75 /min [facility] 01-31-2023 04:30-0400 Mean blood pressure 89 mm[Hg] [facility] 01-31-2023 04:30-0400 Respiratory rate 16 /min [facility] 01-31-2023 04:30-0400 Systolic blood pressure 118 mm[Hg] [facility] 01-31-2023 00:40-0400 Blood Pressure Location [facility] 01-31-2023 00:40-0400 Mean blood pressure 90 mm[Hg] [facility] 01-31-2023 00:40-0400 Respiratory rate 16 /min [facility] 01-30-2023 19:00-0400 Heart rate 96 /min [facility] 01-30-2023 19:00-0400 Mean blood pressure 85 mm[Hg] [facility] 01-30-2023 17:40-0400 Mean blood pressure 80 mm[Hg] [facility] 01-30-2023 16:04-0400 Respiratory rate 18 /min [facility] 01-30-2023 16:00-0400 Heart rate 69 /min [facility] 01-30-2023 15:30-0400 Respiratory rate 35 /min [facility] 01-30-2023 15:00-0400 Respiratory rate 15 /min [facility] 01-30-2023 11:24-0400 Heart rate 89 /min [facility] 01-21-2023 10:56-0400 Blood Pressure Location Christa Amezquita [facility] 01-21-2023 10:56-0400 Body temperature 99.68 [degF] Christa Amezquita [facility] 01-21-2023 10:56-0400 Diastolic blood pressure 80 mm[Hg] Christa Amezquita [facility] 01-21-2023 10:56-0400 Heart rate 81 /min Christa Amezquita [facility] 01-21-2023 10:56-0400 Respiratory rate 22 /min Christa Amezquita [facility] 01-21-2023 10:56-0400 SaO2% (BldA) [Mass fraction] 97 % Christa Amezquita [facility] 01-21-2023 10:56-0400 Systolic blood pressure 130 mm[Hg] Christa Amezquita [facility] 01-08-2023 10:46-0500 Heart rate 83 /min Carolee Benson [facility] 01-08-2023 10:46-0500 Respiratory rate 16 /min Carolee Benson [facility] 01-08-2023 10:46-0500 SaO2% (BldA) [Mass fraction] 98 % Carolee Priestboske [facility] 01-08-2023 10:45-0500 Diastolic blood pressure 88 mm[Hg] Carolee Priestboske [facility] 01-08-2023 10:45-0500 Mean blood pressure 107 mm[Hg] Carolee Priestboske [facility] 01-08-2023 10:45-0500 Systolic blood pressure 144 mm[Hg] Carolee Priestboske [facility] 01-08-2023 10:00-0500 Body temperature 98.6 [degF] Carolee Priestboske [facility] 12-25-2022 11:26-0500 Heart rate 75 /min Carolee Priestboske [facility] 12-25-2022 11:26-0500 SaO2% (BldA) [Mass fraction] 98 % Carolee Demboske [facility] 12-25-2022 11:26-0500 Respiratory rate 18 /min Carolee Benson [facility] 12-25-2022 11:25-0500 Diastolic blood pressure 79 mm[Hg] Carolee Benson [facility] 12-25-2022 11:25-0500 Mean blood pressure 95 mm[Hg] Carolee Benson [facility] 12-25-2022 11:25-0500 Systolic blood pressure 125 mm[Hg] Carolee Benson [facility] 12-25-2022 11:00-0500 Body temperature 98.06 [degF] Carolee Benson [facility] 12-23-2022 12:05-0500 Heart rate 69 /min ISELA CLOAK [facility] 12-23-2022 12:05-0500 SaO2% (BldA) [Mass fraction] 96 % ISELA CLOAK [facility] 12-23-2022 12:05-0500 Respiratory rate 18 /min ISELA CLOAK [facility] 12-23-2022 12:04-0500 Body temperature 98.24 [degF] ISELA CLOAK [facility] 12-23-2022 12:04-0500 Diastolic blood pressure 85 mm[Hg] ISELA CLOAK [facility] 12-23-2022 12:04-0500 Mean blood pressure 99 mm[Hg] ISELA CLOAK [facility] 12-23-2022 12:04-0500 Systolic blood pressure 129 mm[Hg] ISELA CLOAK [facility] 12-17-2022 10:01-0500 Body temperature 97.8 [degF] MD Edouard Saucedo Work Phone: [facility] 12-17-2022 10:01-0500 Body weight 81.9 kg MD Edouard Saucedo Work Phone: [facility] 12-17-2022 10:01-0500 Diastolic blood pressure 89 mm[Hg] MD Edouard Saucedo Work Phone: [facility] 12-17-2022 10:01-0500 Heart rate 100 /min MD Edouard Saucedo Work Phone: [facility] 12-17-2022 10:01-0500 Respiratory rate 18 /min MD Edouard Saucedo Work Phone: [facility] 12-17-2022 10:01-0500 SaO2% (BldA) [Mass fraction] 98 % MD Edouard Saucedo Work Phone: [facility] 12-17-2022 10:01-0500 Systolic blood pressure 141 mm[Hg] MD Edouard Saucedo Work Phone: [facility] 12-16-2022 13:18-0500 Blood Pressure Location Mecca SAUCEDO [facility] 12-16-2022 13:18-0500 Diastolic blood pressure 82 mm[Hg] Mecca SAUCEDO [facility] 12-16-2022 13:18-0500 Heart rate 67 /min Mecca SAUCEDO [facility] 12-16-2022 13:18-0500 SaO2% (BldA) [Mass fraction] 97 % Mecca SAUCEDO [facility] 12-16-2022 13:18-0500 Systolic blood pressure 102 mm[Hg] Mecca SAUCEDO [facility] 12-12-2022 14:00-0500 Hourly Rounding Jose RACHANA [facility] 12-12-2022 14:00-0500 Promise to Return Jose RACHANA [facility] 12-12-2022 13:00-0500 Hourly Rounding Jose RACHANA [facility] 12-12-2022 13:00-0500 Promise to Return Jose RACHANA [facility] 12-12-2022 12:00-0500 Hourly Rounding Jose RACHANA [facility] 12-12-2022 12:00-0500 Promise to Return Jose RACHANA [facility] 12-12-2022 11:01-0500 Heart rate 85 /min Jose RACHANA [facility] 12-12-2022 11:01-0500 SaO2% (BldA) [Mass fraction] 97 % Jose RACHANA [facility] 12-12-2022 11:00-0500 Body temperature 97.7 [degF] Jose RACHANA [facility] 12-12-2022 11:00-0500 Diastolic blood pressure 78 mm[Hg] Jose RACHANA [facility] 12-12-2022 11:00-0500 Mean blood pressure 100 mm[Hg] Jose RACHANA [facility] 12-12-2022 11:00-0500 Systolic blood pressure 144 mm[Hg] Jose RACHANA [facility] 12-12-2022 07:28-0500 Heart rate 76 /min Jose RACHANA [facility] 12-12-2022 07:28-0500 SaO2% (BldA) [Mass fraction] 99 % Jose MACEDOSLIN [facility] 12-12-2022 07:27-0500 Body temperature 97.34 [degF] Jose MACEDOSLIN [facility] 12-12-2022 07:27-0500 Diastolic blood pressure 86 mm[Hg] Jose MACEDOSLIN [facility] 12-12-2022 07:27-0500 Mean blood pressure 99 mm[Hg] Jose MACEDOSLIN [facility] 12-12-2022 07:27-0500 Systolic blood pressure 127 mm[Hg] Jose REICH [facility] 12-12-2022 02:35-0500 Blood Pressure Location Jose REICH [facility] 12-12-2022 02:35-0500 Body temperature 97.52 [degF] Jose REICH [facility] 12-12-2022 02:35-0500 Diastolic blood pressure 65 mm[Hg] Jose MACEDOSLIN [facility] 12-12-2022 02:35-0500 Heart rate 69 /min Jose MACEDOSLIN [facility] 12-12-2022 02:35-0500 Mean blood pressure 78 mm[Hg] Jose MACEDOSLIN [facility] 12-12-2022 02:35-0500 Respiratory rate 18 /min Jose MACEDOSLIN [facility] 12-12-2022 02:35-0500 SaO2% (BldA) [Mass fraction] 95 % Jose MACEDOSLIN [facility] 12-12-2022 02:35-0500 Systolic blood pressure 103 mm[Hg] Joseoriana MACEDOSLIN [facility] 12-11-2022 19:51-0500 Heart rate 97 /min Joseoriana MACEDOSLIN [facility] 12-11-2022 19:49-0500 Body temperature 98.24 [degF] Joseoriana MACEDOSLIN [facility] 12-11-2022 19:49-0500 Mean blood pressure 88 mm[Hg] Joseoriana MACEDOSLIN [facility] 12-11-2022 16:00-0500 Body temperature 97.52 [degF] Joseoriana MACEDOSLIN [facility] 12-11-2022 12:00-0500 Blood Pressure Location Joseoriana MACEDOSLIN [facility] 12-11-2022 12:00-0500 Mean blood pressure 79 mm[Hg] Joseoriana MACEDOSLIN [facility] 12-11-2022 12:00-0500 Respiratory rate 18 /min Joseoriana MACEDOSLIN [facility] 12-11-2022 08:00-0500 Respiratory rate 16 /min Joseoriana MACEDOSLIN [facility] 12-11-2022 04:55-0500 Body temperature 98.42 [degF] Joseoriana MACEDOSLIN [facility] 12-11-2022 04:55-0500 Mean blood pressure 85 mm[Hg] Joseoriana MACEDOSLIN [facility] 12-10-2022 22:55-0500 Heart rate 83 /min Joseoriana MACEDOSLIN [facility] 12-10-2022 21:40-0500 Respiratory rate 15 /min Jose REICH [facility] 12-10-2022 20:53-0500 Respiratory rate 29 /min Jose REICH [facility] 12-10-2022 18:34-0500 Heart rate 99 /min Jose REICH [facility] 12-02-2022 11:18-0500 Diastolic blood pressure 82 mm[Hg] Christopher BROWN [facility] 12-02-2022 11:18-0500 Mean blood pressure 94 mm[Hg] Christopher BROWN [facility] 12-02-2022 11:18-0500 Systolic blood pressure 118 mm[Hg] Christopher BROWN [facility] 12-02-2022 10:54-0500 Blood Pressure Location Christopher BROWN [facility] 12-02-2022 10:54-0500 Diastolic blood pressure 82 mm[Hg] Christopher BROWN [facility] 12-02-2022 10:54-0500 Heart rate 83 /min Christopher BROWN [facility] 12-02-2022 10:54-0500 Respiratory rate 16 /min Christopher BROWN [facility] 12-02-2022 10:54-0500 SaO2% (BldA) [Mass fraction] 98 % Christopher BROWN [facility] 12-02-2022 10:54-0500 Systolic blood pressure 120 mm[Hg] Christopher BROWN [facility] [place] 11-20-2022 09:46-0500 Heart rate 84 /min Carolee Benson [facility] 11-20-2022 09:46-0500 SaO2% (BldA) [Mass fraction] 99 % Carolee Benson [facility] 11-20-2022 09:46-0500 Respiratory rate 16 /min Carolee Benson [facility] 11-20-2022 09:46-0500 Diastolic blood pressure 84 mm[Hg] Carolee Benson [facility] 11-20-2022 09:46-0500 Mean blood pressure 97 mm[Hg] Carolee Benson [facility] 11-20-2022 09:46-0500 Systolic blood pressure 124 mm[Hg] Carolee Benson [facility] 11-20-2022 09:00-0500 Body temperature 98.06 [degF] Carolee Benson [facility] 10-28-2022 11:35-0500 Heart rate 82 /min ISELA CLOAK [facility] 10-28-2022 11:35-0500 SaO2% (BldA) [Mass fraction] 98 % ISELA CLOAK [facility] 10-28-2022 11:35-0500 Diastolic blood pressure 69 mm[Hg] ISELA CLOAK [facility] 10-28-2022 11:35-0500 Mean blood pressure 84 mm[Hg] ISELA CLOAK [facility] 10-28-2022 11:35-0500 Systolic blood pressure 114 mm[Hg] ISELA CLOAK [facility] 10-28-2022 11:34-0500 Body temperature 98.42 [degF] ISELA WARE [facility] 10-09-2022 09:40-0500 Blood Pressure Location Joshuacresencio Eng [facility] 10-09-2022 09:40-0500 Body temperature 97.88 [degF] Joshua Eng [facility] 10-09-2022 09:40-0500 BP/Pulse Patient Position Joshuacresencio Eng [facility] 10-09-2022 09:40-0500 Diastolic blood pressure 91 mm[Hg] Joshua Eng [facility] 10-09-2022 09:40-0500 Heart rate 66 /[facility] 09:40-0500 Mean blood pressure 111 mm[Hg] [facility] 09:40-0500 Respiratory rate 20 /[facility] 10-09-2022 09:40-0500 SaO2% (BldA) [Mass fraction] 99 % [facility] Albertina [facility] 10-09-2022 09:40-0500 Systolic blood pressure 153 mm[Hg] [facility] 09-24-2022 10:12-0500 Body height 175.26 cm MD Edouard Saucedo Work Phone: [facility] 09-24-2022 10:12-0500 Body temperature 98.1 [degF] MD Edouard Saucedo Work Phone: [facility] 09-24-2022 10:12-0500 Diastolic blood pressure 87 mm[Hg] MD Edouard Saucedo Work Phone: [facility] 09-24-2022 10:12-0500 Heart rate 89 /min MD Edouard Saucedo Work Phone: [facility] 09-24-2022 10:12-0500 Respiratory rate 18 /min MD Edouard Saucedo Work Phone: [facility] 09-24-2022 10:12-0500 SaO2% (BldA) [Mass fraction] 98 % MD Edouard Saucedo Work Phone: [facility] 09-24-2022 10:12-0500 Systolic blood pressure 150 mm[Hg] MD Edouard Saucedo Work Phone: [facility] 09-11-2022 09:10-0400 Blood Pressure Location Carolee Benson [facility] 09-11-2022 09:10-0400 Body temperature 98.06 [degF] Carolee Benson [facility] 09-11-2022 09:10-0400 BP/Pulse Patient Position Carolee Benson [facility] 09-11-2022 09:10-0400 Diastolic blood pressure 85 mm[Hg] Carolee Benson [facility] 09-11-2022 09:10-0400 Heart rate 68 /min Carolee Benson [facility] 09-11-2022 09:10-0400 Mean blood pressure 98 mm[Hg] Carolee Benson [facility] 09-11-2022 09:10-0400 Respiratory rate 18 /min Carolee Benson [facility] 09-11-2022 09:10-0400 SaO2% (BldA) [Mass fraction] 100 % Carolee Guerrake [facility] 09-11-2022 09:10-0400 Systolic blood pressure 124 mm[Hg] Carolee Guerrake [facility] 08-21-2022 09:10-0400 Blood Pressure Location Carolee Guerrake [facility] 08-21-2022 09:10-0400 Body temperature 98.06 [degF] Carolee Benson [facility] 08-21-2022 09:10-0400 BP/Pulse Patient Position Carolee Benson [facility] 08-21-2022 09:10-0400 Diastolic blood pressure 77 mm[Hg] Carolee Benson [facility] 08-21-2022 09:10-0400 Heart rate 62 /min Carolee Benson [facility] 08-21-2022 09:10-0400 Mean blood pressure 94 mm[Hg] Carolee Benson [facility] 08-21-2022 09:10-0400 Respiratory rate 18 /min Carolee Benson [facility] 08-21-2022 09:10-0400 SaO2% (BldA) [Mass fraction] 99 % Carolee Benson [facility] 08-21-2022 09:10-0400 Systolic blood pressure 128 mm[Hg] Carolee Benson [facility] 07-30-2022 09:29-0400 Blood Pressure Location Joshua Eng [facility] 07-30-2022 09:29-0400 Body temperature 98.06 [degF] Joshua Buschdelmis [facility] 07-30-2022 09:29-0400 BP/Pulse Patient Position Joshua Albertina [facility] 07-30-2022 09:29-0400 Diastolic blood pressure 77 mm[Hg] Joshua Eng [facility] 07-30-2022 09:29-0400 Heart rate 70 /min Joshua Eng [facility] 07-30-2022 09:29-0400 Mean blood pressure 94 mm[Hg] [facility] 07-30-2022 09:29-0400 Respiratory rate 18 /min [facility]enc[facility] 07-30-2022 09:29-0400 SaO2% (BldA) [Mass fraction] 98 % [facility] 07-30-2022 09:29-0400 Systolic blood pressure 128 mm[Hg] [facility] 07-09-2022 09:38-0400 Blood Pressure Location [facility] 07-09-2022 09:38-0400 Body temperature 97.88 [degF] [facility] 07-09-2022 09:38-0400 BP/Pulse Patient Position [facility] 07-09-2022 09:38-0400 Diastolic blood pressure 66 mm[Hg] [facility] 07-09-2022 09:38-0400 Heart rate 62 /min [facility] 07-09-2022 09:38-0400 Mean blood pressure 84 mm[Hg] [facility] 07-09-2022 09:38-0400 Respiratory rate 16 /min [facility] 07-09-2022 09:38-0400 SaO2% (BldA) [Mass fraction] 100 % [facility] 07-09-2022 09:38-0400 Systolic blood pressure 120 mm[Hg] [facility] 06-18-2022 10:00-0400 Blood Pressure Location [facility] 06-18-2022 10:00-0400 Body temperature 98.24 [degF] [facility] 06-18-2022 10:00-0400 BP/Pulse Patient Position [facility] 06-18-2022 10:00-0400 Diastolic blood pressure 76 mm[Hg] [facility] 06-18-2022 10:00-0400 Heart rate 67 /min Joshuacresencio Eng [facility] 06-18-2022 10:00-0400 Mean blood pressure 91 mm[Hg] Joshua Eng [facility] 06-18-2022 10:00-0400 Respiratory rate 17 /min Joshuacresencio Eng [facility] 06-18-2022 10:00-0400 SaO2% (BldA) [Mass fraction] 98 % Joshuacresencio Eng [facility] 06-18-2022 10:00-0400 Systolic blood pressure 121 mm[Hg] Joshua Eng [facility] 06-03-2022 09:16-0400 Blood Pressure Location ISELA CLOAK [facility] 06-03-2022 09:16-0400 Body temperature 98.24 [degF] ISELA CLOAK [facility] 06-03-2022 09:16-0400 Diastolic blood pressure 71 mm[Hg] ISELA CLOAK [facility] 06-03-2022 09:16-0400 Heart rate 69 /min ISELA CLOAK [facility] 06-03-2022 09:16-0400 Mean blood pressure 90 mm[Hg] ISELA CLOAK [facility] 06-03-2022 09:16-0400 Respiratory rate 16 /min ISELA CLOAK [facility] 06-03-2022 09:16-0400 SaO2% (BldA) [Mass fraction] 96 % ISELA CLOAK [facility] 06-03-2022 09:16-0400 Systolic blood pressure 129 mm[Hg] ISELA CLOAK [facility] 05-29-2022 14:56-0400 Body temperature 98.06 [degF] Joshua Eng [facility] 05-29-2022 14:56-0400 Diastolic blood pressure 76 mm[Hg] Joshua Eng [facility] 05-29-2022 14:56-0400 Heart rate 72 /min Joshuacresencio Eng [facility] 05-29-2022 14:56-0400 Mean blood pressure 92 mm[Hg] Joshua Eng [facility] 05-29-2022 14:56-0400 SaO2% (BldA) [Mass fraction] 94 % Joshuacresencio Eng [facility] 05-29-2022 14:56-0400 Systolic blood pressure 124 mm[Hg] Joshuacresencio Eng [facility] 05-29-2022 14:00-0400 Blood Pressure Location Joshuacresencio Eng [facility] 05-29-2022 14:00-0400 Respiratory rate 16 /min [facility] Albertina [facility] 05-21-2022 12:27-0400 Blood Pressure Location Mecca SAUCEDO [facility] 05-21-2022 12:27-0400 Body temperature 98.06 [degF] Christtanisha SAUECDO [facility] 05-21-2022 12:27-0400 Diastolic blood pressure 71 mm[Hg] Christtrinher BROWN [facility] 05-21-2022 12:27-0400 Heart rate 72 /min Christtrinher BROWN [facility] 05-21-2022 12:27-0400 Mean blood pressure 93 mm[Hg] Christopher BROWN [facility] 05-21-2022 12:27-0400 Respiratory rate 20 /min Christopher BROWN [facility] 05-21-2022 12:27-0400 SaO2% (BldA) [Mass fraction] 97 % Christtanisha BROWN [facility] 05-21-2022 12:27-0400 Systolic blood pressure 137 mm[Hg] Christopher BROWN [facility] 05-21-2022 11:50-0400 Blood Pressure Location Christopher BROWN [facility] 05-21-2022 11:50-0400 Diastolic blood pressure 77 mm[Hg] Christopher BROWN [facility] 05-21-2022 11:50-0400 Heart rate 73 /min Christopher BROWN [facility] 05-21-2022 11:50-0400 Respiratory rate 22 /min Christopher BROWN [facility] 05-21-2022 11:50-0400 SaO2% (BldA) [Mass fraction] 95 % Christopher BROWN [facility] 05-21-2022 11:50-0400 Systolic blood pressure 136 mm[Hg] Christopher BROWN [facility] 05-21-2022 11:20-0400 SaO2% (BldA) [Mass fraction] 98 % Christopher BROWN [facility] 05-21-2022 10:50-0400 Blood Pressure Location Christopher BROWN [facility] 05-21-2022 10:50-0400 Body temperature 98.06 [degF] Christopher BROWN [facility] 05-21-2022 10:50-0400 Diastolic blood pressure 77 mm[Hg] Christopher BROWN [facility] 05-21-2022 10:50-0400 Heart rate 68 /min Christopher BROWN [facility] 05-21-2022 10:50-0400 Respiratory rate 20 /min Christopher BROWN [facility] 05-21-2022 10:50-0400 Systolic blood pressure 119 mm[Hg] Christopher BROWN [facility] 05-21-2022 08:20-0400 Body temperature 98.06 [degF] Christopher BROWN [facility] 05-21-2022 08:20-0400 Mean blood pressure 100 mm[Hg] Christopher BROWN [facility] 05-21-2022 08:20-0400 Heart rate 75 /min Christopher BROWN [facility] 02-04-2022 15:04-0400 Diastolic blood pressure 78 mm[Hg] Christopher BROWN [facility] [place] 02-04-2022 15:04-0400 Mean blood pressure 91 mm[Hg] Christopher BROWN [facility] [place] 02-04-2022 15:04-0400 Systolic blood pressure 118 mm[Hg] Christopher BROWN [facility] [place] 02-04-2022 14:35-0400 Blood Pressure Location Christopher BROWN [facility] [place] 02-04-2022 14:35-0400 Body temperature 97.16 [degF] Christopher BROWN [facility] [place] 02-04-2022 14:35-0400 Diastolic blood pressure 70 mm[Hg] Christopher BROWN [facility] [place] 02-04-2022 14:35-0400 Heart rate 82 /min Mecca SAUCEDO [facility] [place] 02-04-2022 14:35-0400 Respiratory rate 16 /min Mecca SAUCEDO [facility] [place] 02-04-2022 14:35-0400 SaO2% (BldA) [Mass fraction] 97 % Mecca SAUCEDO [facility] [place] 02-04-2022 14:35-0400 Systolic blood pressure 152 mm[Hg] Mecca SAUCEDO [facility] [place] 09-05-2020 07:30-0400 BP Diastolic 72 mm[Hg] Miguel [facility] [place] 09-05-2020 07:30-0400 BP Systolic 121 mm[Hg] Miguel [facility] [place] 09-05-2020 07:30-0400 Pulse (Heart Rate) 72 /min Miguel Bolden [employer] [place] 09-05-2020 07:30-0400 Pulse Oximetry 97 % Miguel Bolden [email or web address] 09-05-2020 07:30-0400 Respiratory Rate 16 /min Miguel Bold[email or web address] 09-05-2020 06:59-0400 Body Temperature 97.81 [degF] Miguel [facility] 09-05-2020 06:17-0400 BMI (Body Mass Index) 27.37 kg/m2 Miguel [facility] [place] 09-05-2020 06:17-0400 Body weight 81.65 kg Miguel Bolden [employer] [place], [place] 09-05-2020 06:17-0400 Height 172.7 cm Miguel Bolden [employer] [place] Encounters Encounter Date Encounter Type Care Provider Facility Start: 07-27-2024 End: 07-27-2024 ambulatory Joshuacresencio Gamboamaddy Facility:[facility] Start: 07-25-2024 End: 07-25-2024 ambulatory Joshuacresencio Gamboamaddy Facility:[facility] Start: 07-22-2024 End: 07-22-2024 ambulatory Joshua Albertina Facility:[facility] Start: 06-17-2024 End: 06-17-2024 ambulatory Tommycachorro SAUCEDO Facility:[facility] Start: 06-17-2024 End: 06-17-2024 Patient encounter procedure Mecca SAUCEDO [facility] Start: 06-07-2024 End: 06-07-2024 ambulatory Mecca SAUCEDO Facility: [place] Start: 06-07-2024 End: 06-07-2024 Patient encounter procedure Mecca SAUCEDO [facility] [place] Start: 04-18-2024 End: 04-18-2024 ambulatory Damion Bazan MD Facility:[facility] Start: 03-01-2024 ambulatory WANDA Crowley ty:EU Dasha Start: 02-26-2024 End: 02-27-2024 [facility] Start: 02-25-2024 End: 02-25-2024 ambulatory Mecca SAUCEDO Facility: [place] Start: 02-25-2024 End: 02-25-2024 Encounter for general adult medical examination with abnormal findings Mecca SAUCEDO [facility] [place] Start: 02-25-2024 End: 02-25-2024 Patient encounter procedure Mecca SAUCEDO [facility] [place] Start: 01-21-2024 End: 01-21-2024 ambulatory Joshua Eng Facility:[facility] Start: 01-21-2024 End: 01-21-2024 Patient encounter procedure Joshua Eng [facility] Start: 01-11-2024 End: 01-11-2024 ambulatory Joshua Eng Facility:[facility] Start: 01-11-2024 End: 01-11-2024 Patient encounter procedure Johntanisha SHERYL [facility] Start: 01-06-2024 End: 04-05-2024 ambulatory Joshua Eng Facility:[facility] Start: 01-06-2024 End: 04-05-2024 Recurring Joshua Eng [facility] Start: 12-18-2023 End: 12-18-2023 ambulatory Mecca SAUCEDO Facility: [place] Start: 12-18-2023 End: 12-18-2023 Patient encounter procedure Mecca SAUCEDO [facility] [place] Start: 12-07-2023 End: 12-07-2023 Lab Drop off Tommycachorro SHERYL [facility] Start: 12-07-2023 End: 12-07-2023 ambulatory Mecca SAUCEDO Facility:[facility] Start: 11-30-2023 End: 11-30-2023 ambulatory Dina Little Facility: [place] Start: 11-03-2023 End: 11-03-2023 ambulatory Dina MMary Kate Gutiérreze Facility:[facility] Start: 10-28-2023 End: 10-28-2023 ambulatory Dina MMary Kate Gutiérreze Facility:[facility] Start: 10-28-2023 End: 10-28-2023 Patient encounter procedure Dina Little [facility] Start: 10-19-2023 End: 10-19-2023 ambulatory Dina Little Facility:[facility] Start: 09-09-2023 End: 09-09-2023 ambulatory Joshua Eng Facility:[facility] Start: 09-09-2023 End: 09-09-2023 Patient encounter procedure Joshua Eng [facility] Start: 09-08-2023 End: 09-08-2023 ambulatory Joshua Eng Facility:[facility] Start: 09-04-2023 End: 09-04-2023 ambulatory Joshua Eng Facility:[facility] Start: 09-04-2023 End: 09-04-2023 Patient encounter procedure Joshua Eng [facility] Start: 09-02-2023 End: 12-01-2023 ambulatory Joshua Eng Facility:[facility] Start: 09-02-2023 End: 12-01-2023 Recurring Joshua Eng [facility] Start: 08-25-2023 End: 08-25-2023 ambulatory Mecca SAUCEDO Facility:[facility] Start: 08-25-2023 End: 08-25-2023 Patient encounter procedure WANDA PEÑA [facility] Start: 05-25-2023 End: 05-25-2023 Patient encounter procedure Joshuacresencio Eng [facility] Start: 04-13-2023 End: 04-13-2023 Lab Drop off Mecca SAUCEDO [facility] Start: 04-13-2023 End: 04-13-2023 Patient encounter procedure Mecca SAUCEDO [facility] [place] Start: 04-09-2023 End: 04-09-2023 Patient encounter procedure Joshuacresencio Eng [facility] Start: 04-07-2023 End: 04-07-2023 Patient encounter procedure ISELA WARE [facility] Start: 04-01-2023 End: 06-30-2023 Recurring Joshua Eng [facility] Start: 03-06-2023 End: 03-06-2023 Patient encounter procedure Joshua Eng [facility] Start: 02-20-2023 End: 02-20-2023 Patient encounter procedure Trini Moreno [facility] Start: 02-09-2023 End: 02-09-2023 Patient encounter procedure Mecca SHERYL [facility] Start: 02-05-2023 End: 02-05-2023 Patient encounter procedure Joshua Eng [facility] Start: 02-03-2023 End: 02-03-2023 Patient encounter procedure Trini Moreno [facility] Start: 01-30-2023 End: 01-31-2023 Observation Balbir LUND [facility] Start: 01-21-2023 End: 01-24-2023 ambulatory CHRISTA AMEZQUITA [facility] Start: 01-21-2023 End: 01-23-2023 Subsequent hospital visit by physician [facility] Additional Xray At [facility] Radiology Comment on above: Fever, unspecified f ever cause Start: 01-21-2023 End: 01-21-2023 Patient encounter procedure Christa Amezquita [facility] Start: 01-08-2023 End: 01-08-2023 Patient encounter procedure Carolee Bundy Marcelino [facility] Start: 12-25-2022 End: 12-25-2022 Patient encounter procedure Carolee Benson [facility] Start: 12-23-2022 End: 12-23-2022 Patient encounter procedure ISELA Hagen YAMILETHAMITA [facility] Start: 12-17-2022 End: 12-18-2022 ambulatory MD Edouard Saucedo Work Phone: [facility] Work Phone: Start: 12-17-2022 End: 12-17-2022 Registered Recurring MD Edouard Saucedo Work Phone: [facility] Work Phone: Start: 12-16-2022 End: 12-16-2022 Patient encounter procedure Mecca SAUCEDO [facility] [place] Start: 12-11-2022 End: 12-12-2022 Pre-admission assessment Carolee Benson [facility] Start: 12-10-2022 End: 12-12-2022 Evaluation and management of inpatient Jose REICH [facility] Start: 12-02-2022 End: 12-02-2022 Lab Drop off Mecca SAUCEDO [facility] Start: 12-02-2022 End: 12-02-2022 Encounter for general adult medical examination with abnormal findings Mecca SAUCEDO [facility] [place] Start: 12-02-2022 End: 12-02-2022 Patient encounter procedure Mecca SAUCEDO [facility] [place] Start: 11-20-2022 End: 11-20-2022 Patient encounter procedure Carolee Priestalyssanavarro [facility] Start: 11-04-2022 End: 11-04-2022 ambulatory MD Edouard Saucedo Work Phone: [facility] Work Phone: Start: 11-04-2022 End: 11-04-2022 Registered Recurring MD Edouard Saucedo Work Phone: [facility] Work Phone: Start: 11-03-2022 End: 11-03-2022 Patient encounter procedure ISELA Hagen CLOAK [facility] Start: 10-28-2022 End: 10-28-2022 Patient encounter procedure ISELA Hagen CLOAK [facility] Start: 10-09-2022 End: 10-09-2022 Patient encounter procedure Joshua Eng [facility] Start: 09-11-2022 End: 09-11-2022 Patient encounter procedure ISELA Hagen CLOAK [facility] Start: 09-11-2022 End: 09-11-2022 Patient encounter procedure Carolee Benson [facility] Start: 09-06-2022 End: 12-05-2022 Recurring Joshua Eng [facility] Start: 08-21-2022 End: 08-21-2022 Patient encounter procedure Carolee Benson [facility] Start: 07-30-2022 End: 07-30-2022 Patient encounter procedure ISELA WARE [facility] Start: 07-30-2022 End: 07-30-2022 Patient encounter procedure Joshua Eng [facility] Start: 07-09-2022 End: 07-09-2022 Patient encounter procedure Joshua Eng [facility] Start: 06-27-2022 End: 06-27-2022 Patient encounter procedure RAVI LAGUNAS [facility] Start: 06-27-2022 End: 04-06-2023 Recurring Joshua Eng [facility] Start: 06-26-2022 End: 06-26-2022 Patient encounter procedure ISELA Hieu ROBBIE [facility] Start: 06-18-2022 End: 06-26-2022 Pre-admission assessment Joshua Eng [facility] Start: 06-18-2022 End: 06-18-2022 Patient encounter procedure Joshua Eng [facility] Start: 06-17-2022 End: 06-17-2022 Patient encounter procedure Joshua Eng [facility] Start: 06-04-2022 End: 06-04-2022 Patient encounter procedure Joshua Eng [facility] Start: 06-03-2022 End: 06-03-2022 Patient encounter procedure Joshua Eng [facility] Start: 06-03-2022 End: 06-03-2022 Patient encounter procedure ISELA WARE [facility] Start: 05-31-2022 End: 08-29-2022 Recurring Joshua Eng [facility] Start: 05-29-2022 End: 05-29-2022 Patient encounter procedure Joshua Eng [facility] Start: 05-21-2022 End: 05-21-2022 Admission to same day surgery center Mecca SAUCEDO [facility] Start: 05-20-2022 End: 08-18-2022 Recurring Mecca SAUCEDO [facility] Start: 05-17-2022 End: 05-17-2022 Patient encounter procedure Mecca SAUCEDO [facility] Start: 05-08-2022 End: 05-08-2022 Off-Site Mecca SAUCEDO [facility] Start: 05-06-2022 End: 05-06-2022 Patient encounter procedure Mecca SAUCEDO [facility] Start: 04-24-2022 End: 04-24-2022 Lab Drop off Mecca SAUCEDO [facility] Start: 04-04-2022 End: 04-05-2022 ambulatory MECCA [facility]O [facility] Start: 04-01-2022 End: 04-02-2022 ambulatory MECCA [facility] Start: 04-01-2022 End: 04-01-2022 Subsequent hospital visit by physician Sary Schuster OT [facility] Comment on above: Arrived Start: 03-31-2022 End: 04-01-2022 ambulatory MECCA [facility] Start: 03-31-2022 End: 03-31-2022 Subsequent hospital visit by physician Jessica LONDON Work Phone: [facility] Comment on above: Arrived Start: 03-27-2022 End: 03-28-2022 ambulatory [facility] Start: 03-27-2022 End: 03-27-2022 Subsequent hospital visit by physician Jessica LONDON Work Phone: [facility] Comment on above: Arrived Start: 03-26-2022 End: 03-27-2022 ambulatory MECCA [facility] Start: 03-26-2022 End: 03-26-2022 Subsequent hospital visit by physician Sary Schuster OT [facility] Comment on above: Arrived Start: 03-24-2022 End: 03-24-2022 Subsequent hospital visit by physician Sary Schuster OT [facility] Start: 03-20-2022 End: 03-21-2022 ambulatory MECCA [facility] Start: 03-20-2022 End: 03-20-2022 Subsequent hospital visit by physician Jessica LONDON Work Phone: [facility] Comment on above: Arrived Start: 03-19-2022 End: 03-20-2022 ambulatory MECCA [facility] Start: 03-19-2022 End: 03-19-2022 Subsequent hospital visit by physician Sary Schuster OT [facility] Comment on above: Arrived Start: 03-17-2022 End: 03-18-2022 ambulatory [facility]CCA [facility] Start: 03-17-2022 End: 03-17-2022 Subsequent hospital visit by physician Sary Schuster OT [facility] Comment on above: Arrived Start: 03-13-2022 End: 03-14-2022 ambulatory [facility]CCA [facility] Start: 03-13-2022 End: 03-13-2022 Subsequent hospital visit by physician Jessica LONDON Work Phone: [facility] Comment on above: Arrived Start: [facility]-11-2022 [facility] Start: 03-06-2022 End: 03-06-2022 Subsequent hospital visit by physician Jessica LONDON Work Phone: [facility] Start: 03-04-2022 End: 03-05-2022 ambulatory [facility]CCA [facility] Start: 03-04-2022 End: 03-04-2022 Subsequent hospital visit by physician Sary Schuster OT [facility] Comment on above: Arrived Start: 02-27-2022 End: 02-28-2022 ambulatory WU GASPARERLY Facility:[facility] Start: 02-04-2022 End: 02-04-2022 Patient encounter procedure Johntanisha SAUCEDO [facility] Start: 01-29-2022 Encounter for preprocedural laboratory examination DR DUNG CHAVIS [facility] Start: 01-28-2022 End: 01-28-2022 ambulatory WU TIMOTHY Facility:[facility] Start: 01-25-2022 End: 01-26-2022 ambulatory WU TIMOTHY Facility:[facility] Start: 01-25-2022 End: 01-26-2022 Encounter for preprocedural laboratory examination WU AGUIRRE Facility:[facility] Start: 01-01-2022 End: 01-02-[address] DUNG CHAVIS Facility:[facility] Start: 08-28-2021 End: 08-28-2021 Subsequent hospital visit by physician Andre Covid19 Pat Screening Schedule [facility] Comment on above: Arrived Start: 07-17-2021 End: 07-17-2021 Subsequent hospital visit by physician [facility] Zander Pat Screening Schedule [facility] PRE ADMIT Comment on above: Arrived Start: 07-16-2021 End: 07-18-2021 Subsequent hospital visit by physician Mecca Saucedo MD Work Phone: [facility] Start: 07-10-2021 End: 07-12-2021 Subsequent hospital visit by physician [facility] Additional Xray At [facility] Radiology Comment on above: Trigger ring finger of right hand Pain of left hand Start: 07-10-2021 End: 07-12-2021 Subsequent hospital visit by physician Mecca Saucedo MD Work Phone: [facility] Radiology Start: 09-05-2020 End: 09-05-2020 Subsequent hospital visit by physician Miguel Bolden Other Phone: [facility] OR Start: 09-05-2020 End: 09-05-2020 Subsequent hospital visit by physician [facility] Evelyn19 Pat Screening Schedule [facility] PRE ADMIT Comment on above: Arrived Start: 08-27-2020 End: 08-29-2020 Subsequent hospital visit by physician [facility] Pat [facility] RES[facility] Comment on above: Arrived Trigger finger of le ft thumb Procedures Date Procedure Procedure Detail Performing Clinician Start: 11-03-2023 Transurethral cystoscopy Joshua Eng Start: 01-21-2023 Radiologic exam ches t 2 views Christa Amezquita Work Phone: Start: 11-13-2022 MRI of head MD Edouard rosas Work Phone: Start: 05-21-2022 CT guided biopsy of lung Mecca SAUCEDO Start: 07-16-2021 Basic metabolic pane l calcium total Miguel Bolden DO Work Phone: Start: 07-16-2021 Ecg routine ecg w/le ast 12 lds w/i&r Miguel Bolden DO Work Phone: Start: 07-10-2021 Radex hand minimum 3 views Miguel Bolden DO Work Phone: Start: 07-10-2021 Radex hand minimum 3 views Miguel Bolden DO Work Phone: Start: 09-05-2020 COVID-19 Mik wagner Work Phone: Start: 08-27-2020 Radiologic exam ches t 2 views Miguel Kevin Bolden Other Phone: Start: 08-27-2020 Basic metabolic pane l calcium total Miguel Kevin Bolden Other Phone: Start: 08-27-2020 Blood count complete automated Miguel Kevin Bolden Other Phone: bilat carpal tunnel release Mecca SAUCEDO Bilateral extraction of cataracts Mecca SAUCEDO cervical fusion Mecca SAUCEDO Hernia repair Mecca VELASQUEZ lumbar fusion x 2 Viktor SAUCEDO nerve surgery R arm Isabelle SAUCEDO partial thyroidectomy John SAUCEDO Pulmonary embolism (disorder) Joshua Eng trigger finger surgery Edouard SAUCEDO Plan of Treatment Date Care Activity Detail Author Start: 12-08-2024 ambulatory Ambulatory Facility:[facility] Start: 07-16-2022 Creatinine measurement [facility] Start: 07-16-2022 Potassium [Moles/volume] in Serum or Plasma Potassium [facility] Start: 07-16-2022 Potassium monitoring Potassium monit [facility] Work Phone: Start: 06-09-2022 Influenza vaccination Flu vaccine (# 1) [facility] Start: 04-04-2022 End: 04-04-2022 Patient encounter procedure 04/04/2022 Appointment Occupational Therapy Jessica Higgins OTA [address] [place] [address] [facility] Start: 04-02-2022 End: 04-02-2022 Patient encounter procedure 04/02/2022 Appointment Occupational Therapy Jessica Higgins OTA [address] [place] [address] [facility] Start: 04-01-2022 End: 04-01-2022 Patient encounter procedure 04/01/2022 Appointment Occupational Therapy Sary Schuster OT [facility] Start: 03-31-2022 End: 03-31-2022 Patient encounter procedure 03/31/2022 Appointment Occupational Therapy Jessica Higgins OTA [address] [place] [address] [facility] Start: 03-27-2022 End: 03-27-2022 Patient encounter procedure 03/27/2022 Appointment Occupational Therapy Jessica Higgins OTA [address] [place] [address] [facility] Start: 03-26-2022 Subsequent hospital visit by physician 03/26/2022 Hospital Encounter Occupational Therapy Sary Schuster OT [facility] Start: 03-24-2022 End: 03-24-2022 Patient encounter procedure 03/24/2022 Appointment Occupational Therapy Sary Schuster OT [facility] Start: 03-20-2022 End: 03-20-2022 Patient encounter procedure 03/20/2022 Appointment Occupational Therapy Jessica Higgins OTA [address] [place] [address] [facility] Start: 03-19-2022 End: 03-19-2022 Patient encounter procedure 03/19/2022 Appointment Occupational Therapy Sary Schuster OT [facility] Start: 03-17-2022 End: 03-17-2022 Patient encounter procedure 03/17/2022 Appointment Occupational Therapy Sary Schuster OT [facility] Start: 03-13-2022 End: 03-13-2022 Patient encounter procedure 03/13/2022 Appointment Occupational Therapy Jessica Higgins OTA [address] [place] [address] [facility] Start: 03-12-2022 End: 03-12-2022 Patient encounter procedure 03/12/2022 Appointment Occupational Therapy Sary Schuster OT [facility] Start: 03-06-2022 End: 03-06-2022 Patient encounter procedure 03/06/2022 Appointment Occupational Therapy Jessica Higgins, LITA [address] [place] [address] [facility] Start: 08-27-2021 Creatinine measurement Creatinine mo [place], [place] Start: 08-27-2021 Potassium monitoring Potassium monit [place], [place] Start: 07-17-2021 End: 07-17-2021 Patient encounter procedure 07/17/2021 Appointment Pre-Admission Testing [facility] PRE [facility]MIT Start: 07-10-2021 Influenza vaccination Flu vaccine (# 1) [facility] Work Phone: Start: 04-13-2021 Shingles Vaccine (3 of 3) Shingles Vaccine (3 of 3) [facility] Start: 11-29-2020 Pneumococcal 65+ yea rs Vaccine (#3) Pneumococcal 65+ years Vaccine (#3) [facility] Start: 11-29-2020 Pneumococcal 65+ yea rs Vaccine (2 - PPSV23 or PCV20) Pneumococcal 65+ years Vaccine (2 - PPSV23 or PCV20) [facility] Start: 09-05-2020 End: 09-05-2020 Appointment [facility] PRE ADMIT Comment on above: LEFT THUMB TRIGGER R ELEASE Start: 07-10-2020 Influenza vaccination Flu vaccine (# 1) [place], [place] Start: 09-22-2019 Creatinine measurement Creatinine mo [place] Start: 09-22-2019 Potassium monitoring Potassium monit [place], [place] Start: 2018 Abdominal aortic aneurysm screening AAA screen [facility] Start: 2018 Pneumococcal 65+ yea rs Vaccine (1 of 1 - PPSV23) Pneumococcal 65+ years Vaccine (1 of 1 - PPSV23) [place] Start: 2018 Pneumococcal 65+ yea rs Vaccine (2 of 2 - PPSV23) Pneumococcal 65+ years Vaccine (2 of 2 - PPSV23) [facility] Work Phone: Start: 2003 Screening for malign ant neoplasm of colon Colon cancer screen colonoscopy [place], [place] Start: 2003 Shingles Vaccine (1 of 2) Shingles Vaccine (1 of 2) [place] Start: 1998 Screening for malign ant neoplasm of colon [facility] Start: 1993 Diabetes screen Diabetes screen [place], [place] Start: 1993 Lipid panel [facility] Start: 1993 Prostate specific antigen measurement Prostate Specific Antigen (PSA) Screening or Monitoring [facility] Start: 1972 DTaP/Tdap/Td vaccine (1 - Tdap) DTaP/Tdap/Td vaccine (1 - Tdap) [facility] Start: 1971 Hepatitis C screening Hepatitis C [facility] Start: 1965 COVID-19 Vaccine (1) COVID-19 Vaccin e (1) [facility] [employer] Phone: Start: 1965 Depression Screen Depression Screen [facility] Start: 1958 COVID-19 Vaccine (1) COVID-19 Vaccin e (1) [facility] Start: 1953 COVID-19 Vaccine (#1) COVID-19 Vacci ne (#1) [facility] Start: 1953 Abdominal aortic aneurysm screening AAA screen [place], [place] Start: 1953 Hepatitis C screening Hepatitis C [place], [place] Computed tomography for radiotherapy planning [facility] End: 08-28-2021 COVID-19 COVID-19 Lab Routine Once for 1 Occurrences starting 08/28/2021 until 08/28/2021 [facility] [employer] Phone: Comment on above: Once for 1 Occurrenc es starting 08/28/2021 until 08/28/2021 COVID-19 COVID-19 Lab Rou nia 08/28/2021 1:10 PM EDT [facility] [employer] Phone: CT Abdomen and Pelvi s W contrast IV [facility] CT Chest W contrast IV [facility] EKG [address] [facility] [place], [place] MR Unspecified body region [facility] Oxygen therapy [Mini [facility] Data Set] Initiate Oxygen Therapy Protocol Respiratory Care Routine Daily until discontinued starting 09/05/2020 [email or web address], [place] Comment on above: Daily until disconti nued starting 09/05/2020 End: 07-17-2021 Respiratory Panel, Molecular, with COVID-19 (Restricted: peds pts or suitable admitted adults) Respiratory Panel, Molecular, with COVID-19 (Restricted: peds pts or suitable admitted adults) Microbiology Routine Once for 1 Occurrences starting 07/17/2021 until 07/17/2021 [email or web address] Work Phone: Comment on above: Once for 1 Occurrenc es starting 07/17/2021 until 07/17/2021 Respiratory Panel, Molecular, with COVID-19 (Restricted: peds pts or suitable admitted adults) Respiratory Panel, Molecular, with COVID-19 (Restricted: peds pts or suitable admitted adults) Microbiology Routine 07/17/2021 1:23 PM EDT [email or web address] Work Phone: [facility] Immunizations Immunization Date Immunization Notes Care Provider Fa cility 03-09-2024 tetanus toxoid, redu melissa diphtheria toxoid, and acellular pertussis vaccine, adsorbed Mecca SAUCEDO [facility] 06-01-2023 Pneumococcal conjuga te PCV20, polysaccharide [id number] conjugate, adjuvant, PF Joshua Eng [facility] 10-21-2021 influenza, high dose seasonal, preservative-free Mecca SAUCEDO [facility] 02-16-2021 zoster vaccine recombinant Mecca SAUCEDO [facility] 11-29-2019 pneumococcal conjuga te vaccine, 13 valent Mecca SAUCEDO [facility] 04-30-2015 zoster vaccine, live Marcel SAUCEDO [facility] 09-11-2008 pneumococcal polysaccharide vaccine, 23 valent Mecca SAUCEDO [facility] 09-09-2006 hepatitis B vaccine, adult dosage Mecca SAUCEDO [facility] [place] 02-26-2006 hepatitis B vaccine, adult dosage Mecca SAUCEDO [facility] 09-16-2005 hepatitis B vaccine, adult dosage Mecca SAUCEDO [facility] 09-09-2005 hepatitis B vaccine, adult dosage Mecca SAUCEDO [facility] [place] 08-12-2005 hepatitis B vaccine, adult dosage Mecca SAUCEDO [facility] NEGATED: Highlighted row has not occurred!12-18-2023 influenza virus vaccine, unspecified formulation Mecca SAUCEDO [facility] NEGATED: Highlighted row has not occurred!12-07-2023 influenza virus vaccine, unspecified formulation Mecca SAUCEDO [facility] NEGATED: Highlighted row has not occurred!06-01-2023 SARS-CoV-2 mRNA (tozinameran 5y-11y) vaccine Joshua Albertina [facility] [place] NEGATED: Highlighted row has not occurred!04-13-2023 SARS-CoV-2 mRNA (tozinameran 5y-11y) vaccine Mecca SAUCEDO [facility] NEGATED: Highlighted row has not occurred!02-09-2023 influenza virus vaccine, unspecified formulation Mecca SAUCEDO [facility] [place] NEGATED: Highlighted row has not occurred!02-09-2023 SARS-CoV-2 mRNA (tozinameran 5y-11y) vaccine Johntanisha SAUCEDO [facility] NEGATED: Highlighted row has not occurred!01-26-2023 influenza virus vaccine, unspecified formulation Balbir SWANSONEMANUEL [facility] NEGATED: Highlighted row has not occurred!01-26-2023 SARS-CoV-2 mRNA (tozinameran 5y-11y) vaccine [facility] NEGATED: Highlighted row has not occurred!01-21-2023 influenza virus vaccine, unspecified formulation Christa Amezquita [facility] NEGATED: Highlighted row has not occurred!12-02-2022 influenza virus vaccine, unspecified formulation Johntanisha SAUCEDO [facility] NEGATED: Highlighted row has not occurred!12-02-2022 SARS-CoV-2 mRNA (tozinameran 5y-11y) vaccine [facility]: Highlighted row has not occurred!05-08-2022 SARS-CoV-2 mRNA (tozinameran 5y-11y) vaccine Johntrinhcachorro SAUCEDO [facility] NEGATED: Highlighted row has not occurred!04-24-2022 SARS-CoV-2 mRNA (tozinameran 5y-11y) vaccine Johntanisha SHERYL [facility] NEGATED: Highlighted row has not occurred!02-04-2022 SARS-CoV-2 (COVID-19) Ad26 vaccine, recombinant [facility]: Highlighted row has not occurred!10-21-2021 SARS-CoV-2 (COVID-19) Ad26 vaccine, recombinant [employer] Mobento [facility] NEGATED: Highlighted row has not occurred!10-21-2021 influenza virus vaccine, unspecified formulation Mecca Mobento [facility] Comment on above: Result Comment: w NEGATED: Highlighted row has not occurred!10-23-2020 influenza virus vaccine, unspecified formulation Mecca Mobento [facility] NEGATED: Highlighted row has not occurred!11-29-2019 influenza virus vaccine, live, attenuated, for intranasal use Mecca Mobento [facility] Payers Date Payer Category Payer Self-pay 2018 Unknown [id number] 1983 Worker's Compensation 1959 Unknown [id number] 1959 Unknown [id number] 1953 Unknown [id number] 2.16.840.1.798795.3.579.2.593 1953 Unknown [id number] 2.16.840.1.882004.3.579.2.593 1953 Unknown [id number] 2.16.840.1.158845.3.579.2.593 1953 Unknown [id number] 2.16.840.1.826979.3.579.2.593 1953 Unknown [id number] 2.16.840.1.536041.3.579.2.174 1953 Unknown [id number] 2.16.840.1.082326.3.579.2.174 1953 Unknown [id number] 2.16.840.1.808417.3.579.2.174 1953 Unknown [id number] 2.16.840.1.762052.3.579.2.174 1953 Unknown [id number] 2.16.840.1.435083.3.579.2.174 1953 Unknown [id number] 2.16.840.1.865700.3.579.2.174 1953 Unknown [id number] 2.16.840.1.956064.3.579.2.174 1953 Unknown [id number] 2.16.840.1.103264.3.579.2.174 1953 Unknown [id number] 2.16.840.1.537465.3.579.2.174 1953 Unknown [id number] 2.16.840.1.652780.3.579.2.174 1953 Unknown [id number] 2.16.840.1.094152.3.579.2.174 1953 Unknown [id number] 2.16.840.1.938875.3.579.2.174 1953 Unknown [id number] 2.16.840.1.590473.3.579.2.174 1953 Unknown [id number] 2.16.840.1.119232.3.579.2.196 1953 Unknown [id number] 2.16.840.1.726690.3.579.2.727 1953 Unknown [id number] 2.16.840.1.785330.3.579.2.727 1953 Unknown [id number] 2.16.840.1.702590.3.579.2.727 1953 Unknown [id number] 2.16.840.1.502283.3.579.2.72 1953 Unknown [id number] 2.16.840.1.183739.3.579.2. 1953 Unknown [id number] 2.16.840.1.297747.3.579.2. 1953 Unknown [id number] 2.16.840.1.693696.3.579.2. 1953 Unknown [id number] 2.16.840.1.286414.3.579.2 1953 Unknown [id number] 2.16.840.1.145232.3.579.2 1953 Unknown [id number] 2.840.1.890327.3.579.2 1953 Unknown [id number] 2.16.840.1.202457.3.579.2 1953 Unknown [id number] 2.16.840.1.028235.3.579.2 1953 Unknown [id number] 2.16.840.1.592661.3.579.2 1953 Unknown [id number] 2.16840.1.143561.3.579.2 1953 Unknown [id number] 2.16.840.1.071560.3.579.2. 1953 Unknown [id number] 2.16.840.1.857930.3.579.2. 1953 Unknown [id number] 2.16.840.1.763783.3.579.2. 1953 Unknown [id number] 2.16.840.1.719151.3.579.2 1953 Unknown [id number] 2.16.840.1.634828.3.579.2.727 1953 Unknown [id number] 2.16.840.1.873791.3.579.2.727 1953 Unknown [id number] 2.16.840.1.049113.3.579.2.727 1953 Unknown [id number] 2.16.840.1.461116.3.579.2.727 1953 Unknown [id number] 2.16.840.1.645404.3.579.2.727 1953 Unknown [id number] 2.16.840.1.719525.3.579.2.727 Private Health Insurance [employer] [id number] Unknown [id number] 2.16.840.1.382386.3.579.2.531 Social History Date Type Detail Facility Start: 10-07-2018 End: 06-07-2024 Tobacco smoking status NHIS Former smoker [place], [place] Comment on above: alexa 1979 patient states he qu it smoking in 1977. Start: 03-24-2018 End: 10-07-2018 Tobacco use and exposure Never used [place] Start: 10-07-2018 End: 09-07-2020 Alcohol intake Current non-drinker of alcohol (finding) [place] Start: 1955 Sex Assigned At Not on file M [place] Exposure to SARS-CoV -2 (event) Not sure [place] Tobacco smoking status Never [facility] Comment on above: alexa 1979 Sex Assigned At Male [facility] Start: 1955 Sex Assigned At Male [facility] History of tobacco use Current smoker SHALINI DAVIS [facility] [email or web address] Work Phone: Medical Equipment Procedure Code Equipment Code Equipment Origin al Text Equipment Identifier Dates 1 film, SubLingu al, BID, Refill(s) 0 Start: 07-23-2021 CYSTOSCOPY Lue M D, Dina M. 11/03/23 Unknown Other FDA Start: 11-03-2023 CYSTOSCOPY Lue M D, Dina M. 11/03/23 Unknown Other FDA Start: 11-03-2023 CYSTOSCOPY Lue M D, Dina M. 11/03/23 Unknown Other FDA Start: 11-03-2023 CYSTOSCOPY Lue M D, Dina M. 11/03/23 Unknown Other FDA Start: 11-03-2023 CYSTOSCOPY Lue M D, Dina M. 11/03/23 Unknown Other FDA Start: 11-03-2023 CYSTOSCOPY Lue M D, Dina M. 11/03/23 Unknown Other FDA Start: 11-03-2023 CYSTOSCOPY Lue M D, Dina M. 11/03/23 Unknown Other FDA Start: 11-03-2023 CYSTOSCOPY Lue M D, Dina M. 11/03/23 Unknown Other FDA Start: 11-03-2023 CYSTOSCOPY Lue M D, Dina M. 11/03/23 Unknown Other FDA Start: 11-03-2023 CYSTOSCOPY Lue M D, Dina M. 11/03/23 Unknown Other FDA Start: 11-03-2023 CYSTOSCOPY Lue M D, Dina M. 11/03/23 Unknown Other FDA Start: 11-03-2023 CYSTOSCOPY Lue M D, Dina M. 11/03/23 Unknown Other FDA Start: 11-03-2023 CYSTOSCOPY Lue M D, Dina M. 11/03/23 Unknown Other FDA Start: 11-03-2023 CYSTOSCOPY Lue M D, Dina M. 11/03/23 Unknown Other FDA Start: 11-03-2023 CYSTOSCOPY Lue M D, Dina M. 11/03/23 Unknown Other FDA Start: 11-03-2023 CYSTOSCOPY Lue M D, Dina M. 11/03/23 Unknown Other FDA Start: 11-03-2023 CYSTOSCOPY Lue M D, Dina M. 11/03/23 Unknown Other FDA Start: 11-03-2023 CYSTOSCOPY Lue M D, Dina M. 11/03/23 Unknown Other FDA Start: 11-03-2023 CYSTOSCOPY Lue M D, Dina M. 11/03/23 Unknown Other FDA Start: 11-03-2023 CYSTOSCOPY Lue M D, Dina M. 11/03/23 Unknown Other FDA Start: 11-03-2023 CYSTOSCOPY Lue M D, Dina M. 11/03/23 Unknown Other FDA Start: 11-03-2023 CYSTOSCOPY Lue M D, Dina M. 11/03/23 Unknown Other FDA Start: 11-03-2023 CYSTOSCOPY Lue M D, Dina M. 11/03/23 Unknown Other FDA Start: 11-03-2023 CYSTOSCOPY Lue M D, Dina M. 11/03/23 Unknown Other FDA Start: 11-03-2023 CYSTOSCOPY Lue M D, Dina M. 11/03/23 Unknown Other FDA Start: 11-03-2023 CYSTOSCOPY Lue M D, Dina M. 11/03/23 Unknown Other FDA Start: 11-03-2023 CYSTOSCOPY Lue M D, Dina M. 11/03/23 Unknown Other FDA Start: 11-03-2023 CYSTOSCOPY Lue M D, Dina M. 11/03/23 Unknown Other FDA Start: 11-03-2023 CYSTOSCOPY Lue M D, Dina M. 11/03/23 Unknown Other FDA Start: 11-03-2023 CYSTOSCOPY Lue M D, Dina M. 11/03/23 Unknown Other FDA Start: 11-03-2023 Functional Status Date Assessment Result Facility 06-07-2024 Functional Status N/A [facility] 02-25-2024 Functional Status N/A [facility] 12-18-2023 Functional Status N/A [facility] 10-28-2023 Functional Status No [facility] 08-25-2023 Functional Status N/A [facility] 04-13-2023 Functional Status N/A [facility] 02-09-2023 Functional Status N/A [facility] 01-30-2023 Functional Status No [facility] 01-30-2023 Functional Status [facility] 01-21-2023 Functional Status N/A [facility] 12-16-2022 Functional Status N/A [facility] 12-10-2022 Functional Status N/A [facility] 12-10-2022 Functional Status [facility] 12-02-2022 Functional Status N/A [facility] 05-21-2022 Functional Status N/A [facility] Clinical Notes 04-09-2020 to 07-27-2024 Note Date & Type Note Facility 07-27-2024 Note Oncology Progress No te Chief Complaint Lung Ca; no questions or concerns. Diagnoses Ordered: CT Abdomen/Pelvis w/ Contrast CT Chest w/ Contrast ONC Office Visit 30 Min Oncological History/ROS/PE/Assessment and Plan 67-year-old male referred by Dr. Edouard Saucedo for new diagnosis of lung cancer in May 2022. Past medical history includes BPH, anemia of chronic disease, diabetic neuropathy, type 2 diabetes, intermittent asthma, hypothyroidism. Outpatient medications include Synthroid, lisinopril, Zofran, Suboxone, Ventolin, Voltaren. quit smoking at 23 years old. He saw his primary care provider in early April 2022 for unintentional weight loss. He also noted some concerns with mild difficulty swallowing spaghetti. Also notes intermittent nausea. Laboratory evaluation from May 21, 2022 notes white blood cell count of 15,000, hemoglobin of 10.8 with an MCV of 80.5 and a platelet count of 424,000. His creatinine is 1. On April 24, 2022 he had a albumin of 3.2 with a total protein of 6.5. His hemoglobin A1c is 6.5. A CT of the chest from May 17, 2022 notes an 8 x 6 x 8.5 cm posterior mediastinal mass likely representing a necrotic malignancy. There is also an adjacent 1.4 cm lymph node. Pulmonary nodules multiple and nonspecific. 2 cm left adrenal gland and 3 cm right lobe of the liver lesion are concerning for metastatic disease. CT-guided biopsy performed on 05/21/2022 pathology results positive for non-small cell carcinoma, positive for TTF-1, CK7, CK5 6. Negative for synaptophysin. Favor lung origin. Poorly differentiated. He completed 6 cycles of carbo, pemetrexed from June - October 2022 as well as radiation therapy in October 2022. He then initiated cycle 1 maintenance Keytruda on 11/20/22. He had labs drawn 12/09/22 which noted an elevated creatinine at 3.3 and was told to present to the ER for further evaluation. He was subsequently admitted for further evaluation. On exam he feels well overall. His only complaint is fatigue and some lingering nasal congestion. No events overnight and no significant changes in his labs. 12/24/22 he is doing well. he is on prednisone 60mg. he is a bit shelton but tolerating well. will drop to 40mg dtoday. creatinine 1.6. last few days notes occasional shortness of breath. hb improved. 01/08/23 he is doing well overall tapered to 20mg prednisone last week has no new symptoms, energy is ok, eating and drinking well labs stable, creatinine improved to 1.4 02/03/23 he had recent hospitalization for pulmonary emboli. He is now on eliquis. 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 04/09/23 he had recent pet/ct noted IMPRESSION: NEW CONSOLIDATIVE INFILTRATE INVOLVING THE RIGHT LOWER LOBE ADJACENT TO THE PATIENT'S STABLE RESIDUAL SOFT TISSUE MASS. OTHERWISE NO SIGNIFICANT CHANGE. He had a lot of testing for vision and was sent to a retina specialist in [place] who then had him come to [place] for additional testing. Vision now comes and goes. In october he was seeing ok at night. Denies chest pains or breathing issues. no fevers sweats chills. still a bit tired after his hospitalization for PE. Continues eliquis. 06/03/23 he is doing well enough. he has not had breathing issues or pain. He of course cant exert himself as well as he used to but not changed much since then. He is feeling a lot better after resolution of his blood clots from january. 09/09/23 recent pet/ct notes iMPRESSION: Persistent area of pneumonitis in the right lower lobe is stable when compared to 05/25/2023 CT and markedly improved from 01/30/2023 CT scans. There has been progressive continued decrease in the uptake of FDG at this site when compared to prior PET scans. Findings favor a benign process likely related to posttreatment change. Otherwise no significant findings. No signs of metastatic disease. He continues on 125mcg synthroid, tolerating well/ 01/21/24 RECENT PET/CT notes IMPRESSION: AGAIN THERE IS A RIGHT LOWER LOBE LUNG MASS LESION, WITH SURROUNDING AIRSPACE OPACIFICATION, AND INCREASED UPTAKE ACTIVITY, BUT WITH SOME DECREASE IN SUV FROM PRIOR STUDY. THERE IS A SMALL FOCAL PLEURAL DENSITY LATERALLY ON THE RIGHT, WITH INCREASED UPTAKE OF ACTIVITY, NOT APPARENT ON PRIOR STUDY. WHETHER THIS IS A METASTATIC LESION OR INFLAMMATORY IS NOT SPECIFICALLY DETERMINED. NONSPECIFIC RIGHT AND LEFT AXILLARY LYMPH NODES, WITH MILDLY INCREASED ACTIVITY. he is feeling fatigued lately, he wonders if thyroid related. otherwise doing well, breathing good, stooling well. occasionally feels like he needs to take a deeper breath. 07/27/24 CT [facility] recently noted STABLE RIGHT LOWER LOBE MASS AND BILATERAL PULMONARY NODULES. NO NEW NODULES OR MASSES IDENTIFIED. HEPATIC STEATOSIS. CIRCUMFERENTIAL WALL THICKENING SMALL BOWEL, LEFT UPPER QUADRANT, AND SIGMOID COLON. FINDINGS MAY REPRESENT PARTIAL DECOMPRESSION. HOWEVER OTHER ETIOLOGIES INCLUDING INFLAMMATORY AND INFECTIOUS ARE NOT ENTIRELY EXCLUDED. PHYSICAL (more content not included)... [facility] 06-04-2024 Hospital Discharge instructions Patient Education 06/04/2024 17:18:59 DASH Eating Plan DASH Eating Plan DASH stands for Dietary Approaches to Stop Hypertension. The DASH eating plan is a healthy eating plan that has been shown to: Reduce high blood pressure (hypertension). Reduce your risk for type 2 diabetes, heart disease, and stroke. Help with weight loss. What are tips for following this plan? Reading food labels Check food labels for the amount of salt (sodium) per serving. Choose foods with less than 5 percent of the Daily Value of sodium. Generally, foods with less than 300 milligrams (mg) of sodium per serving fit into this eating plan. To find whole grains, look for the word whole as the first word in the ingredient list. Shopping Buy products labeled as low-sodium or no salt added. Buy fresh foods. Avoid canned foods and pre-made or frozen meals. Cooking Avoid adding salt when cooking. Use salt-free seasonings or herbs instead of table salt or sea salt. Check with your health care provider or pharmacist before using salt substitutes. Do not higuera foods. Cook foods using healthy methods such as baking, boiling, grilling, roasting, and broiling instead. Cook with heart-healthy oils, such as olive, canola, avocado, soybean, or sunflower oil. Meal planning Eat a balanced diet that includes: ?4 or more servings of fruits and 4 or more servings of vegetables each day. Try to fill one-half of your plate with fruits and vegetables. ?6 8 servings of whole grains each day. ?Less than 6 oz (170 g) of lean meat, poultry, or fish each day. A 3-oz (85-g) serving of meat is about the same size as a deck of cards. One egg equals 1 oz (28 g). ?2 3 servings of low-fat dairy each day. One serving is 1 cup (237 mL). ?1 serving of nuts, seeds, or beans 5 times each week. ?2 3 servings of heart-healthy fats. Healthy fats called omega-3 fatty acids are found in foods such as walnuts, flaxseeds, fortified milks, and eggs. These fats are also found in cold-water fish, such as sardines, salmon, and mackerel. Limit how much you eat of: ?Canned or prepackaged foods. ?Food that is high in trans fat, such as some fried foods. ?Food that is high in saturated fat, such as fatty meat. ?Desserts and other sweets, sugary drinks, and other foods with added sugar. ?Full-fat dairy products. Do not salt foods before eating. Do not eat more than 4 egg yolks a week. Try to eat at least 2 vegetarian meals a week. Eat more home-cooked food and less restaurant, buffet, and fast food. Lifestyle When eating at a restaurant, ask that your food be prepared with less salt or no salt, if possible. If you drink alcohol: ?Limit how much you use to: ?0 1 drink a day for women who are not . ?0 2 drinks a day for men. ?Be aware of how much alcohol is in your drink. In the [place] one drink equals one 12 oz bottle of beer (355 mL), one 5 oz glass of wine (148 mL), or one 1 oz glass of hard liquor (44 mL). General information Avoid eating more than 2,300 mg of salt a day. If you have hypertension, you may need to reduce your sodium intake to 1,500 mg a day. Work with your health care provider to maintain a healthy body weight or to lose weight. Ask what an ideal weight is for you. Get at least 30 minutes of exercise that causes your heart to beat faster (aerobic exercise) most days of the week. Activities may include walking, swimming, or biking. Work with your health care provider or dietitian to adjust your eating plan to your individual calorie needs. What foods should I eat? Fruits All fresh, dried, or frozen fruit. Canned fruit in natural juice (without added sugar). Vegetables Fresh or frozen vegetables (raw, steamed, roasted, or grilled). Low-sodium or reduced-sodium tomato and vegetable juice. Low-sodium or reduced-sodium tomato sauce and tomato paste. Low-sodium or reduced-sodium canned vegetables. Grains Whole-grain or whole-wheat bread. Whole-grain or whole-wheat pasta. Brown rice. Oatmeal. Quinoa. Bulgur. Whole-grain and low-sodium cereals. Lili bread. Low-fat, low-sodium crackers. Whole-wheat flour tortillas. Meats and other proteins Skinless chicken or turkey. Ground chicken or turkey. Pork with fat trimmed off. Fish and seafood. Egg whites. Dried beans, peas, or lentils. Unsalted nuts, nut butters, and seeds. Unsalted canned beans. Lean cuts of beef with fat trimmed off. Low-sodium, lean precooked or cured meat, such as sausages or meat loaves. Dairy Low-fat (1%) or fat-free (skim) milk. Reduced-fat, low-fat, or fat-free cheeses. Nonfat, low-sodium ricotta or cottage cheese. Low-fat or nonfat yogurt. Low-fat, low-sodium cheese. Fats and oils Soft margarine without trans fats. Vegetable oil. Reduced-fat, low-fat, or light mayonnaise and salad dressings (reduced-sodium). Canola, safflower, olive, avocado, soybean, and sunflower oils. Avocado. Seasonings and condiments Herbs. Spices. Seasoning mixes without salt. Other foods Unsalted popcorn and pretzels. Fat-free sweets. The items listed above may not be a complete list of foods and beverages you can eat. Contact a dietitian for more information. What foods should I avoid? Fruits Canned fruit in a light or heavy syrup. Fried fruit. Fruit in cream or butter sauce. Vegetables Creamed or fried vegetables. Vegetables in a cheese sauce. Regular canned vegetables (not low-sodium or reduced-sodium). Regular canned tomato sauce and paste (not low-sodium or reduced-sodium). Regular tomato and vegetable juice (not low-sodium or reduced-sodium). Pickles. Olives. Grains Baked goods made with fat, such as croissants, muffins, or some breads. Dry pasta or rice meal packs. Meats and other proteins Fatty cuts of meat. Ribs. Fried meat. Zhao. Bologna, salami, and other precooked or cured meats, such as sausages or meat loaves. Fat from the back of a pig (fatback). Bratwurst. Salted nuts and seeds. Canned beans with added salt. Canned or smoked fish. Whole eggs or egg yolks. Chicken or turkey with skin. Dairy Whole or 2% milk, cream, and [id number]. Whole or full-fat cream cheese. Whole-fat or sweetened yogurt. Full-fat cheese. Nondairy creamers. Whipped toppings. Processed cheese and cheese spreads. Fats and oils Butter. Stick margarine. Lard. Shortening. Ghee. Zhao fat. Tropical oils, such as coconut, palm kernel, or palm oil. Seasonings and condiments Onion salt, garlic salt, seasoned salt, table salt, and sea salt. Worcestershire sauce. Tartar sauce. Barbecue sauce. Teriyaki sauce. Soy sauce, including reduced-sodium. Steak sauce. Canned and packaged gravies. Fish sauce. Oyster sauce. Cocktail sauce. Store-bought horseradish. Ketchup. Mustard. Meat flavorings and tenderizers. Bouillon cubes. Hot sauces. Pre-made or packaged marinades. Pre-made or packaged taco seasonings. Relishes. Regular salad dressings. Other foods Salted popcorn and pretzels. The items listed above may not be a complete list of foods and beverages you should avoid. Contact a dietitian for more information. Where to find more information National Heart, Lung, and Blood [place]: www.nhlbi.nih.gov [place] [employer]: www.heart.org Academy of Nutrition and Dietetics: www.eatright.org National Kidney Foundation: www.kidney.org Summary The DASH eating plan is a healthy eating plan that has been shown to reduce high blood pressure (hypertension). It may also reduce your risk for type 2 diabetes, heart disease, and stroke. When on the DASH eating plan, aim to eat more fresh fruits and vegetables, whole grains, lean proteins, low-fat dairy, and heart-healthy fats. With the DASH eating plan, you should limit salt (sodium) intake to 2,300 mg a day. If you have hypertension, you may need to reduce your sodium intake to 1,500 mg a day. Work with your health care provider or dietitian to adjust your eating plan to your individual calorie needs. This information is not intended to replace advice given to you by your health care provider. Make sure you discuss any questions you have with your health care provider. Document Revised: 09/28/2020 Document Reviewed: 09/28/2020 [employer] Patient Education 2022 [employer]. Follow Up Care 12/07/2023 12:02:13 With:Mecca SAUCEDO MD, FAM Address: [address] [place] [id number] When:6 months [facility] 06-04-2024 Note Patient Education Nutrition DASH Eating Plan DASH stands for Dietary Approaches to Stop Hypertension. The DASH eating plan is a healthy eating plan that has been shown to: ? Reduce high blood pressure (hypertension). ? Reduce your risk for type 2 diabetes, heart disease, and stroke. ? Help with weight loss. What are tips for following this plan? Reading food labels ? Check food labels for the amount of salt (sodium) per serving. Choose foods with less than 5 percent of the Daily Value of sodium. Generally, foods with less than 300 milligrams (mg) of sodium per serving fit into this eating plan. ? To find whole grains, look for the word whole as the first word in the ingredient list. Shopping ? Buy products labeled as low-sodium or no salt added. ? Buy fresh foods. Avoid canned foods and pre-made or frozen meals. Cooking ? Avoid adding salt when cooking. Use salt-free seasonings or herbs instead of table salt or sea salt. Check with your health care provider or pharmacist before using salt substitutes. ? Do not higuera foods. Cook foods using healthy methods such as baking, boiling, grilling, roasting, and broiling instead. ? Cook with heart-healthy oils, such as olive, canola, avocado, soybean, or sunflower oil. Meal planning ? Eat a balanced diet that includes: ? 4 or more servings of fruits and 4 or more servings of vegetables each day. Try to fill one-half of your plate with fruits and vegetables. ? 6?8 servings of whole grains each day. ? Less than 6 oz (170 g) of lean meat, poultry, or fish each day. A 3-oz (85-g) serving of meat is about the same size as a deck of cards. One egg equals 1 oz (28 g). ? 2?3 servings of low-fat dairy each day. One serving is 1 cup (237 mL). ? 1 serving of nuts, seeds, or beans 5 times each week. ? 2?3 servings of heart-healthy fats. Healthy fats called omega-3 fatty acids are found in foods such as walnuts, flaxseeds, fortified milks, and eggs. These fats are also found in cold-water fish, such as sardines, salmon, and mackerel. ? Limit how much you eat of: ? Canned or prepackaged foods. ? Food that is high in trans fat, such as some fried foods. ? Food that is high in saturated fat, such as fatty meat. ? Desserts and other sweets, sugary drinks, and other foods with added sugar. ? Full-fat dairy products. ? Do not salt foods before eating. ? Do not eat more than 4 egg yolks a week. ? Try to eat at least 2 vegetarian meals a week. ? Eat more home-cooked food and less restaurant, buffet, and fast food. Lifestyle ? When eating at a restaurant, ask that your food be prepared with less salt or no salt, if possible. ? If you drink alcohol: ? Limit how much you use to: ? 0?1 drink a day for women who are not . ? 0?2 drinks a day for men. ? Be aware of how much alcohol is in your drink. In the [place] one drink equals one 12 oz bottle of beer (355 mL), one 5 oz glass of wine (148 mL), or one 1? oz glass of hard liquor (44 mL). General information ? Avoid eating more than 2,300 mg of salt a day. If you have hypertension, you may need to reduce your sodium intake to 1,500 mg a day. ? Work with your health care provider to maintain a healthy body weight or to lose weight. Ask what an ideal weight is for you. ? Get at least 30 minutes of exercise that causes your heart to beat faster (aerobic exercise) most days of the week. Activities may include walking, swimming, or biking. ? Work with your health care provider or dietitian to adjust your eating plan to your individual calorie needs. What foods should I eat? Fruits All fresh, dried, or frozen fruit. Canned fruit in natural juice (without added sugar). Vegetables Fresh or frozen vegetables (raw, steamed, roasted, or grilled). Low-sodium or reduced-sodium tomato and vegetable juice. Low-sodium or reduced-sodium tomato sauce and tomato paste. Low-sodium or reduced-sodium canned vegetables. Grains Whole-grain or whole-wheat bread. Whole-grain or whole-wheat pasta. Brown rice. Oatmeal. Quinoa. Bulgur. Whole-grain and low-sodium cereals. Lili bread. Low-fat, low-sodium crackers. Whole-wheat flour tortillas. Meats and other proteins Skinless chicken or turkey. Ground chicken or turkey. Pork with fat trimmed off. Fish and seafood. Egg whites. Dried beans, peas, or lentils. Unsalted nuts, nut butters, and seeds. Unsalted canned beans. Lean cuts of beef with fat trimmed off. Low-sodium, lean precooked or cured meat, such as sausages or meat loaves. Dairy Low-fat (1%) or fat-free (skim) milk. Reduced-fat, low-fat, or fat-free cheeses. Nonfat, low-sodium ricotta or cottage cheese. Low-fat or nonfat yogurt. Low-fat, low-sodium cheese. Fats and oils Soft margarine without trans fats. Vegetable oil. Reduced-fat, low-fat, or light mayonnaise and salad dressings (reduced-sodium). Canola, safflower, olive, avocado, soybean, and sunflower oils. Avocado. Seasonings and condiments He (more content not included)... [facility] 02-26-2024 Note Chief Complaint: rad icular suggs left lower extremity HPI When did this problem begin: work injury 11/07/83 Timing/frequency of occurrence: Constant Pain description: dull ache Pain severity: 3 Radicular pain: left lower extremity Numbness/tingling: both feet, more on the left Weakness: No What improves symptoms: Rest What makes symptoms worse: Activity Gait disturbance: No Fine hand dexterity problem: No Previous treatment for this problem: No ROS Constitutional: Fatigue: No Weight loss: No Fever: No Chills: No No past surgical history on file. No past medical history on file. No past surgical history on file. No Known Allergies Current Outpatient Medications: buprenorphine-naloxone (Suboxone) 8-2 mg SL tablet, 2 tablets in the morning., Disp: , Rfl: levothyroxine (Synthroid, Levoxyl) 125 mcg tablet, Take 125 mcg by mouth in the morning., Disp: , Rfl: Social History Socioeconomic History Marital status: Spouse name: Not on file Number of children: Not on file Years of education: Not on file Highest education level: Not on file Occupational History Not on file Tobacco Use Smoking status: Former Types: Cigarettes Quit date: 1977 Years since quittin.3 Smokeless tobacco: Never Substance and Sexual Activity Alcohol use: Not on file Drug use: Not on file Sexual activity: Not on file Other Topics Concern Not on file Social History Narrative Not on file Social Determinants of Health Financial Resource Strain: Not on file Food Insecurity: Not on file Transportation Needs: Not on file Physical Activity: Not on file Stress: Not on file Social Connections: Not on file Intimate Partner Violence: Unknown (01/01/2024) [place] Safety & Environment Fear of Current or Ex-Partner: Not on file Emotionally Abused: Not on file Physically Abused: Not on file Sexually Abused: Not on file Physically or Sexually Abused: Not on file Housing Stability: Not on file No family history on file. Physical Exam There were no vitals taken for this visit. Musculoskeletal Ortho spine musculoskeletal examination: Alignment spine: normal Tenderness: no midline or paraspinal Range of motion Cervical spine: normal Range of motion lumbar spine: limited Neurological Biceps strength: 5 Wrist extension: 5 Triceps strength: 5 Finger flexor: 5 Finger abduction strength: 5 Flexion at the hip strength: 5 Quadriceps strength: 5 Tibialis anterior strength: 5 Plantar flexion strength: 5 Extensor Hallicis Longus strength: 5 Sensory Exam: intact Straight leg raising: Negative DTR/ Pathologic reflexes Biceps reflex- 2 Brachioradialis reflex- 2 Triceps reflex- 2 Patellar reflex- 2 Achilles reflex- 2 Babinski- negative Krueger reflex: Absent Gait and station Gait: Normal Images: I, Dr. Jesse Hernandez, personally reviewed the images and my personal interpretation are: X ray and MRI multilevel lumbar and T12-l1, disc degeneration, spinal stenosis, L4-5 and L3-4 I interbody fusion Assessment and Plan 68 years presents with radicular suggs left lower extremity Explained the clinical and radiological findings with the patient and discussed management options. Recommended no current indication of surgical management , avoid heavy lifting Follow up [facility] 02-24-2024 Hospital Discharge instructions Patient Education 02/24/2024 10:21:02 Health Maintenance, Male Health Maintenance, Male Adopting a healthy lifestyle and getting preventive care are important in promoting health and wellness. Ask your health care provider about: The right schedule for you to have regular tests and exams. Things you can do on your own to prevent diseases and keep yourself healthy. What should I know about diet, weight, and exercise? Eat a healthy diet Eat a diet that includes plenty of vegetables, fruits, low-fat dairy products, and lean protein. Do not eat a lot of foods that are high in solid fats, added sugars, or sodium. Maintain a healthy weight Body mass index (BMI) is a measurement that can be used to identify possible weight problems. It estimates body fat based on height and weight. Your health care provider can help determine your BMI and help you achieve or maintain a healthy weight. Get regular exercise Get regular exercise. This is one of the most important things you can do for your health. Most adults should: Exercise for at least 150 minutes each week. The exercise should increase your heart rate and make you sweat (moderate-intensity exercise). Do strengthening exercises at least twice a week. This is in addition to the moderate-intensity exercise. Spend less time sitting. Even light physical activity can be beneficial. Watch cholesterol and blood lipids Have your blood tested for lipids and cholesterol at 20 years of age, then have this test every 5 years. You may need to have your cholesterol levels checked more often if: Your lipid or cholesterol levels are high. You are older than 40 years of age. You are at high risk for heart disease. What should I know about cancer screening? Many types of cancers can be detected early and may often be prevented. Depending on your health history and family history, you may need to have cancer screening at various ages. This may include screening for: Colorectal cancer. Prostate cancer. Skin cancer. Lung cancer. What should I know about heart disease, diabetes, and high blood pressure? Blood pressure and heart disease High blood pressure causes heart disease and increases the risk of stroke. This is more likely to develop in people who have high blood pressure readings or are overweight. Talk with your health care provider about your target blood pressure readings. Have your blood pressure checked: ?Every 3 5 years if you are 18 39 years of age. ?Every year if you are 40 years old or older. If you are between the ages of 65 and 75 and are a current or former smoker, ask your health care provider if you should have a one-time screening for abdominal aortic aneurysm (AAA). Diabetes Have regular diabetes screenings. This checks your fasting blood sugar level. Have the screening done: Once every three years after age 45 if you are at a normal weight and have a low risk for diabetes. More often and at a younger age if you are overweight or have a high risk for diabetes. What should I know about preventing infection? Hepatitis B If you have a higher risk for hepatitis B, you should be screened for this virus. Talk with your health care provider to find out if you are at risk for hepatitis B infection. Hepatitis C Blood testing is recommended for: Everyone born from 1945 through 1965. Anyone with known risk factors for hepatitis C. Sexually transmitted infections (STIs) You should be screened each year for STIs, including gonorrhea and chlamydia, if: ?You are sexually active and are younger than 24 years of age. ?You are older than 24 years of age and your health care provider tells you that you are at risk for this type of infection. ?Your sexual activity has changed since you were last screened, and you are at increased risk for chlamydia or gonorrhea. Ask your health care provider if you are at risk. Ask your health care provider about whether you are at high risk for HIV. Your health care provider may recommend a prescription medicine to help prevent HIV infection. If you choose to take medicine to prevent HIV, you should first get tested for HIV. You should then be tested every 3 months for as long as you are taking the medicine. Follow these instructions at home: Alcohol use Do not drink alcohol if your health care provider tells you not to drink. If you drink alcohol: ?Limit how much you have to 0-2 drinks a day. ?Know how much alcohol is in your drink. In the [place] one drink equals one 12 oz bottle of beer (355 mL), one 5 oz glass of wine (148 mL), or one 1 oz glass of hard liquor (44 mL). Lifestyle Do not use any products that contain nicotine or tobacco. These products include cigarettes, chewing tobacco, and vaping devices, such as e-cigarettes. If you need help quitting, ask your health care provider. Do not use street drugs. Do not share needles. Ask your health care provider for help if you need support or information about quitting drugs. General instructions Schedule regular health, dental, and eye exams. Stay current with your vaccines. Tell your health care provider if: ?You often feel depressed. ?You have ever been abused or do not feel safe at home. Summary Adopting a healthy lifestyle and getting preventive care are important in promoting health and wellness. Follow your health care provider's instructions about healthy diet, exercising, and getting tested or screened for diseases. Follow your health care provider's instructions on monitoring your cholesterol and blood pressure. This information is not intended to replace advice given to you by your health care provider. Make sure you discuss any questions you have with your health care provider. Document Revised: 03/17/2022 Document Reviewed: 03/17/2022 [employer] Patient Education 2022 [employer]. Follow Up Care 02/23/2024 11:43:42 With:Mecca SAUCEDO MD, FAM Address: When: only if needed [facility] [place] 12-18-2023 Hospital Discharge instructions Patient Education 12/18/2023 14:47:25 Temporomandibular Joint Syndrome Temporomandibular Joint Syndrome Temporomandibular joint syndrome (TMJ syndrome) is a condition that causes pain in the temporomandibular joints. These joints are located near your ears and allow your jaw to open and close. For people with TMJ syndrome, chewing, biting, or other movements of the jaw can be difficult or painful. TMJ syndrome is often mild and goes away within a few weeks. However, sometimes the condition becomes a long-term (chronic) problem. What are the causes? This condition may be caused by: Grinding your teeth or clenching your jaw. Some people do this when they are stressed. Arthritis. An injury to the jaw. A head or neck injury. Teeth or dentures that are not aligned well. In some cases, the cause of TMJ syndrome may not be known. What are the signs or symptoms? The most common symptom of this condition is aching pain on the side of the head in the area of the TMJ. Other symptoms may include: Pain when moving your jaw, such as when chewing or biting. Not being able to open your jaw all the way. Making a clicking sound when you open your mouth. Headache. Earache. Neck or shoulder pain. How is this diagnosed? This condition may be diagnosed based on: Your symptoms and medical history. A physical exam. Your health care provider may check the range of motion of your jaw. Imaging tests, such as X-rays or an MRI. You may also need to see your dentist, who will check if your teeth and jaw are lined up correctly. How is this treated? TMJ syndrome often goes away on its own. If treatment is needed, it may include: Eating soft foods and applying ice or heat. Medicines to relieve pain or inflammation. Medicines or massage to relax the muscles. A splint, bite plate, or mouthpiece to prevent teeth grinding or jaw clenching. Relaxation techniques or counseling to help reduce stress. A therapy for pain in which an electrical current is applied to the nerves through the skin (transcutaneous electrical nerve stimulation). Acupuncture. This may help to relieve pain. Jaw surgery. This is rarely needed. Follow these instructions at home: Eating and drinking Eat a soft diet if you are having trouble chewing. Avoid foods that require a lot of chewing. Do not chew gum. General instructions Take yknf-trd-vbbujzl and prescription medicines only as told by your health care provider. If directed, put ice on the painful area. To do this: ?Put ice in a plastic bag. ?Place a towel between your skin and the bag. ?Leave the ice on for 20 minutes, 2 3 times a day. ?Remove the ice if your skin turns bright red. This is very important. If you cannot feel pain, heat, or cold, you have a greater risk of damage to the area. Apply a warm, wet cloth (warm compress) to the painful area as told. Massage your jaw area and do any jaw stretching exercises as told by your health care provider. If you were given a splint, bite plate, or mouthpiece, wear it as told by your health care provider. Keep all follow-up visits. This is important. Where to find more information [employer]: www.nidcr.nih.gov Contact a health care provider if: You have trouble eating. You have new or worsening symptoms. Get help right away if: Your jaw locks. Summary Temporomandibular joint syndrome (TMJ syndrome) is a condition that causes pain in the temporomandibular joints. These joints are located near your ears and allow your jaw to open and close. TMJ syndrome is often mild and goes away within a few weeks. However, sometimes the condition becomes a long-term (chronic) problem. Symptoms include an aching pain on the side of the head in the area of the TMJ, pain when chewing or biting, and being unable to open your jaw all the way. You may also make a clicking sound when you open your mouth. TMJ syndrome often goes away on its own. If treatment is needed, it may include medicines to relieve pain, reduce inflammation, or relax the muscles. A splint, bite plate, or mouthpiece may also be used to prevent teeth grinding or jaw clenching. This information is not intended to replace advice given to you by your health care provider. Make sure you discuss any questions you have with your health care provider. Document Revised: 06/08/2022 Document Reviewed: 06/08/2022 [employer] Patient Education 2022 [employer]. 12/17/2023 20:05:54 Earwax Buildup, Adult Earwax Buildup, Adult The ears produce a substance called earwax that helps keep bacteria out of the ear and protects the skin in the ear canal. Occasionally, earwax can build up in the ear and cause discomfort or hearing loss. What are the causes? This condition is caused by a buildup of earwax. Ear canals are self-cleaning. Ear wax is made in the outer part of the ear canal and generally falls out in small amounts over time. When the self-cleaning mechanism is not working, earwax builds up and can cause decreased hearing and discomfort. Attempting to clean ears with cotton swabs can push the earwax deep into the ear canal and cause decreased hearing and pain. What increases the risk? This condition is more likely to develop in people who: Clean their ears often with cotton swabs. Pick at their ears. Use earplugs or in-ear headphones often, or wear hearing aids. The following factors may also make you more likely to develop this condition: Being male. Being of older age. Naturally producing more earwax. Having narrow ear canals. Having earwax that is overly thick or sticky. Having excess hair in the ear canal. Having eczema. Being dehydrated. What are the signs or symptoms? Symptoms of this condition include: Reduced or muffled hearing. A feeling of fullness in the ear or feeling that the ear is plugged. Fluid coming from the ear. Ear pain or an itchy ear. Ringing in the ear. Coughing. Balance problems. An obvious piece of earwax that can be seen inside the ear canal. How is this diagnosed? This condition may be diagnosed based on: Your symptoms. Your medical history. An ear exam. During the exam, your health care provider will look into your ear with an instrument called an otoscope. You may have tests, including a hearing test. How is this treated? This condition may be treated by: Using ear drops to soften the earwax. Having the earwax removed by a health care provider. The health care provider may: ?Flush the ear with water. ?Use an instrument that has a loop on the end (curette). ?Use a suction device. Having surgery to remove the wax buildup. This may be done in severe cases. Follow these instructions at home: Take zdzl-lcf-nuqoksy and prescription medicines only as told by your health care provider. Do not put any objects, including cotton swabs, into your ear. You can clean the opening of your ear canal with a washcloth or facial tissue. Follow instructions from your health care provider about cleaning your ears. Do not overclean your ears. Drink enough fluid to keep your urine pale yellow. This will help to thin the earwax. Keep all follow-up visits as told. If earwax builds up in your ears often or if you use hearing aids, consider seeing your health care provider for routine, preventive ear cleanings. Ask your health care provider how often you should schedule your cleanings. If you have hearing aids, clean them according to instructions from the strap machine operator and your health care provider. Contact a health care provider if: You have ear pain. You develop a fever. You have pus or other fluid coming from your ear. You have hearing loss. You have ringing in your ears that does not go away. You feel like the room is spinning (vertigo). Your symptoms do not improve with treatment. Get help right away if: You have bleeding from the affected ear. You have severe ear pain. Summary Earwax can build up in the ear and cause discomfort or hearing loss. The most common symptoms of this condition include reduced or muffled hearing, a feeling of fullness in the ear, or feeling that the ear is plugged. This condition may be diagnosed based on your symptoms, your medical history, and an ear exam. This condition may be treated by using ear drops to soften the earwax or by having the earwax removed by a health care provider. Do not put any objects, including cotton swabs, into your ear. You can clean the opening of your ear canal with a washcloth or facial tissue. This information is not intended to replace advice given to you by your health care provider. Make sure you discuss any questions you have with your health care provider. Document Revised: 02/12/2021 Document Reviewed: 02/12/2021 [employer] Patient Education 2022 [employer] Follow Up Care 12/17/2023 09:02:52 With:SHERYL CHU, ELIU Sanz Address: When: only if needed [facility] [place] 10-27-2023 Note [id number] [facility] 10-19-2023 Note [id number] [facility] 10-19-2023 Note Cystoscopy ? Voiding after the procedure: there may be some pain, burning, urgency, frequency and blood tinged urine following the procedure. These symptoms usually resolve within 2-5 days. Drink the amount of fluid it takes to keep the urine pink to yellow or clear in color. Drinking enough water and fluids will help to ease any discomfort after your procedure. ? If you are having problems that seem out of the ordinary, please call. ? If unable to contact your physician and you feel it is an emergency, go to the nearest emergency room or call 911 ? Diet ? you may resume your normal diet. ? Activity ? you may resume your normal activities ? Call if you have a fever over 100 degrees. [facility] 09-09-2023 Hospital Discharge instructions Follow Up Care 09/09/2023 14:54:37 With:Joshua Eng DO, ONC Address: [facility] [address] [place] [address]. [place] [address]- [phone] Fax Business (1) When: Unknown Comments:f/u in [address] c/a/p with corast prior.cbc, cmp, tsh, cea, t4 prior to f/u.raise synthroid to 150mcg po daily. [facility] 08-25-2023 Hospital Discharge instructions Patient Education 08/25/2023 10:12:12 Cystoscopy Cystoscopy Cystoscopy is a procedure that is used to help diagnose and sometimes treat conditions that affect the lower urinary tract. The lower urinary tract includes the bladder and the urethra. The urethra is the tube that drains urine from the bladder. Cystoscopy is done using a thin, tube-shaped instrument with a light and camera at the end (cystoscope). The cystoscope may be hard or flexible, depending on the goal of the procedure. The cystoscope is inserted through the urethra, into the bladder. Cystoscopy may be recommended if you have: Urinary tract infections that keep coming back. Blood in the urine (hematuria). An inability to control when you urinate (urinary incontinence) or an overactive bladder. Unusual cells found in a urine sample. A blockage in the urethra, such as a urinary stone. Painful urination. An abnormality in the bladder found during an intravenous pyelogram (IVP) or CT scan. Cystoscopy may also be done to remove a sample of tissue to be examined under a microscope (biopsy). Tell a health care provider about: Any allergies you have. All medicines you are taking, including vitamins, herbs, eye drops, creams, and vpqj-ixz-lqgkivn medicines. Any problems you or family members have had with anesthetic medicines. Any blood disorders you have. Any surgeries you have had. Any medical conditions you have. Whether you are or may be . What are the risks? Generally, this is a safe procedure. However, problems may occur, including: Infection. Bleeding. Allergic reactions to medicines. Damage to other structures or organs. What happens before the procedure? Medicines Ask your health care provider about: Changing or stopping your regular medicines. This is especially important if you are taking diabetes medicines or blood thinners. Taking medicines such as aspirin and ibuprofen. These medicines can thin your blood. Do not take these medicines unless your health care provider tells you to take them. Taking ptzd-msq-duqunua medicines, vitamins, herbs, and supplements. Tests You may have an exam or testing, such as: X-rays of the bladder, urethra, or kidneys. CT scan of the abdomen or pelvis. Urine tests to check for signs of infection. General instructions Follow instructions from your health care provider about eating or drinking restrictions. Ask your health care provider what steps will be taken to help prevent infection. These steps may include: ?Washing skin with a germ-killing soap. ?Taking antibiotic medicine. Plan to have a responsible adult take you home from the hospital or clinic. What happens during the procedure? You will be given one or more of the following: ?A medicine to help you relax (sedative). ?A medicine to numb the area (local anesthetic). The area around the opening of your urethra will be cleaned. The cystoscope will be passed through your urethra into your bladder. Germ-free (sterile) fluid will flow through the cystoscope to fill your bladder. The fluid will stretch your bladder so that your health care provider can clearly examine your bladder [place]. Your doctor will look at the urethra and bladder. Your doctor may take a biopsy or remove stones. The cystoscope will be removed, and your bladder will be emptied. The procedure may vary among health care providers and hospitals. What can I expect after the procedure? After the procedure, it is common to have: Some soreness or pain in your abdomen and urethra. Urinary symptoms. These include: ?Mild pain or burning when you urinate. Pain should stop within a few minutes after you urinate. This may last for up to 1 week. ?A small amount of blood in your urine for several days. ?Feeling like you need to urinate but producing only a small amount of urine. Follow these instructions at home: Medicines Take iuid-ffk-bwiyjpo and prescription medicines only as told by your health care provider. If you were prescribed an antibiotic medicine, take it as told by your health care provider. Do not stop taking the antibiotic even if you start to feel better. General instructions Return to your normal activities as told by your health care provider. Ask your health care provider what activities are safe for you. If you were given a sedative during the procedure, it can affect you for several hours. Do not drive or operate machinery until your health care provider says that it is safe. Watch for any blood in your urine. If the amount of blood in your urine increases, call your health care provider. Follow instructions from your health care provider about eating or drinking restrictions. If a tissue sample was removed for testing (biopsy) during your procedure, it is up to you to get your test results. Ask your health care provider, or the department that is doing the test, when your results will be ready. Drink enough fluid to keep your urine pale yellow. Keep all follow-up visits. This is important. Contact a health care provider if: You have pain that gets worse or does not get better with medicine, especially pain when you urinate. You have trouble urinating. You have more blood in your urine. Get help right away if: You have blood clots in your urine. You have abdominal pain. You have a fever or chills. You are unable to urinate. Summary Cystoscopy is a procedure that is used to help diagnose and sometimes treat conditions that affect the lower urinary tract. Cystoscopy is done using a thin, tube-shaped instrument with a light and camera at the end. After the procedure, it is common to have some soreness or pain in your abdomen and urethra. Watch for any blood in your urine. If the amount of blood in your urine increases, call your health care provider. If you were prescribed an antibiotic medicine, take it as told by your health care provider. Do not stop taking the antibiotic even if you start to feel better. This information is not intended to replace advice given to you by your health care provider. Make sure you discuss any questions you have with your health care provider. Document Revised: 07/09/2022 Document Reviewed: 06/07/2021 [employer] Patient Education 2022 [employer]. 08/25/2023 10:04:23 Benign Prostatic Hyperplasia Benign Prostatic Hyperplasia Benign prostatic hyperplasia (BPH) is an enlarged prostate gland that is caused by the normal aging process. The prostate may get bigger as a man gets older. The condition is not caused by cancer. The prostate is a walnut-sized gland that is involved in the production of semen. It is located in front of the rectum and below the bladder. The bladder stores urine. The urethra carries stored urine out of the body. An enlarged prostate can press on the urethra. This can make it harder to pass urine. The buildup of urine in the bladder can cause infection. Back pressure and infection may progress to bladder damage and kidney (renal) failure. What are the causes? This condition is part of the normal aging process. However, not all men develop problems from this condition. If the prostate enlarges away from the urethra, urine flow will not be blocked. If it enlarges toward the urethra and compresses it, there will be problems passing urine. What increases the risk? This condition is more likely to develop in men older than 50 years. What are the signs or symptoms? Symptoms of this condition include: Getting up often during the night to urinate. Needing to urinate frequently during the day. Difficulty starting urine flow. Decrease in size and strength of your urine stream. Leaking (dribbling) after urinating. Inability to pass urine. This needs immediate treatment. Inability to completely empty your bladder. Pain when you pass urine. This is more common if there is also an infection. Urinary tract infection (UTI). How is this diagnosed? This condition is diagnosed based on your medical history, a physical exam, and your symptoms. Tests will also be done, such as: A post-void bladder scan. This measures any amount of urine that may remain in your bladder after you finish urinating. A digital rectal exam. In a rectal exam, your health care provider checks your prostate by putting a lubricated, gloved finger into your rectum to feel the back of your prostate gland. This exam detects the size of your gland and any abnormal lumps or growths. An exam of your urine (urinalysis). A prostate specific antigen (PSA) screening. This is a blood test used to screen for prostate cancer. An ultrasound. This test uses sound waves to electronically produce a picture of your prostate gland. Your health care provider may refer you to a specialist in kidney and prostate diseases (urologist). How is this treated? Once symptoms begin, your health care provider will monitor your condition (active surveillance or watchful waiting). Treatment for this condition will depend on the severity of your condition. Treatment may include: Observation and yearly exams. This may be the only treatment needed if your condition and symptoms are mild. Medicines to relieve your symptoms, including: ?Medicines to shrink the prostate. ?Medicines to relax the muscle of the prostate. Surgery in severe cases. Surgery may include: ?Prostatectomy. In this procedure, the prostate tissue is removed completely through an open incision or with a laparoscope or robotics. ?Transurethral resection of the prostate (TURP). In this procedure, a tool is inserted through the opening at the tip of the penis (urethra). It is used to cut away tissue of the inner core of the prostate. The pieces are removed through the same opening of the penis. This removes the blockage. ?Transurethral incision (TUIP). In this procedure, small cuts are made in the prostate. This lessens the prostate's pressure on the urethra. ?Transurethral microwave thermotherapy (TUMT). This procedure uses microwaves to create heat. The heat destroys and removes a small amount of prostate tissue. ?Transurethral needle ablation (TUNA). This procedure uses radio frequencies to destroy and remove a small amount of prostate tissue. ?Interstitial laser coagulation (ILC). This procedure uses a laser to destroy and remove a small amount of prostate tissue. ?Transurethral electrovaporization (TUVP). This procedure uses electrodes to destroy and remove a small amount of prostate tissue. ?Prostatic urethral lift. This procedure inserts an implant to push the lobes of the prostate away from the urethra. Follow these instructions at home: Take frso-geh-zjfkfid and prescription medicines only as told by your health care provider. Monitor your symptoms for any changes. Contact your health care provider with any changes. Avoid drinking large amounts of liquid before going to bed or out in public. Avoid or reduce how much caffeine or alcohol you drink. Give yourself time when you urinate. Keep all follow-up visits. This is important. Contact a health care provider if: You have unexplained back pain. Your symptoms do not get better with treatment. You develop side effects from the medicine you are taking. Your urine becomes very dark or has a bad smell. Your lower abdomen becomes distended and you have trouble passing urine. Get help right away if: You have a fever or chills. You suddenly cannot urinate. You feel light-headed or very dizzy, or you faint. There are large amounts of blood or clots in your urine. Your urinary problems become hard to manage. You develop moderate to severe low back or flank pain. The flank is the side of your body between the ribs and the hip. These symptoms may be an emergency. Get help right away. Call 911. Do not wait to see if the symptoms will go away. Do not drive yourself to the hospital. Summary Benign prostatic hyperplasia (BPH) is an enlarged prostate that is caused by the normal aging process. It is not caused by cancer. An enlarged prostate can press on the urethra. This can make it hard to pass urine. This condition is more likely to develop in men older than 50 years. Get help right away if you suddenly cannot urinate. This information is not intended to replace advice given to you by your health care provider. Make sure you discuss any questions you have with your health care provider. Document Revised: 05/14/2022 Document Reviewed: 05/14/2022 [employer] Patient Education 2022 [employer] Follow Up Care 06/29/2023 13:12:36 With:WANDA PEÑA PA-C, URL Address: [address] [place] [address] [phone] When: Unknown Comments:sched cysto/TRUS w/ KML [facility] 08-25-[address] Saucedo referral HPI Staff Evaluation requested by Dr Mecca Saucedo due to BPH. PVR 0mL. Pt. states he does not have a large amount of urine come out. Pt. states he had a Cyto done in 1983, Pt. states he was told he had a small bladder. Pt is a new pt, Never before seen in our office. (Verified in [employer]) Per PCP last encounter, Pt has failed Tamsulosin due visual disturbance. Tried oxybutynin but that has been marginally helpful. Was started on Myrbetriq 25? 50? (both are in med list) PSA 04/24/17- 1.7 PSA 04/13/23- 1.5 Dysuria: no Incomplete bladder emptying: no Hematuria: no Frequency: at least every 2 hours Urgency: occasionally Nocturia: 4x's Stream: occasionally Post void dripping: no Wearing pads/ Depends: no Urge incontinence: no Stress incontinence: no Incontinence without Sensory Awareness: no Abdominal pain: no Flank pain: no History of Present Illness staff HPI reviewed and agree. Review of Systems PHQ Score Initial Depression Screen Score: 0 no fever, chills, malaise, myalgia. no rash/lesions. no chest pain, palpitations, or SOB. no abdominal pain, nausea, vomiting. no unilateral calf swelling, redness, pain Physical Exam Vitals & Measurements HR: 68(Peripheral) RR: 16 BP: 128/77 HT: 70 in HT: 177.7 cm WT: 76.5 kg WT: 168.3 lb BMI: 24.23 General: nontoxic, NAD Mouth: moist mucosa Lungs: normal respiratory effort Cardio: regular rate, good distal perfusion Abdomen: nondistended, no suprapubic distention or tenderness, no CVA tenderness Neurologic: Grossly normal Skin: No rashes or suspicious lesions Assessment/Plan Robson is a 68 yo M new pt referred by Dr. Mecca Saucedo for BPH w/ nocturia. 1. BPH associated with nocturia (N40.1: Benign prostatic hyperplasia with lower urinary tract symptoms) Tried Tamsulosin a few years ago, doesn't remember it helping and dc'd it due to visual impairment. Tried Oxybutynin and then Myrbetriq this summer but neither helped. IPSS 20. PVR 0cc. Gets up 4x/night. States his stream starts strong. Admits he does have to strain at the end of this stream. UA today negative for blood and infection. I discussed with the patient the different surgical treatment options for bladder outlet obstruction including TURP, Rezum, and Urolift. Pt was provided with literature to review for each option. He will be scheduled for cystoscopy with MD for visualization of the prostatic urethra and surgical planning. Will need TRUS for prostate sizing. Discussed risks of cysto including but not limited to pain, bleeding, infection. Pt prescribed abx to reduce risk of infection. Pt understands risks/benefits and wishes to proceed. -Will schedule cysto/TRUS. Ordered: [id number] Measure Post Void residual urine and/or bladder capacity by US- non-imaging Body Mass Index (BMI) documented 3008F Depression Screening Negative 3352F Influenza immunization status assessed 1030F Urnls Dip Stick Auto w/o Microscopy POC 66220 2. Screening for prostate cancer (Z12.5: Encounter for screening for malignant neoplasm of prostate) PSA 04/24/17 - 1.7 04/13/23 - 1.5 stable. no family hx prostate cancer. 3. OAB (overactive bladder) (N32.81: Overactive bladder) could be an OAB component too as he recalls being told he had a 'small bladder'. However I suspect the prostate is the primary concern. Follow up with Dr. Little for cysto/TRUS. Pt understands and agrees with plan. Follow-up With When Contact Information WANDA PEÑA PA-C, URL [address] [place] [address] [phone] Additional Instructions: sched cysto/TRUS w/ KML Patient Education Cystoscopy Benign Prostatic Hyperplasia Documentation recorded by the alina Norris accurately reflects the services(s) I performed and decisions made by me. Authenticated by Wanda Peña PA-C on 08/25/2023 10:59:21. Dary Iqbal, personally scribed for Wanda Peña PA-C on 08/25/2023 10:12:29. . Problem List/Past Medical History Ongoing Actinic keratosis of right side of forehead Adverse effect of antineoplastic and immunosuppressive drugs, initial encounter Anemia in chronic illness Anxiety Basal cell carcinoma of face Benign hypertension BMI 24.0-24.9, adult BPH associated with nocturia Chronic insomnia Combined hyperlipidemia Diabetic polyneuropathy associated with type 2 diabetes mellitus Encounter for palliative care Encounter for well adult exam with abnormal findings History of narcotic addiction History of pulmonary embolism Intermittent asthma Intermittent asthma with acute exacerbation Lumbar radiculopathy Malignant neoplasm metastatic to left adrenal gland 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 [facility] Comment on above: Result Comment: Elec tronically Signed By: WANDA PEÑA PA-C\.br\Date and Time Signed: 08/25/23 11:05 EDT\.br\Electronically Co-Signed By: Dary Norris\.br\Date and Time Co-Signed: 08/25/23 10:13 EDT 08-25-2023 Note Urology Cystoscopy Cystoscopy is a procedure that is used to help diagnose and sometimes treat conditions that affect the lower urinary tract. The lower urinary tract includes the bladder and the urethra. The urethra is the tube that drains urine from the bladder. Cystoscopy is done using a thin, tube-shaped instrument with a light and camera at the end (cystoscope). The cystoscope may be hard or flexible, depending on the goal of the procedure. The cystoscope is inserted through the urethra, into the bladder. Cystoscopy may be recommended if you have: ? Urinary tract infections that keep coming back. ? Blood in the urine (hematuria). ? An inability to control when you urinate (urinary incontinence) or an overactive bladder. ? Unusual cells found in a urine sample. ? A blockage in the urethra, such as a urinary stone. ? Painful urination. ? An abnormality in the bladder found during an intravenous pyelogram (IVP) or CT scan. Cystoscopy may also be done to remove a sample of tissue to be examined under a microscope (biopsy). Tell a health care provider about: ? Any allergies you have. ? All medicines you are taking, including vitamins, herbs, eye drops, creams, and qvfq-cuk-rtojvde medicines. ? Any problems you or family members have had with anesthetic medicines. ? Any blood disorders you have. ? Any surgeries you have had. ? Any medical conditions you have. ? Whether you are or may be . What are the risks? Generally, this is a safe procedure. However, problems may occur, including: ? Infection. ? Bleeding. ? Allergic reactions to medicines. ? Damage to other structures or organs. What happens before the procedure? Medicines Ask your health care provider about: ? Changing or stopping your regular medicines. This is especially important if you are taking diabetes medicines or blood thinners. ? Taking medicines such as aspirin and ibuprofen. These medicines can thin your blood. Do not take these medicines unless your health care provider tells you to take them. ? Taking agke-slo-xscvmuo medicines, vitamins, herbs, and supplements. Tests You may have an exam or testing, such as: ? X-rays of the bladder, urethra, or kidneys. ? CT scan of the abdomen or pelvis. ? Urine tests to check for signs of infection. General instructions ? Follow instructions from your health care provider about eating or drinking restrictions. ? Ask your health care provider what steps will be taken to help prevent infection. These steps may include: ? Washing skin with a germ-killing soap. ? Taking antibiotic medicine. ? Plan to have a responsible adult take you home from the hospital or clinic. What happens during the procedure? ? You will be given one or more of the following: ? A medicine to help you relax (sedative). ? A medicine to numb the area (local anesthetic). ? The area around the opening of your urethra will be cleaned. ? The cystoscope will be passed through your urethra into your bladder. ? Germ-free (sterile) fluid will flow through the cystoscope to fill your bladder. The fluid will stretch your bladder so that your health care provider can clearly examine your bladder parisi. ? Your doctor will look at the urethra and bladder. Your doctor may take a biopsy or remove stones. ? The cystoscope will be removed, and your bladder will be emptied. The procedure may vary among health care providers and hospitals. What can I expect after the procedure? After the procedure, it is common to have: ? Some soreness or pain in your abdomen and urethra. ? Urinary symptoms. These include: ? Mild pain or burning when you urinate. Pain should stop within a few minutes after you urinate. This may last for up to 1 week. ? A small amount of blood in your urine for several days. ? Feeling like you need to urinate but producing only a small amount of urine. Follow these instructions at home: Medicines ? Take tese-xaa-jpekroe and prescription medicines only as told by your health care provider. ? If you were prescribed an antibiotic medicine, take it as told by your health care provider. Do not stop taking the antibiotic even if you start to feel better. General instructions ? Return to your normal activities as told by your health care provider. Ask your health care provider what activities are safe for you. ? If you were given a sedative during the procedure, it can affect you for several hours. Do not drive or operate machinery until your health care provider says that it is safe. ? Watch for any blood in your urine. If the amount of blood in your urine increases, call your health care provider. ? Follow instructions from your health care provider about eating or drinking restrictions. ? If a tissue sample was removed for testing (biopsy) during your procedure, it is up to you to get your test results. Ask your health care provider, or the department th (more content not included)... [facility] 06-03-2023 Hospital Discharge instructions Follow Up Care 06/03/2023 14:29:00 With:Joshua Eng Address: [facility] [address] [address] [phone] Fax Business (1) When: Unknown Comments:pet/ct in 4 mos.f/u aftertsh, ft4, cbc, cmp prior to f/u. [facility] 04-12-2023 Hospital Discharge instructions Patient Education 04/12/2023 09:04:36 Benign Prostatic Hyperplasia Benign Prostatic Hyperplasia Benign prostatic hyperplasia (BPH) is an enlarged prostate gland that is caused by the normal aging process. The prostate may get bigger as a man gets older. The condition is not caused by cancer. The prostate is a walnut-sized gland that is involved in the production of semen. It is located in front of the rectum and below the bladder. The bladder stores urine. The urethra carries stored urine out of the body. An enlarged prostate can press on the urethra. This can make it harder to pass urine. The buildup of urine in the bladder can cause infection. Back pressure and infection may progress to bladder damage and kidney (renal) failure. What are the causes? This condition is part of the normal aging process. However, not all men develop problems from this condition. If the prostate enlarges away from the urethra, urine flow will not be blocked. If it enlarges toward the urethra and compresses it, there will be problems passing urine. What increases the risk? This condition is more likely to develop in men older than 50 years. What are the signs or symptoms? Symptoms of this condition include: Getting up often during the night to urinate. Needing to urinate frequently during the day. Difficulty starting urine flow. Decrease in size and strength of your urine stream. Leaking (dribbling) after urinating. Inability to pass urine. This needs immediate treatment. Inability to completely empty your bladder. Pain when you pass urine. This is more common if there is also an infection. Urinary tract infection (UTI). How is this diagnosed? This condition is diagnosed based on your medical history, a physical exam, and your symptoms. Tests will also be done, such as: A post-void bladder scan. This measures any amount of urine that may remain in your bladder after you finish urinating. A digital rectal exam. In a rectal exam, your health care provider checks your prostate by putting a lubricated, gloved finger into your rectum to feel the back of your prostate gland. This exam detects the size of your gland and any abnormal lumps or growths. An exam of your urine (urinalysis). A prostate specific antigen (PSA) screening. This is a blood test used to screen for prostate cancer. An ultrasound. This test uses sound waves to electronically produce a picture of your prostate gland. Your health care provider may refer you to a specialist in kidney and prostate diseases (urologist). How is this treated? Once symptoms begin, your health care provider will monitor your condition (active surveillance or watchful waiting). Treatment for this condition will depend on the severity of your condition. Treatment may include: Observation and yearly exams. This may be the only treatment needed if your condition and symptoms are mild. Medicines to relieve your symptoms, including: ?Medicines to shrink the prostate. ?Medicines to relax the muscle of the prostate. Surgery in severe cases. Surgery may include: ?Prostatectomy. In this procedure, the prostate tissue is removed completely through an open incision or with a laparoscope or robotics. ?Transurethral resection of the prostate (TURP). In this procedure, a tool is inserted through the opening at the tip of the penis (urethra). It is used to cut away tissue of the inner core of the prostate. The pieces are removed through the same opening of the penis. This removes the blockage. ?Transurethral incision (TUIP). In this procedure, small cuts are made in the prostate. This lessens the prostate's pressure on the urethra. ?Transurethral microwave thermotherapy (TUMT). This procedure uses microwaves to create heat. The heat destroys and removes a small amount of prostate tissue. ?Transurethral needle ablation (TUNA). This procedure uses radio frequencies to destroy and remove a small amount of prostate tissue. ?Interstitial laser coagulation (ILC). This procedure uses a laser to destroy and remove a small amount of prostate tissue. ?Transurethral electrovaporization (TUVP). This procedure uses electrodes to destroy and remove a small amount of prostate tissue. ?Prostatic urethral lift. This procedure inserts an implant to push the lobes of the prostate away from the urethra. Follow these instructions at home: Take qzzm-mog-qhoybhz and prescription medicines only as told by your health care provider. Monitor your symptoms for any changes. Contact your health care provider with any changes. Avoid drinking large amounts of liquid before going to bed or out in public. Avoid or reduce how much caffeine or alcohol you drink. Give yourself time when you urinate. Keep all follow-up visits. This is important. Contact a health care provider if: You have unexplained back pain. Your symptoms do not get better with treatment. You develop side effects from the medicine you are taking. Your urine becomes very dark or has a bad smell. Your lower abdomen becomes distended and you have trouble passing urine. Get help right away if: You have a fever or chills. You suddenly cannot urinate. You feel light-headed or very dizzy, or you faint. There are large amounts of blood or clots in your urine. Your urinary problems become hard to manage. You develop moderate to severe low back or flank pain. The flank is the side of your body between the ribs and the hip. These symptoms may be an emergency. Get help right away. Call 911. Do not wait to see if the symptoms will go away. Do not drive yourself to the hospital. Summary Benign prostatic hyperplasia (BPH) is an enlarged prostate that is caused by the normal aging process. It is not caused by cancer. An enlarged prostate can press on the urethra. This can make it hard to pass urine. This condition is more likely to develop in men older than 50 years. Get help right away if you suddenly cannot urinate. This information is not intended to replace advice given to you by your health care provider. Make sure you discuss any questions you have with your health care provider. Document Revised: 05/14/2022 Document Reviewed: 05/14/2022 [employer] Patient Education 2022 [employer]. Follow Up Care 04/10/2023 14:13:46 With:Mecca SAUCEDO MD, FAM Address: When: only if needed [facility] 02-07-2023 Hospital Discharge instructions Patient Education 02/07/2023 13:23:11 Pulmonary Embolism Pulmonary Embolism A pulmonary embolism (PE) is a sudden blockage or decrease of blood flow in one or both lungs. Most blockages come from a blood clot that forms in the vein of a lower leg, thigh, or arm (deep vein thrombosis, DVT) and travels to the lungs. A clot is blood that has thickened into a gel or solid. PE is a dangerous and life-threatening condition that needs to be treated right away. What are the causes? This condition is usually caused by a blood clot that forms in a vein and moves to the lungs. In rare cases, it may be caused by air, fat, part of a tumor, or other tissue that moves through the veins and into the lungs. What increases the risk? The following factors may make you more likely to develop this condition: Experiencing a traumatic injury, such as breaking a hip or leg. Having: ?A spinal cord injury. ?Orthopedic surgery, especially hip or knee replacement. ?Any major surgery. ?A stroke. ?DVT. ?Blood clots or blood clotting disease. ?Long-term (chronic) lung or heart disease. ?Cancer treated with chemotherapy. ?A central venous catheter. Taking medicines that contain estrogen. These include control pills and hormone replacement therapy. Being: ?. ?In the period of time after your baby is delivered (). ?Older than age 60. ?Overweight. ?A smoker, especially if you have other risks. What are the signs or symptoms? Symptoms of this condition usually start suddenly and include: Shortness of breath during activity or at rest. Coughing, coughing up blood, or coughing up blood-tinged mucus. Chest pain that is often worse with deep breaths. Rapid or irregular heartbeat. Feeling light-headed or dizzy. Fainting. Feeling anxious. Fever. Sweating. Pain and swelling in a leg. This is a symptom of DVT, which can lead to PE. How is this diagnosed? This condition may be diagnosed based on: Your medical history. A physical exam. Blood tests. CT pulmonary angiogram. This test checks blood flow in and around your lungs. Ventilation-perfusion scan, also called a lung VQ scan. This test measures air flow and blood flow to the lungs. An ultrasound of the legs. How is this treated? Treatment for this condition depends on many factors, such as the cause of your PE, your risk for bleeding or developing more clots, and other medical conditions you have. Treatment aims to remove, dissolve, or stop blood clots from forming or growing larger. Treatment may include: Medicines, such as: ?Blood thinning medicines (anticoagulants) to stop clots from forming. ?Medicines that dissolve clots (thrombolytics). Procedures, such as: ?Using a flexible tube to remove a blood clot (embolectomy) or to deliver medicine to destroy it (catheter-directed thrombolysis). ?Inserting a filter into a large vein that carries blood to the heart (inferior vena cava). This filter (vena cava filter) catches blood clots before they reach the lungs. ?Surgery to remove the clot (surgical embolectomy). This is rare. You may need a combination of immediate, long-term (up to 3 months after diagnosis), and extended (more than 3 months after diagnosis) treatments. Your treatment may continue for several months (maintenance therapy). You and your health care provider will work together to choose the treatment program that is best for you. Follow these instructions at home: Medicines Take bawt-bdz-ajfxrlw and prescription medicines only as told by your health care provider. If you are taking an anticoagulant medicine: ?Take the medicine every day at the same time each day. ?Understand what foods and drugs interact with your medicine. ?Understand the side effects of this medicine, including excessive bruising or bleeding. Ask your health care provider or pharmacist about other side effects. General instructions Wear a medical alert bracelet or carry a medical alert card that says you have had a PE and lists what medicines you take. Ask your health care provider when you may return to your normal activities. Avoid sitting or lying for a long time without moving. Maintain a healthy weight. Ask your health care provider what weight is healthy for you. Do not use any products that contain nicotine or tobacco, such as cigarettes, e-cigarettes, and chewing tobacco. If you need help quitting, ask your health care provider. Talk with your health care provider about any travel plans. It is important to make sure that you are still able to take your medicine while on trips. Keep all follow-up visits as told by your health care provider. This is important. Contact a health care provider if: You missed a dose of your blood thinner medicine. Get help right away if: You have: ?New or increased pain, swelling, warmth, or redness in an arm or leg. ?Numbness or tingling in an arm or leg. ?Shortness of breath during activity or at rest. ?A fever. ?Chest pain. ?A rapid or irregular heartbeat. ?A severe headache. ?Vision changes. ?A serious fall or accident, or you hit your head. ?Stomach (abdominal) pain. ?Blood in your vomit, stool, or urine. ?A cut that will not stop bleeding. You cough up blood. You feel light-headed or dizzy. You cannot move your arms or legs. You are confused or have memory loss. These symptoms may represent a serious problem that is an emergency. Do not wait to see if the symptoms will go away. Get medical help right away. Call your local emergency services (911 in the [place] Do not drive yourself to the hospital. Summary A pulmonary embolism (PE) is a sudden blockage or decrease of blood flow in one or both lungs. PE is a dangerous and life-threatening condition that needs to be treated right away. Treatments for this condition usually include medicines to thin your blood (anticoagulants) or medicines to break apart blood clots (thrombolytics). If you are given blood thinners, it is important to take the medicine every day at the same time each day. Understand what foods and drugs interact with any medicines that you are taking. If you have signs of PE or DVT, call your local emergency services (911 in the [place] This information is not intended to replace advice given to you by your health care provider. Make sure you discuss any questions you have with your health care provider. Document Released: 10/23/2001 Document Revised: 08/03/2019 Document Reviewed: 08/03/2019 [employer] Patient Education 2020 [employer]. Follow Up Care 02/03/2023 13:46:25 With:SHERYL CHU, ELIU Sanz Address: When: only if needed [facility] [place] 02-05-2023 Hospital Discharge instructions Follow Up Care 02/05/2023 14:20:38 With:Joshua Eng Address: [facility] [place] [address]- [phone] Fax Business (1) When: Unknown Comments:give 10d of levaquinct chest with contrast prior to f/u in 6wks or so for pneumonia. cbc, cmp, cea. f/u after ct imaging. [facility] 01-31-2023 Hospital Discharge instructions Patient Education 01/31/2023 13:06:31 Pulmonary Embolism Pulmonary Embolism A pulmonary embolism (PE) is a sudden blockage or decrease of blood flow in one or both lungs. Most blockages come from a blood clot that forms in the vein of a lower leg, thigh, or arm (deep vein thrombosis, DVT) and travels to the lungs. A clot is blood that has thickened into a gel or solid. PE is a dangerous and life-threatening condition that needs to be treated right away. What are the causes? This condition is usually caused by a blood clot that forms in a vein and moves to the lungs. In rare cases, it may be caused by air, fat, part of a tumor, or other tissue that moves through the veins and into the lungs. What increases the risk? The following factors may make you more likely to develop this condition: Experiencing a traumatic injury, such as breaking a hip or leg. Having: ?A spinal cord injury. ?Orthopedic surgery, especially hip or knee replacement. ?Any major surgery. ?A stroke. ?DVT. ?Blood clots or blood clotting disease. ?Long-term (chronic) lung or heart disease. ?Cancer treated with chemotherapy. ?A central venous catheter. Taking medicines that contain estrogen. These include control pills and hormone replacement therapy. Being: ?. ?In the period of time after your baby is delivered (). ?Older than age 60. ?Overweight. ?A smoker, especially if you have other risks. What are the signs or symptoms? Symptoms of this condition usually start suddenly and include: Shortness of breath during activity or at rest. Coughing, coughing up blood, or coughing up blood-tinged mucus. Chest pain that is often worse with deep breaths. Rapid or irregular heartbeat. Feeling light-headed or dizzy. Fainting. Feeling anxious. Fever. Sweating. Pain and swelling in a leg. This is a symptom of DVT, which can lead to PE. How is this diagnosed? This condition may be diagnosed based on: Your medical history. A physical exam. Blood tests. CT pulmonary angiogram. This test checks blood flow in and around your lungs. Ventilation-perfusion scan, also called a lung VQ scan. This test measures air flow and blood flow to the lungs. An ultrasound of the legs. How is this treated? Treatment for this condition depends on many factors, such as the cause of your PE, your risk for bleeding or developing more clots, and other medical conditions you have. Treatment aims to remove, dissolve, or stop blood clots from forming or growing larger. Treatment may include: Medicines, such as: ?Blood thinning medicines (anticoagulants) to stop clots from forming. ?Medicines that dissolve clots (thrombolytics). Procedures, such as: ?Using a flexible tube to remove a blood clot (embolectomy) or to deliver medicine to destroy it (catheter-directed thrombolysis). ?Inserting a filter into a large vein that carries blood to the heart (inferior vena cava). This filter (vena cava filter) catches blood clots before they reach the lungs. ?Surgery to remove the clot (surgical embolectomy). This is rare. You may need a combination of immediate, long-term (up to 3 months after diagnosis), and extended (more than 3 months after diagnosis) treatments. Your treatment may continue for several months (maintenance therapy). You and your health care provider will work together to choose the treatment program that is best for you. Follow these instructions at home: Medicines Take dvmi-fbg-cswpdvj and prescription medicines only as told by your health care provider. If you are taking an anticoagulant medicine: ?Take the medicine every day at the same time each day. ?Understand what foods and drugs interact with your medicine. ?Understand the side effects of this medicine, including excessive bruising or bleeding. Ask your health care provider or pharmacist about other side effects. General instructions Wear a medical alert bracelet or carry a medical alert card that says you have had a PE and lists what medicines you take. Ask your health care provider when you may return to your normal activities. Avoid sitting or lying for a long time without moving. Maintain a healthy weight. Ask your health care provider what weight is healthy for you. Do not use any products that contain nicotine or tobacco, such as cigarettes, e-cigarettes, and chewing tobacco. If you need help quitting, ask your health care provider. Talk with your health care provider about any travel plans. It is important to make sure that you are still able to take your medicine while on trips. Keep all follow-up visits as told by your health care provider. This is important. Contact a health care provider if: You missed a dose of your blood thinner medicine. Get help right away if: You have: ?New or increased pain, swelling, warmth, or redness in an arm or leg. ?Numbness or tingling in an arm or leg. ?Shortness of breath during activity or at rest. ?A fever. ?Chest pain. ?A rapid or irregular heartbeat. ?A severe headache. ?Vision changes. ?A serious fall or accident, or you hit your head. ?Stomach (abdominal) pain. ?Blood in your vomit, stool, or urine. ?A cut that will not stop bleeding. You cough up blood. You feel light-headed or dizzy. You cannot move your arms or legs. You are confused or have memory loss. These symptoms may represent a serious problem that is an emergency. Do not wait to see if the symptoms will go away. Get medical help right away. Call your local emergency services (911 in the [place] Do not drive yourself to the hospital. Summary A pulmonary embolism (PE) is a sudden blockage or decrease of blood flow in one or both lungs. PE is a dangerous and life-threatening condition that needs to be treated right away. Treatments for this condition usually include medicines to thin your blood (anticoagulants) or medicines to break apart blood clots (thrombolytics). If you are given blood thinners, it is important to take the medicine every day at the same time each day. Understand what foods and drugs interact with any medicines that you are taking. If you have signs of PE or DVT, call your local emergency services (911 in the [place] This information is not intended to replace advice given to you by your health care provider. Make sure you discuss any questions you have with your health care provider. Document Released: 10/23/2001 Document Revised: 08/03/2019 Document Reviewed: 08/03/2019 [employer] Patient Education 2020 [employer]. Follow Up Care 01/30/2023 11:14:27 With:Mecca SAUCEDO MD, FAM Address: [address] [place] [phone]- When:1 to 2 weeks With:Joshua Eng DO, ONC Address: [address] [place] [address]- When: Unknown Comments:Keep scheduled appointment on [facility] 01-31-2023 Evaluation + Plan note Extrac cele from: Title:Discharge Note Author:Trini Moreno MD Date:01/31/23 Stable Discharged to - Home independently Prescriptions Eliquis Starter Pack 5 mg oral tablet, See Instructions Xanax 0.5 mg Tab, 0.5 mg= 1 tab(s), Oral, TID, PRN Home levothyroxine 100 mcg (0.1 mg) Tab, 100 mcg= 1 tab(s), Oral, Daily Suboxone 8 mg-2 mg sublingual film, 1 film, SubLingual, BID With When Contact Information Mecca SAUCEDO MD, FAM Within 1 to [address] [place] [id number]- Additional Instructions: Joshua Eng DO, ONC [address] [place] [address]- Additional Instructions: Keep scheduled appointment on Pulmonary Embolism Extracted from: Title:Admission H & P Author:Trini Moreno MD Date:01/30/23 1. Pulmonary emboli, (I26.99 : Other pulmonary embolism without acute cor pulmonale) Likely due to underlying malignancy. Cardiac Echo ordered to r/o right heart strain. Troponin is negative. No hypoxia. Started on Heparin drip Consult to Oncology re: recommendations for AC on discharge. Pulmonary infarct Due to Acute PE. Check PCT to r/o underlying infectious process. 3. CKD (chronic kidney disease) stage 3, GFR 30-59 ml/min (N18.30: Chronic kidney disease, stage 3 unspecified) Creatinine stable at baseline. Patient reports recent MORGAN due to chemo toxicity. 4. Benign hypertension (I10: Essential (primary) hypertension) Controlled. 5. Non-small cell cancer of right lung (C34.91: Malignant neoplasm of unspecified part of right bronchus or lung) CT shows stable RLL mass. Patient has undergone radiation and chemo. 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 Extracted from: Title:ED Note Author:Eddie Steele PA-C te:01/30/23 Pulmonary emboli (I26.99: Ot her pulmonary embolism without acute cor pulmonale) Orders: heparin, 6,360 unit(s) = 0.64 mL, Injection, IV Push, Once, Stop date 01/30/23 13:29:00 EDT, STAT, Start date 01/30/23 13:29:00 EDT, Maximum 10,000 units. Use table #1 on Reference Text., 01/30/23 13:29:00 EDT heparin 25,000 unit(s) [18 unit/kg/hr] + Dextrose 5% in Water intravenous solution 500 mL, 500 mL, IV, 28.62 mL/hr, Routine, Start date 01/30/23 13:29:00 EDT, 17.5 hour(s), Total volume (mL): 500, Titrate per high intensity heparin protocol (Table 3 on reference text), 79.5 kg, Max INITIAL rate = 2000 unit(s)/hr (40 mL/hr). May go above thi... Sodium Chloride 0.9% intravenous solution, 1,000 mL, Soln-IV, IV, Once, Stop date 01/30/23 11:30:00 EDT, STAT, Start date 01/30/23 11:30:00 EDT, mL/hr, Infuse over 61, minute(s) Automated Diff B-Type Natriuretic Peptide Basic Metabolic Panel Blood Culture Charcoal Blood Culture Charcoal CBC w/ Auto Diff Continuous Pulse Oximetry CTA Chest ED Cardiac Monitoring ED Physician consult Hospitalist for continued care eGFR Extra SST Tube PT & PTT Saline Lock Insert Troponin 0 Hr. Troponin 3 Hr. Troponin 6 Hr. Troponin 9 Hr. Future Appointments Appointment Date:02/05/2023 01:15:00 PM Scheduled Provider:Joshua Eng DO Location:.ONCOLOGY Appointment Type:ONC Office Visit 15 (FT) Appointment Date:06/01/2023 11:20:00 AM Scheduled Provider:Mecca SAUCEDO MD Location:[facility] Appointment Type: Open Future Scheduled Tests Laboratory* CBC w/ Auto Diff 02/08/23 * Comprehensive Metabolic Panel 02/08/23 * Thyroid Stimulating Hormone 02/08/23 Radiology* Echo Transthoracic Complete 02/03/23 [facility]03-02-2023 Hospital Discharge instructions Follow Up Care 01/08/2023 11:26:14 With:Joshua Eng Address: [address] [address]- [phone] Fax Business (1) When: Unknown Comments:check ft4 and ft3. f/u in a 2 months with repeat imaging first pet/ctcbc, cmp monthly. cont eliquiscbc, cmp, tsh, esr t4 prior to f/u.increase synthroid to 125mcg per day. [facility]02-16-2023 Hospital Discharge instructions Follow Up Care 12/25/2022 13:17:19 With:Joshua Eng Address: [address] [address]- [phone] Fax Business (1) When: Unknown Comments:drop to 10mg prednisone tomorrow x 1 week, then 5mg for 1 week, then stopcbc, cmp, tsh in 1mofollow-up in 1mo [facility]02-14-2023 Hospital Discharge instructions Patient Education 12/23/2022 12:08:36 Dr Ware's Instructions ONC (CUSTOM) Dr. Ware s instructions for 12-23-[address] Ware during business hours, please call the oncology office at [phone] and speak with a behavioral health case manager (Merry or Ashley). After hours, please call the main hospital white mixing operator at [phone] and you will be connected to Dr. Ware. [facility]02-06-2023 Hospital Discharge instructions Follow Up Care 12/15/2022 11:41:39 With:Joshua Eng Address: [facility] [place] [address]- [phone] Fax Business (1) When: Unknown Comments:pet/ct soonf/u after. drop prednisone to 40mg for a week, then 20mg till f/u. cbc, cmp weekly. makef/u with Dr. Woo in next few weeks. [facility]02-05-2023 Hospital Discharge instructions Patient Education 12/14/2022 19:30:13 Acute Kidney Injury, Adult Acute Kidney Injury, Adult Acute kidney injury is a sudden worsening of kidney function. The kidneys are organs that have several jobs. They filter the blood to remove waste products and extra fluid. They also maintain a healthy balance of minerals and hormones in the body, which helps control blood pressure and keep bones strong. With this condition, your kidneys do not do their jobs as well as they should. This condition ranges from mild to severe. Over time it may develop into long- lasting (chronic) kidney disease. Early detection and treatment may prevent acute kidney injury from developing into a chronic condition. What are the causes? Common causes of this condition include: A problem with blood flow to the kidneys. This may be caused by: ?Low blood pressure (hypotension) or shock. ?Blood loss. ?Heart and blood vessel (cardiovascular) disease. ?Severe riley. ?Liver disease. Direct damage to the kidneys. This may be caused by: ?Certain medicines. ?A kidney infection. ?Poisoning. ?Being around or in contact with toxic substances. ?A surgical wound. ?A hard, direct hit to the kidney area. A sudden blockage of urine flow. This may be caused by: ?Cancer. ?Kidney stones. ?An enlarged prostate in males. What are the signs or symptoms? Symptoms of this condition may not be obvious until the condition becomes severe. Symptoms of this condition can include: Tiredness (lethargy), or difficulty staying awake. Nausea or vomiting. Swelling (edema) of the face, legs, ankles, or feet. Problems with urination, such as: ?Abdominal pain, or pain along the side of your stomach (flank). ?Decreased urine production. ?Decrease in the force of urine flow. Muscle twitches and cramps, especially in the legs. Confusion or trouble concentrating. Loss of appetite. Fever. How is this diagnosed? This condition may be diagnosed with tests, including: Blood tests. Urine tests. Imaging tests. A test in which a sample of tissue is removed from the kidneys to be examined under a microscope (kidney biopsy). How is this treated? Treatment for this condition depends on the cause and how severe the condition is. In mild cases, treatment may not be needed. The kidneys may heal on their own. In more severe cases, treatment will involve: Treating the cause of the kidney injury. This may involve changing any medicines you are taking or adjusting your dosage. Fluids. You may need specialized IV fluids to balance your body's needs. Having a catheter placed to drain urine and prevent blockages. Preventing problems from occurring. This may mean avoiding certain medicines or procedures that cancause further injury to the kidneys. In some cases treatment may also require: A procedure to remove toxic wastes from the body (dialysis or continuous renal replacement therapy - CRRT). Surgery. This may be done to repair a torn kidney, or to remove the blockage from the urinary system. Follow these instructions at home: Medicines Take mops-gul-dmjydjm and prescription medicines only as told by your health care provider. Do not take any new medicines without your health care provider's approval. Many medicines can worsen your kidney damage. Do not take any vitamin and mineral supplements without your health care provider's approval. Many nutritional supplements can worsen your kidney damage. Lifestyle If your health care provider prescribed changes to your diet, follow them. You may need to decreasethe amount of protein you eat. Achieve and maintain a healthy weight. If you need help with this, ask your health care provider. Start or continue an exercise plan. Try to exercise at least 30 minutes a day, 5 days a week. Do not use any tobacco products, such as cigarettes, chewing tobacco, and e- cigarettes. If you needhelp quitting, ask your health care provider. General instructions Keep track of your blood pressure. Report changes in your blood pressure as told by your health care provider. Stay up to date with immunizations. Ask your health care provider which immunizations you need. Keep all follow-up visits as told by your health care provider. This is important. Where to find more information [employer]: www.aakp.org National Kidney Foundation: www.kidney.org [employer]: www.akfinc.org Life Options Rehabilitation Program: ?www.lifeoptions.org ?www.kidneyschool.org Contact a health care provider if: Your symptoms get worse. You develop new symptoms. Get help right away if: You develop symptoms of worsening kidney disease, which include: ?Headaches. ?Abnormally dark or light skin. ?Easy bruising. ?Frequent hiccups. ?Chest pain. ?Shortness of breath. ?End of menstruation in women. ?Seizures. ?Confusion or altered mental status. ?Abdominal or back pain. ?Itchiness. You have a fever. Your body is producing less urine. You have pain or bleeding when you urinate. Summary Acute kidney injury is a sudden worsening of kidney function. Acute kidney injury can be caused by problems with blood flow to the kidneys, direct damage to the kidneys, and sudden blockage of urine flow. Symptoms of this condition may not be obvious until it becomes severe. Symptoms may include edema, lethargy, confusion, nausea or vomiting, and problems passing urine. This condition can usually be diagnosed with blood tests, urine tests, and imaging tests. Sometimesa kidney biopsy is done to diagnose this condition. Treatment for this condition often involves treating the underlying cause. It is treated with fluids, medicines, dialysis, diet changes, or surgery. This information is not intended to replace advice given to you by your health care provider. Make sure you discuss any questions you have with your health care provider. Document Released: 2012 Document Revised: 10/08/2018 Document Reviewed: 10/16/2017 [employer] Patient Education 2020 [employer]. Follow Up Care 12/11/2022 10:26:19 With:Mecca SAUCEDO MD, FAM Address: When: only if needed [facility] [place] 02-03-2023 Hospital Discharge instructions Patient Education 12/12/2022 15:09:22 Hyperkalemia, Egqe-bj-Ojnz Hyperkalemia Hyperkalemia is when you have too much potassium in your blood. Potassium helps your body in many ways, but having too much can cause problems. If there is too much potassium in your blood, it can affect how your heart works. Potassium is normally removed from your body by your kidneys. Many things can cause the amount in your blood to be high. Medicines and other treatments can be used to bring the amount to a normal level. Treatment may need to be done in the hospital. Follow these instructions at home: Take usdx-iig-zwzidij and prescription medicines only as told by your doctor. Do not take any of the following unless your doctor says it is okay: ?Supplements. ?Natural products. ?Herbs. ?Vitamins. Limit how much alcohol you drink as told by your doctor. Do not use drugs. If you need help quitting, ask your doctor. If you have kidney disease, you may need to follow a low-potassium diet. A food and beverage intern (dietitian) can help you. Keep all follow-up visits as told by your doctor. This is important. Contact a doctor if: Your heartbeat is not regular or is very slow. You feel dizzy (light-headed). You feel weak. You feel sick to your stomach (nauseous). You have tingling in your hands or feet. You lose feeling (have numbness) in your hands or feet. Get help right away if: You are short of breath. You have chest pain. You pass out (faint). You cannot move your muscles. Summary Hyperkalemia is when you have too much potassium in your blood. Take rjhm-efp-nfoqpze and prescription medicines only as told by your doctor. Limit how much alcohol you drink as told by your doctor. Contact a doctor if your heartbeat is not regular. This information is not intended to replace advice given to you by your health care provider. Make sure you discuss any questions you have with your health care provider. Document Released: 10/26/2006 Document Revised: 10/11/2018 Document Reviewed: 10/11/2018 [employer] Patient Education 2020 [employer] 12/12/2022 15:09:11 Acute Kidney Injury, Adult Acute Kidney Injury, Adult Acute kidney injury is a sudden worsening of kidney function. The kidneys are organs that have several jobs. They filter the blood to remove waste products and extra fluid. They also maintain a healthy balance of minerals and hormones in the body, which helps control blood pressure and keep bones strong. With this condition, your kidneys do not do their jobs as well as they should. This condition ranges from mild to severe. Over time it may develop into long- lasting (chronic) kidney disease. Early detection and treatment may prevent acute kidney injury from developing into a chronic condition. What are the causes? Common causes of this condition include: A problem with blood flow to the kidneys. This may be caused by: ?Low blood pressure (hypotension) or shock. ?Blood loss. ?Heart and blood vessel (cardiovascular) disease. ?Severe riley. ?Liver disease. Direct damage to the kidneys. This may be caused by: ?Certain medicines. ?A kidney infection. ?Poisoning. ?Being around or in contact with toxic substances. ?A surgical wound. ?A hard, direct hit to the kidney area. A sudden blockage of urine flow. This may be caused by: ?Cancer. ?Kidney stones. ?An enlarged prostate in males. What are the signs or symptoms? Symptoms of this condition may not be obvious until the condition becomes severe. Symptoms of this condition can include: Tiredness (lethargy), or difficulty staying awake. Nausea or vomiting. Swelling (edema) of the face, legs, ankles, or feet. Problems with urination, such as: ?Abdominal pain, or pain along the side of your stomach (flank). ?Decreased urine production. ?Decrease in the force of urine flow. Muscle twitches and cramps, especially in the legs. Confusion or trouble concentrating. Loss of appetite. Fever. How is this diagnosed? This condition may be diagnosed with tests, including: Blood tests. Urine tests. Imaging tests. A test in which a sample of tissue is removed from the kidneys to be examined under a microscope (kidney biopsy). How is this treated? Treatment for this condition depends on the cause and how severe the condition is. In mild cases, treatment may not be needed. The kidneys may heal on their own. In more severe cases, treatment will involve: Treating the cause of the kidney injury. This may involve changing any medicines you are taking or adjusting your dosage. Fluids. You may need specialized IV fluids to balance your body's needs. Having a catheter placed to drain urine and prevent blockages. Preventing problems from occurring. This may mean avoiding certain medicines or procedures that cancause further injury to the kidneys. In some cases treatment may also require: A procedure to remove toxic wastes from the body (dialysis or continuous renal replacement therapy - CRRT). Surgery. This may be done to repair a torn kidney, or to remove the blockage from the urinary system. Follow these instructions at home: Medicines Take dazt-ggn-pbezjgi and prescription medicines only as told by your health care provider. Do not take any new medicines without your health care provider's approval. Many medicines can worsen your kidney damage. Do not take any vitamin and mineral supplements without your health care provider's approval. Many nutritional supplements can worsen your kidney damage. Lifestyle If your health care provider prescribed changes to your diet, follow them. You may need to decreasethe amount of protein you eat. Achieve and maintain a healthy weight. If you need help with this, ask your health care provider. Start or continue an exercise plan. Try to exercise at least 30 minutes a day, 5 days a week. Do not use any tobacco products, such as cigarettes, chewing tobacco, and e- cigarettes. If you needhelp quitting, ask your health care provider. General instructions Keep track of your blood pressure. Report changes in your blood pressure as told by your health care provider. Stay up to date with immunizations. Ask your health care provider which immunizations you need. Keep all follow-up visits as told by your health care provider. This is important. Where to find more information [employer] [employer]: www.aakp.org National Kidney Foundation: www.kidney.org [employer]: www.akfinc.org Life Options Rehabilitation Program: ?www.lifeoptions.org ?www.kidneyschool.org Contact a health care provider if: Your symptoms get worse. You develop new symptoms. Get help right away if: You develop symptoms of worsening kidney disease, which include: ?Headaches. ?Abnormally dark or light skin. ?Easy bruising. ?Frequent hiccups. ?Chest pain. ?Shortness of breath. ?End of menstruation in women. ?Seizures. ?Confusion or altered mental status. ?Abdominal or back pain. ?Itchiness. You have a fever. Your body is producing less urine. You have pain or bleeding when you urinate. Summary Acute kidney injury is a sudden worsening of kidney function. Acute kidney injury can be caused by problems with blood flow to the kidneys, direct damage to the kidneys, and sudden blockage of urine flow. Symptoms of this condition may not be obvious until it becomes severe. Symptoms may include edema, lethargy, confusion, nausea or vomiting, and problems passing urine. This condition can usually be diagnosed with blood tests, urine tests, and imaging tests. Sometimesa kidney biopsy is done to diagnose this condition. Treatment for this condition often involves treating the underlying cause. It is treated with fluids, medicines, dialysis, diet changes, or surgery. This information is not intended to replace advice given to you by your health care provider. Make sure you discuss any questions you have with your health care provider. Document Released: 2012 Document Revised: 10/08/2018 Document Reviewed: 10/16/2017 [employer] Patient Education [employer]. Follow Up Care 12/10/2022 18:30:50 With:Joshua Eng Address: [facility] [address] [place] [address]- When:1 to 2 weeks With:Federico Woo Address: [facility] [address] [place] [address]- Business (1) When:4 weeks With:Mecca SAUCEDO Address: [address] [place] [id number]- Business (1) When:12/16/2022 13:40:00 [facility]02-03-2023 Evaluation + Plan noteExtracted from: Title:Acute Renal Failure * Author:Amna CHU, Cardoza nil Date:12/12/22 Impression and Plan 1. MORGNA with unknown baseline creatinine: Unclear if this is from prerenal azotemia. Cannot exclude interstitial nephritis from pembrolizumab. Time course certainly worrisome for this. Ideally would like kidney biopsy for diagnostic reasons. Started on oral steroids by oncology. Will defer to them for tapering and PJP prophylaxis. Creatinine has been stable at 3.3 mg/dL since admission. Can stop IV fluids. He is not hypovolemic. UA unremarkable. No urgent need for MACHINE [employer] at this time We will have him see us in our outpatient clinic in 1 month. 2. Hyperkalemia: From MORGAN and lisinopril. Continue off lisinopril as you are. 3. Metabolic Acidosis: Resolved with bicarb drip. 4. NSCLC: Chemo/Radiatio therapy completed two weeks ago. He currently is receiving immunotherapy, Keytruda. -Managed outpatient by oncologist, Dr Eng. Extracted from: Title:APSO Note Author:Olayinka CRANE MD Date: 3 1. Other acute kidney failur e (N17.8: Other acute kidney failure) - secondary to a possible interstitial nephritis - started on prednisone as per oncology - IVF - nephrology consulted Ordered: [facility] Care/Day Moderate 35 Minutes [id number] 2. Metabolic acidosis (E87.20: Acidosis, unspecified) - secondary to above MORGAN, resolved, stop bicarbonate gtt 3. Hyperkalemia (E87.5: Hyperkalemia) - secondary to above MORGAN, potassium decreased 4. Non-small cell carcinoma of lung (C34.90: Malignant neoplasm of unspecified part of unspecified bronchus or lung) - follows with oncology, on keytruda 5. Hypertension (I10: Essential (primary) hypertension) - hold lisinopril 6. Opioid use disorder in remission (F11.91: Opioid use, unspecified, in remission) - suboxone 7. Hypothyroid (E03.9: Hypothyroidism, unspecified) - synthroid 8. Anxiety (F41.9: Anxiety disorder, unspecified) - xanax 9. No contraindication to deep vein thrombosis (DVT) prophylaxis (Z78.9: Other specified health status) - SCDs, heparin subcutaneous Orders: heparin, 5,000 unit(s) = 1 mL, Injection, SubCutaneous, BID for 30 day(s), Stop date 01/10/23 20:59:00 EST, Routine, Start date 12/11/22 21:00:00 EST, 12/11/22 9:34:00 EST Sodium Chloride 0.9% intravenous solution 1,000 mL, 1,000 mL, IV, 75 mL/hr, Routine, Start date 12/12/22 8:16:00 EST, 13.3 hour(s), Total volume (mL): 1,000, 81.6 kg, 2.01, m2 Automated Diff Basic Metabolic Panel CBC w/ Auto Diff Consult to Hematology/Oncology Occupational Therapy Evaluate Patient, Develop a Plan of Care and Implement Plan Physical Therapy Evaluate Patient, Develop a Plan of Care and Implement Plan Extracted from: Title:APSO Note Author:Olayinka CRANE MD Date: 3 1. Other acute kidney failur e (N17.8: Other acute kidney failure) - possibly secondary to chemo regimen - nephrology consulted, US renal - change IVF to sodium bicarbonate gtt 2. Metabolic acidosis (E87.20: Acidosis, unspecified) - secondary to above, changed IVF to sodium bicarbonate gtt 3. Hyperkalemia (E87.5: Hyperkalemia) - secondary to above - potassium decreasing 4. Non-small cell carcinoma of lung (C34.90: Malignant neoplasm of unspecified part of unspecified bronchus or lung) - follows with oncology, on keytruda Ordered: alprazolam, 0.5 mg = 1 tab(s), Tab, Oral, TID PRN Anxiety, Routine, Start date 12/11/22 7:51:00 EST, 12/11/22 7:51:00 EST 5. Hypertension (I10: Essential (primary) hypertension) - hold lisinopril 6. Opioid use disorder in remission (F11.91: Opioid use, unspecified, in remission) - suboxone 7. Hypothyroid (E03.9: Hypothyroidism, unspecified) - synthroid 8. Anxiety (F41.9: Anxiety disorder, unspecified) - xanax DVT Prophylaxis - SCDs, heparin subcutanous Ordered: alprazolam, 0.5 mg = 1 tab(s), Tab, Oral, TID PRN Anxiety, Routine, Start date 12/11/22 7:51:00 EST, 12/11/22 7:51:00 EST Orders: Dextrose 5% in Water intravenous solution 1,000 mL + sodium bicarbonate 150 mEq, 1,000 mL, IV, 125 mL/hr, Routine, Start date 12/11/22 7:50:00 EST, 9.2 hour(s), Total volume (mL): 1,150, 81.6 kg, 2.01, m2 heparin, 5,000 unit(s) = 1 mL, Injection, SubCutaneous, BID for 30 day(s), Stop date 01/10/23 20:59:00 EST, Routine, Start date 12/11/22 21:00:00 EST, 12/11/22 9:34:00 EST Occupational Therapy Evaluate Patient, Develop a Plan of Care and Implement Plan Physical Therapy Evaluate Patient, Develop a Plan of Care and Implement Plan Extracted from: Title:Admission H & P Author:RACHANA Jose CHAMPAGNE Dwayne Date:12/10/22 1. MORGAN (acute kidney injury) (N17.9: Acute kidney failure, unspecified) Potentially multifactorial ?keytruda (per review of up-to-date very rarely less than 1% of the occasions can cause immune mediated nephritis, there was documentation however of 2 to 13% occurrence of acute kidney injury questionably ATN versus other, 13 to 19% of the occasions can cause elevated potassium). His other chemotherapeutic agents namely carboplatin can cause a rise in creatinine but patient states he has not received this since 09 October and his creatinine on 19 November was 1.2. Patient states he has had frequent urination since starting chemotherapy but denies any feeling of urine retention and there is been no change in frequency or volume in the past several weeks and as suggested above his creatinine was 1.2 on 19 November. Also potential roles of lisinopril and naproxen though patient has been on lisinopril for quite some period of time and naproxen he states he uses this infrequently. Note urine said trace amount of blood but no red blood cells, no bilirubin, no protein and no white cells were noted. We will hold all these agents, will continue to gently hydrate, will check renal ultrasound and consult with nephrology Ordered: Consult to Nephrology US Renal 2. Hyperkalemia (E87.5: Hyperkalemia) This was mildly elevated and patient was treated in the emergency department with calcium, an amp of bicarb, Lokelma and a liter of fluid. Patient has demonstrated no bradycardia or peaked T waves. Continue to observe on telemetry. Repeat with a.m. lab. Hold lisinopril 3. Metabolic acidosis (E87.20: Acidosis, unspecified) Presumably secondary to renal insufficiency. Anion gap was within normal limits. Patient was given bicarbonate in the emergency department repeat lab 4. Chronic anemia (D64.9: Anemia, unspecified) Borderline macrocytic indices. Note patient is being treated for hypothyroidism, will check B12 levels as patient is on a PPI we will also check folate. Ordered: Folate Level Vitamin B12 Level 5. Hypothyroidism (E03.9: Hypothyroidism, unspecified) TSH on 09 December was 14.7. Patient does state over the past 2 to 3 months he has had 2 adjustments in his thyroid dosing it is uncertain whether the most recent change in dosing was greater than 6 weeks prior to the TSH which would warrant further increase in thyroid dosing. We will attempt to definitively identify 6. Non-small cell carcinoma of lung (C34.90: Malignant neoplasm of unspecified part of unspecified bronchus or lung) With evidence of metastasis to the left adrenal gland. Per review of documents and confirmed by patient he has had a favorable response to chemotherapy he had received 6 cycles of carboplatin/premetrexed with his last cycle being 09 October. Patient received and finished greater than 20 cycles of radiation therapy 2 weeks prior. Patient has remained on Keytruda question its role in above. 7. Hypertension (I10: Essential (primary) hypertension) We will hold lisinopril in light of above 8. Fatigue (R53.83: Other fatigue) This is stable patient has been seen by palliative care was placed on methylphenidate 9. Diabetes (E11.9: Type 2 diabetes mellitus without complications) Recent hemoglobin A1c on 02 December was 6 10. Chronic lower back pain (M54.50: Low back pain, unspecified) Patient states he had lumbar radiculopathy since the 80s after an accident. He states he had a very favorable response to radiofrequency ablation 1 year prior. Uses infrequent nonsteroidals 11. Opioid use disorder in remission (F11.91: Opioid use, unspecified, in remission) Based on analgesics use for above. Patient is doing well on Suboxone Ordered: Communication Order Physician to Pharmacy [F] 12. GERD (gastroesophageal reflux disease) (K21.9: Gastro-esophageal reflux disease without esophagitis) Continue PPI Orders: acetaminophen, 650 mg = 2 tab(s), Tab, Oral, q6hr PRN Pain, Routine, Start date 12/11/22 0:15:00 EST, 12/11/22 0:15:00 EST buprenorphine-naloxone, 1 -, Film, SubLingual, BID, Routine, Start date 12/11/22 9:00:00 EST fluocinonide topical, 1 morgan, Cream, Topical, BID, Routine, Start date 12/11/22 9:00:00 EST hydrALAZINE, 10 mg = 0.5 mL, Injection, IV Push, q6hr PRN Other (see comment), Routine, Start date 12/11/22 0:15:00 EST, 12/11/22 0:15:00 EST ipratropium nasal, mcg, 2 spray(s), [place], Nasal, TID PRN Other (see comment), Routine, Start date 12/11/22 0:22:00 EST levothyroxine, 100 mcg = 1 tab(s), Tab, Oral, Daily, Routine, Start date 12/11/22 6:30:00 EST, 12/11/22 0:22:00 EST ondansetron, 4 mg = 2 mL, Injection, IV Push, q6hr PRN Nausea, Routine, Start date 12/11/22 0:15:00 EST, 12/11/22 0:15:00 EST pantoprazole, 40 mg = 1 tab(s), Tab-DR, Oral, Daily, Routine, Start date 12/11/22 9:00:00 EST, 12/11/22 0:23:00 EST Sodium Chloride 0.9% intravenous solution 1,000 mL, 1,000 mL, IV, 75 mL/hr, Routine, Start date 12/11/22 0:15:00 EST, 13.3 hour(s), Total volume (mL): 1,000, 81.6 kg, 2.01, m2 Basic Metabolic Panel Cardiac Monitoring CBC w/ Auto Diff Notify Provider Vital Signs Notify Provider Vital Signs Place in Status Renal Diet Resuscitation Status - Full Up ad [place] Vital Signs Weight Admit patient as a general inpatient with the anticipation that he will require greater than 2 midnight stay Extracted from: Title:ED Note Author:Geovani Romero DO Date :12/10/22 MORGAN (acute kidney injury) (N 17.9: Acute kidney failure, unspecified) Hyperkalemia (E87.5: Hyperkalemia) Orders: calcium gluconate + Sodium Chloride 0.9% intravenous solution 50 mL, 1 gram = 50 mL, IV Piggyback, Once, Stop date 12/10/22 19:29:00 EST, STAT, Start date 12/10/22 19:29:00 EST, 100 mL/hr, Infuse over 30 minute(s), 12/10/22 19:29:00 EST sodium bicarbonate, 50 mEq, 50 mL, Soln-IV, IV Push, Once, Stop date 12/10/22 19:29:00 EST, STAT, Start date 12/10/22 19:29:00 EST Sodium Chloride 0.9% intravenous solution, 1,000 mL, Soln-IV, IV, Once, Stop date 12/10/22 19:29:00 EST, STAT, Start date 12/10/22 19:29:00 EST, mL/hr, Infuse over 61, minute(s) sodium zirconium cyclosilicate, 10 gm, Powder-Recon, Oral, Once, Stop date 12/10/22 19:29:00 EST, STAT, Start date 12/10/22 19:29:00 EST, 12/10/22 19:29:00 EST ECG 12 Lead Adult ED Cardiac Monitoring ED Physician consult Hospitalist for continued care Future Appointments Appointment Date:12/16/2022 01:20:00 PM Scheduled Provider:Mecca SAUCEDO MD Location:[facility] Appointment Type: Hospital Follow Up w/TCM Appointment Date:06/01/2023 11:20:00 AM Scheduled Provider:Mecca SAUCEDO MD Location:[facility] Appointment Type: Open Future Scheduled Tests Laboratory* CBC w/ Auto Diff 12/31/22 * CBC w/ Auto Diff 01/21/23 * CBC w/ Auto Diff 02/11/23 * CBC w/ Auto Diff 03/04/23 * Comprehensive Metabolic Panel 12/31/22 * Comprehensive Metabolic Panel 01/21/23 * Comprehensive Metabolic Panel 02/11/23 * Comprehensive Metabolic Panel 03/04/23 * Thyroid Stimulating Hormone 12/31/22 * Thyroid Stimulating Hormone 01/21/23 * Thyroid Stimulating Hormone 02/11/23 * Thyroid Stimulating Hormone 03/04/23 [facility]01-22-2023 Hospital Discharge instructions Patient Education 11/30/2022 18:43:26 Health Maintenance, Male Health Maintenance, Male Adopting a healthy lifestyle and getting preventive care are important in promoting health and wellness. Ask your health care provider about: The right schedule for you to have regular tests and exams. Things you can do on your own to prevent diseases and keep yourself healthy. What should I know about diet, weight, and exercise? Eat a healthy diet Eat a diet that includes plenty of vegetables, fruits, low-fat dairy products, and lean protein. Do not eat a lot of foods that are high in solid fats, added sugars, or sodium. Maintain a healthy weight Body mass index (BMI) is a measurement that can be used to identify possible weight problems. It estimates body fat based on height and weight. Your health care provider can help determine your BMI and help you achieve or maintain a healthy weight. Get regular exercise Get regular exercise. This is one of the most important things you can do for your health. Most adults should: Exercise for at least 150 minutes each week. The exercise should increase your heart rate and make you sweat (moderate-intensity exercise). Do strengthening exercises at least twice a week. This is in addition to the moderate-intensity exercise. Spend less time sitting. Even light physical activity can be beneficial. Watch cholesterol and blood lipids Have your blood tested for lipids and cholesterol at 20 years of age, then have this test every 5 years. You may need to have your cholesterol levels checked more often if: Your lipid or cholesterol levels are high. You are older than 40 years of age. You are at high risk for heart disease. What should I know about cancer screening? Many types of cancers can be detected early and may often be prevented. Depending on your health history and family history, you may need to have cancer screening at various ages. This may include screening for: Colorectal cancer. Prostate cancer. Skin cancer. Lung cancer. What should I know about heart disease, diabetes, and high blood pressure? Blood pressure and heart disease High blood pressure causes heart disease and increases the risk of stroke. This is more likely to develop in people who have high blood pressure readings, are of descent, or are overweight. Talk with your health care provider about your target blood pressure readings. Have your blood pressure checked: ?Every 3 5 years if you are 18 39 years of age. ?Every year if you are 40 years old or older. If you are between the ages of 65 and 75 and are a current or former smoker, ask your health care provider if you should have a one-time screening for abdominal aortic aneurysm (AAA). Diabetes Have regular diabetes screenings. This checks your fasting blood sugar level. Have the screening done: Once every three years after age 45 if you are at a normal weight and have a low risk for diabetes. More often and at a younger age if you are overweight or have a high risk for diabetes. What should I know about preventing infection? Hepatitis B If you have a higher risk for hepatitis B, you should be screened for this virus. Talk with your health care provider to find out if you are at risk for hepatitis B infection. Hepatitis C Blood testing is recommended for: Everyone born from 1945 through 1965. Anyone with known risk factors for hepatitis C. Sexually transmitted infections (STIs) You should be screened each year for STIs, including gonorrhea and chlamydia, if: ?You are sexually active and are younger than 24 years of age. ?You are older than 24 years of age and your health care provider tells you that you are at risk for this type of infection. ?Your sexual activity has changed since you were last screened, and you are at increased risk for chlamydia or gonorrhea. Ask your health care provider if you are at risk. Ask your health care provider about whether you are at high risk for HIV. Your health care providermay recommend a prescription medicine to help prevent HIV infection. If you choose to take medicineto prevent HIV, you should first get tested for HIV. You should then be tested every 3 months for as long as you are taking the medicine. Follow these instructions at home: Lifestyle Do not use any products that contain nicotine or tobacco, such as cigarettes, e- cigarettes, and chewing tobacco. If you need help quitting, ask your health care provider. Do not use street drugs. Do not share needles. Ask your health care provider for help if you need support or information about quitting drugs. Alcohol use Do not drink alcohol if your health care provider tells you not to drink. If you drink alcohol: ?Limit how much you have to 0 2 drinks a day. ?Be aware of how much alcohol is in your drink. In the [place] one drink equals one 12 oz bottle of beer (355 mL), one 5 oz glass of wine (148 mL), or one 1 oz glass of hard liquor (44 mL). General instructions Schedule regular health, dental, and eye exams. Stay current with your vaccines. Tell your health care provider if: ?You often feel depressed. ?You have ever been abused or do not feel safe at home. Summary Adopting a healthy lifestyle and getting preventive care are important in promoting health and wellness. Follow your health care provider's instructions about healthy diet, exercising, and getting tested or screened for diseases. Follow your health care provider's instructions on monitoring your cholesterol and blood pressure. This information is not intended to replace advice given to you by your health care provider. Make sure you discuss any questions you have with your health care provider. Document Released: 04/23/2009 Document Revised: 10/19/2019 Document Reviewed: 10/19/2019 [employer] Patient Education 2020 [employer] Follow Up Care 04/24/2022 11:53:28 With:Mecca SAUCEDO MD, FAM Address: [address] [place] [address] [place] [address]- When:6 months Comments:if oncology says OK to Pneumovax see nurse here for injection [facility] 01-12-2023 Hospital Discharge instructions Patient Education 11/20/2022 11:15:41 Dr Ware's Instructions ONC (CUSTOM) Dr. Ware s instructions for 11-20-22 1. It's OK to increase your methylphenidate to 1 1/2 tablets 2x a day and if this is insufficient, 2 tablets 2x/day. Call me when you need a refill. 2. Contact your radiation oncologist's office if your shortness of breath doesn't improve or gets worse. 3. I'm completing the mq-hlb-nveaoaxpwds paperwork and will have it scanned into your chart. I appreciated our conversation about this. 4. Follow up in 6 weeks - reminder, unfortunately I'm unable to schedule on or Fridays. Congratulations on finishing your radiation treatments! To contact Dr. Ware during business hours, please call the oncology office at [phone] and speak with a behavioral health case manager (Merry Ramirez). After hours, please call the main hospital white mixing operator at [phone] and you will be connected to Dr. Ware. [facility]12-20-2022 Hospital Discharge instructions Patient Education 10/28/2022 12:11:37 Dr Ware's Instructions ONC (CUSTOM) Dr. Ware s instructions for 10-28-22 1. You can stop taking the omeprazole - if your nausea gets worse or more frequent, re-start it. 2. If you do have a pain flare with the radiation, resume taking the naproxen. It should subside over a period of days to 1-2 weeks. If naproxen doesn't help, call me. 3. I am sending refills on the methylphenidate and naproxen. 4. Headache: I'm drawing a couple of labs to evaluate possible temporal arteritis. If they are normal we can stop worrying about this. I'll also plan to call you in a week to see if you're still having the headaches, and will speak to Dr. Grant about them. It is reassuring that your neurologic exam is normal and your cancer has been responding to treatment. 5. Follow up in 4 to 6 weeks, sooner if needed. To contact Dr. Ware during business hours, please call the oncology office at [phone] and speak with a behavioral health case manager (Merry or Ashley). After hours, please call the main hospital white mixing operator at [phone] and you will be connected to Dr. Ware. [facility]12-01-2022 Hospital Discharge instructions Follow Up Care 10/09/2022 10:45:07 With:Joshua Eng Address: [facility] [address] [place] [phone]- [phone] Fax Business (1) When: Unknown Comments:keytruda today and every 3wkscbc, cmp, tsh on treatment daysincrease levothyroxine to 100mcg dailyfollow-up in 3wks on next treatment dayzpak for sinus congestion [facility]12-01-2022 Hospital Discharge instructions Patient Education 10/09/2022 09:41:26 Dr Ware's Instructions ONC (CUSTOM) Dr. Ware s instructions for 10-09-22 1. Congratulations on finishing your chemotherapy today! 2. Nausea: Continue using the ondansetron + prochlorperazine regularly for 2 weeks after this last cycle of chemotherapy, then use them just as needed. We will look at discontinuing the olanzapine inthe future. 2. Pain: I'm so glad this is better. It's possible you could have a temporary flare with the radiation; if so, call me. We will likely be able to manage it without opioid medication. 3. Constipation: You may be able to taper down the MiraLax in the future, but continue using it at the current dose until or next visit. 4. Fatigue: We discussed how radiation can cause fatigue especially as you get closer to the end oftreatment, and for a little while thereafter. It will get better. Continue the methylphenidate and regular physical activity. 5. Follow up on 10/27 or 10/28. To contact Dr. Ware during business hours, please call the oncology office at [phone] and speak with a behavioral health case manager (Merry Ramirez). After hours, please call the main hospital white mixing operator at [phone] and you will be connected to Dr. Ware. Follow Up Care 09/15/2022 12:03:36 With:ISELA WARE Address: [address] [place] [phone]- [phone] Business (1) When: Unknown Comments:10/27 or 10/28 With:Joshua Eng Address: [facility] [address] [place] [phone]- [phone] Fax Business (1) When: Unknown Comments:chemo today. f/u in 6 week or so and plan maintenance keytruda. cbc, cmp, tsh prior to f/u. [facility]11-16-2022 Consult note Author [facility] September 24, 2022 3:03pm Note Date/Time September 24, 2022 10:03[facility] [place] [id number] Rad Onc Consult Note - OP Signed Patient: Robson Carlson MR#: [id number] : 1955 Acct:[id number] Age/Sex: 67 / M Type: REG RCR Copies to: Edouard Eng, II, DO~ Assessment & Plan (1) Non-small cell lung cancer Plan: 1. PFT 2. CT simulation with contrast-4D, planned for consolidative radiation using IMRT with daily IGRT to the right lung cancer 60 Rodriguez in 20 fractions. Assessment: 67-year-old male presenting with stage IV non-small cell lung cancer with a large approximately 10 cm primary tumor in the right lower lobe as well as a left adrenal oligometastasis on PET at presentation. Patient has completed 5 cycles of carbo, pemetrexed, and Keytruda with repeat PET scan in August 2022 showing primary mass in the lung had decreased in size measuring 5.6 cm. There is activity in the periphery of the mass with an SUV of 3.4 prior SUV was 13.6. Prior right pleural effusion has resolved. Left adrenal gland decreased in sizeand is no longer demonstrating increased uptake. Has had a good response and is scheduled for a 6 cycle on October 09. Due to the low burden of disease and his excellent response I recommend sequential radiation to a dose of 60 Rodriguez in 20 fractions assuming ability to meet spinal cord constraints due to proximity. After completion I will plan on reimaging and we can discuss options for any residual oligometastatic disease. We will need to obtain PFTs which we will order today. HPI Date of Service: 09/24/22 HPI: 67-year-old male presented with unintentional weight loss in April 2022. Oncologic history as follows May 17, 2022 CT of the chest describes an 8.5 cm posterior mediastinal mass consistent with a necrotic malignancy. There was an adjacent 1.4 cm lymph node. There were multiple pulmonary nodules which were nonspecific and a 2 cm left adrenal gland and 3 cm right lobe of the liver lesion concerning for metastatic disease. May 21, 2022 CT-guided biopsy confirmed non-small cell carcinoma favored to be lung origin, poorly differentiated. NexGen sequencing was not obtained due to insufficient tissue. PD1 scores 100% May 2022 PET/CT confirmed the CT findings of a large necrotic right lung mass and enlarged left adrenal gland. The liver lesion was not hypermetabolic. June 04, 2022 brain MRI negative for metastatic disease. June 18, 2022 started carbo pemetrexed with medical oncology at [facility]. Keytruda was added with cycle 2 September 06 2022 PET scan showed the primary mass in the lung had decreased in size measuring 5.6 cm. There is activity in the periphery of the mass with an SUV of 3.4 prior SUV was 13.6. Prior right pleural effusion has resolved. Leftadrenal gland decreased in size and is no longer demonstrating increased uptake. September 11, 2022 he received cycle 5 of the carbo pemetrexed and Keytruda. He is planned for the final cycle on October 09 Today he is doing well. He has no respiratory complaints. Maintains his functional status he continues to work full-time. He has a distant smoking history in his youth. [facility] - Medical History Medical History: Medical History (Last Updated 09/23/22 @ 16:11 by Margie Maravilla RN) Anemia Asthma Basal cell carcinoma BPH (benign prostatic hyperplasia) Constipation Dysphagia Dyspnea Herpes simplex History of narcotic addiction Hyperlipemia Hypertension Hypothyroidism Lumbar radiculopathy Lung cancer Mediastinal mass Neoplasm related pain Type 2 diabetes mellitus Home Medications & Allergies Allergies No Known Allergies Allergy (Verified 09/23/22 16:01) Home Medications albuterol sulfate 90 mcg/actuation aerosol inhaler (Ventolin HFA) 2 puff inhalation DAILY 09/23/22 [History Confirmed 09/23/22] alprazolam 0.5 mg tablet (Xanax) 0.5 mg PO TID PRN Anxiety 09/23/22 [History Confirmed 09/23/22] buprenorphine 8 mg-naloxone 2 mg sublingual film (Suboxone) 1 film sublingual BID 09/23/22 [History Confirmed 09/23/22] fluocinonide 0.05 % topical cream 1 applic topical DAILY 09/23/22 [History Confirmed 09/23/22] folic acid 1 mg tablet 1 mg PO DAILY 09/23/22 [History Confirmed 09/23/22] levothyroxine 75 mcg tablet 75 mcg PO DAILY 09/23/22 [History Confirmed 09/23/22] lisinopril 5 mg tablet 5 mg PO DAILY 09/23/22 [History Confirmed 09/23/22] naproxen 500 mg tablet 500 mg PO BID 09/23/22 [History Confirmed 09/23/22] olanzapine 5 mg tablet 5 mg PO HS 09/23/22 [History Confirmed 09/23/22] omeprazole 20 mg capsule,delayed release 20 mg PO DAILY 09/23/22 [History Confirmed 09/23/22] ondansetron HCl 8 mg tablet 8 mg PO TID PRN Nausea 09/23/22 [History Confirmed 09/23/22] prochlorperazine maleate 10 mg tablet 10 mg PO DAILY PRN Nausea 09/23/22 [History Confirmed 09/23/22] Subjective ROS: I reviewed the 12-point Review of Systems with the patient as per our standard questionnaire. Objective Pain: 0/10 Karnofsky Performance Scale: 90%: Can perform normal activity, minor signs of disease Physical Exam: Physical Exam: General: alert and oriented male in no acute distress HEENT: normocephalic, extra ocular movements intact, clear OP Lungs: normal work of breathing on room air, CTAB Lymph: No palpable cervical nor supraclavicular lymphadenopathy Abdomen: non acute MSK: extremities within normal limits Neuro: grossly intact Dictated By: Rasheed Roberson MD DD/ [id number] Signed By: <Electronically signed by Rasheed Roberson MD> 09/24/22 [address] [facility] Work Phone: [phone] 961-448211-03-2022 Hospital Discharge instructions Patient Education 09/11/2022 12:56:07 Dr Ware's Instructions ONC (CUSTOM) Dr. Ware s instructions for 09-11-22 1. Congratulations on your scan! 2. For nausea, continue using the ondansetron and prochlorperazine together regularly for the week following chemotherapy. 3. For constipation, continue using the MiraLax regularly during the week following chemotherapy. 4. For fatigue, continue your dog walking. We will also start a low dose stimulant, methylphenidate. Take 1/2 tablet in the morning and 1/2 in your mid- day, not less than 6 hours before bedtime. After 2 full days if you don't have side effects on this and it's insufficiently helpful (which I expect), then increase to 1 whole tablet 2x/day. If this is insufficient, please call me. 5. For runny nose, I will send a nose spray to use as directed. Use only when needed. 6. Follow up in 3 weeks with next treatment. Call if questions in between. To contact Dr. Ware during business hours, please call the oncology office at [phone] and speak with a behavioral health case manager (Merry Ramirez). After hours, please call the main hospital white mixing operator at [phone] and you will be connected to Dr. Ware. [facility]10-13-2022 Hospital Discharge instructions Follow Up Care 08/21/2022 12:48:49 With:Joshua Eng Address: [facility] [place] [address]- [phone] Fax Business (1) When: Unknown Comments:treatment today current dosecbc, cmp, tsh every 3 wks with treatmentincrease synthroid to 75mcg dailyrefer to Dr. Roberson for radiationput [facility]09-21-2022 Hospital Discharge instructions Patient Education 07/30/2022 15:02:47 Dr Ware's Instructions ONC (CUSTOM) Dr. Ware s instructions for 07-30-22 1. Your rash is probably related to the immunotherapy. Apply the steroid cream to affected areas 2x/day. I will discuss this with Dr. Grant. 2. Add Miralax (or generic equivalent) to your dulcolax during the days after chemotherapy when youare most constipated. 3. Keep up the good work with your nutrition. 4. We discussed referral to pain management if you would like in the future. They may be able to doa block that would help the pain if this doesn't get better as you proceed with treatment. 5. Follow up in [address] Ware during business hours, please call the oncology office at [phone] and speak with a behavioral health case manager (Merry Ramirez). After hours, please call the main hospital white mixing operator at [phone] and you will be connected to Dr. Ware. [facility]09-21-2022 Hospital Discharge instructions Follow Up Care 07/30/2022 10:29:37 With:Joshua Eng Address: [facility] [place] [address]- [phone] Fax Business (1) When: Unknown Comments:treatment today and every 3wksPET scan as scheduled on 09/06follow-up in 3wkscbc, cmp, tsh and t4 on treatment days [facility]08-18-2022 Hospital Discharge instructions Patient Education 06/26/2022 12:20:30 Dr Ware's Instructions ONC (CUSTOM) Dr. Ware s instructions for 06-26-22 1. For nausea, begin taking the Zyprexa (olanzapine) before you go to bed. Most common side effectsare sleepiness and dry mouth. Recommend you start it on a day when you don't have to work the next day. You can take your Xanax, ondansetron (Zofran) and prochlorperazine (Compazine) as directed along with this medication if you need to. 2. For pain, start the naproxen 2x/day with a little food. Also take the acid high speed warper tender (omeprazole) while you are taking this medication. Please take for at least a week before deciding it's not effective (of course, stop it if you have side effects - mainly these are stomach upset). Wear the lidocaine patch continually for at least 3 days - if not helpful, then go back to wearing it as needed. Change it every day. 3. For constipation, take one dulcolax daily - if this isn't effective, take 2; and if that isn't effective please call me. 4. Try to get 2 ensures in per day and eat whatever you want. 5. I will call you in 1 week and we will schedule another appointment when you are back in clinic to see oncology or get a treatment. 6. There are a lot of things we can do to manage your pain while you remain on Suboxone - always happy to talk more about this. To contact Dr. Ware during business hours, please call the oncology office at [phone] and speak with a behavioral health case manager (Merry Ramirez). After hours, please call the main hospital white mixing operator at [phone] and you will be connected to Dr. Ware. [facility]08-18-2022 Hospital Discharge instructions Follow Up Care 06/26/2022 11:29:01 With:Joshua Eng Address: [address] [place] [address]- [phone] Fax Business (1) When: Unknown Comments:schedule pet/ct for 5 weekschemo today carbo pem pembro. f/u with niharika for next chemo in 3wks. [facility]08-08-2022 Hospital Discharge instructions Follow Up Care 06/16/2022 14:35:49 With:Carolee Benson Address: [address] [address]- [phone] Business (1) When: Unknown Comments:carbo pem today. f/u next week tox check with Niharika. check liquid tumor profile egfr, alk, etc. cbc, cmp, prior to f/u. With:Joshua Eng Address: [address] [place] [address]- [phone] Fax Business (1) When: Unknown [facility]07-26-2022 Hospital Discharge instructions Patient Education 06/03/2022 11:05:15 Dr Ware's Instructions ONC (CUSTOM) Dr. Ware s instructions for 06-03-22 1. Use a KN95 mask - it's more effective than regular surgical masks 2. Use the lidocaine patches on the painful area - change every 24 hours. 3. I'm also prescribing duloxetine (Cymbalta) - if the lidocaine patches aren't fully effective, begin taking 1 capsule with food every day. If you don't have side effects after 4 days on this dose, then increase to 2 capsules every day with food. 4. To prevent nausea with chemotherapy, take both the Zofran and the Compazine 3x/day for 3-4 days after chemotherapy. 5. For fatigue, try to walk at least 30 minutes daily - this is the most effective intervention forfatigue related to cancer and cancer treatment. 6. For nutrition, focus on your favorite calorie-dense foods e.g., peanut butter + honey sandwiches(1 per day), also take ensure with 2 meals a day (with or after the meal). To contact Dr. Ware during business hours, please call the oncology office at [phone] and speak with a behavioral health case manager (Merry Ramirez). After hours, please call the main hospital white mixing operator at [phone] and you will be connected to Dr. Ware. Follow Up Care 05/30/2022 11:18:03 With:ISELA WARE Address: [facility] [place] [address]- [phone] Business (1) When:2 weeks [facility]07-19-2022 Hospital Discharge instructions Follow Up Care 05/27/2022 10:21:59 With:Joshua Eng Address: [place] [address] [place] [address]- [phone] Fax Business (1) When: Unknown Comments:foundation 1carbo pem pembropet/ct mri braincbc, cmp, cea prior to f/u. [facility]06-30-2022 Hospital Discharge instructions Patient Education 05/08/2022 09:02:57 Dysphagia Dysphagia Dysphagia is trouble swallowing. This condition occurs when solids and liquids stick in a person's throat on the way down to the stomach, or when food takes longer to get to the stomach than usual. You may have problems swallowing food, liquids, or both. You may also have pain while trying to swallow. It may take you more time and effort to swallow something. What are the causes? This condition may be caused by: Muscle problems. They may make it difficult for you to move food and liquids through the esophagus,which is the tube that connects your mouth to your stomach. Blockages. You may have ulcers, scar tissue, or inflammation that blocks the normal passage of foodand liquids. Causes of these problems include: ?Acid reflux from your stomach into your esophagus (gastroesophageal reflux). ?Infections. ?Radiation treatment for cancer. ?Medicines taken without enough fluids to wash them down into your stomach. Stroke. This can affect the nerves and make it difficult to swallow. Nerve problems. These prevent signals from being sent to the muscles of your esophagus to squeeze (contract) and move what you swallow down to your stomach. Globus pharyngeus. This is a common problem that involves a feeling like something is stuck in yourthroat or a sense of trouble with swallowing, even though nothing is wrong with the swallowing passages. Certain conditions, such as cerebral palsy or Parkinson's disease. What are the signs or symptoms? Common symptoms of this condition include: A feeling that solids or liquids are stuck in your throat on the way down to the stomach. Pain while swallowing. Coughing or gagging while trying to swallow. Other symptoms include: Food moving back from your stomach to your mouth (regurgitation). Noises coming from your throat. Chest discomfort with swallowing. A feeling of fullness when swallowing. Drooling, especially when the throat is blocked. Heartburn. How is this diagnosed? This condition may be diagnosed by: Barium X-ray. In this test, you will swallow a white liquid that sticks to the inside of your esophagus. X-ray images are then taken. Endoscopy. In this test, a flexible telescope is inserted down your throat to look at your esophagus and your stomach. CT scans and an MRI. How is this treated? Treatment for dysphagia depends on the cause of this condition, such as: If the dysphagia is caused by acid reflux or infection, medicines may be used. They may include antibiotics and heartburn medicines. If the dysphagia is caused by problems with the muscles, swallowing therapy may be used to help youstrengthen your swallowing muscles. You may have to do specific exercises to strengthen the musclesor stretch them. If the dysphagia is caused by a blockage or mass, procedures to remove the blockage may be done. You may need surgery and a feeding tube. You may need to make diet changes. Ask your health care provider for specific instructions. Follow these instructions at home: Medicines Take eatl-nlb-emuqyrd and prescription medicines only as told by your health care provider. If you were prescribed an antibiotic medicine, take it as told by your health care provider. Do notstop taking the antibiotic even if you start to feel better. Eating and drinking Follow any diet changes as told by your health care provider. Work with a diet and nutrition director (dietitian) to create an eating plan that will help you get the nutrients you need in order to stay healthy. Eat soft foods that are easier to swallow. Cut your food into small pieces and eat slowly. Take small bites. Eat and drink only when you are sitting upright. Do not drink alcohol or caffeine. If you need help quitting, ask your health care provider. General instructions Check your weight every day to make sure you are not losing weight. Do not use any products that contain nicotine or tobacco, such as cigarettes, e- cigarettes, and chewing tobacco. If you need help quitting, ask your health care provider. Keep all follow-up visits as told by your health care provider. This is important. Contact a health care provider if you: Lose weight because you cannot swallow. Cough when you drink liquids. Cough up partially digested food. Get help right away if you: Cannot swallow your saliva. Have shortness of breath, a fever, or both. Have a hoarse voice and also have trouble swallowing. Summary Dysphagia is trouble swallowing. This condition occurs when solids and liquids stick in a person's throat on the way down to the stomach. You may cough or gag while trying to swallow. Dysphagia has many possible causes. Treatment for dysphagia depends on the cause of the condition. Keep all follow-up visits as told by your health care provider. This is important. This information is not intended to replace advice given to you by your health care provider. Make sure you discuss any questions you have with your health care provider. Document Released: 10/23/2001 Document Revised: 03/21/2020 Document Reviewed: 03/21/2020 [employer] Patient Education 2019 [employer]. [facility] [place] 05-24-2022 History of Present illness Narrative* Sary Hagen Landen, OT - 04/01/2022 11:15 AM EDT Images from the original note were not included. [facility] Outpatient Occupational Therapy Daily Note Date: 04/01/2022 Patient: Robson Carlson : 1955 Referring Provider (secondary): Dr. Edouard Saucedo Diagnosis: De Quervain's tenosynovitis Onset Date: 03/04/22 OT Insurance Information: [place]- 25 visits for the year based on medical necessity. If go over 25 visits, will need prior authorization for additional visits Total # of Visits Approved: 12 Per Physician Order Canceled Appointment: 2 Pre-Treament Pain: 0 Subjective: Pt states no pain or stiffness after fxnl tasks last session. Assessment Assessment: Continued w/ paraffin, STM, and PROM this date. Discussed d/t OT at pt next session as all goals have been met and he has minimal pain during activities. Pt agreeable & pleased with current progress. Prognosis: Fair Post Treatment Pain: 0 Goals Short Term Goals Time Frame for Short term goals: STG=LTG Scroll Assembler Goals Time Frame for terminal gauger goals : 12 visits (04/04/2022) Scroll Assembler Goal 1: Pt to be independent in HEP LTG Goal 1 Status:: Met Scroll Assembler Goal 2: Pt to report 2/10 pain or less during sleep & daily tasks LTG Goal 2 Status:: Met Scroll Assembler Goal 3: Pt to improve R wrist extension to 55 degrees or more in order to complete functional tasks LTG 3 Current Status:: 0-47 degrees LTG Goal 3 Status:: In progress Scroll Assembler Goal 4: Pt to improve R RD to 15 degrees or more to engage in daily tasks/work duties LTG 4 Current Status:: 0-15 LTG Goal 4 Status:: Met Scroll Assembler Goal 5: Pt to improve R UD to 35 degrees or more w/o pain/discomfort to engage in daily tasks/work duties LTG 5 Current Status:: 0-35 LTG Goal 5 Status:: Met Scroll Assembler Goal 6: Pt to demonstrate R thumb MCP & IP ROM of 65 degrees or more w/o pain/discomfort to engage in daily tasks/work duties-MET Time In: 1115 Time Out: 115 Timed Coded Minutes: 35 Total Treatment Time: 40 OMAR Evans, OTR/L Date: 04/01/2022 documented in this encounterBON [employer] Phone: [phone] History of Present illness Narrative* LITA Nichols - 03/31/2022 11:00 AM EDT Images from the original note were not included. [facility] Outpatient Occupational Therapy Daily Note Date: 03/31/2022 Patient: Robson Carlson : 1955 Referring Provider (secondary): Dr. Edouard Saucedo Diagnosis: De Quervain's tenosynovitis Onset Date: 03/04/22 OT Insurance Information: [place]- 25 visits for the year based on medical necessity. If go over 25 visits, will need prior authorization for additional visits Total # of Visits Approved: 12 Per Physician Order Total # of Visits to Date: 9 Canceled Appointment: 2 Pre-Treament Pain: 1/10 Exercises/Modalities: See DocFlow Sheet Assessment Assessment: Patient reports on Thursday and Thursday he had 5/10 arthritic pain in forearm, wrist, and thumb. Patient feels pain is d/t work hardening FM tasks that were completed the day prior. Reports w/ Tylenol and ice the pain did diminish. Reports today 1/10 pain. Patient continues to tolerate paraffin, STM, PROM, and FM dexterity/coordination tasks well. Reports minimal pain when completing [employer] peg board. Will continue to progress patient per tolerance. 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 Goal 2: Pt to report 2/10 pain or less during sleep & daily tasks LTG Goal 2 Status:: Met Long-Term Goal 3: Pt to improve R wrist extension to 55 degrees or more in order to complete functional tasks LTG Goal 3 Status:: In progress Long-Term Goal 4: Pt to improve R RD to 15 degrees or more to engage in daily tasks/work duties LTG Goal 4 Status:: Met Long-Term Goal 5: Pt to improve R UD to 35 degrees or more w/o pain/discomfort to engage in daily tasks/work duties LTG Goal 5 Status:: Met Long-Term Goal 6: Pt to demonstrate R thumb MCP & IP ROM of 65 degrees or more w/o pain/discomfort to engage in daily tasks/work duties-MET Time In: 1115 Time Out: 1155 Timed Coded Minutes: 40 Total Treatment Time: 40 RONALD Nichols Date: 03/31/2022 documented in this encounterBON [employer] Phone: [phone] 737-791005-18-2022 History of Present illness Narrative* Sary Schuster OT - 03/26/2022 10:00 AM EDT Images from the original note were not included. [facility] Outpatient Occupational Therapy Daily Note Date: 03/26/2022 Patient: Robson Carlson : 1955 Referring Provider (secondary): Dr. Edouard Saucedo Diagnosis: De Quervain's tenosynovitis Onset Date: 03/04/22 OT Insurance Information: [place]- 25 visits for the year based on medical necessity. If go over 25 visits, will need prior authorization for additional visits Total # of Visits Approved: 12 Per Physician Order Total # of Visits to Date: 7 No Show: 0 Canceled Appointment: 2 Pre-Treament Pain: 0 Objective RUE AROM (degrees) R Wrist Extension 0-70: 0-47 R Wrist Radial Deviation 0-20: 0-15 R Wrist Ulnar Deviation 0-45: 0-35 Right Hand AROM (degrees) R Thumb MCP 0-50: 0-70 R Thumb IP 0-80: 0-75 Assessment Assessment: States nodule continues to shrink. Continued w/ parraffin, ultrasound, STM & ROM topromote healing & pain management. Reassessed all goals this date. Pt has met all but one LTG at this time. Plan to initiate functional FM tasks next session to assess pt's tolerance. Pt states pain at thumb has mostly subsided. 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 Assembler Goal 2: Pt to report 2/10 pain or less during sleep & daily tasks LTG Goal 2 Status:: Met Long-Term Goal 3: Pt to improve R wrist extension to 55 degrees or more in order to complete functional tasks LTG 3 Current Status:: 0-47 degrees LTG Goal 3 Status:: In progress 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 Goal 4: Pt to improve R RD to 15 degrees or more to engage in daily tasks/work duties LTG 4 Current Status:: 0-15 LTG Goal 4 Status:: Met 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 Assembler Goal 5: Pt to improve R UD to 35 degrees or more w/o pain/discomfort to engage in daily tasks/work duties LTG 5 Current Status:: 0-35 LTG Goal 5 Status:: Met Long-Term Goal 6: Pt to demonstrate R thumb MCP & IP ROM of 65 degrees or more w/o pain/discomfort to engage in daily tasks/work duties-MET Time In: 1005 Time Out: 1050 Timed Coded Minutes: 37 Total Treatment Time: 45 OMAR Evans, OTR/L Date: 03/26/2022 [facility] Phone: [phone] History of Present illness Narrative* Christina Coppola - 03/24/2022 10:00 AM EDT [facility] Date: 03/24/2022 Patient Name: Robson Carlson : 1955 Pt Cancelled Appt due to Illness Christina Coppola Date: 03/24/2022 [facility] Phone: [phone] History of Present illness Narrative* Sary Schuster OT - 03/19/2022 9:45 AM EDT Images from the original note were not included. [facility] Outpatient Occupational Therapy Daily Note Date: 03/19/2022 Patient: Robson Carlson : 1955 Referring Provider (secondary): Dr. Edouard Saucedo Diagnosis: De Quervain's tenosynovitis Onset Date: 03/04/22 OT Insurance Information: [place]- 25 visits for the year based on medical necessity. If go over 25 visits, will need prior authorization for additional visits Total # of Visits Approved: 12 Per Physician Order Total # of Visits to Date: 5 No Show: 0 Canceled Appointment: 1 Pre-Treament Pain: 0 Subjective: Pt states nodule on thumb has improved and has went down since Thursday. Assessment Assessment: Noted improvement with nodule- decreased in size. Pt states nodule does not cause any additional pain anymore like it had on Thursday. Also states that the overall pain in R thumb has been minimal since initiation therapy. States 2/10 at most during activities & sleeping. Continued w/current treatment plan of ultrasound, STM & PROM with good tolerance. 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 Assembler Goal 2: Pt to report 2/10 pain or less during sleep & daily tasks LTG Goal 2 Status:: Met Scroll Assembler Goal 3: Pt to improve R wrist extension to 55 degrees or more in order to complete functional tasks LTG Goal 3 Status:: In progress Long-Term Goal 4: Pt to improve R RD to 15 degrees or more to engage in daily tasks/work duties LTG Goal 4 Status:: In progress Long-Term Goal 5: Pt to improve R UD to 35 degrees or more w/o pain/discomfort to engage in daily tasks/work duties LTG Goal 5 Status:: In progress Scroll Assembler Goal 6: Pt to demonstrate R thumb MCP & IP ROM of 65 degrees or more w/o pain/discomfort to engage in daily tasks/work duties Time In: 945 Time Out: 1030 Timed Coded Minutes: 37 Total Treatment Time: 45 OMAR Evans, OTR/L Date: 03/19/2022 documented [facility] this [facility] Work Phone: [phone] History of Present illness Narrative* Sary Schuster OT - 03/17/2022 9:45 AM EDT Images from the original note were not included. [facility] Outpatient Occupational Therapy Daily Note Date: 03/17/2022 Patient: Robson Carlson : 1955 Referring Provider (secondary): Dr. Edouard Saucedo Diagnosis: De Quervain's tenosynovitis Onset Date: 03/04/22 OT Insurance Information: [place]- 25 visits for the year based on medical necessity. If go over 25 visits, will need prior authorization for additional visits Total # of Visits Approved: 12 Per Physician Order Total # of Visits to Date: 4 No Show: 0 Canceled Appointment: 1 Pre-Treament Pain: Assessment Assessment: Pt reports he drove to [place] this weekend and states his volar cyst on thumb came back and has caused him some additional pain/discomfort. Continued w/ paraffin/STM/PROM & ultraound this date w/ good tolerance. Pt states that the cyst made it difficult to complete HEP exercise d/t discomfort/pain. Pt is hopefull it will go away on its own like it did a few months ago. States hedoesnt have a follow up w/ physician for another month, informed pt that if it does not go away, hemay want to have physician look at it. Plan to ocntinue per POC as pt tolerates. Prognosis: Fair Post Treatment Pain: 0 Goals Short Term Goals Time Frame for Short term goals: STG=LTG Scroll Assembler Goals Scroll Assembler Goal 1: Pt to be independent in HEP LTG Goal 1 Status:: In progress Scroll Assembler Goal 2: Pt to report 2/10 pain or less during sleep & daily tasks LTG Goal 2 Status:: In progress Long-Term Goal 3: Pt to improve R wrist extension to 55 degrees or more in order to complete functional tasks LTG Goal 3 Status:: In progress Long-Term Goal 4: Pt to improve R RD to 15 degrees or more to engage in daily tasks/work duties LTG Goal 4 Status:: In progress Long-Term Goal 5: Pt to improve R UD to 35 degrees or more w/o pain/discomfort to engage in daily tasks/work duties LTG Goal 5 Status:: In progress Long-Term Goal 6: Pt to demonstrate R thumb MCP & IP ROM of 65 degrees or more w/o pain/discomfort to engage in daily tasks/work duties Time In: 945 Time Out: 1030 Timed Coded Minutes: 37 Total Treatment Time: 45 OMAR Evans, OTR/L Date: 03/17/2022 [email or web address] Work Phone: [phone] History of Present illness Narrative* LITA Nichols - 03/06/2022 11:15 AM EDT Images from the original note were not included. [facility] Outpatient Occupational Therapy Daily Note Date: 03/06/2022 Patient: Robson Carlson : 1955 Onset Date: 03/04/22 Total # of Visits Approved: 12 Per Physician Order Total # of Visits to Date: 2 Canceled Appointment: 0 Pre-Treament Pain: 0/10 Exercises/Modalities: See DocFlow Sheet Assessment Assessment: Patient presents to session wearing brace, no concerns. Reports pain when completing IADL task (folding laundry) at home. Dicussed modifications in work setting (larger mouse) as he reports difficulty w/ completing computer tasks at work. Introduced paraffin, STM, PROM stretches and ultrasound this date. Tolerates all interventions well. Reports completing HEP 3+ times at home, recommended pt performing 2x a day to avoid additional inflammation and overuse. Will continue to address goals and progress patient as able. Prognosis: Fair Post Treatment Pain: 1/10 Goals Short Term Goals Time Frame for Short term goals: STG=LTG Scroll Assembler Goals Long-Term Goal 1: Pt to be independent in HEP Long-Term Goal 2: Pt to report 2/10 pain or less during sleep & daily tasks Long-Term Goal 3: Pt to improve R wrist extension to 55 degrees or more in order to complete functional tasks Long-Term Goal 4: Pt to improve R RD to 15 degrees or more to engage in daily tasks/work duties Long-Term Goal 5: Pt to improve R UD to 35 degrees or more w/o pain/discomfort to engage in daily tasks/work duties Time In: 1115 Time Out: 1200 Timed Coded Minutes: 45 Total Treatment Time: 45 RONALD Nichols Date: 03/06/2022 documented in this [facility] Work Phone: [phone]) [phone] History of Present illness Narrative* Sary Schuster OT - 03/04/2022 3:30 PM EDT Images from the original note were not included. [facility] Outpatient Occupational Therapy Evaluation Date: 03/04/2022 Patient: Robson Carlson : 1955 Diagnosis: De Quervain's tenosynovitis Additional Pertinent Hx: In 1974 pt had reconstructive surgery on R forearm with plastic surgeon where pt had a nerve taken from leg & placed in arm to achieve movement of the hand. At that time pt also had a tendon graft where a tendon in R forearm was reconstructed and moved to other side of arm to achieve mvmt of digits & hand. Since the surgery pt had regained functional use of hand & digits but has always had limited wrist mvmt and slower dexterity. Pt has also had 5 trigger finger surgeries on the opposite hand (L hand). Pt referred to outpt OT for pain at R thumb x 4weeks, pt diagnosed w/ Deqervains. Treatment Diagnosis: R Dequervain's Tenosynovitis Onset Date: 03/04/22 OT Insurance Information: [place]- 25 visits for the year based on medical necessity. If go over 25 visits, will need prior authorization for additional visits Total # of Visits Approved: 12 Per Physician Order Total # of Visits to Date: 1 No Show: 0 Canceled Appointment: 0 Subjective Hand Dominance: Right Learning Does the patient/guardian have any barriers to learning?: No barriers Is an law researcher required?: No Objective LUE AROM (degrees) LUE General AROM: pt can make full fist, touching all digits to DPC; can complete thumb opposition to all digits L Forearm Pron 0-90: WFL L Forearm Supination 0-90: WFL L Wrist Flexion 0-80: 0-45 L Wrist Extension 0-70: 0-60 L Wrist Radial Deviation 0-20: 0-15 L Wrist Ulnar Deviation 0-45: 0-35 Left Hand AROM (degrees) L Thumb MCP 0-50: 0-65 L Thumb IP 0-80: 0-65 RUE AROM (degrees) RUE General AROM: Pt can make full fist w/ all digits touching DPC; pt can complete thumb opposition to all digits R Forearm Pron 0-90: WFL R Forearm Supination 0-90: WFL R Wrist Flexion 0-80: 0- pt has no active flexion of R wrist secondary to surgery in 1974 where tendon was reconstructed R Wrist Extension 0-70: 0-45 R Wrist Radial Deviation 0-20: 0-10 R Wrist Ulnar Deviation 0-45: 0-31 (pt states discomfort during UD) Left Hand 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 Pt demonstrates the above deficits regarding ROM of R wrist/digits w/ c/o discomfort/pain at along thumb during tasks. 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 Pt would benefit from OT intervention to address pain management & conservative treatment of tendonitis of thumb. Prognosis: Fair The Following Comorbities will impact the patient s progression and Plan of Care: [] Diabetes [] Stroke [] Cardiac Disease/Pacemaker [x] Previous Orthopedic Injury/Surgery [] Seizure Disorder [] WB Restrictions [] Obesity [] Neuropathy Short Term Goals Time Frame for Short term goals: STG=LTG Long-Term Goals Long-Term Goal 1: Pt to be independent in HEP Long-Term Goal 2: Pt to report 2/10 pain or less during sleep & daily tasks Scroll Assembler Goal 3: Pt to improve R wrist extension to 55 degrees or more in order to complete functional tasks Long-Term Goal 4: Pt to improve R RD to 15 degrees or more to engage in daily tasks/work duties Long-Term Goal 5: Pt to improve R UD to 35 degrees or more w/o pain/discomfort to engage in daily tasks/work duties Long-Term Goal 6: Pt to demonstrate R thumb MCP & IP ROM of 65 degrees or more w/o pain/discomfort to engage in daily tasks/work duties Patient's Goal: Pt wishes to regain functional use of hand with no pain or discomfort Time In: 1540 Time Out: 1630 Timed Coded Minutes: 0 Total Treatment Time: 50 OMAR Evans, OTR/Hieu 03/04/2022 documented in this encounterMerGiveCorps Work Phone: [phone]) [phone] NoteCONSULTATION Consultation Date:02/27/2022 PAIN MANAGEMENT CONSULTATION HISTORY OF PRESENT ILLNESS: This is a pleasant, 66-year-old gentleman who returns to the Pain Clinic status post left sided RFA of L3, L4, L5, which was completed on 01/28/2022 that has afforded him 90% and is ongoing. This was a repeat RFA of this level for him, and he is very satisfied with his results. He still has minor pain that is aggravated by walking, evening hours and changes in the weather. He does use ice occasionally, which he feels decreases his pain. Medications include Suboxone 8 mg daily, which he has been on for multiple years. He does take Aleve as needed. In regards to his back, he has no complaints. He is currently being followed by Dr. Saucedo for right wrist volar cyst. Patient's REVIEW OF SYSTEMS / PAST MEDICAL HISTORY / ALLERGIES and IMAGES have been reviewed and they are noted on the chart. PHYSICAL EXAM: VITALS: Blood pressure 133/79, heart rate is 72. Respirations are at 18. Temperature is 97.8. He is 70 cm tall and weighs 81 kg. GENERAL APPEARANCE: Pleasant and appropriate, no acute distress. FOCUSED EXAM - BACK: No reproduction of spinal axial pain noted to direct compression along the posterior elements of the facets. Paravertebral muscles are non-spasmodic. Range of motion is within functional limits to lateral rotation and flexion/extension. Rodney's point is non-tender. MUSCULOSKELETAL: Motor is intact, 5/5 bilaterally. Ambulates with a steady gait. Does not use an assistive device.. NEUROLOGICAL: Radicular sensory is intact. 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 IMPRESSION: Lumbar spondylosis, lumbar degenerative disc, spinal axial lower back pain. PLAN: Overall, the patient is doing great. He is to continue with his current exercise and vitamin regimen. At this time, we will have the patient follow up with us on a p.r.n. basis. Patient agrees with the plan of care and will call when needed. [facility] Signed and Approved by: ASHLEY LION . 03/05/2022 16:13:00[facility]03-29-2022 Hospital Discharge instructions Patient Education 02/03/2022 23:11:57 Wrist Pain, Adult Wrist Pain, Adult There are many things that can cause wrist pain. Some common causes include: An injury to the wrist area, such as a sprain, strain, or fracture. Overuse of the joint. A condition that causes increased pressure on a nerve in the wrist (carpal tunnel syndrome). Wear and tear of the joints that occurs with aging (osteoarthritis). A variety of other types of arthritis. Sometimes, the cause of wrist pain is not known. Often, the pain goes away when you follow instructions from your health care provider for relieving pain at home, such as resting or icing the wrist. If your wrist pain continues, it is important to tell your health care provider. Follow these instructions at home: Rest the wrist area for at least 48 hours or as long as told by your health care provider. If a splint or elastic bandage has been applied, use it as told by your health care provider. ?Remove the splint or bandage only as told by your health care provider. ?Loosen the splint or bandage if your fingers tingle, become numb, or turn cold or blue. If directed, apply ice to the injured area. ?If you have a removable splint or elastic bandage, remove it as told by your health care provider. ?Put ice in a plastic bag. ?Place a towel between your skin and the bag or between your splint or bandage and the bag. ?Leave the ice on for 20 minutes, 2 3 times a day. Keep your arm raised (elevated) above the level of your heart while you are sitting or lying down. Take jelg-fzj-llneiec and prescription medicines only as told by your health care provider. Keep all follow-up visits as told by your health care provider. This is important. Contact a health care provider if: You have a sudden sharp pain in the wrist, hand, or arm that is different or new. The swelling or bruising on your wrist or hand gets worse. Your skin becomes red, gets a rash, or has open sores. Your pain does not get better or it gets worse. Get help right away if: You lose feeling in your fingers or hand. Your fingers turn white, very red, or cold and blue. You cannot move your fingers. You have a fever or chills. This information is not intended to replace advice given to you by your health care provider. Make sure you discuss any questions you have with your health care provider. Document Released: 08/05/2006 Document Revised: 10/08/2018 Document Reviewed: 05/14/2017 [employer] Patient Education 2020 [employer]. 02/03/2022 23:11:51 Joint Pain Joint Pain Joint pain (arthralgia) may be caused by many things. Joint pain is likely to go away when you follow instructions from your health care provider for relieving pain at home. However, joint pain can also be caused by conditions that require more treatment. Common causes of joint pain include: Bruising in the area of the joint. Injury caused by repeating certain movements too many times (overuse injury). Age-related joint wear and tear (osteoarthritis). Buildup of uric acid crystals in the joint (gout). Inflammation of the joint (rheumatic disease). Various other forms of arthritis. Infections of the joint (septic arthritis) or of the bone (osteomyelitis). Your health care provider may recommend that you take pain medicine or wear a supportive device like an elastic bandage, sling, or splint. If your joint pain continues, you may need lab or imaging tests to diagnose the cause of your joint pain. Follow these instructions at home: Managing pain, stiffness, and swelling If directed, put ice on the painful area. Icing can help to relieve joint pain and swelling. ?Put ice in a plastic bag. ?Place a towel between your skin and the bag. ?Leave the ice on for 20 minutes, 2 3 times a day. If directed, apply heat to the painful area as often as told by your health care provider. Heat canreduce the stiffness of your muscles and joints. Use the heat source that your health care providerrecommends, such as a moist heat pack or a heating pad. ?Place a towel between your skin and the heat source. ?Leave the heat on for 20 30 minutes. ?Remove the heat if your skin turns bright red. This is especially important if you are unable to feel pain, heat, or cold. You may have a greater risk of getting burned. Move your fingers or toes below the painful joint often. You can avoid stiffness and lessen swelling by doing this. If possible, raise (elevate) the painful joint above the level of your heart while you are sitting or lying down. To do this, try putting a few pillows under the painful joint. Activity Rest the painful joint for as long as directed. Do not do anything that causes or worsens pain. Begin exercising or stretching the affected area, as told by your health care provider. Ask your health care provider what types of exercise are safe for you. If you have an elastic bandage, sling, or splint: Wear the supportive device as told by your health care provider. Remove it only as told by your health care provider. Loosen the device if your fingers or toes below the joint tingle, become numb, or turn cold and blue. Keep the device clean. Ask your health care provider if you should remove the device before bathing. You may need to coverit with a watertight covering when you take a bath or a shower. General instructions Take ndax-hwr-tqjfinx and prescription medicines only as told by your health care provider. Do not use any products that contain nicotine or tobacco, such as cigarettes and e-cigarettes. If you need help quitting, ask your health care provider. Keep all follow-up visits as told by your health care provider. This is important. Contact a health care provider if: You have pain that gets worse and does not get better with medicine. Your joint pain does not improve within 3 days. You have increased bruising or swelling. You have a fever. You lose 10 lb (4.5 kg) or more without trying. Get help right away if: You cannot move the joint. Your fingers or toes tingle, become numb, or turn cold and blue. You have a fever along with a joint that is red, warm, and swollen. Summary Joint pain (arthralgia) may be caused by many things. Your health care provider may recommend that you take pain medicine or wear a supportive device like an elastic bandage, sling, or splint. If your joint pain continues, you may need tests to diagnose the cause of your joint pain. Take [id number] and prescription medicines only as told by your health care provider. This information is not intended to replace advice given to you by your health care provider. Make sure you discuss any questions you have with your health care provider. Document Released: 10/26/2006 Document Revised: 10/08/2018 Document Reviewed: 08/11/2018 [employer] Patient Education 2020 [employer]. Follow Up Care 02/03/2022 11:45:45 With:Mecca SAUCEDO MD, FAM Address: When: only if needed [facility] [place] 02-23-2022 NoteCONSULTATION PAIN MANAGEMENT CONSULTATION This is a 66-year-old gentleman who is known to our pain clinic for [facility] case for left lower back pain. The gentleman was last seen in December of 2020 in which he finished #1 and #2 medial branch block to L3, L4 and L5. This was in results of an accident back in the 1980s. His initial RFA was denied one year ago and the patient has since been through appeals and has gained authorization to move forward with the left-sided RFA. Today the patient states his pain is 2 out of 10 in that area with an occasional sharp pain, depending on activity. What is most notable to the patient is his intermittent hypesthesia down the lateral and posterior aspect of his left leg. Activities that aggravate his pain are pushing, pulling, sitting, lifting, evening hours and doing dishes. Ice decreases his pain. His medications include Suboxone 8 mg q. day as well as Advil p.r.n. This gentleman is on a non-narcotic pain plan. At this time patient needs to move forward with RFA. REVIEW OFSYMPTOMS, PAST MEDICAL HISTORY, ALLERGIES AND IMAGES: Have been reviewed and noted in the chart. PHYSICAL EXAM: VITAL SIGNS: Blood pressure 125/88, heart rate is 78, temperature is 97.7. Height is 5'10 , weighs 81 kg. GENERAL APPEARANCE: Pleasant, no acute distress FOCUSED EXAM: BACK: Reproduction of the patient's spinal axial pain is noted upon direct compression to the posterior elements of the facets to the left-sided L3, L4, L5 that does not extend below the knee. Range of motion is within functional limits; however, guarded with left lateral rotation. MUSCULOSKELETAL: Intact, 4 out of 5 bilaterally. Steady ambulation, does not use assistive device. NEUROLOGICAL: Radicular sensory is intact. 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 DIAGNOSIS: Code RM 51.26, M 54.5, M54.31, F33.9xxa, F33.5xxa. These are in accordance with approved [facility] diagnosis codes PLAN: We will move forward with the left-sided RFA to L3 L4 and L5 with sedation. In the meantime the patient is encouraged to take a multivitamin, use a heat rub and do extensive exercises. Nutrition importance was stressed as well. The patient states understanding and would like to proceed. He will be followed in the office post-procedure. [facility] Signed and Approved by: ASHLEY LION . 01/15/2022 08:37:00[facility]06-01-2020 Evaluation + Plan note Future Appointments Appointment Date:02/20/2023 09:00:00 AM Scheduled Provider: [facility] Appoint[facility] Type:CV Echo () Appointment Date:04/09/2023 02:00:00 PM Scheduled Provider:Joshua Eng DO [facility] App[facility] Type:ONC Office Visit 15 () Appointment Date:06/01/2023 11:20:00 AM Scheduled Provider:Mecca SAUCEDO MD [facility] Scheduled Tests Laboratory* Sedimentation Rate Automated 04/07/23 * CBC w/ Auto Diff 02/05/23 * CBC w/ Auto Diff 03/08/23 * CBC w/ Auto Diff 04/07/23 * CBC w/ Auto Diff 05/08/23 * Comprehensive Metabolic Panel 02/05/23 * Comprehensive Metabolic Panel 03/08/23 * Comprehensive Metabolic Panel 04/07/23 * Comprehensive Metabolic Panel 05/08/23 * Thyroid Stimulating Hormone 04/07/23 * Free T4 04/07/23 Radiology* Echo Transthoracic Complete 02/20/23 [facility] Evaluation + Plan note Future Appointments Appointment Date:04/24/2022 11:20:00 AM Scheduled Provider:Mecca SAUCEDO MD [facility] Evaluation + Plan note Future Appointments Appointment Date:10/21/2022 11:20:00 AM Scheduled Provider:Mecca SAUCEDO MD [facility] Appointment Date:07/03/2022 12:30:00 PM Scheduled Provider:Robert HEATH MD Location:[facility] Appointment Type:[facility] New Patient Appointment Date:10/21/2022 11:20:00 AM Scheduled Provider:Mecca SAUCEDO MD Location:[facility]ment Type: [facility] Future Appointments Appointment Date:05/13/2022 02:00:00 PM Scheduled Provider:Mecca SAUCEDO MD [facility] Type: Open Appointment Date:07/03/2022 12:30:00 PM Scheduled Provider:Robert HEATH MD Location:[facility] Appointment Type:[facility] New Patient Appointment Date:10/21/2022 11:20:00 AM Scheduled Provider:Mecca SAUCEDO MD Location:[facility] Appointment Type: Open Future Scheduled Tests Radiology* CT Chest w/ Contrast 05/08/22 [facility] [place] Evaluation + Plan note Future Appointments Appointment Date:07/03/2022 12:30:00 PM Scheduled Provider:Robert HEATH MD Location:[facility] Appointment Type:[facility] New Patient Appointment Date:10/21/2022 11:20:00 AM Scheduled Provider:Mecca SAUCEDO MD Location:[facility] Appointment Type: Open Diagnostic Tests Pending * Fluid Culture 05/21/22 [facility] Future Appointments Appointment Date:07/03/2022 12:30:00 PM Scheduled Provider:Robert HEATH MD Location:[facility] Appointment Type:[facility] New Patient Appointment Date:10/21/2022 11:20:00 AM Scheduled Provider:Mecca SAUCEDO MD Location:[facility] Appointment Type: Open Future Scheduled Tests Laboratory* CBC w/ Auto Diff 06/01/22 * CEA 06/01/22 * Comprehensive Metabolic Panel 06/01/22 Radiology* MRI Brain w/ + w/o Contrast 05/30/22 [facility] Future Appointments Appointment Date:06/04/2022 01:00:00 PM Scheduled Provider: [facility] Type:MRI Brain (FT) Appointment Date:06/05/2022 09:15:00 AM Scheduled Provider:Joshua Eng DO [facility] App[facility] Type:ONC Office Visit 15 (FT) Appointment Date:06/05/2022 09:30:00 AM Scheduled Provider: Location[facility] Appointment Type:ONC Injection (FT) Appointment Date:07/03/2022 12:30:00 PM Scheduled Provider:Robert HEATH MD Location:[facility] Appointment Type:[facility] New Patient Appointment Date:10/21/2022 11:20:00 AM Scheduled Provider:Mecca SAUCEDO MD [facility] Type: Open Future Scheduled Tests Radiology* MRI Brain w/ + w/o Contrast 06/04/22 [facility] Future Appointments Appointment Date:06/05/2022 09:15:00 AM Scheduled Provider:Joshua Eng DO Location[facility] Appointment Type:ONC Office Visit 15 (FT) Appointment Date:06/05/2022 09:30:00 AM Scheduled Provider: Location[facility] Appointment Type:ONC Injection (FT) Appointment Date:07/03/2022 12:30:00 PM Scheduled Provider:Robert HEATH MD Location:[facility] Appointment Type:[facility] New Patient Appointment Date:10/21/2022 11:20:00 AM Scheduled Provider:Mecca SAUCEDO MD [facility]: [facility] Future Appointments Appointment Date:06/18/2022 09:45:00 AM Scheduled Provider:Joshua Eng DO Location[facility] Appointment Type:ONC Office Visit 15 (FT) Appointment Date:06/18/2022 10:00:00 AM Scheduled Provider: Location:.[facility] Appointment Type:ONC Carbo/SAND CARRIER 16 (FT) Appointment Date:07/03/2022 12:30:00 PM Scheduled Provider:Robert HEATH MD Location:[facility] Appointment Type:BAD New Patient Appointment Date:10/21/2022 11:20:00 AM Scheduled Provider:Mecca SAUCEDO MD [facility] Type: Open Future Scheduled Tests Laboratory* CBC w/ Auto Diff 06/11/22 * Comprehensive Metabolic Panel 06/11/22 [facility] Future Appointments Appointment Date:06/26/2022 10:30:00 AM Scheduled Provider:Carolee Conner [facility] Appointment Type:ONC Office Visit 30 (FT) Appointment Date:07/03/2022 12:30:00 PM Scheduled Provider:Robert HEATH MD Location:[facility] Appointment Type:[facility] New Patient Appointment Date:07/09/2022 10:00:00 AM Scheduled Provider: [facility] Appointment Type:ONC Carbo/Alimta/keytruda (FT) Appointment Date:10/21/2022 11:20:00 AM Scheduled Provider:Mecca SAUCEDO MD Location:[facility] Appointment Type: Open Future Scheduled Tests Laboratory* CBC w/ Auto Diff 06/25/22 * CBC w/ Auto Diff 06/11/22 * Comprehensive Metabolic Panel 06/25/22 * Comprehensive Metabolic Panel 06/11/22 [facility] Future Appointments Appointment Date:07/03/2022 12:30:00 PM Scheduled Provider:Robert HEATH MD Location:[facility] Appointment Type:[facility] New Patient Appointment Date:07/09/2022 10:00:00 AM Scheduled Provider: [facility] Appointment Type:ONC Carbo/Alimta/keytruda (FT) Appointment Date:07/30/2022 09:15:00 AM Scheduled Provider:Joshua Eng DO [facility] Appointment Type:ONC Office Visit 15 (FT) Appointment Date:07/30/2022 10:00:00 AM Scheduled Provider: [facility] Appointment Type:ONC Carbo/Alimta/keytruda (FT) Appointment Date:10/21/2022 11:20:00 AM Scheduled Provider:Mecca SAUCEDO MD Location:[facility] Appointment Type: Open Future Scheduled Tests Laboratory* CBC w/ Auto Diff 06/11/22 * CBC w/ Auto Diff 07/09/22 * CBC w/ Auto Diff 07/30/22 * CBC w/ Auto Diff 08/20/22 * CBC w/ Auto Diff 09/10/22 * CBC w/ Auto Diff 10/01/22 * CBC w/ Auto Diff 10/22/22 * CBC w/ Auto Diff 11/12/22 * CBC w/ Auto Diff 12/03/22 * CBC w/ Auto Diff 12/24/22 * Comprehensive Metabolic Panel 06/11/22 * Comprehensive Metabolic Panel 07/09/22 * Comprehensive Metabolic Panel 07/30/22 * Comprehensive Metabolic Panel 08/20/22 * Comprehensive Metabolic Panel 09/10/22 * Comprehensive Metabolic Panel 10/01/22 * Comprehensive Metabolic Panel 10/22/22 * Comprehensive Metabolic Panel 11/12/22 * Comprehensive Metabolic Panel 12/03/22 * Comprehensive Metabolic Panel 12/24/22 [facility] Future Appointments Appointment Date:07/03/2022 12:30:00 PM Scheduled Provider:Robert HEATH MD Location:[facility] Appointment Type:[facility] New Patient Appointment Date:07/09/2022 09:30:00 AM Scheduled Provider:ISELA WRAE MD [facility] Appointment Type:ONC Palliative Follow Up (FT) Appointment Date:07/09/2022 10:00:00 AM Scheduled Provider: [facility] Appointment Type:ONC Carbo/Alimta/keytruda (FT) Appointment Date:07/30/2022 09:15:00 AM Scheduled Provider:Joshua Eng DO [facility] Appointment Type:ONC Office Visit 15 (FT) Appointment Date:07/30/2022 10:00:00 AM Scheduled Provider: [facility] Appointment Type:ONC Carbo/Alimta/keytruda (FT) Appointment Date:10/21/2022 11:20:00 AM Scheduled Provider:Mecca SAUCEDO MD Location:[facility] Appointment Type: Open [facility] Scheduled Tests Laboratory* CBC w/ Auto Diff 06/11/22 * CBC w/ Auto Diff 07/30/22 * CBC w/ Auto Diff 08/20/22 * CBC w/ Auto Diff 09/10/22 * CBC w/ Auto Diff 10/01/22 * CBC w/ Auto Diff 10/22/22 * CBC w/ Auto Diff 11/12/22 * CBC w/ Auto Diff 12/03/22 * CBC w/ Auto Diff 12/24/22 * Comprehensive Metabolic Panel 06/11/22 * Comprehensive Metabolic Panel 07/30/22 * Comprehensive Metabolic Panel 08/20/22 * Comprehensive Metabolic Panel 09/10/22 * Comprehensive Metabolic Panel 10/01/22 * Comprehensive Metabolic Panel 10/22/22 * Comprehensive Metabolic Panel 11/12/22 * Comprehensive Metabolic Panel 12/03/22 * Comprehensive Metabolic Panel 12/24/22 [facility] Future Appointments Appointment Date:07/30/2022 09:15:00 AM Scheduled Provider:Joshua Eng DO [facility] Appointment Type:ONC Office Visit 15 (FT) Appointment Date:07/30/2022 10:00:00 AM Scheduled Provider: [facility] Appointment Type:ONC Carbo/Alimta/keytruda (FT) Appointment Date:10/21/2022 11:20:00 AM Scheduled Provider:Mecca SAUCEDO MD [facility] Type: Open Future Scheduled Tests Laboratory* CBC w/ Auto Diff 06/11/22 * CBC w/ Auto Diff 07/30/22 * CBC w/ Auto Diff 08/20/22 * CBC w/ Auto Diff 09/10/22 * CBC w/ Auto Diff 10/01/22 * CBC w/ Auto Diff 10/22/22 * CBC w/ Auto Diff 11/12/22 * CBC w/ Auto Diff 12/03/22 * CBC w/ Auto Diff 12/24/22 * Comprehensive Metabolic Panel 06/11/22 * Comprehensive Metabolic Panel 07/30/22 * Comprehensive Metabolic Panel 08/20/22 * Comprehensive Metabolic Panel 09/10/22 * Comprehensive Metabolic Panel 10/01/22 * Comprehensive Metabolic Panel 10/22/22 * Comprehensive Metabolic Panel 11/12/22 * Comprehensive Metabolic Panel 12/03/22 * Comprehensive Metabolic Panel 12/24/22 [facility] Future Appointments Appointment Date:08/21/2022 09:00:00 AM Scheduled Provider: [facility] Appointment Type:ONC Carboplatin (FT) Appointment Date:08/21/2022 09:00:00 AM Scheduled Provider:Carolee Conner [facility] Appointment Type:ONC Office Visit 15 (FT) Appointment Date:08/21/2022 09:00:00 AM Scheduled Provider: [facility] Appointment Type:ONC Injection (FT) Appointment Date:10/21/2022 11:20:00 AM Scheduled Provider:Mecca SAUCEDO MD Location:[facility] Appointment Type:FM Open Future Scheduled Tests Laboratory* CBC w/ Auto Diff 08/20/22 * CBC w/ Auto Diff 09/10/22 * CBC w/ Auto Diff 10/01/22 * CBC w/ Auto Diff 10/22/22 * CBC w/ Auto Diff 11/12/22 * CBC w/ Auto Diff 12/03/22 * CBC w/ Auto Diff 12/24/22 * Comprehensive Metabolic Panel 08/20/22 * Comprehensive Metabolic Panel 09/10/22 * Comprehensive Metabolic Panel 10/01/22 * Comprehensive Metabolic Panel 10/22/22 * Comprehensive Metabolic Panel 11/12/22 * Comprehensive Metabolic Panel 12/03/22 * Comprehensive Metabolic Panel 12/24/22 [facility] Future Appointments Appointment Date:08/21/2022 09:00:00 AM Scheduled Provider:Carolee Conner [facility] Appointment Type:ONC Office Visit 15 (FT) Appointment Date:08/21/2022 09:30:00 AM Scheduled Provider:ISELA WARE MD [facility] Appointment Type:ONC Palliative Follow Up (FT) Appointment Date:08/21/2022 10:00:00 AM Scheduled Provider: [facility] Appointment Type:ONC Injection (FT) Appointment Date:08/21/2022 10:00:00 AM Scheduled Provider: Location[facility] Appointment Type:ONC Carboplatin (FT) Appointment Date:10/21/2022 11:20:00 AM Scheduled Provider:Mecca SAUCEDO MD Location:[facility] Appointment Type: Open Future Scheduled Tests Laboratory* CBC w/ Auto Diff 08/20/22 * CBC w/ Auto Diff 09/10/22 * CBC w/ Auto Diff 10/01/22 * CBC w/ Auto Diff 10/22/22 * CBC w/ Auto Diff 11/12/22 * CBC w/ Auto Diff 12/03/22 * CBC w/ Auto Diff 12/24/22 * Comprehensive Metabolic Panel 08/20/22 * Comprehensive Metabolic Panel 09/10/22 * Comprehensive Metabolic Panel 10/01/22 * Comprehensive Metabolic Panel 10/22/22 * Comprehensive Metabolic Panel 11/12/22 * Comprehensive Metabolic Panel 12/03/22 * Comprehensive Metabolic Panel 12/24/22 [facility] Future Appointments Appointment Date:09/11/2022 09:00:00 AM Scheduled Provider:Joshua Eng DO [facility] Appointment Type:ONC Office Visit 15 (FT) Appointment Date:09/11/2022 10:00:00 AM Scheduled Provider: [facility] Appointment Type:ONC Carboplatin (FT) Appointment Date:10/21/2022 11:20:00 AM Scheduled Provider:Mecca SAUCEDO MD Location:[facility] Appointment Type: Open Future Scheduled Tests Laboratory* T4 & TSH 09/10/22 * T4 & TSH 10/01/22 * T4 & TSH 10/22/22 * T4 & TSH 11/12/22 * T4 & TSH 12/03/22 * T4 & TSH 12/24/22 * T4 & TSH 01/14/23 * T4 & TSH 02/04/23 * T4 & TSH 02/25/23 * CBC w/ Auto Diff 09/10/22 * CBC w/ Auto Diff 10/01/22 * CBC w/ Auto Diff 10/22/22 * CBC w/ Auto Diff 11/12/22 * CBC w/ Auto Diff 12/03/22 * CBC w/ Auto Diff 12/24/22 * Comprehensive Metabolic Panel 09/10/22 * Comprehensive Metabolic Panel 10/01/22 * Comprehensive Metabolic Panel 10/22/22 * Comprehensive Metabolic Panel 11/12/22 * Comprehensive Metabolic Panel 12/03/22 * Comprehensive Metabolic Panel 12/24/22 [facility] Future Appointments Appointment Date:10/21/2022 11:20:00 AM Scheduled Provider:Mecca SAUCEDO MD Location:[facility] Appointment Type: Open Future Scheduled Tests Laboratory* T4 & TSH 10/01/22 * T4 & TSH 10/22/22 * T4 & TSH 11/12/22 * T4 & TSH 12/03/22 * T4 & TSH 12/24/22 * T4 & TSH 01/14/23 * T4 & TSH 02/04/23 * T4 & TSH 02/25/23 * CBC w/ Auto Diff 10/01/22 * CBC w/ Auto Diff 10/22/22 * CBC w/ Auto Diff 11/12/22 * CBC w/ Auto Diff 12/03/22 * CBC w/ Auto Diff 12/24/22 * Comprehensive Metabolic Panel 10/01/22 * Comprehensive Metabolic Panel 10/22/22 * Comprehensive Metabolic Panel 11/12/22 * Comprehensive Metabolic Panel 12/03/22 * Comprehensive Metabolic Panel 12/24/22 [facility] Future Appointments Appointment Date:10/21/2022 11:20:00 AM Scheduled Provider:Mecca SAUCEDO MD Location:[facility] [place] Appointment Type:FM Open Appointment Date:10/28/2022 11:30:00 AM Scheduled Provider:ISELA WARE MD Location[facility] Appointment Type:ONC Palliative Follow Up (FT) Appointment Date:11/20/2022 09:30:00 AM Scheduled Provider:Carolee Conner Location[facility] Appointment Type:ONC Office Visit 30 (FT) Appointment Date:11/20/2022 10:00:00 AM Scheduled Provider: Location[facility] Appointment Type:ONC Chemo Treatment (FT) Future Scheduled Tests Laboratory* CBC w/ Auto Diff 11/20/22 * Comprehensive Metabolic Panel 11/20/22 * Thyroid Stimulating Hormone 11/20/22 [facility] Future Appointments Appointment Date:11/20/2022 09:30:00 AM Scheduled Provider:Carolee Conner Location[facility] Appointment Type:ONC Office Visit 30 (FT) Appointment Date:11/20/2022 10:00:00 AM Scheduled Provider: Location:.[facility] Appointment Type:ONC Chemo Treatment (FT) Appointment Date:11/20/2022 10:30:00 AM Scheduled Provider:ISELA WARE MD Location[facility] Appointment Type:ONC Palliative Follow Up (FT) Appointment Date:12/02/2022 11:00:00 AM Scheduled Provider:Mecca SAUCEDO MD Location:[facility] [place] Appointment Type: Open Future Scheduled Tests Laboratory* CBC w/ Auto Diff 11/20/22 * Comprehensive Metabolic Panel 11/20/22 * Thyroid Stimulating Hormone 11/20/22 [facility] Future Appointments Appointment Date:11/20/2022 09:30:00 AM Scheduled Provider:Carolee Conner Location[facility] Appointment Type:ONC Office Visit 30 (FT) Appointment Date:11/20/2022 10:00:00 AM Scheduled Provider: [facility] Appoint[facility] Type:ONC Chemo Treatment (FT) Appointment Date:11/20/2022 10:30:00 AM Scheduled Provider:ISELA WARE MD [facility] Appointment Type:ONC Palliative Follow Up (FT) Appointment Date:12/02/2022 11:00:00 AM Scheduled Provider:Mecca SAUCEDO MD Location:[facility] Appointment Type: Open Future Scheduled Tests Laboratory* Sedimentation Rate Automated 10/30/22 * CBC w/ Auto Diff 11/20/22 * Comprehensive Metabolic Panel 11/20/22 * C-Reactive Protein 10/30/22 * Thyroid Stimulating Hormone 11/20/22 [facility] Future Appointments Appointment Date:12/02/2022 11:00:00 AM Scheduled Provider:Mecca SAUCEDO MD Location:[facility] Appointment Type: Open Appointment Date:12/11/2022 11:00:00 AM Scheduled Provider: [facility] Appointment Type:ONC Chemo Treatment (FT) Future Scheduled Tests Laboratory* CBC w/ Auto Diff 12/10/22 * CBC w/ Auto Diff 12/31/22 * CBC w/ Auto Diff 01/21/23 * CBC w/ Auto Diff 02/11/23 * CBC w/ Auto Diff 03/04/23 * Comprehensive Metabolic Panel 12/10/22 * Comprehensive Metabolic Panel 12/31/22 * Comprehensive Metabolic Panel 01/21/23 * Comprehensive Metabolic Panel 02/11/23 * Comprehensive Metabolic Panel 03/04/23 * Thyroid Stimulating Hormone 12/10/22 * Thyroid Stimulating Hormone 12/31/22 * Thyroid Stimulating Hormone 01/21/23 * Thyroid Stimulating Hormone 02/11/23 * Thyroid Stimulating Hormone 03/04/23 [facility] Future Appointments Appointment Date:12/11/2022 11:00:00 AM Scheduled Provider: [facility] Appointment Type:ONC Chemo Treatment (FT) Appointment Date:06/01/2023 11:20:00 AM Scheduled Provider:Mecca SAUCEDO MD Location:[facility] Appointment Type: Open Future Scheduled Tests Laboratory* CBC w/ Auto Diff 12/10/22 * CBC w/ Auto Diff 12/31/22 * CBC w/ Auto Diff 01/21/23 * CBC w/ Auto Diff 02/11/23 * CBC w/ Auto Diff 03/04/23 * Comprehensive Metabolic Panel 12/10/22 * Comprehensive Metabolic Panel 12/31/22 * Comprehensive Metabolic Panel 01/21/23 * Comprehensive Metabolic Panel 02/11/23 * Comprehensive Metabolic Panel 03/04/23 * Thyroid Stimulating Hormone 12/10/22 * Thyroid Stimulating Hormone 12/31/22 * Thyroid Stimulating Hormone 01/21/23 * Thyroid Stimulating Hormone 02/11/23 * Thyroid Stimulating Hormone 03/04/23 [facility] [place] Evaluation + Plan note Future Appointments Appointment Date:12/11/2022 11:00:00 AM Scheduled Provider: Location[facility] Appointment Type:ONC Chemo Treatment () Appointment Date:06/01/2023 11:20:00 AM Scheduled Provider:Mecca SAUCEDO MD Location:[facility] Appointment Type: Open Diagnostic Tests Pending * HgbA1c 12/02/22 Future Scheduled Tests Laboratory* CBC w/ Auto Diff 12/10/22 * CBC w/ Auto Diff 12/31/22 * CBC w/ Auto Diff 01/21/23 * CBC w/ Auto Diff 02/11/23 * CBC w/ Auto Diff 03/04/23 * Comprehensive Metabolic Panel 12/10/22 * Comprehensive Metabolic Panel 12/31/22 * Comprehensive Metabolic Panel 01/21/23 * Comprehensive Metabolic Panel 02/11/23 * Comprehensive Metabolic Panel 03/04/23 * Thyroid Stimulating Hormone 12/10/22 * Thyroid Stimulating Hormone 12/31/22 * Thyroid Stimulating Hormone 01/21/23 * Thyroid Stimulating Hormone 02/11/23 * Thyroid Stimulating Hormone 03/04/23 [facility] Future App[facility]ments Appointment Date:12/16/2022 01:20:00 PM Scheduled Provider:Mecca [facility]UCEDO [facility] Hospital Follow Up w/TCM Appointment Date:06/01/2023 11:20:00 AM Scheduled Provider:Mecca SAUCEDO MD [facility] App[facility] Type: Open Future Scheduled Tests Laboratory* CBC w/ Auto Diff 12/31/22 * CBC w/ Auto Diff 01/21/23 * CBC w/ Auto Diff 02/11/23 * CBC w/ Auto Diff 03/04/23 * Comprehensive Metabolic Panel 12/31/22 * Comprehensive Metabolic Panel 01/21/23 * Comprehensive Metabolic Panel 02/11/23 * Comprehensive Metabolic Panel 03/04/23 * Thyroid Stimulating Hormone 12/31/22 * Thyroid Stimulating Hormone 01/21/23 * Thyroid Stimulating Hormone 02/11/23 * Thyroid Stimulating Hormone 03/04/23 [facility] App[facility]ments Appointment Date:12/25/2022 11:00:00 AM Scheduled Provider:Carolee Conner [facility] Appoint[facility] Type:ONC Office Visit 30 (FT) Appointment Date:12/25/2022 01:00:00 PM Scheduled Provider: [facility] Appointment Type:ONC Chemo Treatment (FT) Appointment Date:06/01/2023 11:20:00 AM Scheduled Provider:Mecca SAUCEDO MD Location:[facility] Appointment Type: Open Future Scheduled Tests Laboratory* CBC w/ Auto Diff 12/31/22 * CBC w/ Auto Diff 01/21/23 * CBC w/ Auto Diff 02/11/23 * CBC w/ Auto Diff 03/04/23 * Comprehensive Metabolic Panel 12/31/22 * Comprehensive Metabolic Panel 01/21/23 * Comprehensive Metabolic Panel 02/11/23 * Comprehensive Metabolic Panel 03/04/23 * Thyroid Stimulating Hormone 12/31/22 * Thyroid Stimulating Hormone 01/21/23 * Thyroid Stimulating Hormone 02/11/23 * Thyroid Stimulating Hormone 03/04/23 [facility] [place] Evaluation + Plan note Future Appointments Appointment Date:12/25/2022 11:00:00 AM Scheduled Provider:Carolee Conner [facility] Appointment Type:ONC Office Visit 30 (FT) Appointment Date:12/25/2022 01:00:00 PM Scheduled Provider: [facility] Appointment Type:ONC Chemo Treatment (FT) Appointment Date:06/01/2023 11:20:00 AM Scheduled Provider:Mecca SAUCEDO MD [facility] App[facility] Type: Open Future Scheduled Tests Laboratory* CBC w/ Auto Diff 01/21/23 * CBC w/ Auto Diff 02/11/23 * CBC w/ Auto Diff 03/04/23 * Comprehensive Metabolic Panel 01/21/23 * Comprehensive Metabolic Panel 02/11/23 * Comprehensive Metabolic Panel 03/04/23 * Thyroid Stimulating Hormone 01/21/23 * Thyroid Stimulating Hormone 02/11/23 * Thyroid Stimulating Hormone 03/04/23 [facility] Future App[facility]ments Appointment Date:01/08/2023 01:15:00 PM Scheduled Provider:Carolee Conner [facility] Appointment Type:ONC Office Visit 15 (FT) Appointment Date:06/01/2023 11:20:00 AM Scheduled Provider:Mecca SAUCEDO MD [facility] App[facility] Type: Open Future Scheduled Tests Laboratory* CBC w/ Auto Diff 01/21/23 * CBC w/ Auto Diff 02/11/23 * CBC w/ Auto Diff 03/04/23 * CBC w/ Auto Diff 12/29/22 * CBC w/ Auto Diff 01/05/23 * Comprehensive Metabolic Panel 01/21/23 * Comprehensive Metabolic Panel 02/11/23 * Comprehensive Metabolic Panel 03/04/23 * Comprehensive Metabolic Panel 12/29/22 * Comprehensive Metabolic Panel 01/05/23 * Thyroid Stimulating Hormone 01/21/23 * Thyroid Stimulating Hormone 02/11/23 * Thyroid Stimulating Hormone 03/04/23 [facility] Future Appointments Appointment Date:02/05/2023 01:15:00 PM Scheduled Provider:Joshua Eng DO [facility] Appointment Type:ONC Office Visit 15 (FT) Appointment Date:06/01/2023 11:20:00 AM Scheduled Provider:Mecca SAUCEDO MD [facility] Type: Open Future Scheduled Tests Laboratory* CBC w/ Auto Diff 02/08/23 * Comprehensive Metabolic Panel 02/08/23 * Thyroid Stimulating Hormone 02/08/23 [facility] Future Appointments Appointment Date:02/05/2023 01:15:00 PM Scheduled Provider:Joshua Eng DO [facility] Appointment Type:ONC Office Visit 15 (FT) Appointment Date:02/09/2023 10:20:00 AM Scheduled Provider:Mecca SAUCEDO MD Location:[facility] Appointment Type: Hospital Follow Up w/TCM Appointment Date:06/01/2023 11:20:00 AM Scheduled Provider:Mecca SAUCEDO MD Location:[facility] Appointment Type: Open Future Scheduled Tests Radiology* Echo Transthoracic Complete 02/03/23 [facility] Future Appointments Appointment Date:02/09/2023 10:20:00 AM Scheduled Provider:Mecca SAUCEDO MD Location:[facility] Appointment Type: Hospital Follow Up w/TCM Appointment Date:04/09/2023 02:00:00 PM Scheduled Provider:Joshua Eng DO [facility] Appointment Type:ONC Office Visit 15 (FT) Appointment Date:06/01/2023 11:20:00 AM Scheduled Provider:Mecca SAUCEDO MD Location:[facility] Appointment Type: Open Future Scheduled Tests Laboratory* Sedimentation Rate Automated 04/07/23 * CBC w/ Auto Diff 02/05/23 * CBC w/ Auto Diff 03/08/23 * CBC w/ Auto Diff 04/07/23 * CBC w/ Auto Diff 05/08/23 * Comprehensive Metabolic Panel 02/05/23 * Comprehensive Metabolic Panel 03/08/23 * Comprehensive Metabolic Panel 04/07/23 * Comprehensive Metabolic Panel 05/08/23 * Thyroid Stimulating Hormone 04/07/23 * Free T4 04/07/23 Radiology* Echo Transthoracic Complete 02/03/23 [facility] Future Appointments Appointment Date:04/09/2023 02:00:00 PM Scheduled Provider:Joshua Eng DO [facility] Appointment Type:ONC Office Visit 15 (FT) Appointment Date:06/01/2023 11:20:00 AM Scheduled Provider:Mecca SAUCEDO MD Location:[facility] Appointment Type: Open Future Scheduled Tests Laboratory* Sedimentation Rate Automated 04/07/23 * CBC w/ Auto Diff 02/05/23 * CBC w/ Auto Diff 03/08/23 * CBC w/ Auto Diff 04/07/23 * CBC w/ Auto Diff 05/08/23 * Comprehensive Metabolic Panel 02/05/23 * Comprehensive Metabolic Panel 03/08/23 * Comprehensive Metabolic Panel 04/07/23 * Comprehensive Metabolic Panel 05/08/23 * Thyroid Stimulating Hormone 04/07/23 * Free T4 04/07/23 [facility] Future Appointments Appointment Date:04/09/2023 02:00:00 PM Scheduled Provider:Joshua Eng DO [facility] Appointment Type:ONC Office Visit 15 (FT) Appointment Date:06/01/2023 11:20:00 AM Scheduled Provider:Mecca SAUCEDO MD Location:[facility] Appointment Type: Open Future Scheduled Tests Laboratory* Sedimentation Rate Automated 04/07/23 * CBC w/ Auto Diff 02/05/23 * CBC w/ Auto Diff 04/07/23 * CBC w/ Auto Diff 05/08/23 * Comprehensive Metabolic Panel 02/05/23 * Comprehensive Metabolic Panel 04/07/23 * Comprehensive Metabolic Panel 05/08/23 * Thyroid Stimulating Hormone 04/07/23 * Free T4 04/07/23 [facility] Future Appointments Appointment Date:04/07/2023 12:30:00 PM Scheduled Provider:ISELA WARE MD [facility] Appointment Type:ONC Supportive Care Follow Up (FT) Appointment Date:04/09/2023 02:00:00 PM Scheduled Provider:Joshua Eng DO [facility] Appointment Type:ONC Office Visit 15 (FT) Appointment Date:06/01/2023 11:20:00 AM Scheduled Provider:Mecca SAUCEDO MD [facility] Type: Open Future Scheduled Tests Laboratory* Sedimentation Rate Automated 04/07/23 * CBC w/ Auto Diff 02/05/23 * CBC w/ Auto Diff 04/07/23 * CBC w/ Auto Diff 05/08/23 * Comprehensive Metabolic Panel 02/05/23 * Comprehensive Metabolic Panel 04/07/23 * Comprehensive Metabolic Panel 05/08/23 * Thyroid Stimulating Hormone 04/07/23 * Free T4 04/07/23 [facility] Future Appointments Appointment Date:04/09/2023 02:00:00 PM Scheduled Provider:Joshua Eng DO [facility] Appointment Type:ONC Office Visit 15 (FT) Appointment Date:06/01/2023 11:20:00 AM Scheduled Provider:Mecca SAUCEDO MD [facility] App[facility] Type: Open Future Scheduled Tests Laboratory* CBC w/ Auto Diff 02/05/23 * CBC w/ Auto Diff 05/08/23 * Comprehensive Metabolic Panel 02/05/23 * Comprehensive Metabolic Panel 05/08/23 [facility] Future Appointments Appointment Date:06/01/2023 11:20:00 AM Scheduled Provider:Mecca SAUCEDO MD Location:[facility] [place] Appointment Type: Open Appointment Date:06/03/2023 02:00:00 PM Scheduled Provider:Joshua Eng DO [facility] Appointment Type:ONC Office Visit 15 (FT) Future Scheduled Tests Laboratory* CBC w/ Auto Diff 02/05/23 * CBC w/ Auto Diff 05/08/23 * CBC w/ Auto Diff 05/21/23 * CEA 05/21/23 * Comprehensive Metabolic Panel 02/05/23 * Comprehensive Metabolic Panel 05/08/23 * Comprehensive Metabolic Panel 05/21/23 Radiology* CT Chest w/ Contrast 04/09/23 [facility] Future Appointments Appointment Date:05/25/2023 01:00:00 PM Scheduled Provider: Location:[facility] Appointment Type:CT Chest (FT) Appointment Date:06/01/2023 11:20:00 AM Scheduled Provider:Mecca SAUCEDO MD Location:[facility] [place] Appointment Type: Open Appointment Date:06/03/2023 02:00:00 PM Scheduled Provider:Joshua Eng DO [facility] Appointment Type:ONC Office Visit 15 (FT) Future Scheduled Tests Laboratory* CBC w/ Auto Diff 05/21/23 * CBC w/ Auto Diff 05/21/23 * CEA 05/21/23 * Comprehensive Metabolic Panel 05/21/23 * Comprehensive Metabolic Panel 05/21/23 Radiology* CT Chest w/ Contrast 05/25/23 [facility] [place] Evaluation + Plan note Future Appointments Appointment Date:06/01/2023 11:20:00 AM Scheduled Provider:Mecca SAUCEDO MD Location:[facility] [place] Appointment Type: Open Appointment Date:06/03/2023 02:00:00 PM Scheduled Provider:Joshua Eng DO [facility] Appointment Type:ONC Office Visit 15 (FT) Future Scheduled Tests Laboratory* CBC w/ Auto Diff 05/21/23 * Comprehensive Metabolic Panel 05/21/23 [facility] Future Appointments Appointment Date:08/25/2023 09:30:00 AM Scheduled Provider:WANDA PEÑA PA-C Location:[facility] Appointment Type:URO New Patient Appointment Date:09/09/2023 01:45:00 PM Scheduled Provider:Joshua Eng DO [facility] Appointment Type:ONC Office Visit 15 (FT) Appointment Date:12/07/2023 11:20:00 AM Scheduled Provider:Mecca SAUCEDO MD [facility] Type: Open Future Scheduled Tests Laboratory* T3 Total 09/03/23 * CBC w/ Auto Diff 05/21/23 * CEA 09/03/23 * Comprehensive Metabolic Panel 05/21/23 * Ferritin 09/03/23 * Folate Level 09/03/23 * Iron Level 09/03/23 * Thyroid Stimulating Hormone 09/03/23 * Free T4 09/03/23 * Vitamin B12 Level 09/03/23 [facility] Future Appointments Appointment Date:09/09/2023 01:45:00 PM Scheduled Provider:Joshua Eng DO [facility] Appointment Type:ONC Office Visit 15 (FT) Appointment Date:12/07/2023 11:20:00 AM Scheduled Provider:Mecca SAUCEDO MD Location:[facility] [place] Appointment Type: Open Future Scheduled Tests Laboratory* T3 Total 09/03/23 * CBC w/ Auto Diff 05/21/23 * CEA 09/03/23 * Comprehensive Metabolic Panel 05/21/23 * Ferritin 09/03/23 * Folate Level 09/03/23 * Iron Level 09/03/23 * Thyroid Stimulating Hormone 09/03/23 * Free T4 09/03/23 * Vitamin B12 Level 09/03/23 [facility] evaluation + Plan note Future Appointments Appointment Date:09/09/2023 01:45:00 PM Scheduled Provider:Joshua Eng DO [facility] Appointment Type:ONC Office Visit 15 (FT) Appointment Date:12/07/2023 11:20:00 AM Scheduled Provider:Mecca SAUCEDO MD Location:[facility] [place] Appointment Type: Open Diagnostic Tests Pending * T3 Total 09/04/23 Future Scheduled Tests Laboratory* CBC w/ Auto Diff 05/21/23 * Comprehensive Metabolic Panel 05/21/23 [facility] Future Appointments Appointment Date:12/07/2023 11:20:00 AM Scheduled Provider:Mecca SAUCEDO MD Location:[facility] [place] Appointment Type: Open Appointment Date:01/13/2024 03:30:00 PM Scheduled Provider:Joshua Eng DO Location[facility] Appointment Type:ONC Office Visit 30 (FT) Future Scheduled Tests Laboratory* CBC w/ Auto Diff 01/06/24 * Comprehensive Metabolic Panel 01/06/24 * Thyroid Stimulating Hormone 01/06/24 * Free T4 01/06/24 [facility] Future Appointments Appointment Date:11/03/2023 02:05:00 PM Scheduled Provider: Location:[facility] Appointment Type:Surgery FT Appointment Date:12/07/2023 11:20:00 AM Scheduled Provider:Mecca SAUCEDO MD Location:[facility] [place] Appointment Type: Open Appointment Date:01/21/2024 10:30:00 AM Scheduled Provider:Joshua Eng DO [facility] Appointment Type:ONC Office Visit 30 (FT) Future Scheduled Tests Laboratory* CBC w/ Auto Diff 01/06/24 * Comprehensive Metabolic Panel 01/06/24 * Thyroid Stimulating Hormone 01/06/24 * Free T4 01/06/24 [facility] Future Appointments Appointment Date:12/07/2023 11:20:00 AM Scheduled Provider:Mecca SAUCEDO MD Location:[facility] [place] Appointment Type: Open Appointment Date:01/21/2024 10:30:00 AM Scheduled Provider:Joshua Eng DO Location[facility] Appointment Type:ONC Office Visit 30 (FT) Appointment Date:03/01/2024 11:00:00 AM Scheduled Provider:WANDA PEÑA PA-C Location:[facility] Appointment Type:URO Office Visit Future Scheduled Tests Laboratory* CBC w/ Auto Diff 01/06/24 * Comprehensive Metabolic Panel 01/06/24 * Thyroid Stimulating Hormone 01/06/24 * Free T4 01/06/24 [facility] Future Appointments Appointment Date:01/21/2024 10:30:00 AM Scheduled Provider:Joshua Eng DO [facility] Appointment Type:ONC Office Visit 30 (FT) Appointment Date:03/01/2024 11:00:00 AM Scheduled Provider:WANDA PEÑA PA-C Location:[facility] Appointment Type:URO Office Visit Appointment Date:06/07/2024 11:20:00 AM Scheduled Provider:Mecca SAUCEDO MD Location:[facility] [place] Appointment Type: Open Future Scheduled Tests Laboratory* HgbA1c 12/05/23 * CBC w/ Auto Diff 01/06/24 * Comprehensive Metabolic Panel 01/06/24 * Thyroid Stimulating Hormone 01/06/24 * Free T4 01/06/24 [facility] Future Appointments Appointment Date:01/21/2024 10:30:00 AM Scheduled Provider:Joshua Eng DO Location[facility] Appointment Type:ONC Office Visit 30 (FT) Appointment Date:03/01/2024 11:00:00 AM Scheduled Provider:WANDA PEÑA PA-C Location:[facility] Appointment Type:URO Office Visit Appointment Date:06/07/2024 11:20:00 AM Scheduled Provider:Mecca SAUCEDO MD Location:[facility] [place] Appointment Type: Open [facility] Future Appointments Appointment Date:06/07/2024 11:20:00 AM Scheduled Provider:Mecca SAUCEDO MD Location:[facility] [place] Appointment Type: Open Appointment Date:07/27/2024 01:00:00 PM Scheduled Provider:Joshua Eng DO [facility] Appoint[facility] Type:ONC Office Visit 30 (FT) Future Scheduled Tests Laboratory* CBC w/ Auto Diff 07/27/24 * CEA 07/27/24 * Comprehensive Metabolic Panel 07/27/24 * Thyroid Stimulating Hormone 07/27/24 * Free T4 07/27/24 Radiology* CT Abdomen/Pelvis w/ Contrast 07/13/24 * CT Chest w/ Contrast 07/13/24 [facility] Future Appointments Appointment Date:07/27/2024 01:00:00 PM Scheduled Provider:Joshua Eng DO [facility] Appointment Type:ONC Office Visit 30 (FT) Appointment Date:12/08/2024 11:20:00 AM Scheduled Provider:Mecca SAUCEDO MD [facility] Type: Open Future Scheduled Tests Laboratory* CBC w/ Auto Diff 07/27/24 * CEA 07/27/24 * Comprehensive Metabolic Panel 07/27/24 * Thyroid Stimulating Hormone 07/27/24 * Free T4 07/27/24 Radiology* US Renal 06/07/24 * CT Abdomen/Pelvis w/ Contrast 07/13/24 * CT Chest w/ Contrast 07/13/24 [facility] [place] Evaluation + Plan note Future Appointments Appointment Date:07/27/2024 01:00:00 PM Scheduled Provider:Joshua Eng DO [facility] Appointment Type:ONC Office Visit 30 (FT) Appointment Date:12/08/2024 11:20:00 AM Scheduled Provider:Mecca SAUCEDO MD Location:[facility] Appointment Type: Open Future Scheduled Tests Laboratory* CBC w/ Auto Diff 07/27/24 * CEA 07/27/24 * Comprehensive Metabolic Panel 07/27/24 * Thyroid Stimulating Hormone 07/27/24 * Free T4 07/27/24 Radiology* CT Abdomen/Pelvis w/ Contrast 07/13/24 * CT Chest w/ Contrast 07/13/24 [facility] Evaluation note* Diagnosis Trigger ring finger of right hand Trigger finger (acquired) documented in this encounter [facility] Work Phone: evaluation note* Diagnosis Pain of left hand Pain in limb documented in this encounter [facility] Work Phone: evaluation note* Diagnosis Onset Date Resolution Status Non-small cell lung cancer a [facility] Work Phone: Evaluation note* Diagnosis Fever, unspecified fever cause documented in this [facility] Work Phone: evaluation noteNo assessment information available [facility] Work Phone: Hospital course Narrative No data available for this section [facility] [place] [facility] Discharge instructions No data available for this section [facility] No data available for this section [facility] ([facility]ative) Referred by: Mecca SAUCEDO MD [facility] [place] Advance Directives No Advanced Directives Records FoundDocuments on File Type Date Recorded 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 ACP-Advance Directive ACP-Power of Technical Internship Latest Code Status on File Code Status Date Activated Date Inactivated Comments Full Code 10/06/2018 2:41 PM 10/06/2018 5:37 PM Full Code 10/06/2018 12:16 PM 10/06/2018 2:41 PM Full Code 03/24/2018 12:54 PM 03/24/2018 3:43 PM Full Code 03/24/2018 10:57 AM 03/24/2018 12:54 PM Full Code 11/05/2016 2:52 PM 11/05/2016 5:45 PM Documents on File Type Date Recorded 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 ACP-Advance Directive ACP-Power of Technical Internship Latest Code Status on File Code Status Date Activated Date Inactivated Comments Full Code 09/05/2020 6:59 AM Full Code 09/05/2020 6:13 AM 09/05/2020 6:59 AM Full Code 10/06/2018 2:41 PM 10/06/2018 5:37 PM Full Code 10/06/2018 12:16 PM 10/06/2018 2:41 PM Full Code 03/24/2018 12:54 PM 03/24/2018 3:43 PM Latest Code Status on File Code Status Date Activated Date Inactivated Comments Full Code 09/05/2020 6:59 AM 09/05/2020 10:44 AM Full Code 09/05/2020 6:13 AM 09/05/2020 6:59 AM Full Code 10/06/2018 2:41 PM 10/06/2018 5:37 PM Latest Code Status on File Code Status Date Activated Date Inactivated Comments Full Code 09/05/2020 6:59 AM 09/05/2020 10:44 AM Advance Directive Response Recorded Date/ Time Advance Directives No September 9:58am Assessments Diagnosis Trigger finger of left thumb Diagnosis Trigger thumb of left hand Trigger finger (acquired) Discharge Instructions * Instructions* Miguel Bolden, DO - 09/05/2020 Trigger Finger Release: What to Expect at Home Your Recovery Your finger and hand may be sore and swollen for several days. It may be hard to move your finger at first. This usually gets better after several weeks. You may feel numbness or tingling near the cut, called an incision, that the doctor made. This feeling will probably get better in a few days, but it may take several months to completely go away. Your doctor will take out your stitches 1 to 2 weeks after surgery. It will probably take about 6 weeks for your finger to heal completely. Once healed, your finger may move easily without pain. How soon you can return to work depends on your job. If you can do your job without using the hand,you may be able to go back 1 or 2 days after surgery. But if your job requires you to do repeated finger movements, put pressure on your hand, or lift things, you may need to take up to 6 weeks off work. Your doctor can help you decide how much time you will need to take off work. This care sheet gives you a general idea about how long it will take for you to recover. But each person recovers at a different pace. Follow the steps below to get better as quickly as possible. How can you care for yourself at home? Activity Rest when you feel tired. Getting enough sleep will help you recover. Try to walk each day. Start by walking a little more than you did the day before. Bit by bit, increase the amount you walk. For 1 to 2 weeks after surgery, avoid using your hand. This includes lifting things heavier than 1 to 2 pounds or doing repeated finger or hand movements, such as typing, using a computer mouse, washing windows, vacuuming, or chopping food. Do not use power tools, and avoid other activities that make your hand vibrate. Ask your doctor when you can drive again. You may be able to go back to work 1 or 2 days after surgery. It depends on the type of work you doand how you feel. You may shower, but do not get your hand wet until your doctor says it is okay. Keep the bandage dry by covering it with plastic. Do not take a bath, swim, use a hot tub, or soak your hand until yourdoctor says it is okay. Diet You can eat your normal diet. If your stomach is upset, try bland, low-fat foods like plain rice, broiled chicken, toast, and yogurt. Medicines Take pain medicines exactly as directed. If the doctor gave you a prescription medicine for pain, take it as prescribed. If you are not taking a prescription pain medicine, ask your doctor if you can take an [id number] medicine. If you think your pain medicine is making you sick to your stomach: Take your medicine after meals (unless your doctor has told you not to). Ask your doctor for a different pain medicine. If your doctor prescribed antibiotics, take them as directed. Do not stop taking them just because you feel better. You need to take the full course of antibiotics. Incision care Leave the bandage on your hand until the doctor says it is okay to remove it. This is usually 2 or 3 days after surgery. After the doctor says you can take off your bandage, wash the area daily with warm, soapy water andpat it dry. Don't use hydrogen peroxide or alcohol, which can slow healing. You may cover the area with a gauze bandage if it weeps or rubs against clothing. Change the bandage every day. Keep the area clean and dry. Exercise Gently bend and straighten your fingers throughout the day to keep them flexible and help reduce swelling. You may need finger and hand therapy. 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 To get the best results, you need to do the exercises correctly and as often and as long as your doctor or hand therapist tells you to. Ice and elevation Put ice or a cold pack on your hand and wrist for 10 to 20 minutes at a time. Try to do this every 1 to 2 hours for the next 3 days (when you are awake) or until the swelling goes down. Put a thin cloth between the ice and your skin. Prop up your hand on a pillow anytime you sit or lie down during the first 2 or 3 days after surgery. Try to keep the hand above the level of your heart. This will help reduce swelling. Follow-up care is a russell part of your treatment and safety. Be sure to make and go to all appointments, and call your doctor if you are having problems. It s also a good idea to know your test resultsand keep a list of the medicines you take. When should you call for help? Call 911 anytime you think you may need emergency care. For example, call if: You passed out (lost consciousness). You have severe trouble breathing. You have sudden chest pain and shortness of breath, or you cough up blood. Call your doctor now or seek immediate medical care if: You have pain that does not get better after you take pain medicine. You have loose stitches, or your incision comes open. Your incision bleeds through a large bandage. You have signs of infection, such as: Increased pain, swelling, warmth, or redness. Red streaks leading from the incision. Pus draining from the incision. Swollen lymph nodes in your neck, armpits, or groin. A fever. Your hand or fingers are cool or pale or change color. You have tingling or numbness in your hand or fingers. You cannot move your fingers. Watch closely for any changes in your health, and be sure to contact your doctor if: You are not getting better as expected. Where can you learn more? Go to [email or web address] and sign in to your SecureLink account. Enter F681 in the Search Health Information box to learn more about Trigger Finger Release: What to Expect at Home. If you do not have an account, please click on the Sign Up Now link. [id number] [employer]. Care instructions adapted under license by [email or web address]. This care instruction is for use with your licensed healthcare professional. If you have questions about amedical condition or this instruction, always ask your healthcare professional. [employer] disclaims any warranty or liability for your use of this information. Content Version: 10.4.584826; Current as of: September 22, 2014 Trigger Finger: After Your Visit Your Care Instructions A trigger finger is a finger stuck in a bent position. The bent finger usually straightens out on its own. A trigger finger can be painful, but it normally is not a serious problem. Trigger fingers seem to occur more in some groups of people. These include people who have diabetesor arthritis or who have injured their hands in the past. This problem also occurs in musicians andpeople who hammer mill operator tools often. Rest, exercises, and other things you can do at home may help your trigger finger relax so that it can bend as it should. You may get a corticosteroid shot. This can reduce swelling and pain. Your doctor may put a splint on your finger. This will give your finger some rest and avoid irritating the joint. You may need surgery if the finger keeps locking in a bent position. Follow-up care is a russell part of your treatment and safety. Be sure to make and go to all appointments, and call your doctor if you are having problems. It's also a good idea to know your test resultsand keep a list of the medicines you take. How can you care for yourself at home? If your doctor put a splint on your finger, wear the splint as directed. Do not remove it until your doctor says you can. You may need to change your activities to avoid movements that irritate the finger. If your finger is swollen, put ice or a cold pack on your finger for 10 to 20 minutes at a time. Try to do this every 1 to 2 hours for the next 3 days (when you are awake) or until the swelling goes down. Put a thin cloth between the ice and your skin. Prop up your hand on a pillow when you ice it or anytime you sit or lie down during the next 3 days. Try to keep it above the level of your heart. This will help reduce swelling. Take your medicines exactly as prescribed. Call your doctor if you think you are having a problem with your medicine. Take anti-inflammatory medicines to reduce pain and swelling. These include ibuprofen (Advil, Motrin) and naproxen (Aleve). Read and follow all instructions on the label. If your doctor recommends exercises, do them as directed. When should you call for help? Call your doctor now or seek immediate medical care if: Your finger locks in a bent position and will not straighten. Watch closely for changes in your health, and be sure to contact your doctor if: You do not get better as expected. Where can you learn more? Go to [email or web address] and sign in to your [employer] account. Enter M826 in the Search Health Information box to learn more about Trigger Finger: After Your Visit. If you do not have an account, please click on the Sign Up Now link. [employer]. Care instructions adapted under license by [email or web address]. This care instruction is for use with your licensed healthcare professional. If you have questions about amedical condition or this instruction, always ask your healthcare professional. [employer] disclaims any warranty or liability for your use of this information. Content Version: 10.4.126323; Current as of: September 22, 2014 documented in this encounter History of Present Illness * Yolanda Orozco RN - 09/05/2020 7:30 AM EDT Up to bathroom with steady gait. Voids. Eating jello and drinking water without c/o nausea. C/o only minimal discomfort. Discharge Criteria Outpatients must meet criteria 1 through 7. Up to restroom, void sufficient amount. Yes 1. Minimum 30 minutes after last dose of sedative medication, minimum 120 minutes after last dose of reversal agent. Yes 2. Systolic BP stable within 20 mmHg for 30 minutes & systolic BP between 90 & 180 or within 10 mmHg of baseline. Yes 3. Pulse between 60 and 100 or within 10 bpm of baseline. Yes 4. Spontaneous respiratory rate >/= 10 per minute. Yes 5. SaO2 >/= 95 or >/= baseline. Yes 6. Able to cough and swallow or return to baseline function. Yes 7. Alert and oriented or return to baseline mental status. Yes 8. Demonstrates controlled, coordinated movements, ambulates with steady gait, or return to baseline activity function. Yes 9. Minimal or no pain or nausea, or at a level tolerable and acceptable to patient. Yes 10. Takes and retains oral fluids as allowed. Yes 11. Procedural / perioperative site stable. Minimal or no bleeding. Yes 12. If GI endoscopy procedure, minimal or no abdominal distention or passing flatus. Yes 13. Written discharge instructions and emergency telephone number provided. Yes 14. Accompanied by a responsible adult. Yes Adult patient discharged from facility without responsible person meets above criteria plus the following: a) remains awake without stimulus for 30 minutes b) oriented appropriate for age c) all vital signs stable d) no significant risk of losing protective reflexes e) able to maintain pre-procedure mobility without assistance f) no nausea or dizziness g) transportation arrangements that do not require patient to operate motor Vehicle. Yes documented in this encounter Summary Purpose Family History No Family History Records FoundNo Family History Records Found No data available for this section No data available for this section No data available for this section No data available for this section No data available for this section No data available for this section No data available for this section No data available for this section No data available for this section No data available for this section No Family History Records Found No data available for this section No Family History Records Found No data available for this section No Family History Records Found No data available for this section No data available for this section No Family History Records FoundNo Family History Records FoundNo Family History Records FoundNo Family History Records FoundNo Family History Records FoundNo Family History Records FoundNo Family History Records Found Chief Complaint and Reason for Visit Chief Complaint Lung Cancer Reason for Visit Non-small cell lung cancer Additional Source Comments Reason for Visit (unrecogniz ed section and content) Status Reason Specialty Diagnoses / Procedures Referre d By Contact Referred To Contact Diagnoses Congenital trigger thumb of left hand LEFT TRIGGER THUMB Procedures GA OFFICE/OUTPT VISIT,PROCEDURE ONLY GA INCISE FINGER TENDON SHEATH LEFT THUMB TRIGGER RELEASE Miguel Bolden, DO [address] [place] [address] [facility] Specialty Diagnoses / Procedures Referred By Contoleksandr t Referred To Contact Physical Therapy Diagnoses Tenosynovitis Radial Styloid Tenosynoutis Procedures Eval and treat Mecca Saucedo MD [address] [place] [address] [place] [address] [facility] Physical Therapy [address] [place] [address] Referral ID Status Reason Start Date Expiration Date Visits Re quested Visits Authorized [id number] Open 02/27/2022 02/27/2023 1 1 Care Teams (unrecognized sec tion and content) State Comptroller Relationship Specialty Start Date End Date Mecca Saucedo MD PCP - General 11/05/16 State Comptroller Relationship Specialty Start Date End Date Mecca Saucedo MD PCP General 11/05/16 State Comptroller Relationship Specialty Start Date End Date Mecca Saucedo MD PCP - General 11/05/16 State Comptroller Relationship Specialty Start Date End Date Mecca Saucedo MD [facility] General 11/05/16 State Comptroller Relationship Specialty Start Date End Date Mecca Saucedo MD PCP General 11/05/16 State Comptroller Relationship Specialty Start Date End Date Mecca Saucedo MD [facility] 11/05/16 State Comptroller Relationship Specialty Start Date End Date Mecca Saucedo MD PCP [facility] 11/05/16 Team Status: Active Member Role Status Dates Rasheed Roberson MD Attending Provider Active Edouard Saucedo MD Primary Care Provider Active Joshua Eng II, DO Referring Provider Active Team Status: Active Member Role Status Dates Edouard Saucedo MD Primary Care Provider Active State Comptroller Relationship Specialty Start Date End Date Mecca Saucedo MD [facility] General 11/05/16 State Comptroller Relationship Specialty Start Date End Date Mecca Saucedo MD PCP General 11/05/16 (unrecognized sect ion and content) No Status Records FoundNo Status Records FoundNo Status Records FoundNo Status Records FoundNo Status Records FoundNo Status Records FoundNo Status Records FoundNo Status Records FoundNo Status Records FoundNo Status Records FoundNo Status Records FoundNo Status Records Found INFORMATION SOURCE (unrecogn ized section and content) DATE CREATED AUTHOR 07/03/2022 [facility] DATE CREATED AUTHOR AUTHOR'S ORGANIZ ATION 01/24/2023 [facility] DATE CREATED AUTHOR AUTHOR'S ORGANIZ ATION 01/23/2024 [place] DATE CREATED AUTHOR AUTHOR'S ORGANIZ ATION 02/29/2024 [facility] DATE CREATED AUTHOR AUTHOR'S ORGANIZ ATION 05/12/2024 [facility] DATE CREATED AUTHOR AUTHOR'S ORGANIZ ATION 07/24/2024 [facility] DATE CREATED AUTHOR AUTHOR'S ORGANIZ ATION 07/29/2024 [facility] DATE CREATED AUTHOR AUTHOR'S ORGANIZ ATION 08/02/2024 [facility] Goals (unrecognized section and content) Goals may be documented in a n alternate section FOR RECORDS PERTAINING TO PATIENTS WHO ARE OR HAVE BEEN ENROLLED IN A CHEMICAL DEPENDENCY/SUBSTANCEABUSE PROGRAM, SOME INFORMATION MAY BE OMITTED. This clinical summary was aggregated from multiple sources. Caution should be exercised in using it in the provision of clinical care. This summary normalizes information from multiple sources, and as a consequence, information in this document may materially change the coding, format and clinical context of patient data. In addition, data may be omitted in some cases. CLINICAL DECISIONS SHOULD BE BASED ON THE PRIMARY CLINICAL RECORDS. [employer] provides no warranty or guarantee of the accuracy or completeness of information in this document.
[2024-08-29 07:22] VITALS: BP 129/85; PULSE 74; TEMP 36.2; O2SAT 97
[2024-08-29] MEDS: 0.9 % SODIUM CHLORIDE 500 ML IV (07:31)
[2024-08-29] MEDS: BUPIVACAINE HCL 0.25% PF 25 MG/10 ML VIAL 4 ML INJ (07:57)
[2024-08-29] MEDS: LIDOCAINE HCL 2% 400 MG/20 ML MDV 5 ML INJ (07:57)
[2024-08-29] MEDS: TRIAMCINOLONE ACETONIDE 40 MG/ML VIAL 80 MG INJ (07:57)
--- NOTE | 2024-08-29 08:07 | W.PM.PROCNOT ---
Date of procedure: 08/29/24 Pre-op diagnosis: M54.50 Post-op diagnosis: same as pre-op Procedure: Procedure: Left L3, 4, 5 radiofrequency ablation Medications: Bupivacaine 0.25% 3cc, lidocaine 2% 3cc, kenalog 40mg Anesthesia: Local Surgeon: Damion Bazan Pathology: none sent Condition: stable Disposition: no change
[2024-08-29 08:08] VITALS: BP 90/71; PULSE 80; TEMP 36.4; O2SAT 95
[2024-08-29 08:11] VITALS: BP 104/62; PULSE 81; TEMP 36.4; O2SAT 98
== END 2024-08-29 08:35 | disposition home or self-care (01) ==
LOC: SURGOUT 07:03
PROVIDERS: PCP Nurse Practitioner Family; Visit Provider Anesthesiology
DX: M54.50 Low back pain, unspecified (principal)
CPT/HCPCS: 64635; 64636; J0665; J2704; J3301

== ENCOUNTER 2024-09-22 10:41 | Outpatient (OUT) | payer OTHER, SELFPAY ==
--- NOTE | 2024-09-22 11:01 | P.CN_ITS ---
Consult Note: HPI Data of Consult Patient: known to practice within the last 3 years Requesting Physician: Bernie Bal NP Primary Care Provider: Yvon Up MD Consult Narrative Reason for consult: f/u Narrative: Roney Carlson a pleasant 68 year old male presents for evaluation of chronic left low back and left buttock pain. Today rating pain 0/10. Recently underwent left L3,4,5 facet RFA with 98% improvement in pain and function. Pt finds significant improvement with RFAs. cc:: CC: Bernie Bal NP Review of Systems ROS Musculoskeletal Denies: back pain PFSH PFSH Medical History (Updated 08/24/24 @ 08:52 by Kristi Graves RN) Hypothyroid ?E03.9 - Hypothyroidism, unspecified (ICD-10) Lung cancer ?C34.90 - Malignant neoplasm of unspecified part of unspecified bronchus or lung (ICD-10) HTN (hypertension) ?I10 - Essential (primary) hypertension (ICD-10) Surgical History Status post trigger finger release ?Z98.890 - Other specified postprocedural states (ICD-10) History of hernia repair ?Z98.890 - Other specified postprocedural states (ICD-10) ?Z87.19 - Personal history of other diseases of the digestive system (ICD-10) History of carpal tunnel release ?Z98.890 - Other specified postprocedural states (ICD-10) History of thyroid surgery ?Z98.890 - Other specified postprocedural states (ICD-10) History of cervical spinal surgery ?Z98.890 - Other specified postprocedural states (ICD-10) History of lumbar surgery ?Z98.890 - Other specified postprocedural states (ICD-10) Meds Home Medications and Allergies Home Medications ?Medication ?Instructions ?Recorded ?Confirmed ?Type buprenorphine 8 mg-naloxone 2 mg 2 tab sublingual DAILY 08/06/23 08/29/24 History sublingual tablet levothyroxine 125 mcg tablet 125 mcg PO DAILY 08/06/23 08/29/24 History (Euthyrox) oxybutynin chloride 5 mg tablet mg 04/18/24 History Allergies Allergy/AdvReac Type Severity Reaction Status Date / Time No Known Drug Allergies Allergy Verified 08/29/24 07:25 Exam Constitutional Documenting provider has reviewed patient's vital signs: yes Common normals: no apparent distress, oriented x3, healthy appearing, alert and well nourished General appearance: cooperative HENNC Common normals: normocephalic, hearing grossly normal bilaterally and moist oral mucous membranes Head and scalp: normocephalic Eye Common normals: PERRL Pupil: PERRL Neck & C-Spine Common normals: full ROM General: normal visual inspection Chest Common normals: inspection of chest normal Respiratory Common normals: normal respiratory effort, no retractions and no use of accessory muscles Back & Pelvis Lumbar spine/lower back: lumbar ROM normal; no pain with ROM Other: negative facet loading Extremity Common normals: normal to inspection and full ROM Neuro Common normals: oriented x3, CN's II-XII intact bilaterally, moves all e xtremities, no focal motor deficits, no sensory deficits noted and deep tendon reflexes 2+ bilaterally Sensorium/orientation: alert Gait (neuro): normal gait Motor exam: strength 5/5 throughout and no movement abnormalities noted Psych Common normals: mental status grossly normal, thought process normal, cooperative, affect normal, speech normal and activity/motor behavior normal Speech: normal speech Thought process: normal thought process Assessment and Plan Assessment and Plan (1) Lumbago: (2) Lumbar disc displacement without myelopathy: Plan significant ongoing improvement from left L3,4,5 facet RFA continue HEP as tolerated f/u PRN
== END 2024-09-22 10:42 | disposition home or self-care (01) ==
LOC: PM 10:42
PROVIDERS: PCP Family Medicine; Visit Provider Nurse Practitioner
DX: M54.50 Low back pain, unspecified (principal); M51.26 Other intervertebral disc displacement, lumbar region
CPT/HCPCS: G0463